=== PATIENT | female | born 1935 | race Caucasian/White ===

== ENCOUNTER 2019-11-28 19:40 | Inpatient (IN) | payer MEDICARE, OTHER ==
[~2019-11-28] VITALS: Ht 152.4 cm; Wt 56.7 kg
--- NOTE | 2019-11-29 12:20 | NUR ---
KEVIN ETIENNE admitted to room 426-1, with an admitting diagnosis of ELISSA, ALVINO, on 11/29/19 from [facility] via EMS, accompanied by EMS. KEVIN ETIENNE introduced to surroundings, call light, bed controls, phone, TV, temperature control, lights, meal times, smoking policy, visitor policy, side rail policy, bathrooms and showers. Patient Rights given to patient in the handbook. KEVIN ETIENNE verbalizes understanding that [facility] is not responsible for the loss or damage to any personal effects or valuables that are kept in the patients possession during their hospitalization. The following Patient Care Plans were discussed with the patient: Discharge Planning, pain management, medications, and dehydration. KEVIN ETIENNE verbalizes understanding of Interdisciplinary Patient Education. Patient and/or family were informed about the Rapid Response Team and its purpose.
[2019-11-29 12:30] VITALS: BP 140/66
[2019-11-29] MEDS ORDERED: IOHEXOL 350 MG/ML 100 ML (OMNIPAQUE 350) VIAL IV ONE (13:00)
[2019-11-29] MEDS ORDERED: NS 100 ML (IVPB) BAG IV ONE (13:00)
[2019-11-29] MEDS ORDERED: CATHETER FLUSH 10 ML SYR IV PRN ×2 (13:00)
[2019-11-29] MEDS ORDERED: PIPERACILLIN/TAZO 4.5 GM/NS 100 ML IV NR ×2 (13:00)
[2019-11-29] MEDS ORDERED: HOLD METFORMIN - RECEIVED CONTRAST 20 ML VIAL IV SCH (13:00)
[2019-11-29 13:50] LABS: BASOPHILS % (AUTO) 0 % (0-10); EOSINOPHILS % (AUTO) 0 % (0-10); HEMATOCRIT 38 % (35-52); HEMOGLOBIN 12.3 g/dL (11.5-16.0); LYMPHOCYTES # (AUTO) 1.1 10^3/uL (1.0-4.0); LYMPHOCYTES % (AUTO) 16 % (12-44); MEAN CORPUSCULAR HEMOGLOBIN 29 pg (25-34); MEAN CORPUSCULAR HGB CONC 32 g/dL (32-36); MEAN CORPUSCULAR VOLUME 89 fL (80-99); MEAN PLATELET VOLUME 10.5 fL (9.0-12.2); MONOCYTES # (AUTO) 0.3 10^3/uL (0.0-1.0); MONOCYTES % (AUTO) 4 % (0-12); NEUTROPHILS # (AUTO) 5.1 10^3/uL (1.8-7.8); NEUTROPHILS % (AUTO) 79 % (42-75); PLATELET COUNT 212 10^3/uL (130-400); WHITE BLOOD COUNT 6.5 10^3/uL (4.3-11.0)
[2019-11-29 14:00] LABS: ALBUMIN 3.2 GM/DL (3.2-4.5); CHLORIDE 97 MMOL/L (98-107); POTASSIUM 3.9 MMOL/L (3.6-5.0); SODIUM 132 MMOL/L (135-145)
[2019-11-29 14:01] LABS: CALCIUM 8.6 MG/DL (8.5-10.1)
[2019-11-29 14:03] LABS: GLUCOSE 101 MG/DL (70-105); TOTAL PROTEIN 5.9 GM/DL (6.4-8.2)
[2019-11-29 14:04] LABS: BILIRUBIN,TOTAL 0.5 MG/DL (0.1-1.0); CARBON DIOXIDE 24 MMOL/L (21-32)
[2019-11-29 14:06] LABS: ALKALINE PHOSPHATASE 45 U/L (40-136); GFR ESTIMATED > 60
[2019-11-29 14:07] LABS: BUN/CREATININE RATIO 9
[2019-11-29 14:09] LABS: ALANINE AMINOTRANSFERASE 11 U/L (0-55)
[2019-11-29 14:20] LABS: ATYPICAL LYMPHOCYTES 1 %; BAND NEUTROPHILS 8 %; LYMPHOCYTES % (MANUAL) 9 %; MONOCYTES % (MANUAL) 4 %; NEUTROPHILS % (MANUAL) 78 %; RBC MORPH NORMAL
[2019-11-29] MEDS: CATHETER FLUSH 10 ML SYR IV SCH ×2 (14:20→22:00)
[2019-11-29] MEDS ORDERED: APIX5TAB PO (14:43)
[2019-11-29] MEDS ORDERED: ACET325C7 PO (14:43)
[2019-11-29] MEDS ORDERED: GABA-486 PO (14:43)
[2019-11-29] MEDS ORDERED: DONE10TA41 PO (14:43)
[2019-11-29] MEDS ORDERED: LEVO50TA6 PO (14:43)
--- NOTE | 2019-11-29 14:43 | NUR ---
SPOKE WITH THE PT (I CALLED HER ROOM PHONE) AND WENT THRU THE EXT MED HISTORY TO COMPLETE THE MED REC PT FILLED A Z-ALEC ON 11-20-2019 #1/5DS-PT SAYS SHE HAS FINISHED THIS MEDICATION ALL OTHER MEDICATIONS THE PT WAS ABLE TO CONFIRM SHE TAKES, WELL WHEN/HOW SHE TAKES EACH OTC MEDS: TYLENOL
--- NOTE | 2019-11-29 15:56 | History & Physical-Hospitalist ---
History of Present Illness HPI/Chief Complaint Pt is an 84yoCF who presented from OSH due to COVID and hypoxia. She is a very poor historian because she states she is not feeling well. She reports her symptoms have been going on for 3-4 weeks and she has had 4 COVID tests with that 4th being positive last week. She continued to worsen and just "feels bad." She denies any shortness of breath and has a mild cough. She reports poor appetite but denies vomiting. She otherwise was very vague and did not answer my questions. I have reviewed the DC summary from [facility] and it appears she was admitted for CAP and UTI and was treated with Rocephin and UTI for 3 days. She was found to be COVID positive on 11/27 (though I am unsure why she was tested). She was transferred here as they do not keep COVID positive patients. She was mildly hypoxic on presentation for CAP and required 1-2lpm NC. Source: patient Exam Limitations: no limitations Date Seen 11/29/19 Time Seen by a Provider: 15:50 Attending Physician Susi Saavedra MD PCP Referring Physician Date of Admission Nov 29, 2019 at 12:24 Home Medications & Allergies Home Medications Reviewed patient Home Medication Reconciliation performed by pharmacy medication reconciliations highway technician and/or nursing. Patients Allergies have been reviewed. Allergies Allergies Coded Allergies No Known Drug Allergies (Gzdmyfoiqg17/7/20) Past Snpkkxr-Ouohkp-Pnajik Hx Past Med/Social Hx: Reviewed Nursing Past Med/Soc Hx Patient Social History Marrital Status: Employed/Student: retired Smoking Status: Unknown if Ever Smoked Recent Foreign Travel: No Contact w/other who traveled: No Recent Infectious Disease Expo: No Past Medical History Cardiac: Atrial Fibrillation, High Cholesterol Neurological: Dementia Endocrine: Hypothyroidsim Family History Reviewed Nursing Family Hx No Pertinent Family Hx Review of Systems Constitutional: fever Physical Exam Physical Exam Vital Signs Vital Signs - First Documented Capillary Refill : Height, Weight, BMI Height: '" Weight: lbs. oz. kg; 26.60 BMI Method: General Appearance: No Apparent Distress, Chronically ill HEENT: PERRL/EOMI, Moist Mucous Membranes; No Scleral Icterus (L), No Scleral Icterus (R) Neck: Normal Inspection, Supple Respiratory: No Accessory Muscle Use, Decreased Breath Sounds, Other (on 3lpm NC) Cardiovascular: No Edema, No Murmur, Irregularly Irregular Gastrointestinal: Normal Bowel Sounds, Non Tender, Soft Extremity: Normal Capillary Refill, No Calf Tenderness, No Pedal Edema Neurologic/Psychiatric: Alert, Oriented x3 (slightly confused about details of recent admission); No Aphasia Skin: Normal Color, Warm/Dry Results Results/Procedures Labs Laboratory Tests 11/29/19 13:20 11/30/19 06:12 Patient resulted labs reviewed. Assessment/Plan Admission Diagnosis COVID19 Admission Status: Inpatient Order (span 2 midnights) Reason for Inpatient Admission: see below Assessment and Plan COVID19 Pneumonia Acute hypoxic respiratory failure Continue decadron Discussed convalescent plasma with patient and she states she would like to think about it Appears to be outside the window for Remdesivir as her symptoms have been going on for weeks but she would also like to think about that IS mat protocol Zosyn for pneumonia UTI Await cultures from OSH Continue Zosyn A-fib rate controlled, does not appear to be on any rate controlling medicines here Continue Eliquis for stroke ppx Hypothyroidism Continue home synthroid DVT ppx: already on eliquis Diagnosis/Problems Diagnosis/Problems (1) Acute respiratory failure Status: Acute Qualifiers: Respiratory failure complication: hypoxia Qualified Codes: J96.01 - Acute respiratory failure with hypoxia (2) Atrial fibrillation Status: Chronic Qualifiers: Atrial fibrillation type: paroxysmal Qualified Codes: I48.0 - Paroxysmal atrial fibrillation (3) COVID-19 Status: Acute (4) Debility Status: Acute (5) Dementia Status: Chronic Qualifiers: Dementia type: unspecified type Dementia behavioral disturbance: without behavioral disturbance Qualified Codes: F03.90 - Unspecified dementia without behavioral disturbance (6) Pneumonia due to COVID-19 virus Status: Acute Clinical Quality Measures DVT/VTE Risk/Contraindication: Risk Factor Score Per Nursin RFS Level Per Nursing on Admit: 4+=Very High IVA SEE MD Nov 29, 2019 15:56
[2019-11-29 16:00] VITALS: BP 152/69
[2019-11-29] MEDS ORDERED: NON-FORMULARY MEDICATION 1 EA EA (Acetaminophen (Tylenol) 650 MG) PO PRN (16:00)
--- NOTE | 2019-11-29 16:00 | NUR ---
Patient back from CT at this time. Reported from CT that IV infiltrated while in CT, and arm was swolen, new IV was placed in CT. Ice applied to arm at this time. Will continue to monitor.
--- NOTE | 2019-11-29 16:15 | Diagnostic Imaging Report ---
PROCEDURE: CT angiography of the chest with contrast. TECHNIQUE: Multiple contiguous axial images were obtained through the chest after uneventful bolus administration of intravenous contrast. 3D reconstructed CTA MIP acquisitions were also performed. Auto Exposure Controls were utilized during the CT exam to meet ALARA standards for radiation dose reduction. INDICATION: Fever, cough, shortness of air, COVID positive. COMPARISON: I have no comparison. FINDINGS: There are no intraluminal pulmonary arterial filling defects. There were no findings of pulmonary arterial embolus. This patient has extensive five-lobe patchy and scattered largely groundglass infiltrates as well as bilateral pleural effusions, greater right, nonloculated. The right pleural fluid layering to an average depth of 1.3 cm. Heart size is at the upper limits of normal. The aorta is nonaneurysmal. There are coronary arterial atherosclerotic vascular calcifications and there is a small hiatal hernia. No findings of elevated right heart pressures or right heart strain. There is some right hilar and subcarinal mild lymphadenopathy, likely reactive. The visualized upper abdomen demonstrates a left hepatic lobe cyst with no free fluid or free air. IMPRESSION: 1. Bilateral largely groundglass infiltrates. There are small bilateral nonloculated pleural effusions, greater right, as well as likely some mild reactive thoracic adenopathy. 2. Nonaneurysmal atherosclerosis. Dictated by: Dictated on workstation # [id number]
[2019-11-29 16:33] VITALS: BP 152/69
[2019-11-29] MEDS: ACETAMINOPHEN 325 MG TABLET PO PRN (16:43)
[2019-11-29 19:43] VITALS: BP 103/57
[2019-11-29] MEDS: DONEPEZIL 10 MG (ARICEPT) TAB PO SCH (20:33)
[2019-11-29] MEDS: PIPERACILLIN/TAZOBACTAM (BULK) 4.5 GM in NS (IVPB) 100 ML IV SCH (20:33)
[2019-11-29] MEDS: APIXABAN 5 MG (ELIQUIS) TABLET PO SCH (20:33)
[2019-11-29] MEDS: RT-ALBUTEROL INHALER HFA (VENTOLIN HFA) 18 GM IH PRN (20:53)
[2019-11-29] MEDS: RT-ALBUTEROL INHALER HFA (VENTOLIN HFA) 18 GM IH SCH (21:09)
[2019-11-29 23:34] LABS: ABG BASE EXCESS -2.3 MMOL/L (-2.5-2.5); ABG OXYGEN SATURATION 94 % (94-100); ABG PCO2 35 MMHG (35-45); ABG PO2 67 MMHG (79-93)
--- NOTE | 2019-11-29 23:39 | NUR ---
PT update: This RN went in to give pt's meds at 2030 and to assess the PT. As previously noted by RACH Antony, in regards to CT blowing the patients IV in her left arm, her left arm looked less swollen and pt did not complain of any pain, just that she felt that it was uncomftorable. Ice was removed for 30 min, then re applied with the ice pack again with a small rag between the skin/arm. Ice pack was removed 30 min later, and pt said she was ok and done with the ICE pack. At this time, the patient skin was also moist and a new gown was reapplied with linen changes. PT stated she just felt sweaty and pt skin was moist. PT's skin did not seem warm/hot, and the PT was not running a fever as temperature was 36.0 Celsius. PT had a loose BM at this time and experienced some SOB/fatigue when positioning to the side of the bed and using the commode. PT is on 3 L NC and stopped experiencing SOB when laying back down in bed - PT just complained of being fatigued. Will continue to monitor pt and provide care as ordered.
[2019-11-29 23:40] LABS: ALLENS TEST POS; INSPIRED O2 3; PATIENT TEMP 35.9; VENTILATOR NO
[2019-11-30] VITALS (7 sets, daily range): BP systolic 86–150; BP diastolic 50–87
[2019-11-30] MEDS: RT-ALBUTEROL INHALER HFA (VENTOLIN HFA) 18 GM IH SCH ×3 (02:25→15:32)
[2019-11-30] MEDS: PIPERACILLIN/TAZOBACTAM (BULK) 4.5 GM in NS (IVPB) 100 ML IV SCH ×3 (02:58→20:14)
[2019-11-30 06:17] LABS: HEMOGLOBIN 12.3 g/dL (11.5-16.0); MEAN PLATELET VOLUME 10.3 fL (9.0-12.2); WHITE BLOOD COUNT 6.2 10^3/uL (4.3-11.0)
[2019-11-30 06:34] LABS: CHLORIDE 97 MMOL/L (98-107); SODIUM 133 MMOL/L (135-145)
[2019-11-30 06:35] LABS: CALCIUM 8.8 MG/DL (8.5-10.1); GLUCOSE 133 MG/DL (70-105)
[2019-11-30 06:37] LABS: CARBON DIOXIDE 23 MMOL/L (21-32)
[2019-11-30 06:39] LABS: CREATININE SERUM 0.74 MG/DL (0.60-1.30); GFR ESTIMATED > 60
[2019-11-30 06:40] LABS: BUN/CREATININE RATIO 15
[2019-11-30] MEDS: CATHETER FLUSH 10 ML SYR IV SCH ×3 (06:48→22:00)
[2019-11-30] MEDS: LEVOTHYROXINE 50 MCG (LEVOTHROID) TAB PO SCH (06:48)
[2019-11-30] MEDS: APIXABAN 5 MG (ELIQUIS) TABLET PO SCH ×2 (08:15→20:13)
--- NOTE | 2019-11-30 11:41 | Progress Note - Hospitalist ---
Subjective HPI/CC On Admission Date Seen by Provider: Nov 30, 2019 Time Seen by Provider: 11:37 Pt is an 84yoCF who presented from OSH due to COVID and hypoxia. She is a very poor historian because she states she is not feeling well. She reports her symptoms have been going on for 3-4 weeks and she has had 4 COVID tests with that 4th being positive last week. She continued to worsen and just "feels bad." She denies any shortness of breath and has a mild cough. She reports poor appetite but denies vomiting. She otherwise was very vague and did not answer my questions. I have reviewed the DC summary from [facility] and it appears she was admitted for CAP and UTI and was treated with Rocephin and UTI for 3 days. She was found to be COVID positive on 11/27 (though I am unsure why she was tested). She was transferred here as they do not keep COVID positive patients. She was mildly hypoxic on presentation for CAP and required 1-2lpm NC. Subjective/Events-last exam Pt reports feeling better today. Objective Exam Vital Signs Vital Signs Date Time Temp Pulse Resp B/P (MAP) Pulse Ox O2 Delivery O2 Flow Rate FiO2 11/30/19 08:55 Nasal Cannula 4.00 11/30/19 08:00 36.3 77 18 118/66 (83) 93 Capillary Refill : Less Than 3 Seconds General Appearance: No Apparent Distress, Chronically ill Respiratory: No Accessory Muscle Use; No Crackles; Decreased Breath Sounds Cardiovascular: Regular Rate, Rhythm, No Murmur Neurologic/Psychiatric: Alert, Oriented x3 Results/Procedures Lab Laboratory Tests 11/29/19 13:20 11/30/19 06:12 Patient resulted labs reviewed. Assessment/Plan Assessment and Plan Assess & Plan/Chief Complaint COVID19 Pneumonia Acute hypoxic respiratory failure Continue decadron Discussed convalescent plasma with patient and family and they are agreeable, understand EUA terms Discussed with daughter today who states that symptoms of cough and fever started 11/19, 10 days ago, actually within timeline for remdesivir, discussed EUA terms and they are all agreeable as well IS mat protocol Zosyn for pneumonia UTI Await cultures from OSH Continue Zosyn A-fib rate controlled, does not appear to be on any rate controlling medicines here Continue Eliquis for stroke ppx Daughter states worsening fatigue since starting that earlier this year, consider switch back to warfarin after acute illness Hypothyroidism Continue home synthroid DVT ppx: already on eliquis Clinical Quality Measures DVT/VTE Risk/Contraindication: Risk Factor Score Per Nursin RFS Level Per Nursing on Admit: 4+=Very High IVA SEE MD Nov 30, 2019 11:41
[2019-11-30] MEDS ORDERED: NS IV 500 ML 500 ML IV SCH (11:52)
[2019-11-30] MEDS ORDERED: REMDESIVIR INJ (NON-FORMULARY) 200 MG in NS (IVPB) 210 ML IV NR ×2 (12:00→16:00)
--- NOTE | 2019-11-30 12:16 | Occupational Therapy Eval ---
OT Evaluation-General/PLF Medical Diagnosis Admission Date Nov 30, 2019 at 10:07 Medical Diagnosis: COVID+, pneumonia Onset Date: Nov 30, 2019 Therapy Diagnosis Therapy Diagnosis: decreased ADL status, weakness Precautions Precautions/Isolations: Contact Isolation, Droplet Isolation, Fall Prevention Referral Physician: Benita Referral Reason: Evaluation/Treatment Medical History Pertinent Medical History: Atrial Fib, Dementia, Hypothroidism Additional Medical History high cholesterol Current History Pt had symptoms for ~3-4 weeks. She was admitted to [facility] with CAP & UTI, pt tested positive for COVID and transferred to [facility] with COVID+ and hypoxia. Social History Home: Single Level Current Living Status: Spouse ADL-Prior Level of Function SCALE: Activities may be completed with or without assistive devices. 3-Ehxscpybwd-ldqusko completes the activity by him/herself with no assistance from a helper. 5-Set-up or Clean-up Assistance-helper sets up or cleans up; patient completes activity. [place] assists only prior to or following the activity. 4-Supervision or Touching Assistance-helper provides verbal cues and/or touching/steadying and/or contact guard assistance as patient completes activity. Assistance may be provided throughout the activity or intermittently. 3-Partial/Moderate Assistance-helper does LESS THAN HALF the effort. [place] lifts, holds or supports trunk or limbs, but provides less than half the effort. 2-Substantial/Maximal Assistance-helper does MORE THAN HALF the effort. [place] lifts or holds trunk or limbs and provides more than half the effort. 3-Gzdmymitb-uhyaaz does ALL the effort. Patient does none of the effort to complete the activity. Or, the assistance of 2 or more helpers is required for the patient to complete the activity. If activity was not attempted, code reason: 7-Patient Refused. 9-Not Applicable-not attempted and the patient did not perform the activity before the current illness, exacerbation or injury. 10-Not Attempted due to Environmental Limitations-(lack of equipment, weather restraints, etc.). 88-Not Attempted due to Medical Conditions or Safety Concerns. ADL PLOF Comments Pt reports being independent with ADLs at [facility], since feeling weak the last few weeks her has assisted with house work. She has a walk in shower with a shower chair. Self Care: Independent Functional Cognition: Independent DME/Equipment: Bath Chair, Shower OT Current Status Subjective Pt agreeable to OT evaluation, she did not verbalize any pain. Pt indicates she feels very weak and when she coughs she has a BM. Mental Status/Objective Attachments: Oxygen Current Glasses/Contacts: Yes Hearing Aids: Yes Upper Extremity ROM WFL Upper Extremity Coordination WFL Upper Extremity Strength grossly 3/5 ADL-Treatment Lower Body Dressing (QC): 3 (min A, pt able to manage pants down. OT assisted with doffing brief due to incontinent of BM. Pt then able to thread BLEs and manage brief up with CGA.) Toileting Hygiene (QC): 3 (Pt able to manage clothing, min A with hygiene for thoroughness) Other Treatments Pt walking with PT in room, then into restroom. Pt transferred onto toilet with CGA. She doffed soiled brief with assistance, then completed toileting. Pt indicates each time she coughs she has a BM. Pt attempted to perform hygiene, but had coughing spells, min A with hygiene for thoroughness. Pt then used FWW to ambulate to the recliner, [facility], with skilled cues for transfer. OT assisted pt with plugging her cellphone in to charge, and assist with positioning to comfort. Post OT Tx, pt seated in recliner, call light in reach and all needs met. Education OT Patient Education: Correct positioning, Energy conservation, Modified ADL techniques, Progress toward Goal/Update tx plan, Purpose of tx/functional activities, Rehab process, Safety issues, Transfer techniques Teaching Recipient: Patient Teaching Methods: Discussion Response to Teaching: Verbalize Understanding OT Penitentiary Goals Penitentiary Goals Time Frame: Dec 08, 2019 Eating (QC): 6 Oral Hygiene (QC): 6 Toileting Hygiene (QC): 6 Shower/Bathe Self (QC): 6 Upper Body Dressing (QC): 6 Lower Body Dressing (QC): 6 On/Off Footwear (QC): 6 1=Demonstrate adherence to instructed precautions during ADL tasks. 2=Patient will verbalize/demonstrate understanding of assistive devices/modifications for ADL. 3=Patient will improve strength/tolerance for activity to enable patient to perform ADL's. OT Education/Plan Problem List/Assessment Assessment: Decreased Activ Tolerance, Decreased UE Strength, Impaired Funct Balance, Impaired I ADL's, Impaired Self-Care Skills Discharge Recommendations Plan/Recommendations: Continue POC Therapy Discharge Recommendati: Home & Family, Post Acute OT Treatment Plan/Plan of Care Patient would benefit from OT for education, treatment and training to promote independence in ADL's, mobility, safety and/or upper extremity function for ADL's. Plan of Care: ADL Retraining, Functional Mobility, UE Funct Exercise/Act Treatment Duration: Dec 08, 2019 Frequency: 5 times per week Estimated Hrs Per Day: .25 hour per day Rehab Potential: Fair Time/GCodes Start Time: 11:33 Stop Time: 11:48 Total Time Billed (hr/min): 15 Billed Treatment Time 1, SUSIE BURNS OT Nov 30, 2019 12:16
--- NOTE | 2019-11-30 13:31 | Physical Therapy Evaluation ---
PT Evaluation-General Medical Diagnosis Admission Date Nov 30, 2019 at 10:07 Medical Diagnosis: COVID+, pneumonia Onset Date: Nov 30, 2019 Therapy Diagnosis Therapy Diagnosis: generalized weakness/debility Precautions Precautions/Isolations: Contact Isolation, Droplet Isolation, Fall Prevention Referral Physician: Benita Reason for Referral: Evaluation/Treatment Medical History Pertinent Medical History: Atrial Fib, Dementia, Hypothroidism Current History admit from OSH secondary to Covid Reviewed History: Yes Social History Home: Single Level Current Living Status: Spouse Prior Prior Level of Function SCALE: Activities may be completed with or without assistive devices. 5-Nnvtfskuxx-dnburpn completes the activity by him/herself with no assistance from a helper. 5-Set-up or Clean-up Assistance-helper sets up or cleans up; patient completes activity. [place] assists only prior to or following the activity. 4-Supervision or Touching Assistance-helper provides verbal cues and/or touching/steadying and/or contact guard assistance as patient completes activity. Assistance may be provided throughout the activity or intermittently. 3-Partial/Moderate Assistance-helper does LESS THAN HALF the effort. [place] lifts, holds or supports trunk or limbs, but provides less than half the effort. 2-Substantial/Maximal Assistance-helper does MORE THAN HALF the effort. [place] lifts or holds trunk or limbs and provides more than half the effort. 5-Atwistkog-gwgwfq does ALL the effort. Patient does none of the effort to complete the activity. Or, the assistance of 2 or more helpers is required for the patient to complete the activity. If activity was not attempted, code reason: 7-Patient Refused. 9-Not Applicable-not attempted and the patient did not perform the activity before the current illness, exacerbation or injury. 10-Not Attempted due to Environmental Limitations-(lack of equipment, weather restraints, etc.). 88-Not Attempted due to Medical Conditions or Safety Concerns. Bed Mobility: 6 Transfers (B,C,W/C): 6 Gait: 6 Stairs: 6 Indoor Mobility (Ambulation): Independent Stairs: Independent Prior Devices Use: None PT Evaluation-Current Subjective Patient agrees to PT. Objective Patient Orientation: Normal For Age Attachments: Oxygen ROM/Strength ROM Lower Extremities bilateral LE WFL Strength Lower Extremities 3+/5 grossly bilateral LE Integumentary/Posture Integumentary refer to nursing notes Bowel Incontinence: Yes Bladder Incontinence: Yes Posture WFL Neuromuscular (Tone, Coordination, Reflexes) grossly intact Sensory Vision: Wears Glasses Hearing: Hearing Aid/Aides Sensation Right Lower Extremit: Intact Sensation Left Lower Extremity: Intact Transfers Roll Left to Right (QC): 6 Lying to Sitting/Side of Bed(Q: 6 Sit to Stand (QC): 5 Gait Does the Patient Walk?: Yes Mode of Locomotion: Walk Anticipated Mode of Locomotion: Walk Walk 10 feet (QC): 5 Gait Assistive Device: FWW Comments/Gait Description Patient incontinent BM during session. OT present to begin evaluation to assist patient Balance Sitting Static: Normal Sitting Dynamic: Normal Standing Static: Normal Standing Dynamic: Normal Assessment/Needs 84 y.o. female, will benefit from skilled PT to address functional strength and mobility to improve current LOF to safely return to home at maximum LOF. Rehab Potential: Fair PT Senior Search Marketing Analyst Goals Senior Search Marketing Analyst Goals PT [facility] Goals Time Frame: Dec 08, 2019 Roll Left & Right (QC): 6 Sit to Lying (QC): 6 Lying-Sitting on Side/Bed(QC): 6 Sit to Stand (QC): 6 Chair/Nsp-jn-Faxgw Xfer(QC): 6 Toilet Transfer (QC): 6 Does the Patient Walk: Yes Walk 10 feet (QC): 6 Walk 50ft with 2 Turns (QC): 6 Walk 150 ft (QC): 6 PT Plan Problem List Problem List: Activity Tolerance, Safety, Balance Treatment/Plan Treatment Plan: Continue Plan of Care Treatment Plan: Bed Mobility, Education, Functional Activity Misael, Functional Strength, Gait, Safety, Therapeutic Exercise, Transfers Treatment Duration: Dec 09, 2019 Frequency: 6 times per week Estimated Hrs Per Day: .25 hour per day Patient and/or Family Agrees t: Yes Time/GCodes Time In: 1125 Time Out: 1136 Total Billed Treatment Time: 11 Total Billed Treatment 1 visit EVMod 11 min JUAN BERRIOS PT Nov 30, 2019 13:31
--- NOTE | 2019-11-30 14:10 | NUR ---
"RD ASSESSMENT PMHx: hypercholesterolemia; dementia; hypothyroidism; PT INTERACTION: Note pt has dementia and is COVID-19, per chart review. Note all diet information for nutrition assessment is per chart review. Note PO intake 25% x1meal. Note last BM was 11/29, and pt not currently on bowel regimen. Note unable to determine recent wt hx. ABNORMAL NUTRITION-RELATED LAB VALUES LOW: Na 133; Cl 97 HIGH: glu 133 Est. kcal needs: 1550 kcal | 25 kcal/kg Est. Pro needs: 62 g Pro | 1.0 g Pro/kg PES STATEMENT: Inadequate oral intake (NI-2.1) related to loss of appetite as evidenced by chart review | PO intake 25% x1meal INTERVENTION: Continue with current diet order of Regular diet. Add Ensure Enlive (vary) to meals TID, for increased kcal intake. Provides 350 kcal and 13 g Pro per serving. Would encourage pt to eat when able. Will continue to follow and reassess as pt needs, intake, and status change. Amelie Orr, MS RD LD"
[2019-11-30] MEDS: ACETAMINOPHEN 325 MG TABLET PO PRN ×2 (15:20→23:40)
[2019-11-30] MEDS: DONEPEZIL 10 MG (ARICEPT) TAB PO SCH (20:13)
[2019-11-30] MEDS: GABAPENTIN 100 MG (NEURONTIN) CAP PO SCH (20:13)
[2019-11-30] MEDS: RT-ALBUTEROL INHALER HFA (VENTOLIN HFA) 18 GM IH PRN (21:43)
[2019-12-01] VITALS (9 sets, daily range): BP systolic 100–155; BP diastolic 57–82
[2019-12-01] MEDS ORDERED: IBUPROFEN TABLET 200 MG TAB PO PRN
--- NOTE | 2019-12-01 00:02 | NUR ---
This nurse notified Dr. Saavedra at 2378 regarding this pts temp of 38.6 C/101.5 F, BP of 150/89, and SPO2 of 75-80% on 3 L. Pt was visibly shaking and complaining of feeling warm. Dr. Saavedra ordered ibuprophen 400mg PO PRN q6HRS for pain/fever, between doses of tylenol PRN. ICE packs are currently applied underneath pts neck and both arms in an attempt to bring down fever, and pt is limited just to a bed sheet. Pt is currently on 5 L NC with sats maintaining at 85% ( I WENT UP TO 7L BUT IT DIDN'T IMPROVE SATS) and I called RT and they are going to assess there on their rounds. Will reassess and remove ice packs in 30 minutes. Will continue to monitor pt/temp/sats and provide care as ordered.
--- NOTE | 2019-12-01 01:22 | NUR ---
This nurse reassessed this pt's temperature at 0030 and it was 37.6 C (Temporal). Ice packs were removed for 10 minutes, then reapplied. At 0100, this nurse reassessed pt's temperature (Temporal) again and it was 36.2 C. Ice packs have been removed, and pt only has a sheet and states she is comfortable. At this time, RT came in and put this pt on 9 L High flow NC, and SPO2 is maintaining >90% on a continuous pulse ox so we can monitor through window. Will continue to monitor pt and provide care as ordered.
[2019-12-01] MEDS: RT-ALBUTEROL INHALER HFA (VENTOLIN HFA) 18 GM IH SCH ×3 (03:04→19:30)
[2019-12-01] MEDS: PIPERACILLIN/TAZOBACTAM (BULK) 4.5 GM in NS (IVPB) 100 ML IV SCH ×3 (04:07→19:38)
[2019-12-01 06:12] LABS: ALBUMIN 3.2 GM/DL (3.2-4.5)
[2019-12-01 06:13] LABS: CHLORIDE 99 MMOL/L (98-107); POTASSIUM 3.9 MMOL/L (3.6-5.0); SODIUM 136 MMOL/L (135-145)
[2019-12-01 06:14] LABS: CALCIUM 8.7 MG/DL (8.5-10.1)
[2019-12-01 06:15] LABS: GLUCOSE 130 MG/DL (70-105); TOTAL PROTEIN 6.1 GM/DL (6.4-8.2)
[2019-12-01 06:16] LABS: CARBON DIOXIDE 25 MMOL/L (21-32)
[2019-12-01 06:17] LABS: BILIRUBIN,TOTAL 0.5 MG/DL (0.1-1.0)
[2019-12-01 06:18] LABS: ALKALINE PHOSPHATASE 43 U/L (40-136)
[2019-12-01 06:19] LABS: CREATININE SERUM 0.79 MG/DL (0.60-1.30); GFR ESTIMATED > 60
[2019-12-01 06:20] LABS: BUN/CREATININE RATIO 19
[2019-12-01 06:22] LABS: ALANINE AMINOTRANSFERASE 24 U/L (0-55)
[2019-12-01] MEDS: CATHETER FLUSH 10 ML SYR IV SCH ×2 (06:22→14:00)
[2019-12-01] MEDS: LEVOTHYROXINE 50 MCG (LEVOTHROID) TAB PO SCH (06:22)
[2019-12-01] MEDS: APIXABAN 5 MG (ELIQUIS) TABLET PO SCH ×2 (09:00→20:10)
--- NOTE | 2019-12-01 09:38 | NUR ---
Patient O2 at 0800 76% on 10 L high flow. RN notified, patient O2 increased to 15 L high flow, and placed in prone position. 0837 patient O2 decreased ack to 10 L high flow, 94%. Patient tolerating prone position at that time.
--- NOTE | 2019-12-01 12:04 | Physical Therapy Daily Note ---
PT Daily Note-Current Subjective Patient opens eyes and moans on this date. Patient is on 12L O2 NC HF with SAO2 88%. RN is aware. Mental Status Patient Orientation: Eyes Open Attachments: Oxygen (12L HF NC), IV Transfers SCALE: Activities may be completed with or without assistive devices. 9-Wbwgelpxpa-xzvlxgj completes the activity by him/herself with no assistance from a helper. 5-Set-up or Clean-up Assistance-helper sets up or cleans up; patient completes activity. [place] assists only prior to or following the activity. 4-Supervision or Touching Assistance-helper provides verbal cues and/or touching/steadying and/or contact guard assistance as patient completes activity. Assistance may be provided throughout the activity or intermittently. 3-Partial/Moderate Assistance-helper does LESS THAN HALF the effort. [place] lifts, holds or supports trunk or limbs, but provides less than half the effort. 2-Substantial/Maximal Assistance-helper does MORE THAN HALF the effort. [place] lifts or holds trunk or limbs and provides more than half the effort. 7-Xrlrxoopg-ubiccg does ALL the effort. Patient does none of the effort to complete the activity. Or, the assistance of 2 or more helpers is required for the patient to complete the activity. If activity was not attempted, code reason: 7-Patient Refused. 9-Not Applicable-not attempted and the patient did not perform the activity be fore the current illness, exacerbation or injury. 10-Not Attempted due to Environmental Limitations-(lack of equipment, weather restraints, etc.). 88-Not Attempted due to Medical Conditions or Safety Concerns. Roll Left & Right (QC): 2 Patient repositioned to side lying left to improve SAO2. Assessment Patient unable to safely perform OOB activity due to elevated temp, increase in O2 need and inability to follow direction. PT [facility] Goals Orthotic Finish Grinding Technician Goals PT Orthotic Finish Grinding Technician Goals Time Frame: Dec 08, 2019 Roll Left & Right (QC): 6 Sit to Lying (QC): 6 Lying-Sitting on Side/Bed(QC): 6 Sit to Stand (QC): 6 Chair/Mio-tj-Aecwt Xfer(QC): 6 Toilet Transfer (QC): 6 Does the Patient Walk: Yes Walk 10 feet (QC): 6 Walk 50ft with 2 Turns (QC): 6 Walk 150 ft (QC): 6 PT Plan Treatment/Plan Treatment Plan: Continue Plan of Care Treatment Plan: Bed Mobility, Education, Functional Activity Misael, Functional Strength, Gait, Safety, Therapeutic Exercise, Transfers Treatment Duration: Dec 09, 2019 Frequency: 6 times per week Estimated Hrs Per Day: .25 hour per day Patient and/or Family Agrees t: Yes Time/GCodes Time In: 1125 Time Out: 1135 Total Billed Treatment Time: 10 Total Billed Treatment 1 visit FA 10 min JUAN BERRIOS PT Dec 01, 2019 12:04
[2019-12-01] MEDS ORDERED: NS IV 500 ML 500 ML ONE (14:03)
--- NOTE | 2019-12-01 14:13 | Occupational Ther Daily Note ---
OT Current Status-Daily Note Subjective Pt in bed upon entry. Pt awake/ alert. Pt denies food, denies activity. When handed drink, pt drinks then continues activities as tolerated. Pt's sats remain 90's through side lying and low 80's post ambulation. Mental Status/Objective Attachments: Oxygen (12 L) ADL-Treatment Therapy Code Descriptions/Definitions Functional [place] Measure: 0=Not Assessed/NA 4=Minimal Assistance 1=Total Assistance 5=Supervision or Setup 2=Maximal Assistance 6=Modified [place] 3=Moderate Assistance 7=Complete IndependenceSCALE: Activities may be completed with or without assistive devices. 0-Ikeecljcap-hmckogs completes the activity by him/herself with no assistance from a helper. 5-Set-up or Clean-up Assistance-helper sets up or cleans up; patient completes activity. [place] assists only prior to or following the activity. 4-Supervision or Touching Assistance-helper provides verbal cues and/or touching/steadying and/or contact guard assistance as patient completes activity. Assistance may be provided throughout the activity or intermittently. 3-Partial/Moderate Assistance-helper does LESS THAN HALF the effort. [place] lifts, holds or supports trunk or limbs, but provides less than half the effort. 2-Substantial/Maximal Assistance-helper does MORE THAN HALF the effort. [place] lifts or holds trunk or limbs and provides more than half the effort. 8-Nyodtgopq-rhnfvk does ALL the effort. Patient does none of the effort to complete the activity. Or, the assistance of 2 or more helpers is required for the patient to complete the activity. If activity was not attempted, code reason: 7-Patient Refused. 9-Not Applicable-not attempted and the patient did not perform the activity before the current illness, exacerbation or injury. 10-Not Attempted due to Environmental Limitations-(lack of equipment, weather restraints, etc.). 88-Not Attempted due to Medical Conditions or Safety Concerns. Eating (QC): 4 (encouragement required with limited CGA) Other Treatment Pt in bed, requires increased encouragement for participation. Drink handed to pt, pt drinks. Pt handed fruit, eats bites at a time (~4 pieces) Pt agrees to sit in recliner, completing supine to sit with max A, sit to stand with CGA, in standing pt coughs and 02 81%. Upon sit/ situating pt, pt's 02 raises to 90% within 3 min. Pt left in recliner with all needs met, call light in reach, education on use of call light. Education OT Patient Education: Correct positioning, Progress toward Goal/Update tx plan, Purpose of tx/functional activities, Safety issues Teaching Recipient: Patient Teaching Methods: Demonstration, Discussion Response to Teaching: Verbalize Understanding, Return Demonstration OT Financial Operations Consultant Goals [facility] Goals Time Frame: Dec 08, 2019 Eating (QC): 6 Oral Hygiene (QC): 6 Toileting Hygiene (QC): 6 Shower/Bathe Self (QC): 6 Upper Body Dressing (QC): 6 Lower Body Dressing (QC): 6 On/Off Footwear (QC): 6 1=Demonstrate adherence to instructed precautions during ADL tasks. 2=Patient will verbalize/demonstrate understanding of assistive devices/modifications for ADL. 3=Patient will improve strength/tolerance for activity to enable patient to perform ADL's. OT Education/Plan Problem List/Assessment Assessment: Decreased Activ Tolerance, Decreased UE Strength, Dependent Transfers, Impaired Bed Mobility, Impaired Cognition, Impaired Funct Balance, Impaired I ADL's, Impaired Self-Care Skills Discharge Recommendations Plan/Recommendations: Continue POC Treatment Plan/Plan of Care Treatment,Training & Education: Yes Patient would benefit from OT for education, treatment and training to promote independence in ADL's, mobility, safety and/or upper extremity function for ADL's. Plan of Care: ADL Retraining, Functional Mobility, UE Funct Exercise/Act Treatment Duration: Dec 08, 2019 Frequency: 5 times per week Estimated Hrs Per Day: .25 hour per day Rehab Potential: Fair Time/GCodes Start Time: 12:30 Stop Time: 13:00 Total Time Billed (hr/min): 30 Billed Treatment Time 1, ADL, FA (30) AAKASH GEE OTR Dec 01, 2019 14:13
--- NOTE | 2019-12-01 15:30 | Progress Note - Hospitalist ---
Subjective HPI/CC On Admission Date Seen by Provider: Dec 01, 2019 Time Seen by Provider: 15:20 Pt is an 84yoCF who presented from OSH due to COVID and hypoxia. She is a very poor historian because she states she is not feeling well. She reports her symptoms have been going on for 3-4 weeks and she has had 4 COVID tests with that 4th being positive last week. She continued to worsen and just "feels bad." She denies any shortness of breath and has a mild cough. She reports poor appetite but denies vomiting. She otherwise was very vague and did not answer my questions. I have reviewed the DC summary from [facility] and it appears she was admitted for CAP and UTI and was treated with Rocephin and UTI for 3 days. She was found to be COVID positive on 11/27 (though I am unsure why she was tested). She was transferred here as they do not keep COVID positive patients. She was mildly hypoxic on presentation for CAP and required 1-2lpm NC. Subjective/Events-last exam Pt reports doing ok tyoday. Had increasing oxygen requirement this morning and needed to prone but now up in chair and doing better. Objective Exam Vital Signs Vital Signs Date Time Temp Pulse Resp B/P (MAP) Pulse Ox O2 Delivery O2 Flow Rate FiO2 12/01/19 19:41 36.6 68 18 112/59 (76) 93 High Flow N/C 12.00 Capillary Refill : Less Than 3 Seconds General Appearance: No Apparent Distress, Chronically ill Respiratory: No Accessory Muscle Use, Decreased Breath Sounds; No Wheezing; Other (on 10 lpm HFNC) Cardiovascular: Regular Rate, Rhythm, No Murmur Neurologic/Psychiatric: Alert, Oriented x3 Results/Procedures Lab Laboratory Tests 12/01/19 05:32 Patient resulted labs reviewed. Assessment/Plan Assessment and Plan Assess & Plan/Chief Complaint COVID19 Pneumonia Acute hypoxic respiratory failure Continue decadron, remdesivir convalescent plasma on it's way up while I was examining her IS mat protocol Zosyn for pneumonia UTI Await cultures from OSH Continue Zosyn as above A-fib rate controlled, does not appear to be on any rate controlling medicines here Continue Eliquis for stroke ppx Daughter states worsening fatigue since starting that earlier this year, consider switch back to warfarin after acute illness Hypothyroidism Continue home synthroid DVT ppx: already on eliquis Diagnosis/Problems Diagnosis/Problems (1) Acute respiratory failure Status: Acute Qualifiers: Respiratory failure complication: hypoxia Qualified Codes: J96.01 - Acute respiratory failure with hypoxia (2) Atrial fibrillation Status: Chronic Qualifiers: Atrial fibrillation type: paroxysmal Qualified Codes: I48.0 - Paroxysmal atrial fibrillation (3) COVID-19 Status: Acute (4) Debility Status: Acute (5) Dementia Status: Chronic Qualifiers: Dementia type: unspecified type Dementia behavioral disturbance: without behavioral disturbance Qualified Codes: F03.90 - Unspecified dementia without behavioral disturbance (6) Pneumonia due to COVID-19 virus Status: Acute Clinical Quality Measures DVT/VTE Risk/Contraindication: Risk Factor Score Per Nursin RFS Level Per Nursing on Admit: 4+=Very High IVA SEE MD Dec 01, 2019 15:30
[2019-12-01] MEDS: REMDESIVIR INJ (NON-FORMULARY) 100 MG in NS (IVPB) 230 ML IV SCH (17:03)
[2019-12-01] MEDS: DONEPEZIL 10 MG (ARICEPT) TAB PO SCH (20:10)
[2019-12-01] MEDS: GABAPENTIN 100 MG (NEURONTIN) CAP PO SCH (20:10)
[2019-12-02] VITALS (7 sets, daily range): BP systolic 90–147; BP diastolic 55–70
[2019-12-02] MEDS: RT-ALBUTEROL INHALER HFA (VENTOLIN HFA) 18 GM IH SCH ×5 (03:02→19:31)
[2019-12-02] MEDS: PIPERACILLIN/TAZOBACTAM (BULK) 4.5 GM in NS (IVPB) 100 ML IV SCH ×3 (03:20→18:00)
[2019-12-02] MEDS: CATHETER FLUSH 10 ML SYR IV SCH ×4 (03:32→20:07)
[2019-12-02] MEDS: LEVOTHYROXINE 50 MCG (LEVOTHROID) TAB PO SCH (06:20)
[2019-12-02 07:09] LABS: MEAN PLATELET VOLUME 9.8 fL (9.0-12.2); WHITE BLOOD COUNT 8.8 10^3/uL (4.3-11.0)
[2019-12-02 07:33] LABS: ALANINE AMINOTRANSFERASE 22 U/L (0-55); ALBUMIN 2.9 GM/DL (3.2-4.5); ALKALINE PHOSPHATASE 42 U/L (40-136); BILIRUBIN,TOTAL 0.6 MG/DL (0.1-1.0); BUN/CREATININE RATIO 24; CALCIUM 8.7 MG/DL (8.5-10.1); CARBON DIOXIDE 27 MMOL/L (21-32); CHLORIDE 99 MMOL/L (98-107); CREATININE SERUM 0.78 MG/DL (0.60-1.30); GFR ESTIMATED > 60; GLUCOSE 148 MG/DL (70-105); POTASSIUM 3.8 MMOL/L (3.6-5.0); SODIUM 138 MMOL/L (135-145)
--- NOTE | 2019-12-02 08:27 | Diagnostic Imaging Report ---
Portable erect AP chest at 6:21. Indication: Cough, congestion, COVID. The CTA chest exam performed on 11/29/2019 noted bilateral largely groundglass infiltrates in both lungs and small bilateral pleural effusions. On this study the appearance of the chest has worsened as there does seem to be greater involvement of both lungs, particularly the right lung by pneumonia/atelectasis. The heart is stable in size. The mediastinum is not widened. The osseous structures are intact. Impression: The appearance of the chest has worsened since the prior study as there is greater involvement of both lungs by alveolar/interstitial pulmonary infiltrates. This does suggest progressive pneumonia. Clinical followup is recommended. Dictated by: Dictated on workstation # [id number]
[2019-12-02] MEDS: APIXABAN 5 MG (ELIQUIS) TABLET PO SCH ×2 (08:55→20:06)
--- NOTE | 2019-12-02 12:32 | Physical Therapy Daily Note ---
PT Daily Note-Current Subjective Pt agreeable to PT. Transfers SCALE: Activities may be completed with or without assistive devices. 7-Faaktdlbwz-oyqnaba completes the activity by him/herself with no assistance from a helper. 5-Set-up or Clean-up Assistance-helper sets up or cleans up; patient completes activity. [place] assists only prior to or following the activity. 4-Supervision or Touching Assistance-helper provides verbal cues and/or touching/steadying and/or contact guard assistance as patient completes activity. Assistance may be provided throughout the activity or intermittently. 3-Partial/Moderate Assistance-helper does LESS THAN HALF the effort. [place] lifts, holds or supports trunk or limbs, but provides less than half the effort. 2-Substantial/Maximal Assistance-helper does MORE THAN HALF the effort. [place] lifts or holds trunk or limbs and provides more than half the effort. 0-Bmzlpdcxp-rdwvmp does ALL the effort. Patient does none of the effort to complete the activity. Or, the assistance of 2 or more helpers is required for the patient to complete the activity. If activity was not attempted, code reason: 7-Patient Refused. 9-Not Applicable-not attempted and the patient did not perform the activity before the current illness, exacerbation or injury. 10-Not Attempted due to Environmental Limitations-(lack of equipment, weather restraints, etc.). 88-Not Attempted due to Medical Conditions or Safety Concerns. Sit to Lying (QC): 3 Lying to Sitting/Side of Bed(Q: 3 Sit to Stand (QC): 3 min assist for all transfers with cues for sequencing and processing. Sit to stand x 4 to change depend and for samuel care. Treatments Treatment consisted of transfer to sit EOB, she washed her face, brushed her teeth, had an incontinent episode. Changed depends, cleansed samuel area and applied new depends. Pt sat EOB or transferred sit to stand for this whole process. Rest breaks taken as needed. Pt on vapotherm throughout treatment and seemed to tolerate well. Pt in bed with needs met post treatment and resting comfortably with Vapotherm in situ. Assessment Current Status: Good Progress Pt tolerated being up nearly an hour at EOB to perform self care tasks and to address upright posture and mobility. PT [facility] Goals [facility] Goals PT [facility] Goals Time Frame: Dec 08, 2019 Roll Left & Right (QC): 6 Sit to Lying (QC): 6 Lying-Sitting on Side/Bed(QC): 6 Sit to Stand (QC): 6 Chair/Tee-wd-Hhrsv Xfer(QC): 6 Toilet Transfer (QC): 6 Does the Patient Walk: Yes Walk 10 feet (QC): 6 Walk 50ft with 2 Turns (QC): 6 Walk 150 ft (QC): 6 PT Plan Problem List Problem List: Activity Tolerance, Functional Strength, Safety, Balance, Gait, Transfer Treatment/Plan Treatment Plan: Continue Plan of Care Treatment Plan: Bed Mobility, Education, Functional Activity Misael, Functional Strength, Gait, Safety, Therapeutic Exercise, Transfers Treatment Duration: Dec 09, 2019 Frequency: 6 times per week Estimated Hrs Per Day: .25 hour per day Patient and/or Family Agrees t: Yes Safety Risks/Education Patient Education: Safety Issues Teaching Recipient: Patient Teaching Methods: Discussion Response to Teaching: Reinforcement Needed Discharge Recommendations Therapy Discharge Recommendati: Post Acute PT Time/GCodes Time In: 1125 Time Out: 1220 Total Billed Treatment Time: 55 Total Billed Treatment visit FA 55 RONIT SORENSEN PT Dec 02, 2019 12:31
--- NOTE | 2019-12-02 14:06 | Progress Note - Hospitalist ---
Subjective HPI/CC On Admission Date Seen by Provider: Dec 02, 2019 Time Seen by Provider: 13:59 Pt is an 84yoCF who presented from OSH due to COVID and hypoxia. She is a very poor historian because she states she is not feeling well. She reports her symptoms have been going on for 3-4 weeks and she has had 4 COVID tests with that 4th being positive last week. She continued to worsen and just "feels bad." She denies any shortness of breath and has a mild cough. She reports poor appetite but denies vomiting. She otherwise was very vague and did not answer my questions. I have reviewed the DC summary from [facility] and it appears she was admitted for CAP and UTI and was treated with Rocephin and UTI for 3 days. She was found to be COVID positive on 11/27 (though I am unsure why she was tested). She was transferred here as they do not keep COVID positive patients. She was mildly hypoxic on presentation for CAP and required 1-2lpm NC. Subjective/Events-last exam Pt reports feeling ok. Had increasing oxygen requirement this morning and switched to Vapotherm. Discussed with her about next steps if oxygenation worsens on Vapotherm and that next step is BiPAP. She was agreeable to BiPAP if needed but again declined intubation. I called and spoke with her daughter as well about this conversation. She expressed understanding. She would like to speak with her mom via Facetime this afternoon if her mom is able. We discussed all the treatments her mom is getting and that she is receiving maximum care including even experimental treatments. Objective Exam Vital Signs Vital Signs Date Time Temp Pulse Resp B/P (MAP) Pulse Ox O2 Delivery O2 Flow Rate FiO2 12/02/19 08:00 97 Vapotherm 12/02/19 08:00 36.6 59 20 103/59 (74) 40.00 100.00 12/02/19 07:51 100 Capillary Refill : Less Than 3 SecondsLess Than 3 Seconds General Appearance: No Apparent Distress, Chronically ill Respiratory: No Accessory Muscle Use, Decreased Breath Sounds, Other (on Vapotherm) Cardiovascular: Regular Rate, Rhythm, No Murmur Gastrointestinal: Normal Bowel Sounds, Non Tender, Soft Neurologic/Psychiatric: Alert, Oriented x3, Depressed Affect Results/Procedures Lab Laboratory Tests 12/02/19 07:08 Patient resulted labs reviewed. Assessment/Plan Assessment and Plan Assess & Plan/Chief Complaint COVID19 Pneumonia Acute hypoxic respiratory failure Continue decadron, remdesivir s/p 1 unit convalescent plasma IS mat protocol Zosyn for pneumonia UTI Continue Zosyn as above A-fib rate controlled, does not appear to be on any rate controlling medicines here Continue Eliquis for stroke ppx Daughter states worsening fatigue since starting that earlier this year, consider switch back to warfarin after acute illness Hypothyroidism Continue home synthroid DVT ppx: already on eliquis Disposition: prognosis is guarded at this time. Increasing oxygen requirement despite maximum aggressive measures. Discussed with patient and daughter about this. Will continue on current measures at this time but I worry she will c ontinue to decompensate from a respiratory status. Diagnosis/Problems Diagnosis/Problems (1) Acute respiratory failure Status: Acute Qualifiers: Respiratory failure complication: hypoxia Qualified Codes: J96.01 - Acute respiratory failure with hypoxia (2) Atrial fibrillation Status: Chronic Qualifiers: Atrial fibrillation type: paroxysmal Qualified Codes: I48.0 - Paroxysmal atrial fibrillation (3) COVID-19 Status: Acute (4) Debility Status: Acute (5) Dementia Status: Chronic Qualifiers: Dementia type: unspecified type Dementia behavioral disturbance: without behavioral disturbance Qualified Codes: F03.90 - Unspecified dementia without behavioral disturbance (6) Pneumonia due to COVID-19 virus Status: Acute Clinical Quality Measures DVT/VTE Risk/Contraindication: Risk Factor Score Per Nursin RFS Level Per Nursing on Admit: 4+=Very High IVA SEE MD Dec 02, 2019 14:06
[2019-12-02] MEDS ORDERED: FUROSEMIDE 40 MG/4 ML INJ (LASIX) IVP NR (14:15)
[2019-12-02] MEDS: REMDESIVIR INJ (NON-FORMULARY) 100 MG in NS (IVPB) 230 ML IV SCH (15:58)
--- NOTE | 2019-12-02 16:31 | NUR ---
RN helped pt contact family via face-time, she is currently speaking with them now. Pt denies any other needs at this time, will continue to monitor.
[2019-12-02] MEDS: DONEPEZIL 10 MG (ARICEPT) TAB PO SCH (20:06)
[2019-12-02] MEDS: GABAPENTIN 100 MG (NEURONTIN) CAP PO SCH (20:06)
[2019-12-03] MEDS: PIPERACILLIN/TAZOBACTAM (BULK) 4.5 GM in NS (IVPB) 100 ML IV SCH ×3 (02:23→19:00)
[2019-12-03] MEDS: RT-ALBUTEROL INHALER HFA (VENTOLIN HFA) 18 GM IH SCH ×4 (02:45→18:25)
[2019-12-03 03:40] VITALS: BP 127/61
[2019-12-03] MEDS: LEVOTHYROXINE 50 MCG (LEVOTHROID) TAB PO SCH (06:11)
[2019-12-03] MEDS: CATHETER FLUSH 10 ML SYR IV SCH ×3 (06:25→22:13)
[2019-12-03 08:00] VITALS: BP 131/74
[2019-12-03] MEDS: APIXABAN 5 MG (ELIQUIS) TABLET PO SCH ×2 (10:07→20:33)
[2019-12-03 12:00] VITALS: BP 147/77
--- NOTE | 2019-12-03 12:14 | Progress Note - Hospitalist ---
Subjective HPI/CC On Admission Date Seen by Provider: Dec 03, 2019 Time Seen by Provider: 12:09 Pt is an 84yoCF who presented from OSH due to COVID and hypoxia. She is a very poor historian because she states she is not feeling well. She reports her symptoms have been going on for 3-4 weeks and she has had 4 COVID tests with that 4th being positive last week. She continued to worsen and just "feels bad." She denies any shortness of breath and has a mild cough. She reports poor appetite but denies vomiting. She otherwise was very vague and did not answer my questions. I have reviewed the DC summary from [facility] and it appears she was admitted for CAP and UTI and was treated with Rocephin and UTI for 3 days. She was found to be COVID positive on 11/27 (though I am unsure why she was tested). She was transferred here as they do not keep COVID positive patients. She was mildly hypoxic on presentation for CAP and required 1-2lpm NC. Subjective/Events-last exam Pt reports not feeling well still. Laying prone on Vapotherm and satting well. Able to come down slightly on vapotherm settings. Objective Exam Vital Signs Vital Signs Date Time Temp Pulse Resp B/P (MAP) Pulse Ox O2 Delivery O2 Flow Rate FiO2 12/03/19 09:21 96 Vapotherm 40.00 95 12/03/19 08:00 36.1 66 18 131/74 (93) Capillary Refill : Less Than 3 SecondsLess Than 3 Seconds General Appearance: Chronically ill, Other (ill appearing) Respiratory: Decreased Breath Sounds (poor effort and air movement), Other (on Vapotherm) Cardiovascular: Regular Rate, Rhythm, No Murmur Neurologic/Psychiatric: Alert, Oriented x3 Results/Procedures Lab Patient resulted labs reviewed. Assessment/Plan Assessment and Plan Assess & Plan/Chief Complaint COVID19 Pneumonia Acute hypoxic respiratory failure On Vapotherm, able to come down slightly since yesterday with prone posit ioning Continue decadron, remdesivir s/p 1 unit convalescent plasma IS mat protocol Zosyn for pneumonia UTI Zosyn A-fib rate controlled, does not appear to be on any rate controlling medicines here Continue Eliquis for stroke ppx Daughter states worsening fatigue since starting that earlier this year, consider switch back to warfarin after acute illness Hypothyroidism Continue home synthroid DVT ppx: already on eliquis Disposition: prognosis remains guarded at this time but did come down on Vapotherm settings slightly. Diagnosis/Problems Diagnosis/Problems (1) Acute respiratory failure Status: Acute Qualifiers: Respiratory failure complication: hypoxia Qualified Codes: J96.01 - Acute respiratory failure with hypoxia (2) Atrial fibrillation Status: Chronic Qualifiers: Atrial fibrillation type: paroxysmal Qualified Codes: I48.0 - Paroxysmal atrial fibrillation (3) COVID-19 Status: Acute (4) Debility Status: Acute (5) Dementia Status: Chronic Qualifiers: Dementia type: unspecified type Dementia behavioral disturbance: without behavioral disturbance Qualified Codes: F03.90 - Unspecified dementia without behavioral disturbance (6) Pneumonia due to COVID-19 virus Status: Acute Clinical Quality Measures DVT/VTE Risk/Contraindication: Risk Factor Score Per Nursin RFS Level Per Nursing on Admit: 4+=Very High IVA SEE MD Dec 03, 2019 12:14
[2019-12-03 16:25] VITALS: BP 122/72
[2019-12-03] MEDS: REMDESIVIR INJ (NON-FORMULARY) 100 MG in NS (IVPB) 230 ML IV SCH (16:48)
[2019-12-03 19:50] VITALS: BP 112/59
[2019-12-03] MEDS: GABAPENTIN 100 MG (NEURONTIN) CAP PO SCH (20:33)
[2019-12-03] MEDS: DONEPEZIL 10 MG (ARICEPT) TAB PO SCH (20:33)
--- NOTE | 2019-12-03 22:30 | NUR ---
Patient supine, O2 sat dropped to 89%, patient was boosted up in bed and head of bed elevated to high fowlers, patient encouraged to take deep breaths, no increase in O2 sat. Patient placed prone and encouraged to take deep breaths, no increase in O2 sat. Vapotherm settings increased to 35L at 90%, O2 sat increased to 93%.
[2019-12-04] MEDS: RT-ALBUTEROL INHALER HFA (VENTOLIN HFA) 18 GM IH PRN (01:43)
[2019-12-04] MEDS: PIPERACILLIN/TAZOBACTAM (BULK) 4.5 GM in NS (IVPB) 100 ML IV SCH ×2 (02:00→11:43)
[2019-12-04 05:20] VITALS: BP 131/67
[2019-12-04] MEDS: LEVOTHYROXINE 50 MCG (LEVOTHROID) TAB PO SCH (05:27)
[2019-12-04 07:19] LABS: ALBUMIN 2.8 GM/DL (3.2-4.5)
[2019-12-04 07:20] LABS: CHLORIDE 101 MMOL/L (98-107); POTASSIUM 3.4 MMOL/L (3.6-5.0); SODIUM 138 MMOL/L (135-145)
[2019-12-04 07:21] LABS: CALCIUM 8.4 MG/DL (8.5-10.1)
[2019-12-04 07:22] LABS: GLUCOSE 106 MG/DL (70-105); TOTAL PROTEIN 5.6 GM/DL (6.4-8.2)
[2019-12-04 07:23] LABS: CARBON DIOXIDE 27 MMOL/L (21-32)
[2019-12-04 07:24] LABS: BILIRUBIN,TOTAL 0.8 MG/DL (0.1-1.0)
[2019-12-04 07:25] LABS: ALKALINE PHOSPHATASE 42 U/L (40-136)
[2019-12-04 07:26] LABS: CREATININE SERUM 0.62 MG/DL (0.60-1.30); GFR ESTIMATED > 60
[2019-12-04 07:27] LABS: BUN/CREATININE RATIO 26
[2019-12-04 07:29] LABS: ALANINE AMINOTRANSFERASE 18 U/L (0-55)
[2019-12-04] MEDS: CATHETER FLUSH 10 ML SYR IV SCH (07:33)
[2019-12-04 08:00] VITALS: BP 130/62
[2019-12-04] MEDS: RT-ALBUTEROL INHALER HFA (VENTOLIN HFA) 18 GM IH SCH ×3 (08:19→19:25)
[2019-12-04] MEDS: APIXABAN 5 MG (ELIQUIS) TABLET PO SCH ×2 (10:00→21:27)
[2019-12-04 12:00] VITALS: BP 126/72
[2019-12-04] MEDS ORDERED: NS IV 500 ML 500 ML IV SCH (12:03)
--- NOTE | 2019-12-04 12:08 | Physical Therapy Daily Note ---
PT Daily Note-Current Subjective Patient just returned to bed per RN due to bowel incontinence and O2 demand. Mental Status Patient Orientation: Confused Attachments: Oxygen (Vapotherm 90%/30L) Transfers SCALE: Activities may be completed with or without assistive devices. 5-Suicxssuyw-xggaium completes the activity by him/herself with no assistance from a helper. 5-Set-up or Clean-up Assistance-helper sets up or cleans up; patient completes activity. [place] assists only prior to or following the activity. 4-Supervision or Touching Assistance-helper provides verbal cues and/or touching/steadying and/or contact guard assistance as patient completes activity. Assistance may be provided throughout the activity or intermittently. 3-Partial/Moderate Assistance-helper does LESS THAN HALF the effort. [place] lifts, holds or supports trunk or limbs, but provides less than half the effort. 2-Substantial/Maximal Assistance-helper does MORE THAN HALF the effort. [place] lifts or holds trunk or limbs and provides more than half the effort. 9-Ljqxtrdnr-qbmrgr does ALL the effort. Patient does none of the effort to complete the activity. Or, the assistance of 2 or more helpers is required for the patient to complete the activity. If activity was not attempted, code reason: 7-Patient Refused. 9-Not Applicable-not attempted and the patient did not perform the activity before the current illness, exacerbation or injury. 10-Not Attempted due to Environmental Limitations-(lack of equipment, weather restraints, etc.). 88-Not Attempted due to Medical Conditions or Safety Concerns. Roll Left & Right (QC): 2 assisted RN with cleansing and changing patient due to incontinence Assessment Patient is adamant not to be OOB at this time. SAO2 85% on Vapotherm 90/30. PT Intermediate Goals Ironmolder Goals PT Ironmolder Goals Time Frame: Dec 08, 2019 Roll Left & Right (QC): 6 Sit to Lying (QC): 6 Lying-Sitting on Side/Bed(QC): 6 Sit to Stand (QC): 6 Chair/Vxg-ws-Oojee Xfer(QC): 6 Toilet Transfer (QC): 6 Does the Patient Walk: Yes Walk 10 feet (QC): 6 Walk 50ft with 2 Turns (QC): 6 Walk 150 ft (QC): 6 PT Plan Treatment/Plan Treatment Plan: Continue Plan of Care Treatment Plan: Bed Mobility, Education, Functional Activity Misael, Functional Strength, Gait, Safety, Therapeutic Exercise, Transfers Treatment Duration: Dec 09, 2019 Frequency: 6 times per week Estimated Hrs Per Day: .25 hour per day Patient and/or Family Agrees t: Yes Time/GCodes Time In: 1030 Time Out: 1040 Total Billed Treatment Time: 10 Total Billed Treatment 1 visit FA 10 min JUAN BERRIOS PT Dec 04, 2019 12:08
--- NOTE | 2019-12-04 12:11 | Progress Note - Hospitalist ---
Subjective HPI/CC On Admission Date Seen by Provider: Dec 04, 2019 Time Seen by Provider: 11:20 Pt is an 84yoCF who presented from OSH due to COVID and hypoxia. She is a very poor historian because she states she is not feeling well. She reports her symptoms have been going on for 3-4 weeks and she has had 4 COVID tests with that 4th being positive last week. She continued to worsen and just "feels bad." She denies any shortness of breath and has a mild cough. She reports poor appetite but denies vomiting. She otherwise was very vague and did not answer my questions. I have reviewed the DC summary from [facility] and it appears she was admitted for CAP and UTI and was treated with Rocephin and UTI for 3 days. She was found to be COVID positive on 11/27 (though I am unsure why she was tested). She was transferred here as they do not keep COVID positive patients. She was mildly hypoxic on presentation for CAP and required 1-2lpm NC. Subjective/Events-last exam She is not feeling any better. She is still short of breath. She has a cough. Objective Exam Vital Signs Vital Signs Date Time Temp Pulse Resp B/P (MAP) Pulse Ox O2 Delivery O2 Flow Rate FiO2 12/04/19 08:19 96 Vapotherm 35.00 90 12/04/19 08:00 36.9 74 16 130/62 (84) Capillary Refill : Less Than 3 SecondsLess Than 3 Seconds General Appearance: Anxious, Mild Distress Respiratory: Lungs Clear, Normal Breath Sounds, Other (wearing Vapotherm) Cardiovascular: Regular Rate, Rhythm, No Edema, No Murmur Gastrointestinal: Normal Bowel Sounds, Non Tender, Soft Extremity: Normal Inspection, Non Tender, No Pedal Edema Neurologic/Psychiatric: Alert, Oriented x3, No Motor/Sensory Deficits, Normal Mood/Affect Skin: Normal Color, Warm/Dry Results/Procedures Lab Laboratory Tests 12/04/19 06:40 Patient resulted labs reviewed. Imaging: Reviewed Imaging Report Assessment/Plan Assessment and Plan Assess & Plan/Chief Complaint Acute respiratory failure due to COVID-19 Pneumonia Continue Vapotherm Continue decadron Continue Remdesivir day 5/5 s/p 1 unit convalescent plasma Repeat plasma IS MAT protocol Zosyn Possible UTI Zosyn A-fib rate controlled, does not appear to be on any rate controlling medicines here Continue Eliquis for stroke ppx Hypothyroidism Continue home synthroid DVT ppx: already receiving therapeutic anticoagulation Diagnosis/Problems Diagnosis/Problems (1) Acute respiratory failure due to COVID-19 Status: Acute (2) Pneumonia due to COVID-19 virus Status: Acute Clinical Quality Measures DVT/VTE Risk/Contraindication: Risk Factor Score Per Nursin RFS Level Per Nursing on Admit: 4+=Very High ALBERTO ALDANA MD Dec 04, 2019 12:11
--- NOTE | 2019-12-04 13:05 | NUR ---
Note pt's PO intake has been declining x1d, per chart review. Will place order to add Ensure Enlive to meals TID, for increased kcal intake. Provides 350 kcal and 13 g Pro per serving. Will continue to follow and reassess as pt needs, intake, and status change. Amelie Orr MS RD LD [phone] (cell)
--- NOTE | 2019-12-04 13:20 | Occ Therapy Progress Note ---
Therapy Progress Note Per nursing's assessment/ report to OT, pt not able to maintain 02 sats upright and not tolerating prone. OT to hold on this date. AAKASH GEE OTR Dec 04, 2019 13:20
[2019-12-04] MEDS: REMDESIVIR INJ (NON-FORMULARY) 100 MG in NS (IVPB) 230 ML IV SCH (16:41)
[2019-12-04 16:42] VITALS: BP 122/56
[2019-12-04 20:17] VITALS: BP 132/66
[2019-12-04] MEDS: DONEPEZIL 10 MG (ARICEPT) TAB PO SCH (21:27)
[2019-12-04] MEDS: GABAPENTIN 100 MG (NEURONTIN) CAP PO SCH (21:27)
[2019-12-05] VITALS (20 sets, daily range): BP systolic 86–135; BP diastolic 50–87
[2019-12-05] MEDS: RT-ALBUTEROL INHALER HFA (VENTOLIN HFA) 18 GM IH SCH ×6 (03:15→21:25)
[2019-12-05 05:52] LABS: ALBUMIN 2.8 GM/DL (3.2-4.5); CHLORIDE 101 MMOL/L (98-107); SODIUM 138 MMOL/L (135-145)
[2019-12-05 05:54] LABS: CALCIUM 8.6 MG/DL (8.5-10.1)
[2019-12-05 05:55] LABS: GLUCOSE 116 MG/DL (70-105); TOTAL PROTEIN 5.9 GM/DL (6.4-8.2)
[2019-12-05 05:56] LABS: BILIRUBIN,TOTAL 0.8 MG/DL (0.1-1.0); CARBON DIOXIDE 27 MMOL/L (21-32)
[2019-12-05 05:58] LABS: ALKALINE PHOSPHATASE 43 U/L (40-136); CREATININE SERUM 0.63 MG/DL (0.60-1.30); GFR ESTIMATED > 60
[2019-12-05 05:59] LABS: BUN/CREATININE RATIO 27
[2019-12-05 06:01] LABS: ALANINE AMINOTRANSFERASE 19 U/L (0-55)
[2019-12-05] MEDS: LEVOTHYROXINE 50 MCG (LEVOTHROID) TAB PO SCH (06:32)
[2019-12-05] MEDS: APIXABAN 5 MG (ELIQUIS) TABLET PO SCH ×2 (08:56→20:54)
[2019-12-05] MEDS: ACETAMINOPHEN 325 MG TABLET PO PRN (10:58)
--- NOTE | 2019-12-05 11:20 | NUR ---
RODRIGUES CATH #[id number] INSERTED WITH CLEAR DARK JJ URINE, RIVERA WELL 75 ML URINE RETURN
[2019-12-05] MEDS ORDERED: dexAMETHasone INJECTION 15 MG in NS (IVPB) 50 ML IV NR (11:24)
[2019-12-05] MEDS ORDERED: FUROSEMIDE 40 MG/4 ML INJ (LASIX) IVP NR (11:24)
--- NOTE | 2019-12-05 11:24 | NUR ---
order given to transfer to ICU, PATIENT UP IN CHAIR, VAPOTHERM ON, SAT 91 PERCENT, C/O BACK PAIN, INCONT URINE AND STOOL, HORTENCIA AREA RED, REFUSED SCD'S, APPETITE POOR, CALL LIGHT WITHIN REACH,
--- NOTE | 2019-12-05 11:54 | Progress Note - Hospitalist ---
Subjective HPI/CC On Admission Date Seen by Provider: Dec 05, 2019 Time Seen by Provider: 10:50 Pt is an 84yoCF who presented from OSH due to COVID and hypoxia. She is a very poor historian because she states she is not feeling well. She reports her symptoms have been going on for 3-4 weeks and she has had 4 COVID tests with that 4th being positive last week. She continued to worsen and just "feels bad." She denies any shortness of breath and has a mild cough. She reports poor appetite but denies vomiting. She otherwise was very vague and did not answer my questions. I have reviewed the DC summary from [facility] and it appears she was admitted for CAP and UTI and was treated with Rocephin and UTI for 3 days. She was found to be COVID positive on 11/27 (though I am unsure why she was tested). She was transferred here as they do not keep COVID positive patients. She was mildly hypoxic on presentation for CAP and required 1-2lpm NC. Subjective/Events-last exam She is still not feeling well. She is short of breath. She is not eating well. She is anxious. Objective Exam Vital Signs Vital Signs Date Time Temp Pulse Resp B/P (MAP) Pulse Ox O2 Delivery O2 Flow Rate FiO2 12/05/19 10:42 91 Vapotherm 40.00 100 12/05/19 08:23 36.8 83 20 115/57 (76) Capillary Refill : Less Than 3 SecondsLess Than 3 Seconds General Appearance: Anxious, Mild Distress (tachypnea) Respiratory: Lungs Clear, Normal Breath Sounds, Respiratory Distress (tachypnea) Cardiovascular: Regular Rate, Rhythm, No Edema, No Murmur Gastrointestinal: Normal Bowel Sounds, Non Tender, Soft Extremity: Normal Inspection, Non Tender, No Pedal Edema Neurologic/Psychiatric: Alert, Oriented x3 Skin: Normal Color, Warm/Dry Results/Procedures Lab Laboratory Tests 12/05/19 05:27 Patient resulted labs reviewed. Imaging: Reviewed Imaging Report Assessment/Plan Assessment and Plan Assess & Plan/Chief Complaint Acute respiratory failure due to COVID-19 Pneumonia Vapotherm, 40 L and 100% FiO2 Increase Decadron s/p Remdesivir s/p 1 unit convalescent plasma Awaiting 2nd unit convalescent plasma s/p Zosyn Begin Lasix Transfer to ICU Case discussed with Dr. Baird, pulmonolgy Consult Tele-ICU A-fib rate controlled, does not appear to be on any rate controlling medicines here Continue Eliquis for stroke ppx Hypothyroidism Continue home synthroid DVT ppx: already receiving therapeutic anticoagulation Diagnosis/Problems Diagnosis/Problems (1) Acute respiratory failure due to COVID-19 Status: Acute (2) Pneumonia due to COVID-19 virus Status: Acute Clinical Quality Measures DVT/VTE Risk/Contraindication: Risk Factor Score Per Nursin RFS Level Per Nursing on Admit: 4+=Very High ALBERTO ALDANA MD Dec 05, 2019 11:54
--- NOTE | 2019-12-05 12:00 | NUR ---
BP 86/50, DR ALDANA NOTIFIED, WILL FIORELLA UNTIL TRANSFER TO ICU TO GIVE
--- NOTE | 2019-12-05 12:08 | Physical Therapy Daily Note ---
PT Daily Note-Current Subjective Patient agrees to up in recliner. Pain Numeric Pain Scale: 0-No Pain Location: No Pain Reported Mental Status Patient Orientation: Normal For Age Attachments: Oxygen (Vapotherm 100%), Almanza Catheter (just placed ) Transfers SCALE: Activities may be completed with or without assistive devices. 2-Iagmickzgf-nhpakal completes the activity by him/herself with no assistance from a helper. 5-Set-up or Clean-up Assistance-helper sets up or cleans up; patient completes activity. [place] assists only prior to or following the activity. 4-Supervision or Touching Assistance-helper provides verbal cues and/or touching/steadying and/or contact guard assistance as patient completes activity. Assistance may be provided throughout the activity or intermittently. 3-Partial/Moderate Assistance-helper does LESS THAN HALF the effort. [place] lifts, holds or supports trunk or limbs, but provides less than half the effort. 2-Substantial/Maximal Assistance-helper does MORE THAN HALF the effort. [place] lifts or holds trunk or limbs and provides more than half the effort. 3-Rizkscsbs-mftfrf does ALL the effort. Patient does none of the effort to complete the activity. Or, the assistance of 2 or more helpers is required for the patient to complete the activity. If activity was not attempted, code reason: 7-Patient Refused. 9-Not Applicable-not attempted and the patient did not perform the activity before the current illness, exacerbation or injury. 10-Not Attempted due to Environmental Limitations-(lack of equipment, weather restraints, etc.). 88-Not Attempted due to Medical Conditions or Safety Concerns. Roll Left & Right (QC): 3 Lying to Sitting/Side of Bed(Q: 2 Sit to Stand (QC): 2 Chair/Guv-az-Kjctt Xfer(QC): 2 Exercises Seated Therapy Exercises: Ankle pumps, Long arc quads Seated Reps: 12 Assessment Patient tolerates minimal activity due to O2 need. SAO2 did remain >90% with activity. [place] with OT due to patient pulmonary status and inability to tolerate separate sessions. PT Ultrasonic Solderer Goals Ultrasonic Solderer Goals PT Nursing Home Goals Time Frame: Dec 08, 2019 Roll Left & Right (QC): 6 Sit to Lying (QC): 6 Lying-Sitting on Side/Bed(QC): 6 Sit to Stand (QC): 6 Chair/Vzm-gj-Yvvsr Xfer(QC): 6 Toilet Transfer (QC): 6 Does the Patient Walk: Yes Walk 10 feet (QC): 6 Walk 50ft with 2 Turns (QC): 6 Walk 150 ft (QC): 6 PT Plan Treatment/Plan Treatment Plan: Continue Plan of Care Treatment Plan: Bed Mobility, Education, Functional Activity Misael, Functional Strength, Gait, Safety, Therapeutic Exercise, Transfers Treatment Duration: Dec 09, 2019 Frequency: 6 times per week Estimated Hrs Per Day: .25 hour per day Patient and/or Family Agrees t: Yes Time/GCodes Time In: 1100 Time Out: 1114 Total Billed Treatment Time: 14 Total Billed Treatment 1 visit FA 14 min JUAN BERRIOS PT Dec 05, 2019 12:08
--- NOTE | 2019-12-05 12:28 | NUR ---
PT TRANSPORTED TO ICU8 BY RACH CALERO AND [facility], CATE. RODRIGUES CATHETER AND IV INTACT. PT SWITCHED FROM HIGH-CURTIS NC TO VAPOTHERM 40L 100% AND SATTING 90%. PT IN NO APPARENT DISTRESS.
--- NOTE | 2019-12-05 12:39 | Occupational Ther Daily Note ---
OT Current Status-Daily Note Subjective Pt alert, lying in bed. Nrsg in room to place catheter. Pt agrees to therapy. Mental Status/Objective Patient Orientation: Person, Place, Time, Situation Attachments: Almanza Catheter, IV, Oxygen (vapotherm) ADL-Treatment Therapy Code Descriptions/Definitions Functional [place] Measure: 0=Not Assessed/NA 4=Minimal Assistance 1=Total Assistance 5=Supervision or Setup 2=Maximal Assistance 6=Modified [place] 3=Moderate Assistance 7=Complete IndependenceSCALE: Activities may be completed with or without assistive devices. 6-Dpwgzdzvfl-aimgiah completes the activity by him/herself with no assistance from a helper. 5-Set-up or Clean-up Assistance-helper sets up or cleans up; patient completes activity. [place] assists only prior to or following the activity. 4-Supervision or Touching Assistance-helper provides verbal cues and/or touching/steadying and/or contact guard assistance as patient completes activity. Assistance may be provided throughout the activity or intermittently. 3-Partial/Moderate Assistance-helper does LESS THAN HALF the effort. [place] lifts, holds or supports trunk or limbs, but provides less than half the effort. 2-Substantial/Maximal Assistance-helper does MORE THAN HALF the effort. [place] lifts or holds trunk or limbs and provides more than half the effort. 0-Fasskgzux-kuauvh does ALL the effort. Patient does none of the effort to complete the activity. Or, the assistance of 2 or more helpers is required for the patient to complete the activity. If activity was not attempted, code reason: 7-Patient Refused. 9-Not Applicable-not attempted and the patient did not perform the activity before the current illness, exacerbation or injury. 10-Not Attempted due to Environmental Limitations-(lack of equipment, weather restraints, etc.). 88-Not Attempted due to Medical Conditions or Safety Concerns. Other Treatment CGA for supine to EOB. Min A to CGA for SPT from bed to recliner. Pt declined to complete any ADLs at this time. Co-treat with PT due to respiratory issues and extremely low activity tolerance. After session, pt sitting in recliner with call light/phone in reach. All needs met in room. OT Care Home Goals Drill Press Operator Helper Goals Time Frame: Dec 08, 2019 Eating (QC): 6 Oral Hygiene (QC): 6 Toileting Hygiene (QC): 6 Shower/Bathe Self (QC): 6 Upper Body Dressing (QC): 6 Lower Body Dressing (QC): 6 On/Off Footwear (QC): 6 1=Demonstrate adherence to instructed precautions during ADL tasks. 2=Patient will verbalize/demonstrate understanding of assistive devices/modifications for ADL. 3=Patient will improve strength/tolerance for activity to enable patient to perform ADL's. OT Education/Plan Problem List/Assessment Assessment: Decreased Activ Tolerance, Decreased UE Strength, Impaired Funct Balance, Impaired Self-Care Skills Discharge Recommendations Plan/Recommendations: Continue POC Treatment Plan/Plan of Care Patient would benefit from OT for education, treatment and training to promote independence in ADL's, mobility, safety and/or upper extremity function for ADL's. Plan of Care: ADL Retraining, Functional Mobility, UE Funct Exercise/Act Treatment Duration: Dec 08, 2019 Frequency: 5 times per week Estimated Hrs Per Day: .25 hour per day Rehab Potential: Fair Time/GCodes Start Time: 11:00 Stop Time: 11:14 Total Time Billed (hr/min): 14 Billed Treatment Time 1 visit-FA 1 (14 min) RONIT CARABALLO Dec 05, 2019 12:38
--- NOTE | 2019-12-05 12:50 | NUR ---
NOTIFIED OF TRANSFER TO ICU
--- NOTE | 2019-12-05 14:52 | Occ Therapy Progress Note ---
Therapy Progress Note Due to decrease in medical status, OT will need new orders when pt is medically stable. Discharge OT services at this time. [id number] RONIT CARABALLO Dec 05, 2019 14:52
[2019-12-05] MEDS ORDERED: ALBUMIN 25% 25 GM/100 ML 100 ML IV ONE (16:00)
--- NOTE | 2019-12-05 16:01 | Pulmonary Consultation ---
History of Present Illness History of Present Illness Date Seen by Provider: Dec 05, 2019 Time Seen by Provider: 16:00 Date of Admission Allergies and Home Medications Allergies Coded Allergies: No Known Drug Allergies (Unverified , 11/29/19) Home Medications Acetaminophen 325 Mg Capsule, 650 MG PO Q8H PRN for PAIN-MILD (1-4), (Reported) Apixaban 5 Mg Tablet, 5 MG PO BID, (Reported) Donepezil HCl 10 Mg Tablet, 10 MG PO HS, (Reported) Gabapentin 100 Mg Capsule, 200 MG PO HS, (Reported) TAKES 2 (100MG) CAPS Levothyroxine Sodium 50 Mcg Tablet, 50 MCG PO DAILY, (Reported) Past Dpjxlop-Sjxvpz-Lxqjvk Hx Past Med/Social Hx: Reviewed Nursing Past Med/Soc Hx Patient Social History Smoking Status: Unknown if Ever Smoked Recent Foreign Travel: No Contact w/Someone Who Travel: No Recent Infectious Disease Expo: No Past Medical History Atrial Fibrillation, High Cholesterol Dementia Hypothyroidsim Family Medical History Reviewed Nursing Family Hx No Pertinent Family Hx Review of Systems Time Seen by Provider: 16:00 Sepsis Event Evaluation Height, Weight, BMI Height: '" Weight: lbs. oz. kg; 26.60 BMI Method: Exam Exam Vital Signs Date Time Temp Pulse Resp B/P (MAP) Pulse Ox O2 Delivery O2 Flow Rate FiO2 12/05/19 15:42 36.1 12/05/19 15:18 95 Vapotherm 40.00 100 12/05/19 14:48 35.6 12/05/19 12:30 94 Vapotherm 40.00 90 12/05/19 11:51 36.1 90 22 86/50 (62) 94 Vapotherm 40.00 100.00 12/05/19 10:42 91 Vapotherm 40.00 100 12/05/19 08:23 36.8 83 20 115/57 (76) 92 Vapotherm 40.00 100.00 12/05/19 08:20 35.3 65 88 100 12/05/19 08:02 88 Vapotherm 40.00 100 12/05/19 08:00 94 Vapotherm 40.00 90 12/05/19 06:27 35.3 65 22 129/71 91 Vapotherm 12/05/19 04:42 36.0 67 20 127/67 90 Vapotherm 40.00 90 12/05/19 04:41 36.5 69 20 135/63 (87) 92 Vapotherm 35.00 90.00 12/05/19 04:13 36.5 64 20 124/62 93 Vapotherm 40.00 90 12/05/19 03:16 93 Vapotherm 35.00 90 12/05/19 00:00 36.2 68 18 125/64 (84) 93 Vapotherm 35.00 90.00 12/04/19 21:30 90 Vapotherm 35.00 90 12/04/19 20:17 36.5 70 18 132/66 (88) 90 Vapotherm 35.00 90.00 12/04/19 19:24 90 Vapotherm 35.00 90 12/04/19 16:42 37.7 73 18 122/56 (78) 91 Vapotherm 35.00 90.00 I & O 12/05/19 07:00 Intake Total 320 ml Balance 320 ml Height & Weight Height: '" Weight: lbs. oz. kg; 26.60 BMI Method: General Appearance: Anxious, Mild Distress (tachypnea) HEENT: PERRL/EOMI, Moist Mucous Membranes; No Scleral Icterus (L), No Scleral Icterus (R) Neck: Normal Inspection, Supple Respiratory: Lungs Clear, Normal Breath Sounds, Respiratory Distress (tachypnea) Cardiovascular: Regular Rate, Rhythm, No Edema, No Murmur Capillary Refill: Less Than 3 Seconds Extremity: Normal Inspection, Non Tender, No Pedal Edema Neurologic/Psychiatric: Alert, Oriented x3 Skin: Normal Color, Warm/Dry Results Lab Laboratory Tests 12/04/19 06:40 12/05/19 05:27 Assessment/Plan Assessment/Plan Acute respiratory failure with COVID 19 Pneumonia Vapotherm, 40 L and 100% FiO2 Decadron s/p Remdesivir s/p 1 unit convalescent plasma -Awaiting 2nd unit convalescent plasma s/p Zosyn Lasix A-fib - controlled Eliquis Hypothyroidism Continue home synthroid DVT ppx: already receiving therapeutic anticoagulation ANDRZEJ GOODWIN DO Dec 05, 2019 16:01
[2019-12-05] MEDS ORDERED: NS IV 500 ML 500 ML ONE (17:11)
[2019-12-05] MEDS ORDERED: FUROSEMIDE 40 MG/4 ML INJ (LASIX) IVP ONE (19:45)
[2019-12-05] MEDS: DONEPEZIL 10 MG (ARICEPT) TAB PO SCH (20:54)
[2019-12-05] MEDS: GABAPENTIN 100 MG (NEURONTIN) CAP PO SCH (20:54)
[2019-12-06] VITALS (10 sets, daily range): BP systolic 100–131; BP diastolic 58–74
[2019-12-06] MEDS: RT-ALBUTEROL INHALER HFA (VENTOLIN HFA) 18 GM IH SCH ×5 (02:22→19:07)
[2019-12-06 03:51] LABS: BASOPHILS % (AUTO) 0 % (0-10); EOSINOPHILS % (AUTO) 0 % (0-10); HEMATOCRIT 35 % (35-52); HEMOGLOBIN 11.3 g/dL (11.5-16.0); LYMPHOCYTES # (AUTO) 0.8 10^3/uL (1.0-4.0); LYMPHOCYTES % (AUTO) 8 % (12-44); MEAN CORPUSCULAR HEMOGLOBIN 29 pg (25-34); MEAN CORPUSCULAR HGB CONC 32 g/dL (32-36); MEAN CORPUSCULAR VOLUME 89 fL (80-99); MEAN PLATELET VOLUME 9.7 fL (9.0-12.2); MONOCYTES # (AUTO) 0.3 10^3/uL (0.0-1.0); MONOCYTES % (AUTO) 3 % (0-12); NEUTROPHILS # (AUTO) 8.8 10^3/uL (1.8-7.8); NEUTROPHILS % (AUTO) 87 % (42-75); PLATELET COUNT 359 10^3/uL (130-400); WHITE BLOOD COUNT 10.1 10^3/uL (4.3-11.0)
[2019-12-06 04:17] LABS: BUN/CREATININE RATIO 30; CALCIUM 9.3 MG/DL (8.5-10.1); CARBON DIOXIDE 29 MMOL/L (21-32); CHLORIDE 98 MMOL/L (98-107); CREATININE SERUM 0.66 MG/DL (0.60-1.30); GFR ESTIMATED > 60; GLUCOSE 197 MG/DL (70-105); MAGNESIUM 2.2 MG/DL (1.6-2.4); PHOSPHORUS 2.4 MG/DL (2.3-4.7); POTASSIUM 3.8 MMOL/L (3.6-5.0); SODIUM 138 MMOL/L (135-145)
[2019-12-06 04:55] LABS: BAND NEUTROPHILS 0 %; BASOPHILS % (MANUAL) 0 %; EOSINOPHILS % (MANUAL) 0 %; LYMPHOCYTES % (MANUAL) 9 %; MONOCYTES % (MANUAL) 3 %; NEUTROPHILS % (MANUAL) 88 %
[2019-12-06 04:56] LABS: RBC MORPH NORMAL
[2019-12-06] MEDS ORDERED: POTASSIUM CL 10MEQ/50ML IVPB 50 ML IV SCH (06:00)
[2019-12-06] MEDS ORDERED: MAGNESIUM 1 GM/100 ML IVPB 100 ML IV SCH (06:00)
[2019-12-06] MEDS ORDERED: KCL 20 MEQ TAB (K-DUR) PO SCH (06:00)
[2019-12-06] MEDS: LEVOTHYROXINE 50 MCG (LEVOTHROID) TAB PO SCH (06:48)
[2019-12-06] MEDS: APIXABAN 5 MG (ELIQUIS) TABLET PO SCH ×2 (08:56→20:33)
[2019-12-06] MEDS: dexAMETHasone INJECTION 20 MG in NS (IVPB) 50 ML IV SCH (08:57)
[2019-12-06] MEDS: FUROSEMIDE 40 MG/4 ML INJ (LASIX) IVP SCH (08:57)
--- NOTE | 2019-12-06 10:36 | Pulmonary Progress Note ---
Subjective Time Seen by a Provider: 10:35 Sepsis Event Evaluation Height, Weight, BMI Height: '" Weight: lbs. oz. kg; 26.60 BMI Method: Exam Exam Vital Signs Date Time Temp Pulse Resp B/P (MAP) Pulse Ox O2 Delivery O2 Flow Rate FiO2 12/06/19 08:00 Vapotherm 28.00 80 12/06/19 07:31 36.3 60 16 131/74 (93) 96 Vapotherm 35.00 95.00 12/06/19 06:41 46 12/06/19 06:24 95 Vapotherm 30.00 90 12/06/19 04:00 Vapotherm 35.00 95 12/06/19 04:00 60 18 121/65 (83) 95 Vapotherm 35.00 95.00 12/06/19 02:21 94 Vapotherm 35.00 95 12/06/19 02:00 61 17 118/62 (80) 94 Vapotherm 35.00 95.00 12/06/19 01:00 61 16 104/58 (73) 95 Vapotherm 35.00 95.00 12/06/19 01:00 61 12/06/19 00:07 36.1 61 20 102/61 (75) 95 Vapotherm 35.00 95.00 12/06/19 00:06 Vapotherm 35.00 95 12/06/19 00:00 66 15 102/61 (75) 95 Vapotherm 40.00 100.00 12/05/19 23:00 66 16 112/63 (79) 96 Vapotherm 40.00 100.00 12/05/19 22:00 65 32 118/72 (87) 97 Vapotherm 40.00 100.00 12/05/19 21:26 97 Vapotherm 40.00 100 12/05/19 21:00 61 18 123/74 (90) 99 Vapotherm 40.00 100.00 12/05/19 20:52 65 120/66 (84) 99 Vapotherm 40.00 100.00 12/05/19 20:00 Vapotherm 40.00 100 12/05/19 19:53 35.9 80 22 125/64 (84) 96 Vapotherm 40.00 100.00 12/05/19 19:00 87 24 124/87 (99) 93 Vapotherm 40.00 100.00 12/05/19 19:00 87 12/05/19 18:35 88 Vapotherm 40.00 100 12/05/19 18:00 81 26 116/81 (93) 92 Vapotherm 40.00 100.00 12/05/19 17:00 64 36 126/76 (93) 96 Vapotherm 40.00 100.00 12/05/19 16:00 73 29 110/70 (83) 94 Vapotherm 40.00 100.00 12/05/19 16:00 94 Vapotherm 40.00 90 12/05/19 15:42 36.1 12/05/19 15:18 95 Vapotherm 40.00 100 12/05/19 15:00 74 43 115/70 (85) 95 Vapotherm 40.00 100.00 12/05/19 14:48 35.6 12/05/19 14:00 79 16 104/65 (78) 94 Vapotherm 40.00 100.00 12/05/19 13:00 74 16 134/68 (90) 94 Vapotherm 40.00 100.00 12/05/19 12:35 80 12/05/19 12:30 94 Vapotherm 40.00 90 12/05/19 11:51 36.1 90 22 86/50 (62) 94 Vapotherm 40.00 100.00 12/05/19 10:42 91 Vapotherm 40.00 100 I & O 12/06/19 07:00 Intake Total 981.5 ml Output Total 1825 ml Balance -843.5 ml Height & Weight Height: '" Weight: lbs. oz. kg; 26.60 BMI Method: General Appearance: Anxious, Mild Distress (tachypnea) HEENT: PERRL/EOMI, Moist Mucous Membranes; No Scleral Icterus (L), No Scleral Icterus (R) Neck: Normal Inspection, Supple Respiratory: Lungs Clear, Normal Breath Sounds, Respiratory Distress (tachypnea) Cardiovascular: Regular Rate, Rhythm, No Edema, No Murmur Capillary Refill: Less Than 3 Seconds Extremity: Normal Inspection, Non Tender, No Pedal Edema Neurologic/Psychiatric: Alert, Oriented x3 Skin: Normal Color, Warm/Dry Results Lab Laboratory Tests 12/05/19 05:27 12/06/19 02:40 Assessment/Plan Assessment/Plan Acute respiratory failure with COVID 19 -BiPAP PRN -Vapotherm Pneumonia Vapotherm Decadron s/p Remdesivir s/p 2 units convalescent plasma s/p Zosyn Lasix A-fib - controlled Eliquis Hypothyroidism Continue home synthroid Discussed with pt's daughter and gave complete medical update. I answered all questions and concerns. If pt is agreeable daughter would like pt to be ok for short term intubation only however no chest compression/code blue. ANDRZEJ GOODWIN DO Dec 06, 2019 10:36
--- NOTE | 2019-12-06 11:32 | Physical Therapy Daily Note ---
PT Daily Note-Current Subjective Agrees to PT this date. Post visit, reports she felt like the treatment was good. She reported she felt better. Mental Status Patient Orientation: Person, Place, Time, Situation Attachments: Oxygen (vapotherm), Almanza Catheter, IV Transfers SCALE: Activities may be completed with or without assistive devices. 9-Eruqjupxed-qxifdvo completes the activity by him/herself with no assistance from a helper. 5-Set-up or Clean-up Assistance-helper sets up or cleans up; patient completes activity. [place] assists only prior to or following the activity. 4-Supervision or Touching Assistance-helper provides verbal cues and/or touching/steadying and/or contact guard assistance as patient completes activity. Assistance may be provided throughout the activity or intermittently. 3-Partial/Moderate Assistance-helper does LESS THAN HALF the effort. [place] lifts, holds or supports trunk or limbs, but provides less than half the effort. 2-Substantial/Maximal Assistance-helper does MORE THAN HALF the effort. [place] lifts or holds trunk or limbs and provides more than half the effort. 3-Ibaxcyuls-mxlhsl does ALL the effort. Patient does none of the effort to complete the activity. Or, the assistance of 2 or more helpers is required for the patient to complete the activity. If activity was not attempted, code reason: 7-Patient Refused. 9-Not Applicable-not attempted and the patient did not perform the activity before the current illness, exacerbation or injury. 10-Not Attempted due to Environmental Limitations-(lack of equipment, weather restraints, etc.). 88-Not Attempted due to Medical Conditions or Safety Concerns. Roll Left & Right (QC): 3 Sit to Lying (QC): 3 Lying to Sitting/Side of Bed(Q: 3 Sit to Stand (QC): 2 (Sit to stand x 3 reps with mod assist and cues; stood with mod assist as well.) Treatments Co treat with OT as the skill of 2 clinician indicated for pt to complete tasks performed. Pt performed self care for bathing and oral care at EOB; PT focused on seated balance, seated positioning and activity tolerance. Sit to stand performed x 3 reps for pericare and positioning in bed. Assessment Current Status: Good Progress Limited functional activity tolerance but tolerates sitting EOB fairly well. Pt is motivated and cooperative. She initiates tasks and is appreciative of care provided. Pt had transferred from [facility] to [facility], re assess complete during this visit and POC and goals remain the same. PT Assisted Goals [employer] Goals PT [employer] Goals Time Frame: Dec 08, 2019 Roll Left & Right (QC): 6 Sit to Lying (QC): 6 Lying-Sitting on Side/Bed(QC): 6 Sit to Stand (QC): 6 Chair/Oaz-yp-Qypae Xfer(QC): 6 Toilet Transfer (QC): 6 Does the Patient Walk: Yes Walk 10 feet (QC): 6 Walk 50ft with 2 Turns (QC): 6 Walk 150 ft (QC): 6 PT Plan Problem List Problem List: Activity Tolerance, Functional Strength, Safety, Balance, Gait, Transfer, Bed Mobility Treatment/Plan Treatment Plan: Continue Plan of Care Treatment Plan: Bed Mobility, Education, Functional Activity Misael, Functional Strength, Gait, Safety, Therapeutic Exercise, Transfers Treatment Duration: Dec 09, 2019 Frequency: 6 times per week Estimated Hrs Per Day: .25 hour per day Patient and/or Family Agrees t: Yes Safety Risks/Education Patient Education: Safety Issues Teaching Recipient: Patient Teaching Methods: Discussion Response to Teaching: Reinforcement Needed Discharge Recommendations Therapy Discharge Recommendati: Post Acute PT Time/GCodes Time In: 915 Time Out: 940 Total Billed Treatment Time: 25 Total Billed Treatment visit FA 25 RONIT SORENSEN PT Dec 06, 2019 11:32
--- NOTE | 2019-12-06 14:07 | Occupational Ther Daily Note ---
OT Current Status-Daily Note Subjective No pain reported. Appearance Pt. in bed. Agrees to work with therapy. Mental Status/Objective Patient Orientation: Person, Place Attachments: IV ADL-Treatment Therapy Code Descriptions/Definitions Functional [place] Measure: 0=Not Assessed/NA 4=Minimal Assistance 1=Total Assistance 5=Supervision or Setup 2=Maximal Assistance 6=Modified [place] 3=Moderate Assistance 7=Complete IndependenceSCALE: Activities may be completed with or without assistive devices. 8-Erpaattpyu-tmtgqks completes the activity by him/herself with no assistance from a helper. 5-Set-up or Clean-up Assistance-helper sets up or cleans up; patient completes activity. [place] assists only prior to or following the activity. 4-Supervision or Touching Assistance-helper provides verbal cues and/or touching/steadying and/or contact guard assistance as patient completes activity. Assistance may be provided throughout the activity or intermittently. 3-Partial/Moderate Assistance-helper does LESS THAN HALF the effort. [place] lifts, holds or supports trunk or limbs, but provides less than half the effort. 2-Substantial/Maximal Assistance-helper does MORE THAN HALF the effort. [place] lifts or holds trunk or limbs and provides more than half the effort. 0-Tlotckhdj-qledtu does ALL the effort. Patient does none of the effort to complete the activity. Or, the assistance of 2 or more helpers is required for the patient to complete the activity. If activity was not attempted, code reason: 7-Patient Refused. 9-Not Applicable-not attempted and the patient did not perform the activity before the current illness, exacerbation or injury. 10-Not Attempted due to Environmental Limitations-(lack of equipment, weather restraints, etc.). 88-Not Attempted due to Medical Conditions or Safety Concerns. Oral Hygiene (QC): 4 (SBA and cues.) Shower/Bathe Self (QC): 3 (Pt. is able to wash chest and arms, as well as face. OT washes samuel area for her. Pt. does not feel up to having her feet washed.) On/Off Footwear: 2 (Max assist with slipper socks.) Toileting Hygiene (QC): 1 (Pt. becomes incontinent of stool each time she stands. Requires dependent assist to cleanse samuel area.) Other Treatment Pt. seen for co-treat from OT/PT. Required skilled assist x 2 due to level of care needed. Pt. fatigued and requires increased time. Transferred supine-sit with mod assist. Pt. able to sit on side of bed and participate in sponge bath. OT facilitated ADL skills while PT worked on pt's sit-stand and transfers. Pt. fatigues easily. Pt. handed brush but states that she can't brush hair. OT does this for her. After treatment, pt. requests to lay back down. Transfers sit-supine with SBA. Pt. able to scoot self up in bed with min assist. All needs met. Education OT Patient Education: Correct positioning, Modified ADL techniques, Progress toward Goal/Update tx plan, Purpose of tx/functional activities, Reviewed precautions, Rehab process, Transfer techniques Teaching Recipient: Patient Teaching Methods: Demonstration, Discussion Response to Teaching: Verbalize Understanding, Return Demonstration OT Custodial Goals Custodial Goals Time Frame: Dec 08, 2019 Eating (QC): 6 Oral Hygiene (QC): 6 Toileting Hygiene (QC): 6 Shower/Bathe Self (QC): 6 Upper Body Dressing (QC): 6 Lower Body Dressing (QC): 6 On/Off Footwear (QC): 6 1=Demonstrate adherence to instructed precautions during ADL tasks. 2=Patient will verbalize/demonstrate understanding of assistive devices/modifications for ADL. 3=Patient will improve strength/tolerance for activity to enable patient to perform ADL's. OT Education/Plan Problem List/Assessment Assessment: Decreased UE Strength, Dependent Transfers, Impaired Bed Mobility, Impaired Funct Balance, Impaired I ADL's, Impaired Self-Care Skills Discharge Recommendations Plan/Recommendations: Continue POC Therapy Discharge Recommendati: Post Acute OT Treatment Plan/Plan of Care Treatment,Training & Education: Yes Patient would benefit from OT for education, treatment and training to promote independence in ADL's, mobility, safety and/or upper extremity function for ADL's. Plan of Care: ADL Retraining, Functional Mobility, UE Funct Exercise/Act Treatment Duration: Dec 08, 2019 Frequency: 5 times per week Estimated Hrs Per Day: .25 hour per day Agreement: Yes Rehab Potential: Fair Time/GCodes Start Time: 09:15 Stop Time: 09:40 Total Time Billed (hr/min): 25 Billed Treatment Time 1, ADL x 2 BREONNA GARDINER OT Dec 06, 2019 14:07
[2019-12-06] MEDS ORDERED: PANTOPRAZOLE 40 MG (PROTONIX) VIAL ONE (14:38)
[2019-12-06] MEDS: PANTOPRAZOLE 40 MG (PROTONIX) VIAL IV SCH (15:03)
--- NOTE | 2019-12-06 15:27 | Diagnostic Imaging Report ---
INDICATION: Shortness of breath. EXAMINATION: Portable chest at 2:39 PM. FINDINGS: There are diffuse alveolar infiltrates in the lungs. The heart size and pulmonary vascularity are normal. There are no effusions or pneumothoraces. IMPRESSION: Severe diffuse pulmonary infiltrates. No significant change compared to 12/02/2019. Dictated by: Dictated on workstation # [id number]
[2019-12-06] MEDS: GABAPENTIN 100 MG (NEURONTIN) CAP PO SCH (20:33)
[2019-12-06] MEDS: DONEPEZIL 10 MG (ARICEPT) TAB PO SCH (20:33)
[2019-12-07] MEDS: RT-ALBUTEROL INHALER HFA (VENTOLIN HFA) 18 GM IH SCH ×7 (01:33→22:31)
[2019-12-07 04:00] VITALS: BP 136/82
[2019-12-07 04:01] LABS: BASOPHILS % (AUTO) 0 % (0-10); EOSINOPHILS % (AUTO) 0 % (0-10); HEMATOCRIT 35 % (35-52); HEMOGLOBIN 11.4 g/dL (11.5-16.0); LYMPHOCYTES # (AUTO) 0.8 10^3/uL (1.0-4.0); LYMPHOCYTES % (AUTO) 7 % (12-44); MEAN CORPUSCULAR HEMOGLOBIN 29 pg (25-34); MEAN CORPUSCULAR HGB CONC 32 g/dL (32-36); MEAN CORPUSCULAR VOLUME 89 fL (80-99); MEAN PLATELET VOLUME 10.1 fL (9.0-12.2); MONOCYTES # (AUTO) 0.5 10^3/uL (0.0-1.0); MONOCYTES % (AUTO) 4 % (0-12); NEUTROPHILS # (AUTO) 10.2 10^3/uL (1.8-7.8); NEUTROPHILS % (AUTO) 86 % (42-75); PLATELET COUNT 369 10^3/uL (130-400); WHITE BLOOD COUNT 11.8 10^3/uL (4.3-11.0)
--- NOTE | 2019-12-07 04:31 | Pulmonary Progress Note ---
Subjective Time Seen by a Provider: 04:30 Sepsis Event Evaluation Height, Weight, BMI Height: '" Weight: lbs. oz. kg; 26.60 BMI Method: Exam Exam Vital Signs Date Time Temp Pulse Resp B/P (MAP) Pulse Ox O2 Delivery O2 Flow Rate FiO2 12/07/19 01:43 90 Vapotherm 25.00 80 12/07/19 01:00 50 12/06/19 23:49 76 18 119/65 (83) 93 Vapotherm 25.00 80.00 12/06/19 21:00 Vapotherm 25.00 80 12/06/19 20:37 36.3 84 18 127/71 (89) 88 Vapotherm 25.00 80.00 12/06/19 19:00 50 12/06/19 16:00 75 18 127/63 (84) 93 Vapotherm 25.00 80.00 12/06/19 15:11 92 Vapotherm 25.00 80 12/06/19 12:40 71 12/06/19 12:00 Vapotherm 28.00 80 12/06/19 11:35 77 18 100/65 (77) 93 Vapotherm 35.00 95.00 12/06/19 11:35 36.6 12/06/19 11:03 90 Vapotherm 25.00 80 12/06/19 08:00 Vapotherm 28.00 80 12/06/19 07:31 36.3 60 16 131/74 (93) 96 Vapotherm 35.00 95.00 12/06/19 06:41 46 12/06/19 06:24 95 Vapotherm 30.00 90 I & O 12/07/19 07:00 Intake Total 675 ml Output Total 1300 ml Balance -625 ml Height & Weight Height: '" Weight: lbs. oz. kg; 26.60 BMI Method: General Appearance: Anxious, Mild Distress (tachypnea) HEENT: PERRL/EOMI, Moist Mucous Membranes; No Scleral Icterus (L), No Scleral Icterus (R) Neck: Normal Inspection, Supple Respiratory: Lungs Clear, Normal Breath Sounds, Respiratory Distress (tachypnea) Cardiovascular: Regular Rate, Rhythm, No Edema, No Murmur Capillary Refill: Less Than 3 Seconds Extremity: Normal Inspection, Non Tender, No Pedal Edema Neurologic/Psychiatric: Alert, Oriented x3 Skin: Normal Color, Warm/Dry Results Lab Laboratory Tests 12/05/19 05:27 12/06/19 02:40 12/07/19 03:12 Assessment/Plan Assessment/Plan Acute respiratory failure with COVID 19 -BiPAP PRN -Vapotherm Pneumonia Vapotherm Decadron s/p Remdesivir s/p 2 units convalescent plasma s/p Zosyn Lasix A-fib - controlled Eliquis Hypothyroidism Continue home synthroid ANDRZEJ GOODWIN DO Dec 07, 2019 04:31
[2019-12-07 04:42] LABS: CHLORIDE 95 MMOL/L (98-107); SODIUM 138 MMOL/L (135-145)
[2019-12-07 04:43] LABS: CALCIUM 9.4 MG/DL (8.5-10.1)
[2019-12-07 04:44] LABS: GLUCOSE 174 MG/DL (70-105)
[2019-12-07 04:45] LABS: CARBON DIOXIDE 30 MMOL/L (21-32)
[2019-12-07 04:47] LABS: PHOSPHORUS 3.3 MG/DL (2.3-4.7)
[2019-12-07 04:48] LABS: CREATININE SERUM 0.65 MG/DL (0.60-1.30); GFR ESTIMATED > 60
[2019-12-07 04:49] LABS: BUN/CREATININE RATIO 48
[2019-12-07 04:50] LABS: MAGNESIUM 2.1 MG/DL (1.6-2.4)
[2019-12-07] MEDS: LEVOTHYROXINE 50 MCG (LEVOTHROID) TAB PO SCH (06:19)
[2019-12-07 07:25] VITALS: BP 116/73
[2019-12-07] MEDS ORDERED: KCL 20 MEQ TAB (K-DUR) PO NR (08:45)
[2019-12-07] MEDS ORDERED: FUROSEMIDE 40 MG/4 ML INJ (LASIX) IVP NR (08:45)
--- NOTE | 2019-12-07 08:48 | Pulmonary Progress Note ---
Subjective Time Seen by a Provider: 08:41 Sepsis Event Evaluation Height, Weight, BMI Height: '" Weight: lbs. oz. kg; 26.60 BMI Method: Exam Exam Vital Signs Date Time Temp Pulse Resp B/P (MAP) Pulse Ox O2 Delivery O2 Flow Rate FiO2 12/07/19 07:25 35.6 67 18 116/73 (87) 92 Vapotherm 25.00 80.00 12/07/19 06:44 94 Vapotherm 25.00 80 12/07/19 04:00 36.4 75 16 136/82 (100) 92 Vapotherm 25.00 80.00 12/07/19 01:43 90 Vapotherm 25.00 80 12/07/19 01:00 50 12/06/19 23:49 76 18 119/65 (83) 93 Vapotherm 25.00 80.00 12/06/19 21:00 Vapotherm 25.00 80 12/06/19 20:37 36.3 84 18 127/71 (89) 88 Vapotherm 25.00 80.00 12/06/19 19:00 50 12/06/19 16:00 75 18 127/63 (84) 93 Vapotherm 25.00 80.00 12/06/19 15:11 92 Vapotherm 25.00 80 12/06/19 12:40 71 12/06/19 12:00 Vapotherm 28.00 80 12/06/19 11:35 77 18 100/65 (77) 93 Vapotherm 35.00 95.00 12/06/19 11:35 36.6 12/06/19 11:03 90 Vapotherm 25.00 80 I & O 12/07/19 07:00 Intake Total 1275 ml Output Total 2300 ml Balance -1025 ml Height & Weight Height: '" Weight: lbs. oz. kg; 26.60 BMI Method: General Appearance: Anxious, Mild Distress (tachypnea) HEENT: PERRL/EOMI, Moist Mucous Membranes; No Scleral Icterus (L), No Scleral Icterus (R) Neck: Normal Inspection, Supple Respiratory: Lungs Clear, Normal Breath Sounds, Respiratory Distress (tachypnea) Cardiovascular: Regular Rate, Rhythm, No Edema, No Murmur Capillary Refill: Less Than 3 Seconds Extremity: Normal Inspection, Non Tender, No Pedal Edema Neurologic/Psychiatric: Alert, Oriented x3 Skin: Normal Color, Warm/Dry Results Lab Laboratory Tests 12/06/19 02:40 12/07/19 03:12 Assessment/Plan Assessment/Plan Acute respiratory failure with COVID 19 -BiPAP PRN -Vapotherm -Will give an extra dose of Lasix Decadron 20mg s/p Remdesivir s/p 2 units convalescent plasma s/p Zosyn Lasix 40 mg daily A-fib - controlled Eliquis Hypothyroidism Continue home synthroid Gi/DVT ppx -Pt is on eliquis for Afib -Protonix ANDRZEJ GOODWIN DO Dec 07, 2019 08:47
[2019-12-07] MEDS: PANTOPRAZOLE 40 MG (PROTONIX) VIAL IV SCH (09:02)
[2019-12-07] MEDS: APIXABAN 5 MG (ELIQUIS) TABLET PO SCH ×2 (09:02→19:57)
[2019-12-07] MEDS: dexAMETHasone INJECTION 20 MG in NS (IVPB) 50 ML IV SCH (09:03)
[2019-12-07] MEDS: FUROSEMIDE 40 MG/4 ML INJ (LASIX) IVP SCH (09:04)
--- NOTE | 2019-12-07 10:15 | NUR ---
This RN assisted with linens change and samuel care. pt incontinent of bowel
--- NOTE | 2019-12-07 11:21 | Physical Therapy Daily Note ---
PT Daily Note-Current Subjective Patient reluctantly agrees to PT. She initially declined due to fatigue and not feeling well. Mental Status Patient Orientation: Normal For Age Attachments: Oxygen (vapotherm), Almanza Catheter, IV Transfers SCALE: Activities may be completed with or without assistive devices. 3-Dshhxrerpz-clgtbsz completes the activity by him/herself with no assistance f rom a helper. 5-Set-up or Clean-up Assistance-helper sets up or cleans up; patient completes activity. [place] assists only prior to or following the activity. 4-Supervision or Touching Assistance-helper provides verbal cues and/or touching/steadying and/or contact guard assistance as patient completes activity. Assistance may be provided throughout the activity or intermittently. 3-Partial/Moderate Assistance-helper does LESS THAN HALF the effort. [place] lifts, holds or supports trunk or limbs, but provides less than half the effort. 2-Substantial/Maximal Assistance-helper does MORE THAN HALF the effort. [place] lifts or holds trunk or limbs and provides more than half the effort. 2-Rqxplekwh-dsfuug does ALL the effort. Patient does none of the effort to complete the activity. Or, the assistance of 2 or more helpers is required for the patient to complete the activity. If activity was not attempted, code reason: 7-Patient Refused. 9-Not Applicable-not attempted and the patient did not perform the activity before the current illness, exacerbation or injury. 10-Not Attempted due to Environmental Limitations-(lack of equipment, weather restraints, etc.). 88-Not Attempted due to Medical Conditions or Safety Concerns. Roll Left & Right (QC): 6 Sit to Lying (QC): 5 Lying to Sitting/Side of Bed(Q: 5 Sit to Stand (QC): 4 sit to stand x 4 sets due to incontinence BM requiring dependent assist to cleanse and change linens. Gait Training Does the Patient Walk?: No and Walking Goal IS indicated Distance: 5' Gait Assistive Device: FWW Assessment Patient tolerated minimal activity on this date and returned to bed with needs met. PT to increase activity as tolerated by patient. PT Adjunct Latin Professor Goals Nursing Home Goals PT Nursing Home Goals Time Frame: Dec 08, 2019 Roll Left & Right (QC): 6 Sit to Lying (QC): 6 Lying-Sitting on Side/Bed(QC): 6 Sit to Stand (QC): 6 Chair/Anf-ip-Ldoiq Xfer(QC): 6 Toilet Transfer (QC): 6 Does the Patient Walk: Yes Walk 10 feet (QC): 6 Walk 50ft with 2 Turns (QC): 6 Walk 150 ft (QC): 6 PT Plan Treatment/Plan Treatment Plan: Continue Plan of Care Treatment Plan: Bed Mobility, Education, Functional Activity Misael, Functional Strength, Gait, Safety, Therapeutic Exercise, Transfers Treatment Duration: Dec 09, 2019 Frequency: 6 times per week Estimated Hrs Per Day: .25 hour per day Patient and/or Family Agrees t: Yes Time/GCodes Time In: 935 Time Out: 958 Total Billed Treatment Time: 23 Total Billed Treatment 1 visit FA x 2 23min JUAN BERRIOS PT Dec 07, 2019 11:21
[2019-12-07 11:58] VITALS: BP 120/73
--- NOTE | 2019-12-07 13:37 | Occupational Ther Daily Note ---
OT Current Status-Daily Note Subjective Pt lying in bed dozing. Pt agrees to therapy. No c/o pain at this time. Pt very fatigued. Mental Status/Objective Patient Orientation: Person, Place, Time, Situation Attachments: Almanza Catheter, IV, Oxygen (vapotherm), Telemetry ADL-Treatment Therapy Code Descriptions/Definitions Functional [place] Measure: 0=Not Assessed/NA 4=Minimal Assistance 1=Total Assistance 5=Supervision or Setup 2=Maximal Assistance 6=Modified [place] 3=Moderate Assistance 7=Complete IndependenceSCALE: Activities may be completed with or without assistive devices. 6-Bcfogufjcn-nrsmcfe completes the activity by him/herself with no assistance from a helper. 5-Set-up or Clean-up Assistance-helper sets up or cleans up; patient completes activity. [place] assists only prior to or following the activity. 4-Supervision or Touching Assistance-helper provides verbal cues and/or touching/steadying and/or contact guard assistance as patient completes activity. Assistance may be provided throughout the activity or intermittently. 3-Partial/Moderate Assistance-helper does LESS THAN HALF the effort. [place] lifts, holds or supports trunk or limbs, but provides less than half the effort. 2-Substantial/Maximal Assistance-helper does MORE THAN HALF the effort. [place] lifts or holds trunk or limbs and provides more than half the effort. 8-Daozvmysu-smqqox does ALL the effort. Patient does none of the effort to complete the activity. Or, the assistance of 2 or more helpers is required for the patient to complete the activity. If activity was not attempted, code reason: 7-Patient Refused. 9-Not Applicable-not attempted and the patient did not perform the activity bef ore the current illness, exacerbation or injury. 10-Not Attempted due to Environmental Limitations-(lack of equipment, weather r estraints, etc.). 88-Not Attempted due to Medical Conditions or Safety Concerns. Other Treatment Pt able to go from supine to EOB with min A then EOB to supine by self. Pt completed 3 B UE exercises against gravity while seated EOB, 1 set 10 reps. Pt stated that she was done. After session, pt lying in bed with call light/phone in reach. All needs met in room. OT Dentist Goals Custodial Goals Time Frame: Dec 08, 2019 Eating (QC): 6 Oral Hygiene (QC): 6 Toileting Hygiene (QC): 6 Shower/Bathe Self (QC): 6 Upper Body Dressing (QC): 6 Lower Body Dressing (QC): 6 On/Off Footwear (QC): 6 1=Demonstrate adherence to instructed precautions during ADL tasks. 2=Patient will verbalize/demonstrate understanding of assistive devices/modifications for ADL. 3=Patient will improve strength/tolerance for activity to enable patient to perform ADL's. OT Education/Plan Problem List/Assessment Assessment: Decreased Activ Tolerance, Decreased UE Strength, Impaired Coordination, Impaired Funct Balance, Impaired Self-Care Skills Discharge Recommendations Plan/Recommendations: Continue POC Treatment Plan/Plan of Care Patient would benefit from OT for education, treatment and training to promote independence in ADL's, mobility, safety and/or upper extremity function for ADL's. Plan of Care: ADL Retraining, Functional Mobility, UE Funct Exercise/Act Treatment Duration: Dec 08, 2019 Frequency: 5 times per week Estimated Hrs Per Day: .25 hour per day Agreement: Yes Rehab Potential: Fair Time/GCodes Start Time: 10:45 Stop Time: 11:00 Total Time Billed (hr/min): 15 Billed Treatment Time 1 visit-FA 1 (15 min) RONIT CARABALLO Dec 07, 2019 13:37
--- NOTE | 2019-12-07 14:12 | NUR ---
Pt is Rastafarian and was anointed last week by Fr Rajan.
[2019-12-07 15:03] LABS: BILIRUBIN,URINE NEGATIVE (NEGATIVE); CLARITY,URINE CLEAR; COLOR,URINE YELLOW; GLUCOSE, URINE (UA) NEGATIVE (NEGATIVE); KETONES,URINE NEGATIVE (NEGATIVE); LEUKOCYTE ESTERASE ,URINE NEGATIVE (NEGATIVE); NITRITE,URINE NEGATIVE (NEGATIVE); PROTEIN,URINE NEGATIVE (NEGATIVE)
[2019-12-07 15:11] LABS: BACTERIA,URINE NEGATIVE /HPF; CALCIUM OXALATE CRYSTALS,UR RARE /LPF; HYALINE CASTS, URINE 0-2 /LPF; RBC,URINE >100 /HPF; SQUAMOUS EPITHELIAL CELL,UR RARE /HPF; WBC,URINE RARE /HPF
[2019-12-07 16:00] VITALS: BP 117/70
[2019-12-07] MEDS: DONEPEZIL 10 MG (ARICEPT) TAB PO SCH (19:57)
[2019-12-07] MEDS: GABAPENTIN 100 MG (NEURONTIN) CAP PO SCH (19:57)
[2019-12-07 20:00] VITALS: BP 119/70
[2019-12-07 23:45] VITALS: BP 125/75
[2019-12-08] MEDS: RT-ALBUTEROL INHALER HFA (VENTOLIN HFA) 18 GM IH SCH ×6 (02:03→22:04)
[2019-12-08 03:56] LABS: BASOPHILS % (AUTO) 0 % (0-10); EOSINOPHILS % (AUTO) 0 % (0-10); HEMATOCRIT 37 % (35-52); HEMOGLOBIN 11.8 g/dL (11.5-16.0); LYMPHOCYTES % (AUTO) 9 % (12-44); MEAN CORPUSCULAR HEMOGLOBIN 29 pg (25-34); MEAN CORPUSCULAR HGB CONC 32 g/dL (32-36); MEAN CORPUSCULAR VOLUME 90 fL (80-99); MEAN PLATELET VOLUME 10.2 fL (9.0-12.2); MONOCYTES # (AUTO) 0.5 10^3/uL (0.0-1.0); MONOCYTES % (AUTO) 5 % (0-12); NEUTROPHILS # (AUTO) 8.7 10^3/uL (1.8-7.8); NEUTROPHILS % (AUTO) 82 % (42-75); PLATELET COUNT 366 10^3/uL (130-400); WHITE BLOOD COUNT 10.7 10^3/uL (4.3-11.0)
[2019-12-08 04:00] VITALS: BP 132/75
[2019-12-08 04:08] LABS: CHLORIDE 94 MMOL/L (98-107); POTASSIUM 4.9 MMOL/L (3.6-5.0); SODIUM 137 MMOL/L (135-145)
[2019-12-08 04:10] LABS: CALCIUM 9.6 MG/DL (8.5-10.1); GLUCOSE 155 MG/DL (70-105)
[2019-12-08 04:12] LABS: CARBON DIOXIDE 31 MMOL/L (21-32)
[2019-12-08 04:14] LABS: CREATININE SERUM 0.69 MG/DL (0.60-1.30); GFR ESTIMATED > 60; PHOSPHORUS 4.3 MG/DL (2.3-4.7)
[2019-12-08 04:15] LABS: BUN/CREATININE RATIO 51
[2019-12-08 04:16] LABS: MAGNESIUM 2.3 MG/DL (1.6-2.4)
--- NOTE | 2019-12-08 05:51 | Pulmonary Progress Note ---
Subjective Time Seen by a Provider: 05:51 Subjective/Events-last exam Pt is still requiring Vapotherm. Sepsis Event Evaluation Height, Weight, BMI Height: '" Weight: lbs. oz. kg; 26.60 BMI Method: Exam Exam Vital Signs Date Time Temp Pulse Resp B/P (MAP) Pulse Ox O2 Delivery O2 Flow Rate FiO2 12/08/19 02:03 96 Vapotherm 25.00 75 12/08/19 01:00 60 12/07/19 23:45 66 18 125/75 (92) 95 25.00 75.00 12/07/19 22:31 96 Vapotherm 25.00 80 12/07/19 21:00 Vapotherm 25.00 80 12/07/19 20:00 36.3 77 18 119/70 (86) 95 Vapotherm 25.00 80.00 12/07/19 19:00 50 12/07/19 18:50 93 Vapotherm 25.00 80 12/07/19 16:00 36.4 75 16 117/70 (86) 94 Vapotherm 25.00 80.00 12/07/19 14:07 93 Vapotherm 25.00 80 12/07/19 13:00 61 12/07/19 11:58 36.0 76 15 120/73 (89) 94 Vapotherm 25.00 80.00 12/07/19 10:12 91 Vapotherm 25.00 80 12/07/19 09:00 Vapotherm 25.00 80 12/07/19 07:25 35.6 67 18 116/73 (87) 92 Vapotherm 25.00 80.00 12/07/19 07:14 52 12/07/19 06:44 94 Vapotherm 25.00 80 I & O 12/08/19 07:00 Intake Total 1670 ml Output Total 1975 ml Balance -305 ml Height & Weight Height: '" Weight: lbs. oz. kg; 26.60 BMI Method: General Appearance: Anxious, Mild Distress (tachypnea) HEENT: PERRL/EOMI, Moist Mucous Membranes; No Scleral Icterus (L), No Scleral Icterus (R) Neck: Normal Inspection, Supple Respiratory: Lungs Clear, Normal Breath Sounds, Respiratory Distress (tachypnea) Cardiovascular: Regular Rate, Rhythm, No Edema, No Murmur Capillary Refill: Less Than 3 Seconds Extremity: Normal Inspection, Non Tender, No Pedal Edema Neurologic/Psychiatric: Alert, Oriented x3 Skin: Normal Color, Warm/Dry Results Lab Laboratory Tests 12/07/19 03:12 12/08/19 03:05 Assessment/Plan Assessment/Plan Acute respiratory failure with COVID 19 -BiPAP PRN -Vapotherm Decadron 20mg s/p Remdesivir s/p 2 units convalescent plasma s/p Zosyn Lasix 40 mg daily A-fib - controlled Eliquis Hypothyroidism Continue home synthroid Gi/DVT ppx -Pt is on eliquis for Afib -Protonix ANDRZEJ GOODWIN DO Dec 08, 2019 05:51
[2019-12-08] MEDS ORDERED: FUROSEMIDE 40 MG/4 ML INJ (LASIX) IVP ONE (06:00)
[2019-12-08] MEDS: LEVOTHYROXINE 50 MCG (LEVOTHROID) TAB PO SCH (06:29)
[2019-12-08 07:40] VITALS: BP 125/77
[2019-12-08] MEDS: dexAMETHasone INJECTION 20 MG in NS (IVPB) 50 ML IV SCH (08:26)
[2019-12-08] MEDS: PANTOPRAZOLE 40 MG (PROTONIX) TAB PO SCH (08:29)
[2019-12-08] MEDS: APIXABAN 5 MG (ELIQUIS) TABLET PO SCH ×2 (08:29→20:38)
--- NOTE | 2019-12-08 10:32 | Physical Therapy Daily Note ---
PT Daily Note-Current Subjective Patient is more alert and agrees to PT. Mental Status Patient Orientation: Normal For Age Attachments: Oxygen (vapotherm), Almanza Catheter Transfers SCALE: Activities may be completed with or without assistive devices. 4-Bykoqjqlhc-wplolyz completes the activity by him/herself with no assistance from a helper. 5-Set-up or Clean-up Assistance-helper sets up or cleans up; patient completes activity. [place] assists only prior to or following the activity. 4-Supervision or Touching Assistance-helper provides verbal cues and/or touching/steadying and/or contact guard assistance as patient completes activi ty. Assistance may be provided throughout the activity or intermittently. 3-Partial/Moderate Assistance-helper does LESS THAN HALF the effort. [place] lifts, holds or supports trunk or limbs, but provides less than half the effort. 2-Substantial/Maximal Assistance-helper does MORE THAN HALF the effort. [place] lifts or holds trunk or limbs and provides more than half the effort. 3-Fcketmfza-btkrlj does ALL the effort. Patient does none of the effort to complete the activity. Or, the assistance of 2 or more helpers is required for the patient to complete the activity. If activity was not attempted, code reason: 7-Patient Refused. 9-Not Applicable-not attempted and the patient did not perform the activity before the current illness, exacerbation or injury. 10-Not Attempted due to Environmental Limitations-(lack of equipment, weather restraints, etc.). 88-Not Attempted due to Medical Conditions or Safety Concerns. Roll Left & Right (QC): 5 Lying to Sitting/Side of Bed(Q: 5 Sit to Stand (QC): 5 Chair/Vsy-gd-Kurss Xfer(QC): 5 patient performed sit to stand to FWW x 4 sets with SAO2 remaining >90% Gait Training Does the Patient Walk?: No and Walking Goal IS indicated (connected to vapotherm limiting mobility) Exercises Supine Ex: Ankle pumps, Quad Set, Heel Slides, Straight leg raise Supine Reps: 15 Seated Therapy Exercises: Ankle pumps, Long arc quads, Hip flexion Seated Reps: 15 Assessment Patient does fatigue quickly with minimal activity, however, is improving. PT to increase activity as tolerated by patient. PT Half-Way Goals Half-Way Goals PT Half-Way Goals Time Frame: Dec 08, 2019 Roll Left & Right (QC): 6 Sit to Lying (QC): 6 Lying-Sitting on Side/Bed(QC): 6 Sit to Stand (QC): 6 Chair/Oey-bd-Iwhtm Xfer(QC): 6 Toilet Transfer (QC): 6 Does the Patient Walk: Yes Walk 10 feet (QC): 6 Walk 50ft with 2 Turns (QC): 6 Walk 150 ft (QC): 6 PT Plan Treatment/Plan Treatment Plan: Continue Plan of Care Treatment Plan: Bed Mobility, Education, Functional Activity Misael, Functional Strength, Gait, Safety, Therapeutic Exercise, Transfers Treatment Duration: Dec 09, 2019 Frequency: 6 times per week Estimated Hrs Per Day: .25 hour per day Patient and/or Family Agrees t: Yes Time/GCodes Time In: 940 Time Out: 1003 Total Billed Treatment Time: 23 Total Billed Treatment 1 visit EX 13 min FA 10 min JUAN BERRIOS PT Dec 08, 2019 10:32
--- NOTE | 2019-12-08 10:58 | NUR ---
"RD ASSESSMENT PMHx: hypercholesterolemia; hypothyroidism; dementia PT INTERACTION: Note pt is currently in COVID isolation. Note pt has dementia and did not answer phone call for nutrition follow-up. Note all information gathered is per chart review. Note avg PO intake 28% x4d. Note last BM was 12/07, and pt not currently on bowel regimen. Note recetn 3# wt loss x1w. ABNORMAL NUTRITION-RELATED LAB VALUES LOW: Cl 94; HIGH: BUN 33; glu 155 Est. kcal needs: 1550 kcal | 25 kcal/kg Est. Pro needs: 61 g Pro | 1.0 g Pro/kg PES STATEMENT: Inadequate oral intake (NI-2.1) related to loss of appetite as evidenced by chart review | avg PO intake 28% x4d INTERVENTION: Continue with current diet order of Regular diet. Continue with current supplementation order of Ensure Enlive (vary) with meals TID, for increased kcal intake. Provides 350 kcal and 20 g Pro per serving. Will continue to follow and reassess as pt needs, intake, and status change. Amelie Orr MS RD LD"
[2019-12-08 12:00] VITALS: BP 114/73
--- NOTE | 2019-12-08 14:37 | Occupational Ther Daily Note ---
OT Current Status-Daily Note Subjective Pt's nurse agrees to OT tx. Pt alert/ oriented to person/ place/ situation. Pt denies pain. Pt requires max volume due to air circulation, biPAP, and hard of hearing. Mental Status/Objective Patient Orientation: Person, Place, Situation Attachments: Almanza Catheter, Oxygen (biPAP) ADL-Treatment Therapy Code Descriptions/Definitions Functional [place] Measure: 0=Not Assessed/NA 4=Minimal Assistance 1=Total Assistance 5=Supervision or Setup 2=Maximal Assistance 6=Modified [place] 3=Moderate Assistance 7=Complete IndependenceSCALE: Activities may be completed with or without assistive devices. 7-Sumoayuonb-zwzklxe completes the activity by him/herself with no assistance from a helper. 5-Set-up or Clean-up Assistance-helper sets up or cleans up; patient completes activity. [place] assists only prior to or following the activity. 4-Supervision or Touching Assistance-helper provides verbal cues and/or touching/steadying and/or contact guard assistance as patient completes activity. Assistance may be provided throughout the activity or intermittently. 3-Partial/Moderate Assistance-helper does LESS THAN HALF the effort. [place] lifts, holds or supports trunk or limbs, but provides less than half the effort. 2-Substantial/Maximal Assistance-helper does MORE THAN HALF the effort. [place] lifts or holds trunk or limbs and provides more than half the effort. 0-Jvflastgp-dzqtvb does ALL the effort. Patient does none of the effort to complete the activity. Or, the assistance of 2 or more helpers is required for the patient to complete the activity. If activity was not attempted, code reason: 7-Patient Refused. 9-Not Applicable-not attempted and the patient did not perform the activity before the current illness, exacerbation or injury. 10-Not Attempted due to Environmental Limitations-(lack of equipment, weather restraints, etc.). 88-Not Attempted due to Medical Conditions or Safety Concerns. Eating (QC): 6 (Pt able to reach for fruit and bring to mouth. ) Shower/Bathe Self (QC): 7 (denies sponge bath) Other Treatment Pt seen in recliner, denies pain, though states hot. Pt's temperature turned down 2 degrees and pt is handed cool cloth. Pt wipes face/ neck. Pt then states she is SOB, pt's 02 at 92%. Pt educated on diaphragmatic breathing tasks with physical cues for stomach breathing. Pt unable to master, though does increase to 93% 02. Pt completes 10 reps of 3 exercises: hand gripping, elbow flexion/ extension, and scaption. Pt's 02 maintains 91-92%. Pt completes feeding, denies oral care or shower. Pt left in room with all needs met, call light in reach, fruit cup in hand. Pt's nurse notified of pt's abilities. Education OT Patient Education: Correct positioning, Exercise program, Home exercise program Teaching Recipient: Patient Teaching Methods: Demonstration, Discussion Response to Teaching: Verbalize Understanding, Return Demonstration, Reinforcement Needed OT Processing Operator Goals Correction Goals Time Frame: Dec 08, 2019 Eating (QC): 6 Oral Hygiene (QC): 6 Toileting Hygiene (QC): 6 Shower/Bathe Self (QC): 6 Upper Body Dressing (QC): 6 Lower Body Dressing (QC): 6 On/Off Footwear (QC): 6 1=Demonstrate adherence to instructed precautions during ADL tasks. 2=Patient will verbalize/demonstrate understanding of assistive devices/modifications for ADL. 3=Patient will improve strength/tolerance for activity to enable patient to perform ADL's. OT Education/Plan Problem List/Assessment Assessment: Decreased Activ Tolerance, Decreased UE Strength, Dependent Transfers, Impaired I ADL's, Impaired Self-Care Skills Discharge Recommendations Plan/Recommendations: Continue POC Therapy Discharge Recommendati: 24 Hour Supervision, Post Acute OT Treatment Plan/Plan of Care Treatment,Training & Education: Yes Patient would benefit from OT for education, treatment and training to promote independence in ADL's, mobility, safety and/or upper extremity function for ADL's. Plan of Care: ADL Retraining, Functional Mobility, UE Funct Exercise/Act Treatment Duration: Dec 08, 2019 Frequency: 5 times per week Estimated Hrs Per Day: .25 hour per day Agreement: Yes Rehab Potential: Fair Time/GCodes Start Time: 14:00 Stop Time: 14:17 Total Time Billed (hr/min): 17 Billed Treatment Time 1, ADL (17) AAKASH GEE OTR Dec 08, 2019 14:37
[2019-12-08 16:00] VITALS: BP 118/75
[2019-12-08 20:00] VITALS: BP 119/83
[2019-12-08] MEDS: DONEPEZIL 10 MG (ARICEPT) TAB PO SCH (20:39)
[2019-12-08] MEDS: GABAPENTIN 100 MG (NEURONTIN) CAP PO SCH (20:39)
[2019-12-08] MEDS: RT-ALBUTEROL INHALER HFA (VENTOLIN HFA) 18 GM IH PRN (21:49)
[2019-12-08 23:21] VITALS: BP 124/74
[2019-12-09] MEDS: RT-ALBUTEROL INHALER HFA (VENTOLIN HFA) 18 GM IH PRN (02:12)
[2019-12-09] MEDS: RT-ALBUTEROL INHALER HFA (VENTOLIN HFA) 18 GM IH SCH ×6 (02:13→23:59)
[2019-12-09 03:27] VITALS: BP 138/78
[2019-12-09 03:56] LABS: BASOPHILS % (AUTO) 0 % (0-10); EOSINOPHILS % (AUTO) 0 % (0-10); HEMATOCRIT 39 % (35-52); HEMOGLOBIN 12.4 g/dL (11.5-16.0); LYMPHOCYTES % (AUTO) 9 % (12-44); MEAN CORPUSCULAR HEMOGLOBIN 29 pg (25-34); MEAN CORPUSCULAR HGB CONC 32 g/dL (32-36); MEAN CORPUSCULAR VOLUME 89 fL (80-99); MONOCYTES # (AUTO) 0.6 10^3/uL (0.0-1.0); MONOCYTES % (AUTO) 5 % (0-12); NEUTROPHILS # (AUTO) 9.2 10^3/uL (1.8-7.8); NEUTROPHILS % (AUTO) 81 % (42-75); PLATELET COUNT 345 10^3/uL (130-400); WHITE BLOOD COUNT 11.4 10^3/uL (4.3-11.0)
[2019-12-09 04:00] LABS: CHLORIDE 91 MMOL/L (98-107); POTASSIUM 5.1 MMOL/L (3.6-5.0); SODIUM 135 MMOL/L (135-145)
[2019-12-09 04:01] LABS: CALCIUM 9.7 MG/DL (8.5-10.1)
[2019-12-09 04:02] LABS: GLUCOSE 159 MG/DL (70-105)
[2019-12-09 04:04] LABS: CARBON DIOXIDE 33 MMOL/L (21-32)
[2019-12-09 04:05] LABS: PHOSPHORUS 3.9 MG/DL (2.3-4.7)
[2019-12-09 04:06] LABS: CREATININE SERUM 0.71 MG/DL (0.60-1.30); GFR ESTIMATED > 60
[2019-12-09 04:07] LABS: BUN/CREATININE RATIO 51
[2019-12-09 04:08] LABS: MAGNESIUM 2.4 MG/DL (1.6-2.4)
--- NOTE | 2019-12-09 05:44 | Pulmonary Progress Note ---
Subjective Time Seen by a Provider: 05:42 Subjective/Events-last exam Pt is requiring 45% Vapotherm. Sepsis Event Evaluation Height, Weight, BMI Height: '" Weight: lbs. oz. kg; 26.60 BMI Method: Exam Exam Vital Signs Date Time Temp Pulse Resp B/P (MAP) Pulse Ox O2 Delivery O2 Flow Rate FiO2 12/09/19 03:27 35.7 61 18 138/78 (98) 94 Vapotherm 25.00 45.00 12/09/19 02:12 94 Vapotherm 25.00 50 12/09/19 01:00 83 12/08/19 23:21 36.7 76 16 124/74 (91) 95 Vapotherm 25.00 50.00 12/08/19 21:49 92 Vapotherm 25.00 50 12/08/19 21:00 Vapotherm 25.00 50 12/08/19 20:00 36.7 88 18 119/83 (95) 94 Vapotherm 25.00 75.00 12/08/19 19:00 92 Vapotherm 25.00 50 12/08/19 19:00 73 12/08/19 16:00 37.0 80 18 118/75 (89) 94 Vapotherm 25.00 75.00 12/08/19 14:50 94 Vapotherm 25.00 50 12/08/19 12:38 89 12/08/19 12:00 36.8 76 18 114/73 (87) 93 Vapotherm 25.00 75.00 12/08/19 10:48 95 Vapotherm 25.00 75 12/08/19 09:00 Vapotherm 25.00 75 12/08/19 07:40 35.9 62 20 125/77 (93) 94 Vapotherm 25.00 75.00 12/08/19 07:00 67 I & O 12/09/19 07:00 Intake Total 1025 ml Output Total 1075 ml Balance -50 ml Height & Weight Height: '" Weight: lbs. oz. kg; 26.60 BMI Method: General Appearance: Anxious, Mild Distress (tachypnea) HEENT: PERRL/EOMI, Moist Mucous Membranes; No Scleral Icterus (L), No Scleral Icterus (R) Neck: Normal Inspection, Supple Respiratory: Lungs Clear, Normal Breath Sounds, Respiratory Distress (tachypnea) Cardiovascular: Regular Rate, Rhythm, No Edema, No Murmur Capillary Refill: Less Than 3 Seconds Extremity: Normal Inspection, Non Tender, No Pedal Edema Neurologic/Psychiatric: Alert, Oriented x3 Skin: Normal Color, Warm/Dry Results Lab Laboratory Tests 12/08/19 03:05 12/09/19 03:15 Assessment/Plan Assessment/Plan Acute respiratory failure with COVID 19 -BiPAP PRN -Vapotherm Decadron 20mg s/p Remdesivir s/p 2 units convalescent plasma s/p Zosyn Lasix 40 mg daily A-fib - controlled Eliquis Hypothyroidism Continue home synthroid Gi/DVT ppx -Pt is on eliquis for Afib -Protonix ANDRZEJ GOODWIN DO Dec 09, 2019 05:44
[2019-12-09] MEDS: LEVOTHYROXINE 50 MCG (LEVOTHROID) TAB PO SCH (06:12)
[2019-12-09 07:30] VITALS: BP 145/78
[2019-12-09] MEDS: APIXABAN 5 MG (ELIQUIS) TABLET PO SCH ×2 (08:48→20:41)
[2019-12-09] MEDS: PANTOPRAZOLE 40 MG (PROTONIX) TAB PO SCH (08:48)
[2019-12-09] MEDS ORDERED: FUROSEMIDE 40 MG/4 ML INJ (LASIX) IVP SCH (09:00)
--- NOTE | 2019-12-09 09:03 | NUR ---
0700- REPORT RECEIVED FROM MOBILE SALES CONSULTANT. 0830- ASSESSMENT COMPLETED AT THIS TIME. PT SITTING UP IN BED AND FINISHED BREAKFAST. A/O X 3, SLIGHTLY CONFUSED ON TIME AT TIMES. CONVERSES WITH STAFF WITHOUT DIFFICULTY. RODRIGUES PATENT. RIGHT WRIST IV PATENT AND FLUSHES WITHOUT DIFFICULTY. DENIES PAIN. CALL LIGHT WITHIN REACH. TOLERATED MEDICATIONS WITHOUT DIFFICULTY. WILL CONTINUE TO MONITOR.
--- NOTE | 2019-12-09 10:10 | Physical Therapy Daily Note ---
PT Daily Note-Current Subjective Pt agreable to PT. Agrees to get up to the chair. Transfers SCALE: Activities may be completed with or without assistive devices. 2-Mcgxlhvvcw-ymuvita completes the activity by him/herself with no assistance from a helper. 5-Set-up or Clean-up Assistance-helper sets up or cleans up; patient completes activity. [place] assists only prior to or following the activity. 4-Supervision or Touching Assistance-helper provides verbal cues and/or touching/steadying and/or contact guard assistance as patient completes activity. Assistance may be provided throughout the activity or intermittently. 3-Partial/Moderate Assistance-helper does LESS THAN HALF the effort. [place] lifts, holds or supports trunk or limbs, but provides less than half the effort. 2-Substantial/Maximal Assistance-helper does MORE THAN HALF the effort. [place] lifts or holds trunk or limbs and provides more than half the effort. 3-Wzvdcrzgq-gnkltb does ALL the effort. Patient does none of the effort to complete the activity. Or, the assistance of 2 or more helpers is required for the patient to complete the activity. If activity was not attempted, code reason: 7-Patient Refused. 9-Not Applicable-not attempted and the patient did not perform the activity before the current illness, exacerbation or injury. 10-Not Attempted due to Environmental Limitations-(lack of equipment, weather restraints, etc.). 88-Not Attempted due to Medical Conditions or Safety Concerns. Lying to Sitting/Side of Bed(Q: 3 (min assist to sit up EOB) Sit to Stand (QC): 3 (min assist to come to a stand and to transfer to the chair. ) Chair/Byi-ge-Jyrfk Xfer(QC): 3 Sit to stand x 5 reps to perform pericare and to get to the chair. In sitting, pt washed hands and face. Assisted pt to wash her armpits, under breasts and periarea. Pt in chair with vapotherm in place, chair alarm activiated and needs met. Treatments Functional activity and upright activity to get out of bed. Assessment Current Status: Good Progress Pt is pleasant and cooperative. Appreciates care. Tolerated fair. She is very weak but participates. PT Fpc Goals Fpc Goals PT Fpc Goals Time Frame: Dec 08, 2019 Roll Left & Right (QC): 6 Sit to Lying (QC): 6 Lying-Sitting on Side/Bed(QC): 6 Sit to Stand (QC): 6 Chair/Wkv-nm-Efzms Xfer(QC): 6 Toilet Transfer (QC): 6 Does the Patient Walk: Yes Walk 10 feet (QC): 6 Walk 50ft with 2 Turns (QC): 6 Walk 150 ft (QC): 6 PT Plan Problem List Problem List: Activity Tolerance, Functional Strength, Safety, Balance, Gait, Transfer, Bed Mobility Treatment/Plan Treatment Plan: Continue Plan of Care Treatment Plan: Bed Mobility, Education, Functional Activity Misael, Functional Strength, Gait, Safety, Therapeutic Exercise, Transfers Treatment Duration: Dec 09, 2019 Frequency: 6 times per week Estimated Hrs Per Day: .25 hour per day Patient and/or Family Agrees t: Yes Safety Risks/Education Patient Education: Safety Issues Teaching Recipient: Patient Teaching Methods: Discussion Response to Teaching: Reinforcement Needed Discharge Recommendations Therapy Discharge Recommendati: Post Acute PT Time/GCodes Time In: 915 Time Out: 943 Total Billed Treatment Time: 28 Total Billed Treatment visitFA 28 RONIT SORENSEN PT Dec 09, 2019 10:10
--- NOTE | 2019-12-09 10:48 | NUR ---
1000- PT UP TO CHAIR WITH ASSIST FROM PHYSICAL THERAPY. TOLERATING WELL. REMAINS IN STABLE CONDITION. 1045- REMAINS IN STABLE CONDITION. NO C/O ANYTHING. DENIES PAIN. TOLERATING SITTING IN CHAIR WITHOUT DIFFICULTY.
[2019-12-09 11:50] VITALS: BP 129/71
[2019-12-09 15:41] VITALS: BP 129/71
--- NOTE | 2019-12-09 18:23 | NUR ---
PT REMAINS IN STABLE CONDITION. NO RESP DISTRESS NOTED AND VITAL SIGNS STABLE. DENIES PAIN. REMAINS UP IN CHAIR. TOLERATES WELL. WILL CONTINUE TO MONITOR.
[2019-12-09 20:38] VITALS: BP 127/85
[2019-12-09] MEDS: GABAPENTIN 100 MG (NEURONTIN) CAP PO SCH (20:41)
[2019-12-09] MEDS: DONEPEZIL 10 MG (ARICEPT) TAB PO SCH (20:41)
[2019-12-10] VITALS (7 sets, daily range): BP systolic 106–131; BP diastolic 64–82
[2019-12-10 03:50] LABS: BASOPHILS % (AUTO) 0 % (0-10); EOSINOPHILS % (AUTO) 0 % (0-10); HEMATOCRIT 40 % (35-52); HEMOGLOBIN 12.7 g/dL (11.5-16.0); LYMPHOCYTES # (AUTO) 1.2 10^3/uL (1.0-4.0); LYMPHOCYTES % (AUTO) 10 % (12-44); MEAN CORPUSCULAR HEMOGLOBIN 29 pg (25-34); MEAN CORPUSCULAR HGB CONC 32 g/dL (32-36); MEAN CORPUSCULAR VOLUME 90 fL (80-99); MEAN PLATELET VOLUME 10.1 fL (9.0-12.2); MONOCYTES # (AUTO) 0.8 10^3/uL (0.0-1.0); MONOCYTES % (AUTO) 7 % (0-12); NEUTROPHILS # (AUTO) 9.7 10^3/uL (1.8-7.8); NEUTROPHILS % (AUTO) 80 % (42-75); PLATELET COUNT 317 10^3/uL (130-400); WHITE BLOOD COUNT 12.1 10^3/uL (4.3-11.0)
[2019-12-10 04:23] LABS: BUN/CREATININE RATIO 51; CALCIUM 9.6 MG/DL (8.5-10.1); CARBON DIOXIDE 31 MMOL/L (21-32); CHLORIDE 90 MMOL/L (98-107); CREATININE SERUM 0.75 MG/DL (0.60-1.30); GFR ESTIMATED > 60; GLUCOSE 132 MG/DL (70-105); MAGNESIUM 2.5 MG/DL (1.6-2.4); PHOSPHORUS 3.8 MG/DL (2.3-4.7); POTASSIUM 4.8 MMOL/L (3.6-5.0); SODIUM 135 MMOL/L (135-145)
[2019-12-10] MEDS: RT-ALBUTEROL INHALER HFA (VENTOLIN HFA) 18 GM IH SCH ×6 (04:46→21:53)
--- NOTE | 2019-12-10 05:37 | Pulmonary Progress Note ---
Subjective Time Seen by a Provider: 05:35 Sepsis Event Evaluation Height, Weight, BMI Height: '" Weight: lbs. oz. kg; 26.60 BMI Method: Exam Exam Vital Signs Date Time Temp Pulse Resp B/P (MAP) Pulse Ox O2 Delivery O2 Flow Rate FiO2 12/10/19 04:06 36.0 68 16 123/72 (89) 95 High Flow N/C 4.00 12/10/19 01:00 50 12/10/19 00:43 36.1 73 16 115/73 (87) 94 High Flow N/C 4.00 12/10/19 00:00 95 High Flow N/C 5.00 12/09/19 21:00 High Flow N/C 5.00 12/09/19 20:38 36.0 72 18 127/85 (99) 97 High Flow N/C 5.00 12/09/19 19:44 95 Vapotherm 15.00 45 12/09/19 19:00 53 12/09/19 15:41 35.8 57 94 12/09/19 14:12 94 Vapotherm 15.00 45 12/09/19 12:42 57 12/09/19 11:50 35.8 77 20 129/71 (90) 93 Vapotherm 25.00 45.00 12/09/19 10:08 93 Vapotherm 25.00 45 12/09/19 09:01 Vapotherm 25.00 50 12/09/19 07:30 35.4 65 16 145/78 (100) 92 Vapotherm 25.00 45.00 12/09/19 07:00 69 12/09/19 06:53 94 Vapotherm 25.00 45 I & O 12/10/19 07:00 Intake Total 1080 ml Output Total 1250 ml Balance -170 ml Height & Weight Height: '" Weight: lbs. oz. kg; 26.60 BMI Method: General Appearance: Anxious, Mild Distress (tachypnea) HEENT: PERRL/EOMI, Moist Mucous Membranes; No Scleral Icterus (L), No Scleral Icterus (R) Neck: Normal Inspection, Supple Respiratory: Lungs Clear, Normal Breath Sounds, Respiratory Distress (tachypnea) Cardiovascular: Regular Rate, Rhythm, No Edema, No Murmur Capillary Refill: Less Than 3 Seconds Extremity: Normal Inspection, Non Tender, No Pedal Edema Neurologic/Psychiatric: Alert, Oriented x3 Skin: Normal Color, Warm/Dry Results Lab Laboratory Tests 12/09/19 03:15 12/10/19 03:30 Assessment/Plan Assessment/Plan Acute respiratory failure with COVID 19 -BiPAP PRN -Vapotherm Decadron 10mg -- Change to 6mg PO -D/C lasix s/p Remdesivir s/p 2 units convalescent plasma s/p Zosyn A-fib - controlled Eliquis Hypothyroidism Continue home synthroid Gi/DVT ppx -Pt is on eliquis for Afib -Protonix Transfer to 4th floor. ANDRZEJ GOODWIN DO Dec 10, 2019 05:37
[2019-12-10] MEDS: LEVOTHYROXINE 50 MCG (LEVOTHROID) TAB PO SCH (06:13)
[2019-12-10] MEDS: dexAMETHasone 6 MG TAB (DECADRON) PO SCH (08:12)
[2019-12-10] MEDS: PANTOPRAZOLE 40 MG (PROTONIX) TAB PO SCH (08:12)
[2019-12-10] MEDS: APIXABAN 5 MG (ELIQUIS) TABLET PO SCH ×2 (08:12→20:46)
--- NOTE | 2019-12-10 08:15 | NUR ---
pt sitting up for breakfast. denies any needs. vss.
--- NOTE | 2019-12-10 08:52 | NUR ---
REPORT TAKEN FROM RACH FERREIRA AT THIS TIME FROM ICU. THIS RN WILL ASSUME CARE OF THIS PATIENT WHEN SHE ARRIVES TO ROOM 427-1 WHICH IS A KNOWN [place] ROOM.
--- NOTE | 2019-12-10 09:25 | NUR ---
PATIENT TO FLOOR AT THIS TIME VIA RECLINER ACCOMPANIED BY ICU STAFF AND CLEAN PERSON FOR TRANSPORT. THIS RN WILL CONT TO MONITOR THIS PATIENT THROUGHOUT THE REMAINDER OF THIS SHIFT.
--- NOTE | 2019-12-10 09:29 | NUR ---
PT TRANSFERRED TO ROOM 427 VIA RECLINER, ALL PERSONAL BELONGING SENT DOWN WITH PT. PT SITTING UP IN CHAIR CALL LIGHT AND OTHER PERSONAL ITEMS WITHIN REACH.REPORT GIVEN TO RACH BACH PRIOR TO TRANSFER
[2019-12-10] MEDS: RT-ALBUTEROL INHALER HFA (VENTOLIN HFA) 18 GM IH PRN ×2 (19:38→21:52)
[2019-12-10] MEDS: GABAPENTIN 100 MG (NEURONTIN) CAP PO SCH (20:46)
[2019-12-10] MEDS: DONEPEZIL 10 MG (ARICEPT) TAB PO SCH (20:46)
[2019-12-11] VITALS (8 sets, daily range): BP systolic 119–157; BP diastolic 65–74
[2019-12-11] MEDS: RT-ALBUTEROL INHALER HFA (VENTOLIN HFA) 18 GM IH SCH ×4 (02:15→21:39)
[2019-12-11] MEDS: LEVOTHYROXINE 50 MCG (LEVOTHROID) TAB PO SCH (05:53)
[2019-12-11] MEDS: dexAMETHasone 6 MG TAB (DECADRON) PO SCH (05:54)
[2019-12-11] MEDS: APIXABAN 5 MG (ELIQUIS) TABLET PO SCH (08:19)
[2019-12-11] MEDS: PANTOPRAZOLE 40 MG (PROTONIX) TAB PO SCH (08:19)
--- NOTE | 2019-12-11 09:44 | Progress Note - Hospitalist ---
Subjective HPI/CC On Admission Date Seen by Provider: Dec 11, 2019 Time Seen by Provider: 09:41 Pt is an 84yoCF who presented from OSH due to COVID and hypoxia. She is a very poor historian because she states she is not feeling well. She reports her symptoms have been going on for 3-4 weeks and she has had 4 COVID tests with that 4th being positive last week. She continued to worsen and just "feels bad." She denies any shortness of breath and has a mild cough. She reports poor appetite but denies vomiting. She otherwise was very vague and did not answer my questions. I have reviewed the DC summary from [facility] and it appears she was admitted for CAP and UTI and was treated with Rocephin and UTI for 3 days. She was found to be COVID positive on 11/27 (though I am unsure why she was tested). She was transferred here as they do not keep COVID positive patients. She was mildly hypoxic on presentation for CAP and required 1-2lpm NC. Subjective/Events-last exam Pt reports feeling much better than when I last saw her. Sitting up in bed. Eating breakfast. Became tearful when we discussed possibly discharging home this week. Objective Exam Vital Signs Vital Signs Date Time Temp Pulse Resp B/P (MAP) Pulse Ox O2 Delivery O2 Flow Rate FiO2 12/11/19 08:02 93 High Flow N/C 4.00 12/11/19 08:00 36.2 68 20 157/72 (100) 12/09/19 19:44 45 Capillary Refill : Less Than 3 SecondsLess Than 3 Seconds General Appearance: No Apparent Distress, Chronically ill Respiratory: Lungs Clear, No Accessory Muscle Use, Other (on 4lpm) Cardiovascular: No Murmur, Irregularly Irregular Gastrointestinal: Normal Bowel Sounds, Non Tender, Soft Neurologic/Psychiatric: Alert, Oriented x3 Results/Procedures Lab Patient resulted labs reviewed. Imaging: Reviewed Imaging Report Assessment/Plan Assessment and Plan Assess & Plan/Chief Complaint Acute respiratory failure with COVID 19 - Off Vapotherm and now on HFNC - Continue Decadron - s/p Remdesivir - s/p 2 units convalescent plasma - s/p Zosyn for pneumonia A-fib - controlled Eliquis Hypothyroidism -Continue home synthroid Debility -PT/OT Gi/DVT ppx -Pt is on eliquis for Afib -Protonix Diagnosis/Problems Diagnosis/Problems (1) Acute respiratory failure Status: Acute Qualifiers: Respiratory failure complication: hypoxia Qualified Codes: J96.01 - Acute respiratory failure with hypoxia (2) Atrial fibrillation Status: Chronic Qualifiers: Atrial fibrillation type: paroxysmal Qualified Codes: I48.0 - Paroxysmal atrial fibrillation (3) COVID-19 Status: Acute (4) Debility Status: Acute (5) Dementia Status: Chronic Qualifiers: Dementia type: unspecified type Dementia behavioral disturbance: without behavioral disturbance Qualified Codes: F03.90 - Unspecified dementia without behavioral disturbance (6) Pneumonia due to COVID-19 virus Status: Acute Clinical Quality Measures DVT/VTE Risk/Contraindication: Risk Factor Score Per Nursin RFS Level Per Nursing on Admit: 4+=Very High IVA SEE MD Dec 11, 2019 09:44
--- NOTE | 2019-12-11 11:31 | Physical Therapy Daily Note ---
PT Daily Note-Current Subjective Patient states, "I feel weak but I feel better." Agrees to PT. Mental Status Patient Orientation: Normal For Age Attachments: Oxygen Transfers SCALE: Activities may be completed with or without assistive devices. 6-Elehmsvhtr-nqmaqym completes the activity by him/herself with no assistance from a helper. 5-Set-up or Clean-up Assistance-helper sets up or cleans up; patient completes activity. [place] assists only prior to or following the activity. 4-Supervision or Touching Assistance-helper provides verbal cues and/or touching/steadying and/or contact guard assistance as patient completes activity. Assistance may be provided throughout the activity or intermittently. 3-Partial/Moderate Assistance-helper does LESS THAN HALF the effort. [place] lifts, holds or supports trunk or limbs, but provides less than half the effort. 2-Substantial/Maximal Assistance-helper does MORE THAN HALF the effort. [place] lifts or holds trunk or limbs and provides more than half the effort. 7-Enpycjomg-ocxhnk does ALL the effort. Patient does none of the effort to complete the activity. Or, the assistance of 2 or more helpers is required for the patient to complete the activity. If activity was not attempted, code reason: 7-Patient Refused. 9-Not Applicable-not attempted and the patient did not perform the activity before the current illness, exacerbation or injury. 10-Not Attempted due to Environmental Limitations-(lack of equipment, weather restraints, etc.). 88-Not Attempted due to Medical Conditions or Safety Concerns. Roll Left & Right (QC): 6 Lying to Sitting/Side of Bed(Q: 6 Sit to Stand (QC): 3 Chair/Iph-cm-Oltyp Xfer(QC): 3 Gait Training Does the Patient Walk?: Yes Distance: 40' x 2 Walk 10 feet (QC): 3 (min assist with use of gait belt for safety with recovery period between sets due to increase SOA and fatigue) Gait Assistive Device: FWW slow, steady gait sequence Exercises Supine Ex: Ankle pumps, Quad Set, Heel Slides, Straight leg raise Supine Reps: 12 Seated Therapy Exercises: Long arc quads Seated Reps: 15 Assessment Current Status: Good Progress Patient much improve on this date, however, remains weak due to deconditioned state. PT to increase activity as patient tolerates. PT Financial Reporting Manager Goals Halfway Goals PT Halfway Goals Time Frame: Dec 08, 2019 Roll Left & Right (QC): 6 Sit to Lying (QC): 6 Lying-Sitting on Side/Bed(QC): 6 Sit to Stand (QC): 6 Chair/Vtf-sm-Rzaup Xfer(QC): 6 Toilet Transfer (QC): 6 Does the Patient Walk: Yes Walk 10 feet (QC): 6 Walk 50ft with 2 Turns (QC): 6 Walk 150 ft (QC): 6 PT Plan Treatment/Plan Treatment Plan: Continue Plan of Care Treatment Plan: Bed Mobility, Education, Functional Activity Misael, Functional Strength, Gait, Safety, Therapeutic Exercise, Transfers Treatment Duration: Dec 09, 2019 Frequency: 6 times per week Estimated Hrs Per Day: .25 hour per day Patient and/or Family Agrees t: Yes Time/GCodes Time In: 1025 Time Out: 1048 Total Billed Treatment Time: 23 Total Billed Treatment 1 visit GT 14 min EX 9 min JUAN BERRIOS PT Dec 11, 2019 11:31
--- NOTE | 2019-12-11 13:59 | Occupational Ther Daily Note ---
OT Current Status-Daily Note Subjective Pt seated in chair, agreeable to OT tx. Pt indicates she feels weak Mental Status/Objective Attachments: Almanza Catheter, Oxygen ADL-Treatment Therapy Code Descriptions/Definitions Functional [place] Measure: 0=Not Assessed/NA 4=Minimal Assistance 1=Total Assistance 5=Supervision or Setup 2=Maximal Assistance 6=Modified [place] 3=Moderate Assistance 7=Complete IndependenceSCALE: Activities may be completed with or without assistive devices. 0-Fxriqchvmb-nfevipo completes the activity by him/herself with no assistance from a helper. 5-Set-up or Clean-up Assistance-helper sets up or cleans up; patient completes activity. [place] assists only prior to or following the activity. 4-Supervision or Touching Assistance-helper provides verbal cues and/or touching/steadying and/or contact guard assistance as patient completes activity. Assistance may be provided throughout the activity or intermittently. 3-Partial/Moderate Assistance-helper does LESS THAN HALF the effort. [place] lifts, holds or supports trunk or limbs, but provides less than half the effort. 2-Substantial/Maximal Assistance-helper does MORE THAN HALF the effort. [place] lifts or holds trunk or limbs and provides more than half the effort. 3-Wnitypmcb-lmqhha does ALL the effort. Patient does none of the effort to complete the activity. Or, the assistance of 2 or more helpers is required for the patient to complete the activity. If activity was not attempted, code reason: 7-Patient Refused. 9-Not Applicable-not attempted and the patient did not perform the activity b efore the current illness, exacerbation or injury. 10-Not Attempted due to Environmental Limitations-(lack of equipment, weather restraints, etc.). 88-Not Attempted due to Medical Conditions or Safety Concerns. Oral Hygiene (QC): 5 (set up, pt able to complete oral care at recliner with set up/clean up) Other Treatment Pt seated in recliner, agreeable to OT tx with focus on ADLs. Pt completed oral care at recliner with set up and clean up of supplies. Pt states she feels really good after completing oral care. Pt then completed hair brushing, requiring min A with brushing the back of her hair, pt indicates fatigue with task. Pt declined further ADLs at this time. Post OT tx, pt seated in recliner, call light in reach and all needs met. Education OT Patient Education: Correct positioning, Modified ADL techniques, Progress toward Goal/Update tx plan, Purpose of tx/functional activities Teaching Recipient: Patient Teaching Methods: Discussion Response to Teaching: Verbalize Understanding OT Application Integration Engineer Goals Application Integration Engineer Goals Time Frame: Dec 08, 2019 Eating (QC): 6 Oral Hygiene (QC): 6 Toileting Hygiene (QC): 6 Shower/Bathe Self (QC): 6 Upper Body Dressing (QC): 6 Lower Body Dressing (QC): 6 On/Off Footwear (QC): 6 1=Demonstrate adherence to instructed precautions during ADL tasks. 2=Patient will verbalize/demonstrate understanding of assistive devices/modifications for ADL. 3=Patient will improve strength/tolerance for activity to enable patient to perform ADL's. OT Education/Plan Problem List/Assessment Assessment: Decreased Activ Tolerance, Decreased UE Strength, Impaired I ADL's, Impaired Self-Care Skills Discharge Recommendations Plan/Recommendations: Continue POC Treatment Plan/Plan of Care Patient would benefit from OT for education, treatment and training to promote independence in ADL's, mobility, safety and/or upper extremity function for ADL's. Plan of Care: ADL Retraining, Functional Mobility, UE Funct Exercise/Act Treatment Duration: Dec 08, 2019 Frequency: 5 times per week Estimated Hrs Per Day: .25 hour per day Agreement: Yes Rehab Potential: Fair Time/GCodes Start Time: 13:26 Stop Time: 13:43 Total Time Billed (hr/min): 17 Billed Treatment Time 1, ADL SUSIE MCGOVERN OT Dec 11, 2019 13:59
[2019-12-11] MEDS: GABAPENTIN 100 MG (NEURONTIN) CAP PO SCH (20:13)
[2019-12-11] MEDS: DONEPEZIL 10 MG (ARICEPT) TAB PO SCH (20:13)
[2019-12-11] MEDS: APIXABAN 2.5 MG (ELIQUIS) TABLET PO SCH (20:13)
[2019-12-12] MEDS: dexAMETHasone 6 MG TAB (DECADRON) PO SCH (05:54)
[2019-12-12] MEDS: LEVOTHYROXINE 50 MCG (LEVOTHROID) TAB PO SCH (05:54)
[2019-12-12] MEDS: RT-ALBUTEROL INHALER HFA (VENTOLIN HFA) 18 GM IH SCH ×3 (07:10→18:21)
[2019-12-12 08:00] VITALS: BP 124/55
[2019-12-12] MEDS: PANTOPRAZOLE 40 MG (PROTONIX) TAB PO SCH (08:35)
[2019-12-12] MEDS: APIXABAN 2.5 MG (ELIQUIS) TABLET PO SCH ×2 (08:35→20:55)
--- NOTE | 2019-12-12 09:36 | Progress Note - Hospitalist ---
Subjective HPI/CC On Admission Date Seen by Provider: Dec 12, 2019 Time Seen by Provider: 09:31 Pt is an 84yoCF who presented from OSH due to COVID and hypoxia. She is a very poor historian because she states she is not feeling well. She reports her symptoms have been going on for 3-4 weeks and she has had 4 COVID tests with that 4th being positive last week. She continued to worsen and just "feels bad." She denies any shortness of breath and has a mild cough. She reports poor appetite but denies vomiting. She otherwise was very vague and did not answer my questions. I have reviewed the DC summary from [facility] and it appears she was admitted for CAP and UTI and was treated with Rocephin and UTI for 3 days. She was found to be COVID positive on 11/27 (though I am unsure why she was tested). She was transferred here as they do not keep COVID positive patients. She was mildly hypoxic on presentation for CAP and required 1-2lpm NC. Subjective/Events-last exam Pt reports feeling like "shit" but cannot state how. Had her oxygen off so I checked her oxygen sat and it was 94%. When informed of these she was very happy. No complaints. States she just wants to be able to go home soon but feels weak. Rn plans help her shower today and then do her hair. Objective Exam Vital Signs Vital Signs Date Time Temp Pulse Resp B/P (MAP) Pulse Ox O2 Delivery O2 Flow Rate FiO2 12/12/19 08:00 35.9 60 16 124/55 (78) 95 High Flow N/C 2.00 12/11/19 14:17 36 Capillary Refill : Less Than 3 SecondsLess Than 3 Seconds General Appearance: No Apparent Distress, Chronically ill, Thin Respiratory: Lungs Clear, No Respiratory Distress Cardiovascular: Regular Rate, Rhythm, No Murmur Gastrointestinal: Normal Bowel Sounds, Non Tender, Soft Neurologic/Psychiatric: Alert, Oriented x3 Results/Procedures Lab Patient resulted labs reviewed. Imaging: Reviewed Imaging Report Assessment/Plan Assessment and Plan Assess & Plan/Chief Complaint Acute respiratory failure with COVID 19 - Off oxygen completely this morning - Continue Decadron - s/p Remdesivir - s/p 2 units convalescent plasma - s/p Zosyn for pneumonia A-fib - controlled - Eliquis Hypothyroidism -Continue home synthroid Debility -PT/OT -did much better yesterday with therapy, encouraged continue working with them - IRU consulte placed as I worry she may plateau where she is and need intensive therapy but hopefully will continue to improve and be able to DC home Gi/DVT ppx -Pt is on eliquis for Afib -Protonix Diagnosis/Problems Diagnosis/Problems (1) Acute respiratory failure Status: Acute Qualifiers: Respiratory failure complication: hypoxia Qualified Codes: J96.01 - Acute respiratory failure with hypoxia (2) Atrial fibrillation Status: Chronic Qualifiers: Atrial fibrillation type: paroxysmal Qualified Codes: I48.0 - Paroxysmal atrial fibrillation (3) COVID-19 Status: Acute (4) Debility Status: Acute (5) Dementia Status: Chronic Qualifiers: Dementia type: unspecified type Dementia behavioral disturbance: without behavioral disturbance Qualified Codes: F03.90 - Unspecified dementia without behavioral disturbance (6) Pneumonia due to COVID-19 virus Status: Acute Clinical Quality Measures DVT/VTE Risk/Contraindication: Risk Factor Score Per Nursin RFS Level Per Nursing on Admit: 4+=Very High IVA SEE MD Dec 12, 2019 09:36
--- NOTE | 2019-12-12 11:08 | NUR ---
IRF Evaluation Determination: Accepted Notified Dr. Joy of acceptance. Dr. Joy indicates she will notify this field underwriter how to proceed, tomorrow. Will continue to follow as it relates to evaluation. Thank you for this referral.
--- NOTE | 2019-12-12 11:39 | Physical Therapy Daily Note ---
PT Daily Note-Current Subjective Patient is very alert and agreeable to participate with therapy. Patient reports she hopes to go home this week. Mental Status Patient Orientation: Normal For Age Attachments: Oxygen Transfers SCALE: Activities may be completed with or without assistive devices. 6-Zntzlrixqa-mfdomyd completes the activity by him/herself with no assistance from a helper. 5-Set-up or Clean-up Assistance-helper sets up or cleans up; patient completes activity. [place] assists only prior to or following the activity. 4-Supervision or Touching Assistance-helper provides verbal cues and/or touching/steadying and/or contact guard assistance as patient completes activity. Assistance may be provided throughout the activity or intermittently. 3-Partial/Moderate Assistance-helper does LESS THAN HALF the effort. [place] lifts, holds or supports trunk or limbs, but provides less than half the effort. 2-Substantial/Maximal Assistance-helper does MORE THAN HALF the effort. [place] lifts or holds trunk or limbs and provides more than half the effort. 8-Xftffkyoa-ugjwny does ALL the effort. Patient does none of the effort to compl ete the activity. Or, the assistance of 2 or more helpers is required for the patient to complete the activity. If activity was not attempted, code reason: 7-Patient Refused. 9-Not Applicable-not attempted and the patient did not perform the activity before the current illness, exacerbation or injury. 10-Not Attempted due to Environmental Limitations-(lack of equipment, weather restraints, etc.). 88-Not Attempted due to Medical Conditions or Safety Concerns. Roll Left & Right (QC): 6 Lying to Sitting/Side of Bed(Q: 6 Sit to Stand (QC): 5 Chair/Eol-bn-Mhdie Xfer(QC): 5 Gait Training Does the Patient Walk?: Yes Distance: 160' Walk 10 feet (QC): 5 Walk 50 ft with 2 Turns(QC): 5 Walk 150 ft (QC): 5 Gait Assistive Device: FWW ambulation in room due to precautions/safe and functional gait sequence Exercises Seated Therapy Exercises: Ankle pumps, Long arc quads, Hip flexion Seated Reps: 15 Assessment Current Status: Excellent Progress Patient has improved with pulmonary function and strength. Continues to fatigue with minimal activity but ambulates functional distance and demonstrates good balance. PT Special Education Aide Goals Special Education Aide Goals PT Special Education Aide Goals Time Frame: Dec 08, 2019 Roll Left & Right (QC): 6 Sit to Lying (QC): 6 Lying-Sitting on Side/Bed(QC): 6 Sit to Stand (QC): 6 Chair/Hub-df-Tzris Xfer(QC): 6 Toilet Transfer (QC): 6 Does the Patient Walk: Yes Walk 10 feet (QC): 6 Walk 50ft with 2 Turns (QC): 6 Walk 150 ft (QC): 6 PT Plan Treatment/Plan Treatment Plan: Continue Plan of Care Treatment Plan: Bed Mobility, Education, Functional Activity Misael, Functional Strength, Gait, Safety, Therapeutic Exercise, Transfers Treatment Duration: Dec 09, 2019 Frequency: 6 times per week Estimated Hrs Per Day: .25 hour per day Patient and/or Family Agrees t: Yes Time/GCodes Time In: 1055 Time Out: 1110 Total Billed Treatment Time: 15 Total Billed Treatment 1 visit FA 15 min JUAN BERRIOS PT Dec 12, 2019 11:39
--- NOTE | 2019-12-12 14:10 | Occupational Ther Daily Note ---
OT Current Status-Daily Note Subjective Pt. states, "I don't know what I am doing," when talking about dialing on her phone. No pain reported, just weakness. Appearance Pt. is sitting up in chair when OT enters room. She has phone in her hands, and seems upset. OT asks if she is making a call, or if OT can help her make a ca ll. She states, "no," and puts her phone down. Mental Status/Objective Patient Orientation: Person ADL-Treatment Therapy Code Descriptions/Definitions Functional [place] Measure: 0=Not Assessed/NA 4=Minimal Assistance 1=Total Assistance 5=Supervision or Setup 2=Maximal Assistance 6=Modified [place] 3=Moderate Assistance 7=Complete IndependenceSCALE: Activities may be completed with or without assistive devices. 8-Ytrcqyxjgy-zuhxpus completes the activity by him/herself with no assistance from a helper. 5-Set-up or Clean-up Assistance-helper sets up or cleans up; patient completes activity. [place] assists only prior to or following the activity. 4-Supervision or Touching Assistance-helper provides verbal cues and/or touching /steadying and/or contact guard assistance as patient completes activity. Assistance may be provided throughout the activity or intermittently. 3-Partial/Moderate Assistance-helper does LESS THAN HALF the effort. [place] lifts, holds or supports trunk or limbs, but provides less than half the effort. 2-Substantial/Maximal Assistance-helper does MORE THAN HALF the effort. [place] lifts or holds trunk or limbs and provides more than half the effort. 4-Ygxgvhgqf-eqxuhx does ALL the effort. Patient does none of the effort to complete the activity. Or, the assistance of 2 or more helpers is required for the patient to complete the activity. If activity was not attempted, code reason: 7-Patient Refused. 9-Not Applicable-not attempted and the patient did not perform the activity before the current illness, exacerbation or injury. 10-Not Attempted due to Environmental Limitations-(lack of equipment, weather restraints, etc.). 88-Not Attempted due to Medical Conditions or Safety Concerns. Other Treatment Pt. is tearful. She states that she wants to go home. OT encourages pt. that therapy will help her increase her strength to go home. Pt. agrees to work with OT. Pt. ambulates with walker, with CGA, two times to door and back. Pt. r equires increased time and gait pattern is slow. Pt. states, "that's it, I'm tired." Pt. transfers back to chair. OT asks pt. if she needs to use the bathroom. She states that she does not. OT encourages pt. to practice LE dressing. Pt. states that she can do this, and then becomes distracted. Noted pt. slightly confused as she repeats multiple times that she has had 5 kids, and that her is a charlton. She becomes tearful again at times. OT attempts to encourage her. Pt. up in chair with LE elevated and all needs met. Education OT Patient Education: Correct positioning, Modified ADL techniques, Progress toward Goal/Update tx plan, Purpose of tx/functional activities, Reviewed precautions, Rehab process, Transfer techniques Teaching Recipient: Patient Teaching Methods: Demonstration, Discussion Response to Teaching: Reinforcement Needed OT [facility] Goals Engraver Hand [employer] Goals Time Frame: Dec 08, 2019 Eating (QC): 6 Oral Hygiene (QC): 6 Toileting Hygiene (QC): 6 Shower/Bathe Self (QC): 6 Upper Body Dressing (QC): 6 Lower Body Dressing (QC): 6 On/Off Footwear (QC): 6 1=Demonstrate adherence to instructed precautions during ADL tasks. 2=Patient will verbalize/demonstrate understanding of assistive devices/adriel fications for ADL. 3=Patient will improve strength/tolerance for activity to enable patient to perform ADL's. OT Education/Plan Problem List/Assessment Assessment: Decreased Activ Tolerance, Impaired Cognition, Impaired I ADL's, Impaired Self-Care Skills Discharge Recommendations Plan/Recommendations: Continue POC Therapy Discharge Recommendati: Post Acute OT Treatment Plan/Plan of Care Treatment,Training & Education: Yes Patient would benefit from OT for education, treatment and training to promote independence in ADL's, mobility, safety and/or upper extremity function for ADL's. Plan of Care: ADL Retraining, Functional Mobility, UE Funct Exercise/Act Treatment Duration: Dec 08, 2019 Frequency: 5 times per week Estimated Hrs Per Day: .25 hour per day Agreement: Yes Rehab Potential: Fair Time/GCodes Start Time: 11:25 Stop Time: 11:50 Total Time Billed (hr/min): 25 Billed Treatment Time 1, FA x 2 BREONNA GARDINER OT Dec 12, 2019 14:10
[2019-12-12] MEDS: GABAPENTIN 100 MG (NEURONTIN) CAP PO SCH (20:55)
[2019-12-12] MEDS: DONEPEZIL 10 MG (ARICEPT) TAB PO SCH (20:55)
[2019-12-13 00:04] VITALS: BP 111/62
[2019-12-13] MEDS: RT-ALBUTEROL INHALER HFA (VENTOLIN HFA) 18 GM IH SCH ×4 (02:17→20:03)
[2019-12-13] MEDS: LEVOTHYROXINE 50 MCG (LEVOTHROID) TAB PO SCH (06:48)
[2019-12-13 08:00] VITALS: BP 122/60
--- NOTE | 2019-12-13 09:57 | Progress Note - Hospitalist ---
Subjective HPI/CC On Admission Date Seen by Provider: Dec 13, 2019 Time Seen by Provider: 09:54 Pt is an 84yoCF who presented from OSH due to COVID and hypoxia. She is a very poor historian because she states she is not feeling well. She reports her symptoms have been going on for 3-4 weeks and she has had 4 COVID tests with that 4th being positive last week. She continued to worsen and just "feels bad." She denies any shortness of breath and has a mild cough. She reports poor appetite but denies vomiting. She otherwise was very vague and did not answer my questions. I have reviewed the DC summary from [facility] and it appears she was admitted for CAP and UTI and was treated with Rocephin and UTI for 3 days. She was found to be COVID positive on 11/27 (though I am unsure why she was tested). She was transferred here as they do not keep COVID positive patients. She was mildly hypoxic on presentation for CAP and required 1-2lpm NC. Subjective/Events-last exam Pt reports feeling well today. No complaints. Did very well with therapy yesterday. Discussed plan to hopefully DC home tomorrow or Wednesday with and she was elated to the point of tears. Objective Exam Vital Signs Vital Signs Date Time Temp Pulse Resp B/P (MAP) Pulse Ox O2 Delivery O2 Flow Rate FiO2 12/13/19 08:00 35.6 58 20 122/60 (80) 91 High Flow N/C 2.00 12/11/19 14:17 36 Capillary Refill : Less Than 3 SecondsLess Than 3 Seconds General Appearance: No Apparent Distress, WD/WN, Thin Respiratory: Lungs Clear, No Accessory Muscle Use, Other (on 2lpm) Cardiovascular: Regular Rate, Rhythm, No Murmur Gastrointestinal: Normal Bowel Sounds, Non Tender, Soft Neurologic/Psychiatric: Alert, Oriented x3 Results/Procedures Lab Patient resulted labs reviewed. Imaging: Reviewed Imaging Report Assessment/Plan Assessment and Plan Assess & Plan/Chief Complaint Acute respiratory failure with COVID 19 - Off oxygen completely this morning - Continue Decadron - s/p Remdesivir - s/p 2 units convalescent plasma - s/p Zosyn for pneumonia A-fib - controlled - Eliquis Hypothyroidism -Continue home synthroid Debility -PT/OT -doing well with therapy, hopeful to DC home with HH tomorrow or Wednesday depending on progress, I discussed this plan with her daughter yesterday Gi/DVT ppx -Pt is on eliquis for Afib -Protonix Diagnosis/Problems Diagnosis/Problems (1) Acute respiratory failure Status: Acute Qualifiers: Respiratory failure complication: hypoxia Qualified Codes: J96.01 - Acute respiratory failure with hypoxia (2) Atrial fibrillation Status: Chronic Qualifiers: Atrial fibrillation type: paroxysmal Qualified Codes: I48.0 - Paroxysmal atrial fibrillation (3) COVID-19 Status: Acute (4) Debility Status: Acute (5) Dementia Status: Chronic Qualifiers: Dementia type: unspecified type Dementia behavioral disturbance: without behavioral disturbance Qualified Codes: F03.90 - Unspecified dementia without behavioral disturbance (6) Pneumonia due to COVID-19 virus Status: Acute Clinical Quality Measures DVT/VTE Risk/Contraindication: Risk Factor Score Per Nursin RFS Level Per Nursing on Admit: 4+=Very High IVA SEE MD Dec 13, 2019 09:57
[2019-12-13] MEDS: APIXABAN 2.5 MG (ELIQUIS) TABLET PO SCH ×2 (10:08→21:18)
[2019-12-13] MEDS: PANTOPRAZOLE 40 MG (PROTONIX) TAB PO SCH (10:08)
--- NOTE | 2019-12-13 10:59 | Physical Therapy Daily Note ---
PT Daily Note-Current Subjective Patient in recliner pre tx, agrees reluctantly to PT, has no complaints of pain. Patient refuses to ambulate, she states she already ambulated to the restroom and she wasn't going to do any more. She agrees reluctantly to exercises in the chair. Appearance Patient in recliner post tx with nurse call, phone, tray, RT in room. Mental Status Patient Orientation: Person, Place, Situation Attachments: Oxygen Transfers SCALE: Activities may be completed with or without assistive devices. 7-Qsczyzzsyt-negbkel completes the activity by him/herself with no assistance from a helper. 5-Set-up or Clean-up Assistance-helper sets up or cleans up; patient completes activity. [place] assists only prior to or following the activity. 4-Supervision or Touching Assistance-helper provides verbal cues and/or touching/steadying and/or contact guard assistance as patient completes activity. Assistance may be provided throughout the activity or intermittently. 3-Partial/Moderate Assistance-helper does LESS THAN HALF the effort. [place] lifts, holds or supports trunk or limbs, but provides less than half the effort. 2-Substantial/Maximal Assistance-helper does MORE THAN HALF the effort. [place] lifts or holds trunk or limbs and provides more than half the effort. 1-Qskklkoue-ptaexd does ALL the effort. Patient does none of the effort to complete the activity. Or, the assistance of 2 or more helpers is required for the patient to complete the activity. If activity was not attempted, code reason: 7-Patient Refused. 9-Not Applicable-not attempted and the patient did not perform the activity before the current illness, exacerbation or injury. 10-Not Attempted due to Environmental Limitations-(lack of equipment, weather restraints, etc.). 88-Not Attempted due to Medical Conditions or Safety Concerns. Exercises Supine Ex: Ankle pumps, Quad Set, Glut sets, Straight leg raise Supine Reps: 20 (done in recliner with legs elevated) Seated Therapy Exercises: Long arc quads Seated Reps: 20 Patient participated poorly with exercises, she performs them quickly and incorrectly to get them done quickly and doesn't listen to cues on how to pe rform them correctly. Treatments LE exercise Assessment Current Status: Poor Progress poor participation, refuses ambulation PT Director Sales And Trade Marketing Goals Director Sales And Trade Marketing Goals PT Half-Way Goals Time Frame: Dec 08, 2019 Roll Left & Right (QC): 6 Sit to Lying (QC): 6 Lying-Sitting on Side/Bed(QC): 6 Sit to Stand (QC): 6 Chair/Laj-gn-Zimuy Xfer(QC): 6 Toilet Transfer (QC): 6 Does the Patient Walk: Yes Walk 10 feet (QC): 6 Walk 50ft with 2 Turns (QC): 6 Walk 150 ft (QC): 6 PT Plan Problem List Problem List: Activity Tolerance, Functional Strength, Safety, Balance, Gait, Transfer, Bed Mobility, ROM Treatment/Plan Treatment Plan: Continue Plan of Care Treatment Plan: Bed Mobility, Education, Functional Activity Misael, Functional Strength, Gait, Safety, Therapeutic Exercise, Transfers Treatment Duration: Dec 09, 2019 Frequency: 6 times per week Estimated Hrs Per Day: .25 hour per day Patient and/or Family Agrees t: Yes Safety Risks/Education Patient Education: Correct Positioning, Safety Issues Teaching Recipient: Patient Teaching Methods: Demonstration, Discussion Response to Teaching: Reinforcement Needed Time/GCodes Time In: 1018 Time Out: 1030 Total Billed Treatment Time: 12 Total Billed Treatment 1 visit EX 12ROSANNA VINES PT Dec 13, 2019 10:59
--- NOTE | 2019-12-13 13:48 | NUR ---
Cm/SS: Telephone Call to daughter Bushra Hernandez - [phone] - left message for her to call this worker to discuss discharge plans related to home care and oxygen needs.
--- NOTE | 2019-12-13 14:15 | Occupational Ther Daily Note ---
OT Current Status-Daily Note Subjective Nrsg stated that pt had just returned to bed after being up in chair all day. Nrsg also reported that pt had been cleaned up. Pt stated that she was tired and her butt hurt from sitting on it for so long. Pt agrees to therapy, no OOB tasks. Mental Status/Objective Patient Orientation: Person, Place, Time, Situation Attachments: IV ADL-Treatment Therapy Code Descriptions/Definitions Functional [place] Measure: 0=Not Assessed/NA 4=Minimal Assistance 1=Total Assistance 5=Supervision or Setup 2=Maximal Assistance 6=Modified [place] 3=Moderate Assistance 7=Complete IndependenceSCALE: Activities may be completed with or without assistive devices. 5-Hhmahgsqaq-pfdrirv completes the activity by him/herself with no assistance from a helper. 5-Set-up or Clean-up Assistance-helper sets up or cleans up; patient completes activity. [place] assists only prior to or following the activity. 4-Supervision or Touching Assistance-helper provides verbal cues and/or touching/steadying and/or contact guard assistance as patient completes activity. Assistance may be provided throughout the activity or intermittently. 3-Partial/Moderate Assistance-helper does LESS THAN HALF the effort. [place] lifts, holds or supports trunk or limbs, but provides less than half the effort. 2-Substantial/Maximal Assistance-helper does MORE THAN HALF the effort. [place] lifts or holds trunk or limbs and provides more than half the effort. 3-Zqlkkivvp-esmhky does ALL the effort. Patient does none of the effort to complete the activity. Or, the assistance of 2 or more helpers is required for the patient to complete the activity. If activity was not attempted, code reason: 7-Patient Refused. 9-Not Applicable-not attempted and the patient did not perform the activity before the current illness, exacerbation or injury. 10-Not Attempted due to Environmental Limitations-(lack of equipment, weather restraints, etc.). 88-Not Attempted due to Medical Conditions or Safety Concerns. Other Treatment Pt able to complete B UE exercises against gravity to increase strength and activity tolerance for daily functional tasks. 2 sets 10 reps of 5 exercises, pt tolerated though stated that B shldr were tired. After session, pt lying in bed with call light/phone in reach. All needs met in room. Education OT Patient Education: Exercise program Teaching Recipient: Patient Teaching Methods: Demonstration, Discussion OT Custodial Goals Custodial Goals Time Frame: Dec 08, 2019 Eating (QC): 6 Oral Hygiene (QC): 6 Toileting Hygiene (QC): 6 Shower/Bathe Self (QC): 6 Upper Body Dressing (QC): 6 Lower Body Dressing (QC): 6 On/Off Footwear (QC): 6 1=Demonstrate adherence to instructed precautions during ADL tasks. 2=Patient will verbalize/demonstrate understanding of assistive dev ices/modifications for ADL. 3=Patient will improve strength/tolerance for activity to enable patient to perform ADL's. OT Education/Plan Problem List/Assessment Assessment: Decreased Activ Tolerance, Decreased UE Strength, Impaired Self- Care Skills Discharge Recommendations Plan/Recommendations: Continue POC Treatment Plan/Plan of Care Patient would benefit from OT for education, treatment and training to promote independence in ADL's, mobility, safety and/or upper extremity function for ADL's. Plan of Care: ADL Retraining, Functional Mobility, UE Funct Exercise/Act Treatment Duration: Dec 08, 2019 Frequency: 5 times per week Estimated Hrs Per Day: .25 hour per day Agreement: Yes Rehab Potential: Fair Time/GCodes Start Time: 13:26 Stop Time: 13:38 Total Time Billed (hr/min): 12 Billed Treatment Time 1 visit-EX 1 (12 min) RONIT CARABALLO Dec 13, 2019 14:15
[2019-12-13 16:02] VITALS: BP 110/56
[2019-12-13] MEDS: DONEPEZIL 10 MG (ARICEPT) TAB PO SCH (21:17)
[2019-12-13] MEDS: GABAPENTIN 100 MG (NEURONTIN) CAP PO SCH (21:18)
[2019-12-14 00:26] VITALS: BP 125/68
[2019-12-14] MEDS: RT-ALBUTEROL INHALER HFA (VENTOLIN HFA) 18 GM IH SCH ×3 (02:52→14:43)
[2019-12-14] MEDS: LEVOTHYROXINE 50 MCG (LEVOTHROID) TAB PO SCH (06:01)
[2019-12-14 08:00] VITALS: BP 117/56
[2019-12-14] MEDS: APIXABAN 2.5 MG (ELIQUIS) TABLET PO SCH (09:52)
[2019-12-14] MEDS: PANTOPRAZOLE 40 MG (PROTONIX) TAB PO SCH (09:52)
--- NOTE | 2019-12-14 10:44 | D/C HH Face to Face Order ---
D/C Face to Face Orders Instructions for Patient Via [facility], Patient Instructions/FollowUp: Please continue to take your medications as written. Please follow up with your primary care doctor to follow up this hospital stay. Physician to follow Patient: MELISSA Ruiz Discharge Diet for Home: No Restrictions Patient Data-Allergies,Ht & Wt Patient Allergies: Coded Allergies: No Known Drug Allergies (Unverified , 11/29/19) Home Health Need/Face to Face Date of Face to Face: Dec 14, 2019 Clinical Findings: Generalized weakness and fatigue, Shortness of breath I have seen Pt [id number]: Yes Discharged To: Home Diagnosis/Conditions: COVID19, critical illness myopathy Patient is Homebound due to: Karla fall risk due to instabilty, Muscle weakness, Shortness of breath/distress Homebound Status Due to the above stated illness, injury or surgical procedure (medical condition or diagnosis) and associated clinical findings, the patient is homebound because of his/her inability to leave home except with aid of a supportive device and/or person AND leaving the home requires a considerable and taxing effort or is medically contraindicated. Pt req the following assistanc: Aid of another person, [facility] Home Health Nursing Orders Home Health Services Order: Nursing Services, Interlocking Pavement Installer-Evaluate & Treat, Physical Therapy-Evaluate & Treat Therapy Orders Therapy Orders: OT (must have SN or PT order), Physical Therapy Therapy Specific Orders: Eval assistive deivces, Teach strategies/cognitive deficits, Teach enviro modifications/safety, Gait training, Increase strength/endurance Certify Stmt I certify that this patient is under my care and that I, a nurse practitioner or a physician; a materials assistant working with me, had a face to face encounter that - meets the physician face to face encounter requirements with this patient as dated. IVA SEE MD Dec 14, 2019 10:44
--- NOTE | 2019-12-14 10:51 | Discharge Summary ---
Diagnosis/Chief Complaint Date of Admission Nov 30, 2019 at 10:07 Date of Discharge Discharge Date: Dec 14, 2019 Admission Diagnosis COVID19 Primary Care Discharge Diagnosis (1) Acute respiratory failure due to COVID-19 Status: Acute (2) Pneumonia due to COVID-19 virus Status: Acute Discharge Summary Discharge Physical Exam Allergies: Coded Allergies: No Known Drug Allergies (Unverified , 11/29/19) Vitals & I&Os Vital Signs Date Time Temp Pulse Resp B/P (MAP) Pulse Ox O2 Delivery O2 Flow Rate FiO2 12/14/19 08:00 35.4 66 18 117/56 (76) 96 High Flow N/C 2.00 12/11/19 14:17 36 Hospital Course Labs (last 24 hrs) Microbiology 12/06/19 C. difficile [facility] Antigen & Toxins - Final, Complete Patient resulted labs reviewed. Imaging: Reviewed Imaging Report Discharge Home Medications: Active Scripts Active Reported Tylenol (Acetaminophen) 325 Mg Capsule 650 Mg PO Q8H PRN Levothyroxine Sodium 50 Mcg Tablet 50 Mcg PO DAILY Gabapentin 100 Mg Capsule 200 Mg PO HS TAKES 2 (100MG) CAPS Eliquis (Apixaban) 5 Mg Tablet 5 Mg PO BID Donepezil HCl 10 Mg Tablet 10 Mg PO HS Instructions to patient/family Please see electronic discharge instructions given to patient. Clinical Quality Measures DVT/VTE Risk/Contraindication: Risk Factor Score Per Nursin RFS Level Per Nursing on Admit: 4+=Very High IVA SEE MD Dec 14, 2019 10:51
--- NOTE | 2019-12-14 11:50 | NUR ---
RT NOTIFIED OF PT NEEDING HOME EV
--- NOTE | 2019-12-14 13:28 | NUR ---
Notified patients daughter of isolation continue through Wednesday. Answered questions. Notified Health dept.
--- NOTE | 2019-12-14 14:07 | Occupational Ther Daily Note ---
OT Current Status-Daily Note Subjective Pt alert, sitting in recliner. Pt very anxious about going home today. Pt agrees to therapy. Mental Status/Objective Patient Orientation: Person, Place, Time, Situation Attachments: IV, Oxygen ADL-Treatment Pt agrees to ambulated throughout room ~50', fatigued after ~25'. Pt then agrees to don/doff socks. Sitting in recliner, pt is able to don/doff socks by self. Pt stated that she had already groomed and cleaned up for the day. After session, pt sitting in recliner with call light/phone in reach. All needs met in room. Therapy Code Descriptions/Definitions Functional [place] Measure: 0=Not Assessed/NA 4=Minimal Assistance 1=Total Assistance 5=Supervision or Setup 2=Maximal Assistance 6=Modified [place] 3=Moderate Assistance 7=Complete IndependenceSCALE: Activities may be completed with or without assistive devices. 8-Gggnregsel-xrypqgd completes the activity by him/herself with no assistance from a helper. 5-Set-up or Clean-up Assistance-helper sets up or cleans up; patient completes activity. [place] assists only prior to or following the activity. 4-Supervision or Touching Assistance-helper provides verbal cues and/or touching/steadying and/or contact guard assistance as patient completes activity. Assistance may be provided throughout the activity or intermittently. 3-Partial/Moderate Assistance-helper does LESS THAN HALF the effort. [place] lifts, holds or supports trunk or limbs, but provides less than half the effort. 2-Substantial/Maximal Assistance-helper does MORE THAN HALF the effort. [place] lifts or holds trunk or limbs and provides more than half the effort. 4-Npuswmghj-jkprva does ALL the effort. Patient does none of the effort to complete the activity. Or, the assistance of 2 or more helpers is required for the patient to complete the activity. If activity was not attempted, code reason: 7-Patient Refused. 9-Not Applicable-not attempted and the patient did not perform the activity before the current illness, exacerbation or injury. 10-Not Attempted due to Environmental Limitations-(lack of equipment, weather restraints, etc.). 88-Not Attempted due to Medical Conditions or Safety Concerns. On/Off Footwear: 6 OT Field Technical Support Consultant Goals Jail Goals Time Frame: Dec 08, 2019 Eating (QC): 6 Oral Hygiene (QC): 6 Toileting Hygiene (QC): 6 Shower/Bathe Self (QC): 6 Upper Body Dressing (QC): 6 Lower Body Dressing (QC): 6 On/Off Footwear (QC): 6 1=Demonstrate adherence to instructed precautions during ADL tasks. 2=Patient will verbalize/demonstrate understanding of assistive devices/modifications for ADL. 3=Patient will improve strength/tolerance for activity to enable patient to perform ADL's. OT Education/Plan Problem List/Assessment Assessment: Decreased Activ Tolerance Discharge Recommendations Plan/Recommendations: Continue POC Treatment Plan/Plan of Care Patient would benefit from OT for education, treatment and training to promote independence in ADL's, mobility, safety and/or upper extremity function for ADL's. Plan of Care: ADL Retraining, Functional Mobility, UE Funct Exercise/Act Treatment Duration: Dec 08, 2019 Frequency: 5 times per week Estimated Hrs Per Day: .25 hour per day Agreement: Yes Rehab Potential: Fair Time/GCodes Start Time: 13:38 Stop Time: 13:50 Total Time Billed (hr/min): 12 Billed Treatment Time 1 visit-FA 1 (12 min) RONIT CARABALLO Dec 14, 2019 14:07
--- NOTE | 2019-12-14 14:45 | Physical Therapy Daily Note ---
PT Daily Note-Current Subjective Patient is currently up to toilet. Agrees to PT. Pain Numeric Pain Scale: 5-Moderate Pain Location: Lower Location Body Site: Back Pain Description: Ache Mental Status Patient Orientation: Normal For Age Transfers SCALE: Activities may be completed with or without assistive devices. 7-Zufydoayab-qgolnet completes the activity by him/herself with no assistance from a helper. 5-Set-up or Clean-up Assistance-helper sets up or cleans up; patient completes activity. [place] assists only prior to or following the activity. 4-Supervision or Touching Assistance-helper provides verbal cues and/or touching/steadying and/or contact guard assistance as patient completes activity. Assistance may be provided throughout the activity or intermittently. 3-Partial/Moderate Assistance-helper does LESS THAN HALF the effort. [place] lifts, holds or supports trunk or limbs, but provides less than half the effort. 2-Substantial/Maximal Assistance-helper does MORE THAN HALF the effort. [place] lifts or holds trunk or limbs and provides more than half the effort. 5-Yxbgrnfsl-rfhqvo does ALL the effort. Patient does none of the effort to complete the activity. Or, the assistance of 2 or more helpers is required for the patient to complete the activity. If activity was not attempted, code reason: 7-Patient Refused. 9-Not Applicable-not attempted and the patient did not perform the activity befo re the current illness, exacerbation or injury. 10-Not Attempted due to Environmental Limitations-(lack of equipment, weather re straints, etc.). 88-Not Attempted due to Medical Conditions or Safety Concerns. Sit to Stand (QC): 5 Toilet Transfer (QC): 5 Gait Training Does the Patient Walk?: Yes Distance: 160' Walk 10 feet (QC): 5 Walk 50 ft with 2 Turns(QC): 5 Walk 150 ft (QC): 5 Gait Assistive Device: FWW safe and functional gait sequence with no deviation Treatments Patient on RA per RN with SAO2 at rest >90%. SAO2 RA with minimal activity decreases to 82%. RN placed 2 L HF NC with SAO2 increasing slowly to 91%. Assessment Patient gross motor skills improved but remains weak. Patient displays decreased endurance with minimal activity. PT to continue in any setting to address functional strength and mobility. PT Nursing Home Goals Customer Quality Specialist Goals PT Customer Quality Specialist Goals Time Frame: Dec 08, 2019 Roll Left & Right (QC): 6 Sit to Lying (QC): 6 Lying-Sitting on Side/Bed(QC): 6 Sit to Stand (QC): 6 Chair/Vnj-lt-Nrhyn Xfer(QC): 6 Toilet Transfer (QC): 6 Does the Patient Walk: Yes Walk 10 feet (QC): 6 Walk 50ft with 2 Turns (QC): 6 Walk 150 ft (QC): 6 PT Plan Treatment/Plan Treatment Plan: Continue Plan of Care Treatment Plan: Bed Mobility, Education, Functional Activity Mis[place], Functional Strength, Gait, Safety, Therapeutic Exercise, Transfers Treatment Duration: Dec 09, 2019 Frequency: 6 times per week Estimated Hrs Per Day: .25 hour per day Patient and/or Family Agrees t: Yes Time/GCodes Time In: 1250 Time Out: 1313 Total Billed Treatment Time: 23 Total Billed Treatment 1 visit FA x 2 23 min JUAN BERRIOS PT Dec 14, 2019 14:45
[2019-12-14 16:21] VITALS: BP 110/57
--- NOTE | 2019-12-14 16:23 | NUR ---
CM/SS: Pt to be discharged to home today. She will have [facility] and [facility]. Plan: Pt to return home with oxygen and [facility] is faxed information and will be able to drop off a portable tank at 4pm and [facility] will see pt on Wednesday12/14/2019. Daughter is informed of the plan by RACH Pardo and will be able to notify daughter what time she will be able the pt. This worker will follow up.
[2019-12-14 19:16] VITALS: BP 110/57
--- NOTE | 2019-12-14 20:05 | NUR ---
Patient left unit in stable condition with all belongings, and hospital oxygen tank. Oxygen is available at home. Home health scheduled with patient. Patient and family understand discharge instructions and patient is to quarantine until Wednesday
--- NOTE | 2019-12-15 15:32 | History & Physical-Hospitalist ---
JESUS DONOVAN MED STUDENT 12/15/19 1532: History of Present Illness HPI/Chief Complaint CC: hypoxia HPI: Britt Claros is a 84 y/o female who presents from home for hypoxia occurring yesterday (12/13). Patient was discharged yesterday from [facility] for pneumonia due to COVID-19 on 2L/nc. Family reports upon returning home they noticed her O2 sat dropping to 70s and elected to return to the hospital, noting O2 dropped as low as 64% on 8L/nc. Upon arrival, patient complained of worsening SOB which was exacerbated by exertion. Patient was afebrile, denied chest pain and reported only feeling weak, no swelling in legs and feet; placed on Vapotherm at 10L/30% which brought her O2 sat up to 97-99%. Patient had a normal EKG and showed bilateral infiltrates on lung which look to be improved from her recent hospital stay. CTA revealed no PE and confirmed COVID pneumonia with slight improvement of bilateral pleural effusions. Patient was admitted for acute respiratory failure secondary to COVID-19 and dehydration, currently on isolation. Source: other (ER note) Exam Limitations: no limitations Date Seen 12/15/[address] Concepcion England DO PCP Referring Physician Date of Admission Home Medications & Allergies Home Medications Reviewed patient Home Medication Reconciliation performed by pharmacy medication reconciliations transfill technician and/or nursing. Patients Allergies have been reviewed. Allergies Allergies Coded Allergies No Known Drug Allergies (Lfebosabpx00/7/20) Past Xpbwdhs-Kazuct-Sigkfh Hx Past Med/Social Hx: Reviewed Nursing Past Med/Soc Hx Patient Social History Marrital Status: Employed/Student: retired Smoking Status: Unknown if Ever Smoked Recent Foreign Travel: No Contact w/other who traveled: No Recent Infectious Disease Expo: No Past Medical History Cardiac: Atrial Fibrillation, High Cholesterol Neurological: Dementia Endocrine: Hypothyroidsim Family History Reviewed Nursing Family Hx No Pertinent Family Hx Physical Exam Physical Exam Vital Signs Vital Signs - First Documented 12/09/19 12/09/19 12/09/19 01:00 02:12 03:27 Temp 35.7 Pulse 83 Resp 18 B/P (MAP) 138/78 (98) Pulse Ox 94 O2 Delivery Vapotherm O2 Flow Rate 25.00 FiO2 50 Capillary Refill : Less Than 3 SecondsLess Than 3 Seconds Height, Weight, BMI Height: '" Weight: lbs. oz. kg; 26.60 BMI Method: Results Results/Procedures Labs Patient resulted labs reviewed. Imaging: Reviewed Imaging Report Assessment/Plan Admission Diagnosis Acute Respiratory Failure secondary to COVID-19 -Supplemental O2 -Consult pulmonology -repeat cxr -IS -consider convalescent plasma Dehydration -IVF Chronic -A-fib -Hypothyroidism -dementia -HLD Clinical Quality Measures DVT/VTE Risk/Contraindication: Risk Factor Score Per Nursin RFS Level Per Nursing on Admit: 4+=Very High CONCEPCION ENGLAND DO 12/15/192135: History of Present Illness HPI/Chief Complaint CC: SOB HPI: This is an 84yoWF who just was released from the hospital yesterday and two hours later she returned due to significant desaturation of her oxygen even though she went home on supplemental oxygen. She was diagnosed with Covid on 11/28/19 and at this current time she will need longer time frame for monitoring due to severe hypoxia when she got home so will attempt to look at her for rehab. Time Seen by a Provider: 11:00 Past Dxdyhzz-Xnrslt-Fbxhju Hx Past Med/Social Hx: Reviewed Nursing Past Med/Soc Hx, Reviewed and Corrections made Review of Systems Constitutional: see HPI Respiratory: dyspnea on exertion, wheezing Physical Exam Physical Exam General Appearance: No Apparent Distress, Chronically ill Respiratory: Lungs Clear, Decreased Breath Sounds Cardiovascular: Regular Rate, Rhythm Assessment/Plan Admission Diagnosis O2 DC once stable Admission Status: Observation Diagnosis/Problems Diagnosis/Problems (1) Acute respiratory failure due to COVID-19 Status: Acute (2) Debility Status: Acute Supervisory-Addendum Brief Verification & Attestation Participated in pt care: history, MDM, physical Personally performed: exam, history, MDM, supervision of care Care discussed with: Medical Student Procedures: n/a Results interpretation: Verified all documentation Verification and Attestation of Medical Student E/M Service A medical student performed and documented this service in my presence. I revi ewed and verified all information documented by the medical student and made modifications to such information, when appropriate. I personally performed the physical exam and medical decision making. Concepcion England, Dec 15, 2019,21:36 JESUS DONOVAN MED STUDENT Dec 15, 2019 15:32 CONCEPCION ENGLAND DO Dec 15, 2019 21:36
== END 2019-12-14 20:00 | disposition home health service (06) | DRG 177 ==
LOC: 4TH 11-29 12:24 → OBSVTOIN 11-30 10:07 → 4TH 12-02 12:40 → ICU 12-05 12:25 → CSD 12-06 03:05 → 4TH 12-10 09:30
PROVIDERS: ADMIT Internal Medicine; ATTEND Internal Medicine
PROC: XW033E5 Introduction of Remdesivir Anti-infective into Peripheral Vein, Percutaneous Approach, New Technology Group 5 (ICD-10-PCS; principal; 2019-11-30)
PROC: XW13325 Transfusion of Convalescent Plasma (Nonautologous) into Peripheral Vein, Percutaneous Approach, New Technology Group 5 (ICD-10-PCS; 2019-12-01)
DX: U07.1 COVID-19 (principal); J12.89 Other viral pneumonia; J96.01 Acute respiratory failure with hypoxia; N39.0 Urinary tract infection, site not specified; I48.91 Unspecified atrial fibrillation; E78.00 Pure hypercholesterolemia, unspecified; F03.90 Unspecified dementia, unspecified severity, without behavioral disturbance, psychotic disturbance, mood disturbance, and anxiety; E03.9 Hypothyroidism, unspecified; Z66 Do not resuscitate; R53.81 Other malaise; Z79.01 Long term (current) use of anticoagulants
CPT/HCPCS: 36415; 71045; 71275; 80048; 80053; 81000; 82274; 82805; 83735; 83880; 84100; 84145; 85007; 85025; 85027; 85379; 86141; 86900; 86901; 87324; 87449; 94640; 94760; 94761; 99211; G0378

== ENCOUNTER 2019-12-14 21:53 | Inpatient (IN) | payer MEDICARE, OTHER ==
[~2019-12-14] VITALS: Ht 152 cm; Wt 56.0 kg
[~2019-12-14 21:53] MED LIST: ACET325C7 PO; APIX5TAB PO; DONE10TA41 PO; GABA-486 PO; LEVO50TA6 PO
--- NOTE | 2019-12-14 22:00 | NUR ---
RT IN ROOM TO START VAPOTHERM AND DRAW ABG'S.
[2019-12-14 22:20] LABS: BASOPHILS % (AUTO) 0 % (0-10); EOSINOPHILS # (AUTO) 0.1 10^3/uL (0.0-0.3); EOSINOPHILS % (AUTO) 1 % (0-10); HEMATOCRIT 43 % (35-52); HEMOGLOBIN 13.7 g/dL (11.5-16.0); LYMPHOCYTES # (AUTO) 1.8 10^3/uL (1.0-4.0); LYMPHOCYTES % (AUTO) 17 % (12-44); MEAN CORPUSCULAR HEMOGLOBIN 29 pg (25-34); MEAN CORPUSCULAR HGB CONC 32 g/dL (32-36); MEAN CORPUSCULAR VOLUME 91 fL (80-99); MEAN PLATELET VOLUME 10.9 fL (9.0-12.2); MONOCYTES # (AUTO) 0.7 10^3/uL (0.0-1.0); MONOCYTES % (AUTO) 7 % (0-12); NEUTROPHILS # (AUTO) 7.4 10^3/uL (1.8-7.8); NEUTROPHILS % (AUTO) 73 % (42-75); PLATELET COUNT 227 10^3/uL (130-400); WHITE BLOOD COUNT 10.2 10^3/uL (4.3-11.0)
[2019-12-14 22:32] LABS: ALBUMIN 3.4 GM/DL (3.2-4.5); CHLORIDE 96 MMOL/L (98-107); INR 0.9 (0.8-1.4); POTASSIUM 4.5 MMOL/L (3.6-5.0); SODIUM 137 MMOL/L (135-145)
[2019-12-14 22:34] LABS: CALCIUM 9.5 MG/DL (8.5-10.1)
[2019-12-14 22:35] LABS: GLUCOSE 160 MG/DL (70-105); TOTAL PROTEIN 6.6 GM/DL (6.4-8.2)
[2019-12-14 22:36] LABS: BILIRUBIN,TOTAL 0.6 MG/DL (0.1-1.0); CARBON DIOXIDE 30 MMOL/L (21-32)
[2019-12-14 22:38] LABS: ALKALINE PHOSPHATASE 67 U/L (40-136); CREATININE SERUM 0.76 MG/DL (0.60-1.30); GFR ESTIMATED > 60
[2019-12-14 22:39] LABS: BUN/CREATININE RATIO 42
[2019-12-14 22:41] LABS: ALANINE AMINOTRANSFERASE 67 U/L (0-55); MAGNESIUM 2.3 MG/DL (1.6-2.4)
[2019-12-14 22:42] LABS: CREATINE KINASE 20 U/L (29-168)
[2019-12-14] MEDS ORDERED: LACTATED RINGERS 1,000 ML IV ONE (22:42)
[2019-12-14 22:48] LABS: CREATINE KINASE MB 1.1 NG/ML (<6.6)
--- NOTE | 2019-12-14 23:01 | Diagnostic Imaging Report ---
Indication: Respiratory distress Portable chest 10:46 PM There is a coarse interstitial prominence in the lungs. There is no alveolar consolidation. There are no effusions or pneumothoraces. IMPRESSION: Coarse interstitial fibrosis/infiltrate. Dictated by: Dictated on workstation # [id number]
[2019-12-14] MEDS ORDERED: ENOXAPARIN 60 MG/0.6 ML (LOVENOX) SYR SC ONE (23:15)
[2019-12-15] VITALS (11 sets, daily range): BP systolic 102–139; BP diastolic 45–81
[2019-12-15] MEDS ORDERED: HOLD METFORMIN - RECEIVED CONTRAST 20 ML VIAL IV SCH
[2019-12-15] MEDS ORDERED: IOHEXOL 350 MG/ML 100 ML (OMNIPAQUE 350) VIAL IV ONE
[2019-12-15] MEDS ORDERED: CATHETER FLUSH 10 ML SYR IV PRN
[2019-12-15] MEDS ORDERED: NS 100 ML (IVPB) BAG IV ONE
[2019-12-15] MEDS ORDERED: CEFEPIME INJECTION 2,000 MG in WATER (STERILE) FOR INJECTION 20 ML IV ONE (00:15)
--- NOTE | 2019-12-15 00:27 | ED Respiratory ---
General Chief Complaint: Respiratory Problems Stated Complaint: COVID +;SOA;LOW O2 SAT Nursing Triage Note: DISMISSED FROM MED SURG THIS EVENING. WAS GOING TO BED WHEN FAMILY WAS UNABLE TO GET O2 SATURATION UP ABOVE 88% ON 2 LITERS OF OXYGEN. ARRIVES TO ROOM 10 ON 8LITERS OF OXYGEN VIA NC WITH A SATURATION OF 88%. IMMEDIENTLY PLACED ON VAPO THERM BY RT STAFF. Source: patient, old records History of Present Illness Date Seen by Provider: Dec 14, 2019 Time Seen by Provider: 21:55 Initial Comments PT ARRIVES VIA POV PT WAS JUST DISMISSED FROM THIS FACILITY THIS EVENING, AND GOT HOME AROUND [address] [place] PT WENT HOME ON O2 AT 2L/NC AND WAS WEARING IT ALL THE WAY HOME. SHORTLY AFTER SHE GOT HOME, HER O2 SAT DROPPED TO 70'S, AND O2 FLOW WAS TURNED UP AND FAMILY BROUGHT HER BACK HERE EN ROUTE, HER O2 SATS DROPPED TO 64% ON O2 AT 8L/NC C/O BEING SHORT OF BREATH NO CHEST PAIN NO SWELLING IN LEGS/ FEET NO RECENT FEVER C/O GENERALIZED WEAKNESS. HAS NOT HAD ANY NAUSEA AND HAS BEEN EATING AND DRINKING THIS WEEK PT INITIALLY HAD DIARRHEA, BUT SHE HAS HAD ANY DIARRHEA FOR A FEW DAYS. PT HAS BEEN IN THIS FACILITY SINCE 11/29/19, AFTER INITIALLY BEING HOSPITALIZED AT [facility] ON 11/26/19--WAS INITIALLY BEING TREATED THERE FOR PNEUMONIA AND UTI, THEN TRANSFERRED HERE AFTER REPEAT TESTING FOR COVID-19 WAS POSITIVE. 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, WELL DECADRON NO HISTORY OF RESPIRATORY PROBLEMS PRIOR TO THIS PT HAS HISTORY OF ATRIAL FIBRILLATION AND IS ON ELIQUIS PCP: Allergies and Home Medications Allergies Coded Allergies: No Known Drug Allergies (Unverified , 11/29/19) Home Medications Acetaminophen 325 Mg Capsule, 650 MG PO Q8H PRN for PAIN-MILD (1-4), (Reported) Apixaban 5 Mg Tablet, 5 MG PO BID, (Reported) Donepezil HCl 10 Mg Tablet, 10 MG PO HS, (Reported) Gabapentin 100 Mg Capsule, 200 MG PO HS, (Reported) TAKES 2 (100MG) CAPS Levothyroxine Sodium 50 Mcg Tablet, 50 MCG PO DAILY, (Reported) Patient Home Medication List Home Medication List Reviewed: Yes Review of Systems Review of Systems Constitutional: No chills, No diaphoresis, No fever; malaise, weakness Respiratory: see HPI, cough, short of breath Cardiovascular: No chest pain, No edema, No palpitations, No syncope Gastrointestinal: No abdominal pain, No diarrhea, No nausea, No vomiting Genitourinary: no symptoms reported Musculoskeletal: no symptoms reported Skin: no symptoms reported Psychiatric/Neurological: Denies Headache, Denies Numbness, Denies Paresthesia, Denies Tingling Hematologic/Lymphatic: Other (ON ELIQUIS) Immunological/Allergic: no symptoms reported Past Gxxpkyv-Ibzorc-Wjfpfd Hx Past Med/Social Hx: Reviewed and Corrections made Patient Social History Alcohol Use: Denies Use Recreational Drug Use: No Smoking Status: Former Smoker Type Used: Cigarettes Recent Foreign Travel: No Contact w/Someone Who Travel: No Recent Infectious Disease Expo: Yes (COVID POSITIVE 11/30/2019) Recent Hopitalizations: No Physical Abuse: No Sexual Abuse: No Mistreated: No Fear: No Seasonal Allergies Seasonal Allergies: No Past Medical History Surgeries: Yes (CRANIOTOMY FOR HEAD TRAUMA;RIGHT KNEE REPLACEMENT;LESI'S) Joint Replacement, Neurological, Orthopedic Respiratory: Yes (COVID PNEUMONIA WITH RESP FAILURE 11/2019) Pneumonia Cardiac: Yes Atrial Fibrillation, High Cholesterol Neurological: Yes (HEAD TRAUMA W/ SKULL FX AND INTRACRANIAL BLEED AND CRANIOTOMY 2010) Dementia, Traumatic Brain 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 Genitourinary: Yes (KIDNEY STONES NOTED ON CT SCAN;BLADDER SUSPENSION) Kidney Stones Gastrointestinal: No Musculoskeletal: Yes (R KNEE REPLACEMENT; CARPAL TUNNEL SYNDROME-NO SURGERY;LESI'S) Arthritis, Chronic Back Pain Endocrine: Yes Hypothyroidsim HEENT: No Cancer: No Psychosocial: No Integumentary: No Blood Disorders: No Family Medical History No Pertinent Family Hx SOCIAL HISTORY: -ETOH--NONE -DRUGS-NONE -QUIT SMOKING 1988 PAST SURGICAL HISTORY: -RIGHT INDEX FINGER TENDON REPAIR 1963--GENESIS -LEFT RING FINGER TENDON REPAIR 1997--JOSE -LEFT BREAST BIOPSY-1994--BENIGN--[facility] -APPENDECTOMY--RUPTURED APPENDIX 2000--[facility] -BLADDER SUSPENSION-2003--DR. SMITH/JOSE -CRANIOTOMY 2010 DUE TO SKULL FRACTURE/INTRACRANIAL BLEED--JOHN GARCIA -RIGHT ROTATOR CUFF REPAIR--2016--[place]TH[place] 4 [place] -RIGHT KNEE ARTHROSCOPIES -RIGHT KNEE REPLACEMENT -2018--DR. VELA/ORTHO 4 STATES -LUMBAR EPIDURAL STEROID INJECTIONS Physical Exam Vital Signs - First Documented 12/14/19 12/15/19 22:00 00:42 Temp 36.5 Pulse 68 Resp 16 B/P (MAP) 110/59 (76) Pulse Ox 88 O2 Delivery Nasal Cannula O2 Flow Rate 8.00 FiO2 30 Capillary Refill : Less Than 3 Seconds Height: '" Weight: lbs. oz. 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, no motor/sensory deficits, alert, normal mood/affect, oriented x 3 Skin: warm/dry, pallor Progress/Results/Core Measures Suspected Sepsis Recent Fever Within 48 Hours: No Infection Criteria Present: Documented Infection New/Unexplained Altered Menta: No Sepsis Screen: No Definite Risk SIRS Temperature: Pulse: 68 Respiratory Rate: 16 Laboratory Tests 12/14/19 22:05: White Blood Count 10.2 12/15/19 05:28: White Blood Count 11.9H Blood Pressure 110 /59 Mean: 76 Laboratory Tests 12/14/19 22:05: Creatinine 0.76, INR Comment 0.9, Platelet Count 227, Total Bilirubin 0.6 12/15/19 05:28: Creatinine 0.67, Platelet Count 216, Total Bilirubin 0.6 Results/Orders Lab Results Laboratory Tests Test 12/14/19 22:05 12/15/19 05:28 Range/Units White Blood Count 10.2 11.9 H 4.3-11.0 10^3/uL Red Blood Count 4.75 4.20 3.80-5.11 10^6/uL Hemoglobin 13.7 12.2 11.5-16.0 g/dL Hematocrit 43 38 35-52 % Mean Corpuscular Volume 91 91 80-99 fL Mean Corpuscular Hemoglobin 29 29 25-34 pg Mean Corpuscular Hemoglobin Concent 32 32 32-36 g/dL Red Cell Distribution Width 13.7 13.8 10.0-14.5 % Platelet Count 227 216 130-400 10^3/uL Mean Platelet Volume 10.9 11.3 9.0-12.2 fL Immature Granulocyte % (Auto) 2 2 % Neutrophils (%) (Auto) 73 88 H 42-75 % Lymphocytes (%) (Auto) 17 8 L 12-44 % Monocytes (%) (Auto) 7 2 0-12 % Eosinophils (%) (Auto) 1 0 0-10 % Basophils (%) (Auto) 0 0 0-10 % Neutrophils # (Auto) 7.4 10.5 H 1.8-7.8 10^3/uL Lymphocytes # (Auto) 1.8 0.9 L 1.0-4.0 10^3/uL Monocytes # (Auto) 0.7 0.2 0.0-1.0 10^3/uL Eosinophils # (Auto) 0.1 0.0 0.0-0.3 10^3/uL Basophils # (Auto) 0.0 0.0 0.0-0.1 10^3/uL Immature Granulocyte # (Auto) 0.2 H 0.3 H 0.0-0.1 10^3/uL Prothrombin Time 13.0 12.2-14.7 SEC INR Comment 0.9 0.8-1.4 Activated Partial Thromboplast Time 26 24-35 SEC Sodium Level 137 136 135-145 MMOL/L Potassium Level 4.5 5.4 H 3.6-5.0 MMOL/L Chloride Level 96 L 101 98-107 MMOL/L Carbon Dioxide Level 30 27 21-32 MMOL/L Anion Gap 11 8 5-14 MMOL/L Blood Urea Nitrogen 32 H 24 H 7-18 MG/DL Creatinine 0.76 0.67 0.60-1.30 MG/DL Estimat Glomerular Filtration Rate > 60 > 60 BUN/Creatinine Ratio 42 36 Glucose Level 160 H 163 H 70-105 MG/DL Calcium Level 9.5 8.9 8.5-10.1 MG/DL Corrected Calcium 10.0 9.7 8.5-10.1 MG/DL Magnesium Level 2.3 1.6-2.4 MG/DL Total Bilirubin 0.6 0.6 0.1-1.0 MG/DL Aspartate Amino Transf (AST/SGOT) 39 H 32 5-34 U/L Alanine Aminotransferase (ALT/SGPT) 67 H 54 0-55 U/L Alkaline Phosphatase 67 59 40-136 U/L Total Creatine Kinase 20 L 29-168 U/L Creatine Kinase MB 1.1 <6.6 NG/ML Troponin I < 0.028 <0.028 NG/ML B-Type Natriuretic Peptide 76.6 <100.0 PG/ML Total Protein 6.6 6.0 L 6.4-8.2 GM/DL Albumin 3.4 3.0 L 3.2-4.5 GM/DL Procalcitonin 0.05 <0.10 NG/ML My Orders Orders - APPLE ROD DO Ed Iv/Invasive Line Start (12/14/19 22:02) Ekg Tracing (12/14/19:02) O2 (12/14/19:02) Monitor-Rhythm Ecg Trace Only (12/14/19:02) Chest 1 View, Ap/Pa Only (12/14/19:02) BNP (12/14/19:02) Cbc With Automated Diff (12/14/19:) Comprehensive Metabolic Panel (12/14/19:02) Creatine Kinase (12/14/19:02) Creatine Kinase Mb (12/14/19 22:02) Magnesium (12/14/19:02) Protime With Inr (12/14/19:) Partial Thromboplastin Time (12/14/19:02) Troponin I (12/14/19 22:02) Rt Request For Service (12/14/19 22:) Dexamethasone Injection (Decadron Inje (12/14/19 22:15) Ed Iv/Invasive Line Start (12/14/19 22:42) Lactated Ringers (Lr 1000 Ml Iv Solution (12/14/19 22:42) Ct Angio Chest W (12/14/19 22:58) Enoxaparin Injection (Lovenox Injection) (12/14/19 23:15) Arterial Blood Draw (10/22/20 22:20) Iohexol Injection (Omnipaque 350 Mg/Ml 1 (12/15/19 00:00) Received Contrast (Hold Metformin- Contr (12/15/19 00:00) Sodium Chloride Flush (Catheter Flush Sy (12/15/19 00:00) Ns (Ivpb) (Sodium Chloride 0.9% Ivpb Bag (12/15/19 00:00) Cefepime Injection (Maxipime Injection) (12/15/19 00:15) Medications Given in ED Vital Signs/I&O 12/14/19 12/15/19 12/15/19 12/15/19 22:00 00:42 02:05 02:19 Temp 36.5 37.0 35.4 Pulse 68 75 96 Resp 16 13 20 B/P (MAP) 110/59 (76) 100/58 (76) 107/70 (82) Pulse Ox 88 94 95 90 O2 Delivery Nasal Cannula Vapotherm Vapotherm Room Air O2 Flow Rate 8.00 10.00 10.00 FiO2 30 12/15/19 12/15/19 12/15/19 12/15/19 02:23 02:25 02:30 02:39 Temp 35.4 Pulse 96 84 78 Resp 20 B/P (MAP) 107/70 102/69 (80) Pulse Ox 91 95 94 O2 Delivery Vapotherm Vapotherm Vapotherm O2 Flow Rate 15.00 15.00 21.00 30.00 FiO2 30 12/15/19 12/15/19 12/15/19 12/15/19 03:10 04:49 04:55 05:32 Temp 36.5 35.4 35.4 Pulse 68 71 Resp 20 B/P (MAP) 111/68 (82) Pulse Ox 88 95 O2 Delivery Vapotherm Vapotherm O2 Flow Rate 15.00 30.00 FiO2 40 30 12/15/19 07:00 Pulse 68 Capillary Refill : Less Than 3 Seconds Blood Pressure Mean: 76 Progress Note : Progress Note INITIAL O2 SAT 88% ON 8L/NC ARRIVAL IMMEDIATELY PLACED ON VAPOTHERM AT 10L / 30% WITH O2 SATS QUICKLY UP TO 94-97% NO DETERIORATION IN PT'S CONDITION DURING ER STAY ECG Initial ECG Impression Date: Dec 14, 2019 Initial ECG Impression Time: 22:17 Initial ECG Rate: 71 Initial ECG Rhythm: Normal Sinus Diagnostic Imaging Comments CXR--BILATERAL INFILTRATES, IMPROVED FROM PREVIOUS CXR--PENDING RADIOLOGIST REVIEW CT CHEST ANGIOGRAM--NO P.E.; COVID PNEUMONIA/PNEUMONITIS WITH SLIGHT IMPROVEMEN T IN DENSITY OF GROUND GLASS OPACITIES--BILATERAL UPPER AND LOWER LOBES AND RML. RESOLUTION OF BILATERAL PLEURAL EFFUSIONS. PER [facility] VIA FAX AT 0033 Reviewed: Reviewed by Ok Departure Communication (Admissions) 0037--SPOKE WITH DR. BOWERS, HOSPITALIST, WILL OBTAIN CT CHEST ANGIOGRAM, AND ACCEPTS PT FOR ADMIT. Impression Primary Impression: Pneumonia due to COVID-19 virus Additional Impressions: Acute respiratory failure due to COVID-19 Dehydration Generalized weakness Disposition: ADMITTED INPATIENT Condition: Improved Admissions Decision to Admit Reason: Admit from ER (General) Decision to Admit/Date: Dec 14, 2019 Time/Decision to Admit Time: 22:50 APPLE ROD DO Dec 15, 2019 00:27
--- NOTE | 2019-12-15 01:25 | NUR ---
REPORT TO DERRICK LOYD. ORDERS SENT TO ICU VIA TUBE SYSTEM.
[2019-12-15] MEDS ORDERED: D5 1/2 NS W/KCL 20 MEQ/L 1,000 ML IV ONE (01:40)
[2019-12-15] MEDS ORDERED: ONDANSETRON 4 MG/2 ML (SDV) Z0FRAN IVP PRN (01:45)
[2019-12-15] MEDS ORDERED: ACETAMINOPHEN 500 MG TAB (TYLENOL) PO PRN (01:45)
[2019-12-15] MEDS: D5 1/2 NS W/KCL 20 MEQ 1000 ML IV SCH ×2 (02:34→09:41)
[2019-12-15] MEDS ORDERED: CEFEPIME 1,000 MG/SWFI 10 ML IV PUSH IV SCH ×2 (06:00)
[2019-12-15 06:08] LABS: BASOPHILS % (AUTO) 0 % (0-10); EOSINOPHILS % (AUTO) 0 % (0-10); HEMATOCRIT 38 % (35-52); HEMOGLOBIN 12.2 g/dL (11.5-16.0); LYMPHOCYTES # (AUTO) 0.9 10^3/uL (1.0-4.0); LYMPHOCYTES % (AUTO) 8 % (12-44); MEAN CORPUSCULAR HEMOGLOBIN 29 pg (25-34); MEAN CORPUSCULAR HGB CONC 32 g/dL (32-36); MEAN CORPUSCULAR VOLUME 91 fL (80-99); MEAN PLATELET VOLUME 11.3 fL (9.0-12.2); MONOCYTES # (AUTO) 0.2 10^3/uL (0.0-1.0); MONOCYTES % (AUTO) 2 % (0-12); NEUTROPHILS # (AUTO) 10.5 10^3/uL (1.8-7.8); NEUTROPHILS % (AUTO) 88 % (42-75); PLATELET COUNT 216 10^3/uL (130-400); WHITE BLOOD COUNT 11.9 10^3/uL (4.3-11.0)
--- NOTE | 2019-12-15 06:19 | Diagnostic Imaging Report ---
PROCEDURE: CT angiography of the chest with contrast. TECHNIQUE: Multiple contiguous axial images were obtained through the chest after uneventful bolus administration of intravenous contrast. 3D reconstructed CTA MIP acquisitions were also performed. Auto Exposure Controls were utilized during the CT exam to meet ALARA standards for radiation dose reduction. INDICATION: Cough, congestion, and COVID positive. Comparison is made with prior examination from 11/29/2019. FINDINGS: There are persistent bilateral groundglass infiltrates. These do appear improved when compared to prior examination. The pleural effusions have resolved. There is no pneumothorax. Ascending aorta measures 3.5 cm. There is no dissection. There are no filling defects seen within the pulmonary arteries to suggest pulmonary embolism. There is no pathologically enlarged adenopathy in the chest. The visualized intra-abdominal structures are unremarkable. There are degenerative changes in the spine. There is a chronic appearing mild compression fracture in the lower thoracic spine. IMPRESSION: Some interval improvement in the bilateral groundglass infiltrates which are consistent with COVID pneumonia/pneumonitis. There has also been resolution of the previously seen pleural effusions. Enlargement of the ascending aorta up to 3.5 cm without evidence of dissection. No evidence of pulmonary embolism Dictated by: Dictated on workstation # [id number]
[2019-12-15 06:21] LABS: CALCIUM 8.9 MG/DL (8.5-10.1)
[2019-12-15 06:22] LABS: GLUCOSE 163 MG/DL (70-105)
[2019-12-15 06:23] LABS: CARBON DIOXIDE 27 MMOL/L (21-32)
[2019-12-15 06:24] LABS: BILIRUBIN,TOTAL 0.6 MG/DL (0.1-1.0)
[2019-12-15 06:25] LABS: ALKALINE PHOSPHATASE 59 U/L (40-136)
[2019-12-15 06:26] LABS: CREATININE SERUM 0.67 MG/DL (0.60-1.30); GFR ESTIMATED > 60
[2019-12-15 06:27] LABS: BUN/CREATININE RATIO 36
[2019-12-15 06:29] LABS: ALANINE AMINOTRANSFERASE 54 U/L (0-55)
[2019-12-15 07:05] LABS: CHLORIDE 101 MMOL/L (98-107); POTASSIUM 5.4 MMOL/L (3.6-5.0); SODIUM 136 MMOL/L (135-145)
--- NOTE | 2019-12-15 07:08 | Pulmonary Consultation ---
History of Present Illness History of Present Illness Date Seen by Provider: Dec 15, 2019 Time Seen by Provider: 07:08 Date of Admission History of Present Illness 84yo readmitted to [facility] from ER after being discharged from 4th yesterday evening. Pt was previously hospitalized with COVID. Family stated they were not able to get her oxygen saturations above 88% on 2 liters of oxygen. Upon ED admission her Sp02 was 88% on 8 liters/min. Pt was placed on Vapotherm which did improve her oxygenation. PT complains of worsening SOB beulah with exertion. Denies CP, productive cough, fever, or LE edema. Allergies and Home Medications Allergies Coded Allergies: No Known Drug Allergies (Unverified , 11/29/19) Home Medications Acetaminophen 325 Mg Capsule, 650 MG PO Q8H PRN for PAIN-MILD (1-4), (Reported) Apixaban 2.5 Mg Tablet, 2.5 MG PO BID Prescribed by: CONCEPCION PEARCE on 12/27/19 0531 Donepezil HCl 10 Mg Tablet, 10 MG PO HS, (Reported) Gabapentin 100 Mg Capsule, 200 MG PO HS, (Reported) TAKES 2 (100MG) CAPS Levothyroxine Sodium 50 Mcg Tablet, 50 MCG PO DAILY, (Reported) Past Ggtbnvv-Tsadov-Xfbrfv Hx Patient Social History Alcohol Use: Denies Use Recreational Drug Use: No Smoking Status: Former Smoker Type Used: Cigarettes Recent Foreign Travel: No Contact w/Someone Who Travel: No Recent Infectious Disease Expo: Yes (COVID POSITIVE 11/30/2019) Recent Hopitalizations: No Physical Abuse: No Sexual Abuse: No Mistreated: No Fear: No Seasonal Allergies Seasonal Allergies: No Past Medical History Surgeries: Yes (CRANIOTOMY FOR HEAD TRAUMA ; RIGHT KNEE SURGERY) Neurological, Orthopedic Respiratory: Yes (COVID PNEUMONIA WITH RESP FAILURE 11/2019) Cardiac: Yes Atrial Fibrillation, High Cholesterol Neurological: Yes (HEAD TRAUMA W/ INTRACRANIAL BLEED AND CRANIOTOMY) 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 oz. kg; 25.23 BMI Method: Exam Exam Vital Signs Date Time Temp Pulse Resp B/P (MAP) Pulse Ox O2 Delivery O2 Flow Rate FiO2 12/15/19 05:32 35.4 71 20 111/68 (82) 95 Vapotherm 15.00 30.00 12/15/19 04:55 35.4 12/15/19 04:49 Vapotherm 30 12/15/19 03:10 36.5 68 88 40 12/15/19 02:39 78 102/69 (80) 94 Vapotherm 15.00 30.00 12/15/19 02:30 95 Vapotherm 30 12/15/19 02:25 84 12/15/19 02:23 35.4 96 20 107/70 91 Vapotherm 15.00 21.00 12/15/19 02:19 35.4 96 20 107/70 (82) 90 Room Air 12/15/19 02:05 37.0 75 13 100/58 (76) 95 Vapotherm 10.00 12/15/19 00:42 94 Vapotherm 10.00 30 12/14/19 22:00 36.5 68 16 110/59 (76) 88 Nasal Cannula 8.00 I & O 12/15/19 07:00 Intake Total 1020 ml Output Total 0 ml Balance 1020 ml Height & Weight Height: '" Weight: lbs. oz. kg; 25.23 BMI Method: General Appearance: No Apparent Distress, WD/WN HEENT: PERRL/EOMI, Pharynx Normal Neck: Full Range of Motion Respiratory: No Accessory Muscle Use, No Respiratory Distress, Decreased Breath Sounds Capillary Refill: Less Than 3 Seconds Gastrointestinal: normal bowel sounds, non tender, soft Extremity: Normal Capillary Refill Neurologic/Psychiatric: Alert Results Lab Laboratory Tests 12/14/19 22:05 12/15/19 05:28 Assessment/Plan Assessment/Plan COVID -19 - readmission secondary to worsening SOB and hypoxia -S/p Remdesivir and CVP -Oxygen -- titrate as tolerated -PCT is normal -Cefepime started upon admission -- doubt bacterial pneumonia -D/C Abx -Check UA -CTA of chest is negative for PE does show bilateral infiltrates from recent COVID. - Decadron 6mg IV was started yesterday upon admission. Hyperkalemia -Stop IVF which has KCL. -Repeat labs in the morning Hx of Afib -Eliquis Pt appears to be doing better after admission. Currently she is only requiring 1 liter of oxygen. Will transfer to [facility] with tele and continue to monitor. IF she continues to do wll she could be discharged tomorrow morning. ANDRZEJ GOODWIN DO Dec 15, 2019 07:08
[2019-12-15] MEDS ORDERED: FLU QUAD HIGH DOSE 240 MCG/0.7 ML 2020-21 (FLUZONE) IM ONE (07:30)
[2019-12-15] MEDS: LEVOTHYROXINE 50 MCG (LEVOTHROID) TAB PO SCH (08:25)
[2019-12-15] MEDS ORDERED: AZITHROMYCIN 500 MG/NS 250 ML IVPB IV SCH ×2 (09:00)
[2019-12-15] MEDS: APIXABAN 2.5 MG (ELIQUIS) TABLET PO SCH ×2 (09:38→21:56)
[2019-12-15] MEDS: RT-ALBUTEROL INHALER HFA (VENTOLIN HFA) 18 GM IH SCH (09:59)
--- NOTE | 2019-12-15 11:19 | NUR ---
REPORT CALLED TO RACH BACH.
--- NOTE | 2019-12-15 11:38 | NUR ---
PT TRANSPORTED TO ROOM 427 VIA PT BED WITH CATE LANTIGUA AT [facility] AND THIS RN AT [facility]. PERIPHERAL IV INTACT UPON ARRIVAL. PT IN NO APPARENT DISTRESS. O2 93% ON ROOM AIR. RACH BACH NOTIFIED.
--- NOTE | 2019-12-15 11:40 | NUR ---
SPOKE WITH THE PT (I CALLED HER ROOM PHONE) AND WENT THRU THE EXT MED HISTORY TO COMPLETE THE MED REC PT WAS RECENTLY HERE AND I COMPLETED THE MED REC ON 11-29-2019. TODAY WHEN I SPOKE WITH THE PT SHE LET ME KNOW THAT NOTHING HAD CHANGED AND I WENT THRU THE EXT MED HISTORY OVER THE PHONE JUST TO MAKE SURE. OTC MEDS: TYLENOL
--- NOTE | 2019-12-15 13:03 | Physical Therapy Evaluation ---
PT Evaluation-General Medical Diagnosis Admission Date Dec 15, 2019 at 07:04 Medical Diagnosis: Covid (+)/pneumonia/hypoxia Onset Date: Dec 15, 2019 Therapy Diagnosis Therapy Diagnosis: debility Precautions Precautions/Isolations: Airborne Isolation, Contact Isolation, Droplet Isolation, Fall Prevention Referral Physician: Samanta Reason for Referral: Evaluation/Treatment Medical History Pertinent Medical History: Atrial Fib, Dementia, Hypothroidism Current History Patient dismissed to home 12/14/19. Failed return due to decreased SAO2. Patient dismissed with 2L O2 NC. Reviewed History: Yes Social History Home: Single Level Current Living Status: Spouse Prior Prior Level of Function SCALE: Activities may be completed with or without assistive devices. 6-Fzoowrslpt-rqmmewq completes the activity by him/herself with no assistance from a helper. 5-Set-up or Clean-up Assistance-helper sets up or cleans up; patient completes activity. [place] assists only prior to or following the activity. 4-Supervision or Touching Assistance-helper provides verbal cues and/or touching/steadying and/or contact guard assistance as patient completes activity. Assistance may be provided throughout the activity or intermittently. 3-Partial/Moderate Assistance-helper does LESS THAN HALF the effort. [place] lifts, holds or supports trunk or limbs, but provides less than half the effort. 2-Substantial/Maximal Assistance-helper does MORE THAN HALF the effort. [place] lifts or holds trunk or limbs and provides more than half the effort. 3-Ulwslpggz-jlfqfi does ALL the effort. Patient does none of the effort to complete the activity. Or, the assistance of 2 or more helpers is required for the patient to complete the activity. If activity was not attempted, code reason: 7-Patient Refused. 9-Not Applicable-not attempted and the patient did not perform the activity before the current illness, exacerbation or injury. 10-Not Attempted due to Environmental Limitations-(lack of equipment, weather restraints, etc.). 88-Not Attempted due to Medical Conditions or Safety Concerns. Bed Mobility: 6 Transfers (B,C,W/C): 6 Gait: 6 Stairs: 6 Indoor Mobility (Ambulation): Independent Stairs: Independent Prior Devices Use: None PT Evaluation-Current Subjective Patient agrees to PT. Currently in bed on RA with SAO2 92%. Objective Patient Orientation: Person, Time, Situation Attachments: IV ROM/Strength ROM Lower Extremities bilateral LE WFL Strength Lower Extremities 4/5 grossly bilateral LE Integumentary/Posture Integumentary refer to nursing notes Bladder Incontinence: Yes Posture WFL Neuromuscular (Tone, Coordination, Reflexes) grossly intact Sensory Vision: Functional Hearing: Impaired Sensation Right Lower Extremit: Intact Sensation Left Lower Extremity: Intact Transfers Roll Left to Right (QC): 6 Sit to Lying (QC): 5 Lying to Sitting/Side of Bed(Q: 5 Sit to Stand (QC): 5 Chair/Dom-dh-Cqgxn Xfer(QC): 5 Toilet Transfer (QC): 5 Gait Does the Patient Walk?: Yes Mode of Locomotion: Walk Anticipated Mode of Locomotion: Walk Walk 10 feet (QC): 5 Walk 50 ft with 2 Turns(QC): 5 Walk 150 ft (QC): 5 Distance: 30' x 1/150' Gait Assistive Device: FWW Comments/Gait Description safe and functional gait sequence Balance Sitting Static: Normal Sitting Dynamic: Normal Standing Static: Normal Standing Dynamic: Normal Treatment Per ICU nursing, patient is 93% RA at rest in bed. During PT session, SAO2 RA in bed prior to activity is 92%. Patient sits EOB with decrease O2 to 87% with 2 min. recovery period. Ambulated 30' FWW SBA RA with SAO2 decreasing to 83%. RN notified and 2L O2 placed. Patient ambulated 150' FWW SBA with O2 2L with SAO2 93% during activity. Patient was dismissed to home yesterday with home O2. Assessment/Needs 84 y.o. female, will be seen by skilled PT to address functional strength, mobility and pulmonary function to ensure safe return to home with family at maximum LOF. Rehab Potential: Guarded PT Cable Strander Goals Snf Goals PT Cable Strander Goals Time Frame: Dec 30, 2019 Roll Left & Right (QC): 6 Sit to Lying (QC): 6 Lying-Sitting on Side/Bed(QC): 6 Sit to Stand (QC): 6 Chair/Cqc-og-Ppnop Xfer(QC): 6 Toilet Transfer (QC): 6 Car Transfer (QC): 6 Does the Patient Walk: Yes Walk 10 feet (QC): 6 Walk 50ft with 2 Turns (QC): 6 Walk 150 ft (QC): 6 Walking 10ft on Uneven Surface: 6 1 Step (curb) (QC): 6 4 Steps (QC): 6 PT Plan Problem List Problem List: Activity Tolerance, Functional Strength, Safety, Gait, Transfer Treatment/Plan Treatment Plan: Continue Plan of Care Treatment Plan: Bed Mobility, Education, Functional Activity Misael, Functional Strength, Gait, Safety, Therapeutic Exercise, Transfers Treatment Duration: Dec 30, 2019 Frequency: 6 times per week Estimated Hrs Per Day: .25 hour per day Time/GCodes Time In: 1145 Time Out: 1206 Total Billed Treatment Time: 21 Total Billed Treatment 1 visit [facility] 21 min JUAN BERRIOS PT Dec 15, 2019 13:03
--- NOTE | 2019-12-15 14:11 | Occupational Therapy Eval ---
OT Evaluation-General/PLF Medical Diagnosis Admission Date Dec 15, 2019 at 07:04 Medical Diagnosis: Covid (+)/pneumonia/hypoxia Onset Date: Dec 15, 2019 Therapy Diagnosis Therapy Diagnosis: Decreased ADL status Precautions Precautions/Isolations: Airborne Isolation, Contact Isolation, Droplet Isolation, Fall Prevention Referral Physician: Samanta Rios Reason: Activity Tolerance, Self Care, Evaluation/Treatment, Strengthening/ROM Medical History Pertinent Medical History: Atrial Fib, Dementia, Hypothroidism Additional Medical History TBI hx Current History Pt d/c'd from [facility] 12/13. Admits again from home with 02 sats in high 80's without ability to bring above 90 on 2L NC. Pt admits, use of 8L 02, vapotherm, pt now on 2L 02 upon entry. Reviewed History: Yes Social History Home: Single Level Current Living Status: Spouse ADL-Prior Level of Function SCALE: Activities may be completed with or without assistive devices. 9-Dhsplpehxe-rcqjneo completes the activity by him/herself with no assistance from a helper. 5-Set-up or Clean-up Assistance-helper sets up or cleans up; patient completes activity. [place] assists only prior to or following the activity. 4-Supervision or Touching Assistance-helper provides verbal cues and/or touching/steadying and/or contact guard assistance as patient completes activity. Assistance may be provided throughout the activity or intermittently. 3-Partial/Moderate Assistance-helper does LESS THAN HALF the effort. [place] lifts, holds or supports trunk or limbs, but provides less than half the effort. 2-Substantial/Maximal Assistance-helper does MORE THAN HALF the effort. [place] lifts or holds trunk or limbs and provides more than half the effort. 3-Jdacncxuh-onwpoq does ALL the effort. Patient does none of the effort to complete the activity. Or, the assistance of 2 or more helpers is required for the patient to complete the activity. If activity was not attempted, code reason: 7-Patient Refused. 9-Not Applicable-not attempted and the patient did not perform the activity before the current illness, exacerbation or injury. 10-Not Attempted due to Environmental Limitations-(lack of equipment, weather restraints, etc.). 88-Not Attempted due to Medical Conditions or Safety Concerns. ADL PLOF Comments Pt states IND with ADLs, assist from with IADLs. Self Care: Independent Functional Cognition: Needed Some Help DME/Equipment: Bath Chair, Shower Drive Self: No OT Current Status Subjective Pt alert, agrees to OT tx session. referral and information aide present start of session. Pt denies pain, denies SOB in rest. Mental Status/Objective Attachments: IV, Oxygen (2L NC), Telemetry Current Glasses/Contacts: Yes Hearing Aids: No Hand Dominance: Right Upper Extremity ROM WFL BUE Upper Extremity Coordination WFL BUE Upper Extremity Sensation WFL BUE Upper Extremity Strength WFL BUE (3+/5) ADL-Treatment Eating (QC): 6 (brings cup to mouth/ drinks IND.) Upper Body Dressing (QC): 3 (min A gown donning due to lines/ confusion.) Lower Body Dressing (QC): 4 (SBA and cues for safety.) Toileting Hygiene (QC): 4 (s/u and CGA in stance for samuel/ bottom cleaning.) Other Treatments Pt in recliner, no c/o pain or SOB. Agrees to tx. Pt able to sit to stand with CGA, stands and states samuel area wet. Pt doffs breifs in stance, sits with control, dons new briefs with s/u and CGA-SBA in stance while completing samuel/ bottom care. UB dressing as above. Pt returns to sit, educated on OT role and continuation of OT during stay. Pt agrees, all needs met, call light in reach. LE's elevated. Education OT Patient Education: Correct positioning, Modified ADL techniques, Purpose of tx/functional activities, Safety issues Teaching Recipient: Patient Teaching Methods: Demonstration, Discussion Response to Teaching: Verbalize Understanding, Return Demonstration OT Steward/Stewardess Third Goals Senior Living Goals Time Frame: Dec 22, 2019 Eating (QC): 6 Oral Hygiene (QC): 6 Toileting Hygiene (QC): 6 Shower/Bathe Self (QC): 4 Upper Body Dressing (QC): 6 Lower Body Dressing (QC): 4 On/Off Footwear (QC): 6 Additional Goals: 1-Demonstrate ADL Tasks, 2-Verbalize Understanding, 3- ImproveStrength/Misael 1=Demonstrate adherence to instructed precautions during ADL tasks. 2=Patient will verbalize/demonstrate understanding of assistive devices/modifications for ADL. 3=Patient will improve strength/tolerance for activity to enable patient to perform ADL's. OT Education/Plan Problem List/Assessment Assessment: Decreased Activ Tolerance, Decreased Safety Aware, Decreased UE Strength, Dependent Transfers, Impaired Cognition, Impaired I ADL's, Impaired Self-Care Skills Discharge Recommendations Plan/Recommendations: Continue POC Therapy Discharge Recommendati: 24 Hour Supervision, Home & Family Treatment Plan/Plan of Care Treatment,Training & Education: Yes Patient would benefit from OT for education, treatment and training to promote independence in ADL's, mobility, safety and/or upper extremity function for ADL's. Plan of Care: ADL Retraining, Caregiver Training, Functional Mobility, UE Funct Exercise/Act Treatment Duration: Dec 22, 2019 Frequency: 5 times per week Estimated Hrs Per Day: .25 hour per day Agreement: Yes Rehab Potential: Guarded Time/GCodes Start Time: 13:45 Stop Time: 14:05 Total Time Billed (hr/min): 20 Billed Treatment Time 1, EVM (20) AAKASH GEE OTR Dec 15, 2019 14:11
--- NOTE | 2019-12-15 15:43 | NUR ---
Pt is [facility] and was anointed on 12/03.
[2019-12-15] MEDS: RT-ALBUTEROL INHALER HFA (VENTOLIN HFA) 18 GM IH PRN (19:33)
[2019-12-16 04:43] VITALS: BP 131/63
[2019-12-16] MEDS: LEVOTHYROXINE 50 MCG (LEVOTHROID) TAB PO SCH (06:18)
[2019-12-16 08:00] VITALS: BP 134/71
[2019-12-16 08:01] LABS: BASOPHILS % (AUTO) 0 % (0-10); EOSINOPHILS # (AUTO) 0.1 10^3/uL (0.0-0.3); EOSINOPHILS % (AUTO) 1 % (0-10); HEMATOCRIT 37 % (35-52); HEMOGLOBIN 11.6 g/dL (11.5-16.0); LYMPHOCYTES # (AUTO) 1.8 10^3/uL (1.0-4.0); LYMPHOCYTES % (AUTO) 15 % (12-44); MEAN CORPUSCULAR HEMOGLOBIN 29 pg (25-34); MEAN CORPUSCULAR HGB CONC 32 g/dL (32-36); MEAN CORPUSCULAR VOLUME 91 fL (80-99); MEAN PLATELET VOLUME 10.4 fL (9.0-12.2); MONOCYTES # (AUTO) 0.6 10^3/uL (0.0-1.0); MONOCYTES % (AUTO) 5 % (0-12); NEUTROPHILS # (AUTO) 9.1 10^3/uL (1.8-7.8); NEUTROPHILS % (AUTO) 77 % (42-75); PLATELET COUNT 187 10^3/uL (130-400); WHITE BLOOD COUNT 11.8 10^3/uL (4.3-11.0)
[2019-12-16 08:21] LABS: BUN/CREATININE RATIO 24; CALCIUM 8.8 MG/DL (8.5-10.1); CARBON DIOXIDE 25 MMOL/L (21-32); CHLORIDE 104 MMOL/L (98-107); CREATININE SERUM 0.58 MG/DL (0.60-1.30); GFR ESTIMATED > 60; GLUCOSE 82 MG/DL (70-105); MAGNESIUM 2.2 MG/DL (1.6-2.4); PHOSPHORUS 2.4 MG/DL (2.3-4.7); POTASSIUM 4.7 MMOL/L (3.6-5.0); SODIUM 137 MMOL/L (135-145)
[2019-12-16] MEDS: APIXABAN 2.5 MG (ELIQUIS) TABLET PO SCH ×2 (08:31→20:38)
[2019-12-16] MEDS ORDERED: AZITHROMYCIN 250 MG TAB (ZITHROMAX) PO SCH (09:00)
[2019-12-16] MEDS: RT-ALBUTEROL INHALER HFA (VENTOLIN HFA) 18 GM IH SCH (09:06)
--- NOTE | 2019-12-16 09:38 | Progress Note - Hospitalist ---
Subjective HPI/CC On Admission Date Seen by Provider: Dec 16, 2019 Time Seen by Provider: 09:34 Subjective/Events-last exam Pt reports feeling well. No complaints. Objective Exam Vital Signs Vital Signs Date Time Temp Pulse Resp B/P (MAP) Pulse Ox O2 Delivery O2 Flow Rate FiO2 12/16/19 09:06 93 Room Air 12/16/19 08:00 35.8 60 18 134/71 (92) 12/16/19 04:43 2.00 12/15/19 04:49 30 Capillary Refill : Less Than 3 Seconds General Appearance: No Apparent Distress, WD/WN Respiratory: Lungs Clear, No Respiratory Distress Cardiovascular: Regular Rate, Rhythm, No Murmur Neurologic/Psychiatric: Alert, Oriented x3 Results/Procedures Lab Laboratory Tests 12/16/19 08:00 Patient resulted labs reviewed. Assessment/Plan Assessment and Plan Assess & Plan/Chief Complaint COVID -19 - readmission secondary to worsening SOB and hypoxia - S/p Remdesivir and CVP - Now off oxygen, doing well - CTA of chest is negative for PE does show bilateral infiltrates from recent COVID - Appears issue is more due to poor reserve and deconditioning, IRU consulted as likely need intensive therapy to increase functional capabilities Hyperkalemia- resolved Hx of Afib -Eliquis Diagnosis/Problems Diagnosis/Problems (1) Acute respiratory failure due to COVID-19 Status: Acute (2) Dehydration Status: Acute (3) Generalized weakness Status: Acute (4) COVID-19 Status: Acute (5) Debility Status: Acute (6) Dementia Status: Chronic (7) Atrial fibrillation Status: Chronic Clinical Quality Measures DVT/VTE Risk/Contraindication: Risk Factor Score Per Nursin RFS Level Per Nursing on Admit: 3=High IVA SEE MD Dec 16, 2019 09:38
--- NOTE | 2019-12-16 10:26 | Physical Therapy Daily Note ---
PT Daily Note-Current Subjective Pt presents supine in bed, reluctantly agreeable to therapy at this time. Pt with c/o "shakiness" Appearance Following session, pt supine in bed with call light and tray within reach. All needs met at this time. Mental Status Patient Orientation: Person, Place Transfers SCALE: Activities may be completed with or without assistive devices. 1-Ghougwxjbq-osptxch completes the activity by him/herself with no assistance from a helper. 5-Set-up or Clean-up Assistance-helper sets up or cleans up; patient completes activity. [place] assists only prior to or following the activity. 4-Supervision or Touching Assistance-helper provides verbal cues and/or touching/steadying and/or contact guard assistance as patient completes activity. Assistance may be provided throughout the activity or intermittently. 3-Partial/Moderate Assistance-helper does LESS THAN HALF the effort. [place] lifts, holds or supports trunk or limbs, but provides less than half the effort. 2-Substantial/Maximal Assistance-helper does MORE THAN HALF the effort. [place] lifts or holds trunk or limbs and provides more than half the effort. 1-Bqadfvpwe-eumjnn does ALL the effort. Patient does none of the effort to complete the activity. Or, the assistance of 2 or more helpers is required for the patient to complete the activity. If activity was not attempted, code reason: 7-Patient Refused. 9-Not Applicable-not attempted and the patient did not perform the activity before the current illness, exacerbation or injury. 10-Not Attempted due to Environmental Limitations-(lack of equipment, weather restraints, etc.). 88-Not Attempted due to Medical Conditions or Safety Concerns. Sit to Lying (QC): 4 Lying to Sitting/Side of Bed(Q: 5 Exercises Supine Ex: Bridging, Ankle pumps, Quad Set, Glut sets, Heel Slides Seated Therapy Exercises: Long arc quads, Hip flexion, Hip abd/add Treatments Pt sat EOB x 10 minutes completing sitting exercises. Pt with c/o SOB while sitting EOB, and denies any OOB activity at this time due to "shakiness' Pt returned to bed, and completed supine Ex/ Assessment Current Status: Good Progress Pt with increased SOB today and denies OOB activity. Will continue to progress activity tolerance as able. PT Tank Inspector Goals Snf Goals PT Snf Goals Time Frame: Dec 30, 2019 Roll Left & Right (QC): 6 Sit to Lying (QC): 6 Lying-Sitting on Side/Bed(QC): 6 Sit to Stand (QC): 6 Chair/Bqr-no-Niwsj Xfer(QC): 6 Toilet Transfer (QC): 6 Car Transfer (QC): 6 Does the Patient Walk: Yes Walk 10 feet (QC): 6 Walk 50ft with 2 Turns (QC): 6 Walk 150 ft (QC): 6 Walking 10ft on Uneven Surface: 6 1 Step (curb) (QC): 6 4 Steps (QC): 6 PT Plan Problem List Problem List: Activity Tolerance, Functional Strength, Safety, Balance, Gait, Transfer, Bed Mobility, ROM Treatment/Plan Treatment Plan: Continue Plan of Care Treatment Plan: Bed Mobility, Education, Functional Activity Misael, Functional Strength, Gait, Safety, Therapeutic Exercise, Transfers Treatment Duration: Dec 30, 2019 Frequency: 6 times per week Estimated Hrs Per Day: .25 hour per day Time/GCodes Time In: 918 Time Out: 930 Total Billed Treatment Time: 12 Total Billed Treatment 1 visit Ex (12') FELIPA ALONZO PT Dec 16, 2019 10:25
[2019-12-16 15:40] VITALS: BP 110/64
[2019-12-16] MEDS: RT-ALBUTEROL INHALER HFA (VENTOLIN HFA) 18 GM IH PRN (20:21)
[2019-12-17 00:29] VITALS: BP 113/69
[2019-12-17] MEDS: LEVOTHYROXINE 50 MCG (LEVOTHROID) TAB PO SCH (06:35)
[2019-12-17 07:28] LABS: BASOPHILS % (AUTO) 0 % (0-10); EOSINOPHILS # (AUTO) 0.1 10^3/uL (0.0-0.3); EOSINOPHILS % (AUTO) 2 % (0-10); HEMATOCRIT 44 % (35-52); HEMOGLOBIN 13.9 g/dL (11.5-16.0); LYMPHOCYTES # (AUTO) 1.9 10^3/uL (1.0-4.0); LYMPHOCYTES % (AUTO) 22 % (12-44); MEAN CORPUSCULAR HEMOGLOBIN 29 pg (25-34); MEAN CORPUSCULAR HGB CONC 32 g/dL (32-36); MEAN CORPUSCULAR VOLUME 91 fL (80-99); MEAN PLATELET VOLUME 11.1 fL (9.0-12.2); MONOCYTES # (AUTO) 0.5 10^3/uL (0.0-1.0); MONOCYTES % (AUTO) 6 % (0-12); NEUTROPHILS % (AUTO) 69 % (42-75); PLATELET COUNT 210 10^3/uL (130-400); WHITE BLOOD COUNT 8.7 10^3/uL (4.3-11.0)
[2019-12-17 07:51] LABS: BUN/CREATININE RATIO 26; CALCIUM 9.3 MG/DL (8.5-10.1); CARBON DIOXIDE 25 MMOL/L (21-32); CHLORIDE 101 MMOL/L (98-107); GFR ESTIMATED > 60; GLUCOSE 74 MG/DL (70-105); MAGNESIUM 2.2 MG/DL (1.6-2.4); PHOSPHORUS 2.5 MG/DL (2.3-4.7); POTASSIUM 4.5 MMOL/L (3.6-5.0); SODIUM 136 MMOL/L (135-145)
[2019-12-17 08:00] VITALS: BP 132/73
[2019-12-17] MEDS: APIXABAN 2.5 MG (ELIQUIS) TABLET PO SCH ×2 (08:56→21:14)
[2019-12-17] MEDS: RT-ALBUTEROL INHALER HFA (VENTOLIN HFA) 18 GM IH SCH ×2 (10:12→22:24)
--- NOTE | 2019-12-17 10:39 | Progress Note - Hospitalist ---
Subjective HPI/CC On Admission Date Seen by Provider: Dec 17, 2019 Time Seen by Provider: 10:35 Subjective/Events-last exam Pt reports doing well. Off oxygen. Rn reports she was up and ambulating without any difficulty. Objective Exam Vital Signs Vital Signs Date Time Temp Pulse Resp B/P (MAP) Pulse Ox O2 Delivery O2 Flow Rate FiO2 12/17/19 10:13 92 Room Air 12/17/19 08:00 35.9 59 20 132/73 (92) 12/16/19 20:40 2.00 12/15/19 04:49 30 Capillary Refill : Less Than 3 Seconds General Appearance: No Apparent Distress, WD/WN Respiratory: Lungs Clear, No Respiratory Distress Cardiovascular: Regular Rate, Rhythm, No Murmur Gastrointestinal: Normal Bowel Sounds, Non Tender, Soft Neurologic/Psychiatric: Alert, Oriented x3 Results/Procedures Lab Laboratory Tests 12/17/19 06:45 Patient resulted labs reviewed. Assessment/Plan Assessment and Plan Assess & Plan/Chief Complaint COVID -19 - readmission secondary to worsening SOB and hypoxia - S/p Remdesivir and CVP - Now off oxygen, doing well - CTA of chest is negative for PE does show bilateral infiltrates from recent COVID - Appears issue is more due to poor reserve and deconditioning, IRU consulted as likely need intensive therapy to increase functional capabilities - Hopefully to IRU in the next day or two or if continues to do well could trial home again as that is patient's preference Hyperkalemia- resolved Hx of Afib -Eliquis Diagnosis/Problems Diagnosis/Problems (1) Acute respiratory failure due to COVID-19 Status: Acute (2) Dehydration Status: Acute (3) Generalized weakness Status: Acute (4) COVID-19 Status: Acute (5) Debility Status: Acute (6) Dementia Status: Chronic (7) Atrial fibrillation Status: Chronic Clinical Quality Measures DVT/VTE Risk/Contraindication: Risk Factor Score Per Nursin RFS Level Per Nursing on Admit: 3=High IVA SEE MD Dec 17, 2019 10:39
[2019-12-17 17:00] VITALS: BP 132/68
[2019-12-17] MEDS: RT-ALBUTEROL INHALER HFA (VENTOLIN HFA) 18 GM IH PRN (19:22)
[2019-12-17] MEDS ORDERED: DOCUSATE SODIUM 100 MG (COLACE) CAP PO PRN (21:45)
[2019-12-17] MEDS ORDERED: GABAPENTIN 100 MG (NEURONTIN) CAP ONE (21:57)
[2019-12-17] MEDS: GABAPENTIN 100 MG (NEURONTIN) CAP PO SCH (22:14)
[2019-12-17 23:12] VITALS: BP 105/56
[2019-12-18 06:25] LABS: CHLORIDE 104 MMOL/L (98-107); POTASSIUM 4.7 MMOL/L (3.6-5.0); SODIUM 137 MMOL/L (135-145)
[2019-12-18] MEDS: LEVOTHYROXINE 50 MCG (LEVOTHROID) TAB PO SCH (06:25)
[2019-12-18 06:26] LABS: CALCIUM 9.2 MG/DL (8.5-10.1)
[2019-12-18 06:27] LABS: GLUCOSE 91 MG/DL (70-105)
[2019-12-18 06:28] LABS: CARBON DIOXIDE 24 MMOL/L (21-32)
[2019-12-18 06:29] LABS: BASOPHILS % (AUTO) 0 % (0-10); EOSINOPHILS # (AUTO) 0.3 10^3/uL (0.0-0.3); EOSINOPHILS % (AUTO) 3 % (0-10); HEMATOCRIT 41 % (35-52); HEMOGLOBIN 13.3 g/dL (11.5-16.0); LYMPHOCYTES # (AUTO) 1.6 10^3/uL (1.0-4.0); LYMPHOCYTES % (AUTO) 17 % (12-44); MEAN CORPUSCULAR HEMOGLOBIN 29 pg (25-34); MEAN CORPUSCULAR HGB CONC 32 g/dL (32-36); MEAN CORPUSCULAR VOLUME 90 fL (80-99); MEAN PLATELET VOLUME 10.6 fL (9.0-12.2); MONOCYTES # (AUTO) 0.8 10^3/uL (0.0-1.0); MONOCYTES % (AUTO) 9 % (0-12); NEUTROPHILS # (AUTO) 6.1 10^3/uL (1.8-7.8); NEUTROPHILS % (AUTO) 69 % (42-75); PLATELET COUNT 217 10^3/uL (130-400)
[2019-12-18 06:31] LABS: CREATININE SERUM 0.76 MG/DL (0.60-1.30); GFR ESTIMATED > 60; PHOSPHORUS 3.2 MG/DL (2.3-4.7)
[2019-12-18 06:32] LABS: BUN/CREATININE RATIO 22
[2019-12-18 06:33] LABS: MAGNESIUM 2.4 MG/DL (1.6-2.4)
[2019-12-18 07:13] VITALS: BP 97/61
[2019-12-18] MEDS: RT-ALBUTEROL INHALER HFA (VENTOLIN HFA) 18 GM IH SCH ×2 (07:54→21:16)
--- NOTE | 2019-12-18 08:22 | NUR ---
IRF Evaluation Determination: Accepted Dr. Pruitt notified of acceptance. Anticipate admission, 12/19/19. Thank you for this referral.
[2019-12-18] MEDS: APIXABAN 2.5 MG (ELIQUIS) TABLET PO SCH ×2 (09:23→20:07)
--- NOTE | 2019-12-18 10:44 | Progress Note - Hospitalist ---
Subjective HPI/CC On Admission Date Seen by Provider: Dec 18, 2019 Time Seen by Provider: 10:20 Subjective/Events-last exam She is feeling better today. She is not short of breath. She has been eating and drinking. She is still weak. She has been working with therapy. Objective Exam Vital Signs Vital Signs Date Time Temp Pulse Resp B/P (MAP) Pulse Ox O2 Delivery O2 Flow Rate FiO2 12/18/19 09:00 93 Room Air 2.00 12/18/19 07:13 35.8 59 18 97/61 (73) 12/15/19 04:49 30 Capillary Refill : Less Than 3 Seconds General Appearance: No Apparent Distress, WD/WN Respiratory: Lungs Clear, Normal Breath Sounds, No Respiratory Distress Cardiovascular: Regular Rate, Rhythm, No Edema, No Murmur Gastrointestinal: Normal Bowel Sounds, Non Tender, Soft Extremity: Normal Inspection, Non Tender, No Pedal Edema Neurologic/Psychiatric: Alert, Oriented x3, No Motor/Sensory Deficits, Normal Mood/Affect Skin: Normal Color, Warm/Dry Results/Procedures Lab Laboratory Tests 12/18/19 05:55 Patient resulted labs reviewed. Imaging: Reviewed Imaging Report Assessment/Plan Assessment and Plan Assess & Plan/Chief Complaint COVID-19 Debility - readmission secondary to worsening SOB and hypoxia - S/p Remdesivir and convalescent plasma - Now on room air - CTA of chest negative for PE does show bilateral infiltrates from recent COVID - Appears issue is more due to poor reserve and deconditioning, IRU consulted as likely need intensive therapy to increase functional capabilities - Transfer to IRU tomorrow Hx of Afib -Eliquis Hyperkalemia- resolved Diagnosis/Problems Diagnosis/Problems (1) COVID-19 Status: Acute (2) Debility Status: Acute Clinical Quality Measures DVT/VTE Risk/Contraindication: Risk Factor Score Per Nursin RFS Level Per Nursing on Admit: 3=High ALBERTO ALDANA MD Dec 18, 2019 10:44
--- NOTE | 2019-12-18 14:34 | Physical Therapy Daily Note ---
PT Daily Note-Current Subjective Patient is very agreeable to participate with therapy. She report she is feeling much better. Pain Numeric Pain Scale: 0-No Pain Location: No Pain Reported Mental Status Patient Orientation: Normal For Age Transfers SCALE: Activities may be completed with or without assistive devices. 9-Syhtgtzvew-rxhsuwa completes the activity by him/herself with no assistance from a helper. 5-Set-up or Clean-up Assistance-helper sets up or cleans up; patient completes activity. [place] assists only prior to or following the activity. 4-Supervision or Touching Assistance-helper provides verbal cues and/or touching/steadying and/or contact guard assistance as patient completes activity. Assistance may be provided throughout the activity or intermittently. 3-Partial/Moderate Assistance-helper does LESS THAN HALF the effort. [place] lifts, holds or supports trunk or limbs, but provides less than half the effort. 2-Substantial/Maximal Assistance-helper does MORE THAN HALF the effort. [place] lifts or holds trunk or limbs and provides more than half the effort. 2-Lgdbdcapr-ortznw does ALL the effort. Patient does none of the effort to complete the activity. Or, the assistance of 2 or more helpers is required for the patient to complete the activity. If activity was not attempted, code reason: 7-Patient Refused. 9-Not Applicable-not attempted and the patient did not perform the activity before the current illness, exacerbation or injury. 10-Not Attempted due to Environmental Limitations-(lack of equipment, weather restraints, etc.). 88-Not Attempted due to Medical Conditions or Safety Concerns. Roll Left & Right (QC): 5 Lying to Sitting/Side of Bed(Q: 5 Sit to Stand (QC): 5 Gait Training Does the Patient Walk?: Yes Distance: 200' Walk 10 feet (QC): 5 Walk 50 ft with 2 Turns(QC): 5 Walk 150 ft (QC): 5 Gait Assistive Device: FWW safe and functional with no deviation Assessment Patient much improved from last week. Patient will transfer to ARU in a.m. for continued therapy. PT Purchasing Clerk Goals Purchasing Clerk Goals PT Purchasing Clerk Goals Time Frame: Dec 30, 2019 Roll Left & Right (QC): 6 Sit to Lying (QC): 6 Lying-Sitting on Side/Bed(QC): 6 Sit to Stand (QC): 6 Chair/Prn-nw-Qqagr Xfer(QC): 6 Toilet Transfer (QC): 6 Car Transfer (QC): 6 Does the Patient Walk: Yes Walk 10 feet (QC): 6 Walk 50ft with 2 Turns (QC): 6 Walk 150 ft (QC): 6 Walking 10ft on Uneven Surface: 6 1 Step (curb) (QC): 6 4 Steps (QC): 6 PT Plan Treatment/Plan Treatment Plan: Continue Plan of Care Treatment Plan: Bed Mobility, Education, Functional Activity Misael, Functional Strength, Gait, Safety, Therapeutic Exercise, Transfers Treatment Duration: Dec 30, 2019 Frequency: 6 times per week Estimated Hrs Per Day: .25 hour per day Time/GCodes Time In: 1330 Time Out: 1345 Total Billed Treatment Time: 15 Total Billed Treatment 1 visit FA 15 min JUAN BERRIOS PT Dec 18, 2019 14:34
--- NOTE | 2019-12-18 14:41 | Occupational Ther Daily Note ---
OT Current Status-Daily Note Subjective No pain reported. Appearance Pt. is up in room with PT when OT enters. Pt. ambulating with walker and SBA. Mental Status/Objective Patient Orientation: Person, Place ADL-Treatment Therapy Code Descriptions/Definitions Functional [place] Measure: 0=Not Assessed/NA 4=Minimal Assistance 1=Total Assistance 5=Supervision or Setup 2=Maximal Assistance 6=Modified [place] 3=Moderate Assistance 7=Complete IndependenceSCALE: Activities may be completed with or without assistive devices. 7-Zbezclhfqw-djjqcsp completes the activity by him/herself with no assistance from a helper. 5-Set-up or Clean-up Assistance-helper sets up or cleans up; patient completes activity. Daniels assists only prior to or following the activity. 4-Supervision or Touching Assistance-helper provides verbal cues and/or touching/steadying and/or contact guard assistance as patient completes activity. Assistance may be provided throughout the activity or intermittently. 3-Partial/Moderate Assistance-helper does LESS THAN HALF the effort. Daniels lifts, holds or supports trunk or limbs, but provides less than half the effort. 2-Substantial/Maximal Assistance-helper does MORE THAN HALF the effort. Daniels lifts or holds trunk or limbs and provides more than half the effort. 2-Ywmsgpsws-ciwuvp does ALL the effort. Patient does none of the effort to complete the activity. Or, the assistance of 2 or more helpers is required for the patient to complete the activity. If activity was not attempted, code reason: 7-Patient Refused. 9-Not Applicable-not attempted and the patient did not perform the activity before the current illness, exacerbation or injury. 10-Not Attempted due to Environmental Limitations-(lack of equipment, weather restraints, etc.). 88-Not Attempted due to Medical Conditions or Safety Concerns. Oral Hygiene (QC): 5 (Set up to brush teeth seated.) Shower/Bathe Self (QC): 7 On/Off Footwear: 4 (SBA to doff/don slipper socks.) Toileting Hygiene (QC): 7 Toilet Transfer (QC): 7 Other Treatment PT finishing with pt. when OT enters room. OT takes over and ambulates with pt. some more in room, with SBA. OT encourages pt. to attempt to use bathroom. She states that she does not need to. OT encourages pt. to shower, as she is already up. Pt. states, "I'm not dirty." Pt. does however agree to work with OT otherwise. Ambulated with walker back to her chair. Pt. practices some basic ADL skills with sit-stands for more comfortable positioning. Pt's son calls while OT in the room. OT has already educated pt. on need to gain strength, and pending rehab stay, which she agrees she needs. While son on speaker phone, pt. verbalizes to son that she is going home tomorrow. OT speaks with son with pt's permission about pt. continuing with therapy in the hospital, and pending rehab stay. Son is fully on board and has questions regarding if family can come or not, length of stay, etc.... OT answers all questions to best of ability, and assures him the goal is to improve overall endurance and independence. Son and pt. both verbalize understanding, and agree that pt. needs continued therapy. All needs met up in chair. Education OT Patient Education: Correct positioning, Modified ADL techniques, Progress toward Goal/Update tx plan, Purpose of tx/functional activities, Reviewed precautions, Rehab process, Transfer techniques Teaching Recipient: Patient Teaching Methods: Demonstration, Discussion Response to Teaching: Verbalize Understanding, Return Demonstration OT Intermediate Goals Fiber Technologist Goals Time Frame: Dec 22, 2019 Eating (QC): 6 Oral Hygiene (QC): 6 Toileting Hygiene (QC): 6 Shower/Bathe Self (QC): 4 Upper Body Dressing (QC): 6 Lower Body Dressing (QC): 4 On/Off Footwear (QC): 6 Additional Goals: 1-Demonstrate ADL Tasks, 2-Verbalize Understanding, 3- ImproveStrength/Misael 1=Demonstrate adherence to instructed precautions during ADL tasks. 2=Patient will verbalize/demonstrate understanding of assistive devices/modifications for ADL. 3=Patient will improve strength/tolerance for activity to enable patient to perform ADL's. OT Education/Plan Problem List/Assessment Assessment: Decreased Activ Tolerance, Impaired Cognition, Impaired Funct Balance, Impaired I ADL's, Impaired Self-Care Skills Discharge Recommendations Plan/Recommendations: Continue POC Therapy Discharge Recommendati: Post Acute OT Treatment Plan/Plan of Care Treatment,Training & Education: Yes Patient would benefit from OT for education, treatment and training to promote independence in ADL's, mobility, safety and/or upper extremity function for ADL's. Plan of Care: ADL Retraining, Caregiver Training, Functional Mobility, UE Funct Exercise/Act Treatment Duration: Dec 22, 2019 Frequency: 5 times per week Estimated Hrs Per Day: .25 hour per day Agreement: Yes Rehab Potential: Good Time/GCodes Start Time: 13:45 Stop Time: 14:15 Total Time Billed (hr/min): 30 Billed Treatment Time 1, ADL x 2 BREONNA GARDINER OT Dec 18, 2019 14:41
[2019-12-18 16:00] VITALS: BP 106/58
[2019-12-18 17:01] VITALS: BP 106/58
[2019-12-18] MEDS: GABAPENTIN 100 MG (NEURONTIN) CAP PO SCH (20:08)
[2019-12-18] MEDS: SENNA W/DOCUSATE (SENOKOT S) TABLET PO SCH (20:08)
[2019-12-18] MEDS: polyethylene glycoL POWDER 17 GM (MIRALAX) PACK PO SCH (20:08)
[2019-12-18] MEDS ORDERED: DONEPEZIL 10 MG (ARICEPT) TAB PO SCH (21:00)
[2019-12-18] MEDS ORDERED: APIXABAN 2.5 MG (ELIQUIS) TABLET PO SCH (21:00)
[2019-12-19 00:31] VITALS: BP 106/59
[2019-12-19] MEDS: LEVOTHYROXINE 50 MCG (LEVOTHROID) TAB PO SCH (05:40)
[2019-12-19 06:15] LABS: BASOPHILS % (AUTO) 0 % (0-10); EOSINOPHILS # (AUTO) 0.3 10^3/uL (0.0-0.3); EOSINOPHILS % (AUTO) 3 % (0-10); HEMATOCRIT 41 % (35-52); HEMOGLOBIN 13.1 g/dL (11.5-16.0); LYMPHOCYTES # (AUTO) 1.7 10^3/uL (1.0-4.0); LYMPHOCYTES % (AUTO) 20 % (12-44); MEAN CORPUSCULAR HEMOGLOBIN 29 pg (25-34); MEAN CORPUSCULAR HGB CONC 32 g/dL (32-36); MEAN CORPUSCULAR VOLUME 91 fL (80-99); MEAN PLATELET VOLUME 10.6 fL (9.0-12.2); MONOCYTES # (AUTO) 0.7 10^3/uL (0.0-1.0); MONOCYTES % (AUTO) 8 % (0-12); NEUTROPHILS # (AUTO) 5.9 10^3/uL (1.8-7.8); NEUTROPHILS % (AUTO) 67 % (42-75); PLATELET COUNT 190 10^3/uL (130-400); WHITE BLOOD COUNT 8.8 10^3/uL (4.3-11.0)
[2019-12-19 06:35] LABS: BUN/CREATININE RATIO 21; CALCIUM 9.2 MG/DL (8.5-10.1); CARBON DIOXIDE 23 MMOL/L (21-32); CHLORIDE 105 MMOL/L (98-107); CREATININE SERUM 0.72 MG/DL (0.60-1.30); GFR ESTIMATED > 60; GLUCOSE 88 MG/DL (70-105); MAGNESIUM 2.1 MG/DL (1.6-2.4); PHOSPHORUS 3.1 MG/DL (2.3-4.7); POTASSIUM 4.7 MMOL/L (3.6-5.0); SODIUM 137 MMOL/L (135-145)
[2019-12-19 08:03] VITALS: BP 118/56
[2019-12-19] MEDS ORDERED: LEVOTHYROXINE 50 MCG (LEVOTHROID) TAB PO SCH (09:00)
[2019-12-19] MEDS: RT-ALBUTEROL INHALER HFA (VENTOLIN HFA) 18 GM IH SCH (09:23)
--- NOTE | 2019-12-19 09:51 | Physician Query Clarification ---
PQ-Conflicting Diagnosis Admission/Discharge Admission Date: Dec 15, 2019 at 07:04 Discharge Date: Dr. Pruitt, The medical record reflects the following clinical scenario: History/Risk Factors: COVID 19 Acute respiratory failure Clinical Findings:12/13 Chest xray impression: Coarse interstitial fibrosis/infiltrate. CT angiography of the chest with contrast impression: Some interval improvement in the bilateral groundglass infiltrate which are consis tent with COVID pneumonia/pneumonitis. Treatment:IV Rocephin, IV Decadron 6 mg, Albuterol inhalation therapy, Azithromycin 500mg. Question: Do you agree with the impression of Pneumonia due to COVID [address] Shipley, ED physician? Please document a response in Progress Note or Discharge Summary. 1. Yes 2. No 3. Other, with explanation of clinical findings 4. Clinically undetermined, no explanation for clinical findings. Please remember a lack of response to the above will prompt a phone page by CDI/Coding staff. In responding to this query, please exercise your independent professional judgment. The purpose of this communication is to more accurately reflect the complexity of your patients condition. The fact that a question is asked does not imply that any particular answer is desired or expected. Thank you for your timely response to this clarification. Requestors name: Latasha Reyes [facility] Phone # ext [phone] or [phone] THIS PHYSICIAN QUERY FORM IS A PERMANENT PART OF THE MEDICAL RECORD LATASHA REYES Dec 19, 2019 09:51 CADENCE CARSON Jan 04, 2020 09:20
[2019-12-19] MEDS: SENNA W/DOCUSATE (SENOKOT S) TABLET PO SCH (10:27)
[2019-12-19] MEDS: APIXABAN 2.5 MG (ELIQUIS) TABLET PO SCH (10:27)
[2019-12-19] MEDS: polyethylene glycoL POWDER 17 GM (MIRALAX) PACK PO SCH (10:27)
--- NOTE | 2019-12-19 10:40 | NUR ---
Patient discharged to ARU. Report given to RACH Wynn. Will transport belongings after UV light runs.
[2019-12-27] MEDS ORDERED: APIX2.5T PO (05:31)
--- NOTE | 2020-01-04 09:19 | Physician Query Clarification ---
PQ-Further Specificity Admission/Discharge Admission Date: Dec 15, 2019 at 07:04 Discharge Date: Dec 19, 2019 at 10:40 Dr. Aldana, The medical record reflects the following clinical scenario: History/Risk Factors: Covid, pneumonia, acute respiratory failure Clinical Findings: readmission secondary to worsening SOB and hypoxia. CT chest - Some interval improvement in the bilateral groundglass infiltrates which are consistent with COVID pneumonia/pneumonitis. Treatment: 12/14 IV Cefepime, IV Azithromycin, Vapotherm Question: Can you further specify if Covid, pneumonia and acute respiratory failure is still present or if the SOB and hypoxia are a sequelae of the resolved Covid. Statement made that "Appears issue is more due to poor reserve and deconditioning",per the clinical indicators above? Please document a response in the Progress Notes or Discharge Summary. 1. Pt still has Covid, pneumonia and acute respiratory failure w/hypoxia 2. Covid resolved. SOB and hypoxia are a sequelae of patient's recent Covid 3. Other, with explanation of the clinical findings. 4. Clinically undetermined, no explanation for the clinical findings. PHYSICIAN RESPONSE Can you specify per above: 2 Please remember a lack of response to the above will prompt a phone page by CDI/Coding staff. In responding to this query, please exercise your independent professional judgment. The purpose of this communication is to more accurately reflect the complexity of your patients condition. The fact that a question is asked does not imply that any particular answer is desired or expected. Thank you for your timely response to this clarification. Requestors name: Cadence THIS PHYSICIAN QUERY FORM IS A PERMANENT PART OF THE MEDICAL RECORD CADENCE CARSON Jan 04, 2020 09:19 ALBERTO ALDANA MD Jan 06, 2020 17:45
--- NOTE | 2020-01-07 13:41 | Discharge Summary ---
Discharge Summary Hospital Course Was the Problem List Reviewed?: Yes Problems/Dx: (1) COVID-19 Status: Acute (2) Debility Status: Acute Hospital Course Date of Admission: Dec 15, 2019 at 07:04 Admission Diagnosis : Acute respiratory failure due to COVID-19 Family Physician/Provider: Supriya,Local Physician Date of Discharge: 01/07/20 Discharge Diagnosis: Acute respiratory failure due to COVID-19 Hospital Course: Britt Claros is an 84 year old female he was recently admitted for COVID who presented with shortness of breath. She was initially requiring some oxygen but this was quickly titrated down. She was also found to be debilitated and therapies were ordered. She was stabilized and transferred to the inpatient rehabilitation unit. Labs and Pending Lab Test: Home Meds Active Eliquis (Apixaban) 2.5 Mg Tablet 2.5 Mg PO BID Reported Tylenol (Acetaminophen) 325 Mg Capsule 650 Mg PO Q8H PRN Levothyroxine Sodium 50 Mcg Tablet 50 Mcg PO DAILY Gabapentin 100 Mg Capsule 200 Mg PO HS TAKES 2 (100MG) CAPS Donepezil HCl 10 Mg Tablet 10 Mg PO HS Assessment/Pt Instructions Patient transferred to inpatient rehab Discharge Planning: <30 minutes discharge planning Discharge Instructions Discharge Diet: No Restrictions Activity as Tolerated: Yes Discharge Physical Examination Allergies: Coded Allergies: No Known Drug Allergies (Unverified , 11/29/19) Discharge Summary Date of Admission Dec 15, 2019 at 07:04 Date of Discharge Dec 19, 2019 at 10:40 Discharge Date: Dec 19, 2019 Discharge Time: 10:40 Admission Diagnosis acute respiratory failure due to COVID-19 Discharge Diagnosis COVID-19 Debility (1) COVID-19 Status: Acute (2) Debility Status: Acute Clinical Quality Measures DVT/VTE Risk/Contraindication: Risk Factor Score Per Nursin RFS Level Per Nursing on Admit: 3=High ALBERTO ALDANA MD Jan 07, 2020 13:41
== END 2019-12-19 10:40 | DRG 206 ==
LOC: EDUNIT# 21:53 → CSD 21:54 → 4TH 12-15 12:25
PROVIDERS: ADMIT Internal Medicine; ATTEND Internal Medicine
DX: R09.02 Hypoxemia (principal); I48.20 Chronic atrial fibrillation, unspecified; R06.02 Shortness of breath; B94.8 Sequelae of other specified infectious and parasitic diseases; E86.0 Dehydration; Z66 Do not resuscitate; E78.00 Pure hypercholesterolemia, unspecified; M54.9 Dorsalgia, unspecified; M19.91 Primary osteoarthritis, unspecified site; E03.9 Hypothyroidism, unspecified; F03.90 Unspecified dementia, unspecified severity, without behavioral disturbance, psychotic disturbance, mood disturbance, and anxiety; E87.5 Hyperkalemia; R53.81 Other malaise; Z87.891 Personal history of nicotine dependence; Z87.820 Personal history of traumatic brain injury; Z79.01 Long term (current) use of anticoagulants; Z96.651 Presence of right artificial knee joint
CPT/HCPCS: 36415; 36600; 71045; 71275; 80048; 80053; 82550; 82553; 83735; 83880; 84100; 84145; 84484; 85025; 85610; 85730; 93005; 93041; 94640; 94760; 96361; 96372; 96374; 96375

== ENCOUNTER 2019-12-19 10:40 | Inpatient (IN) | payer MEDICARE, OTHER ==
[~2019-12-19] VITALS: Ht 152 cm; Wt 56.7 kg
[2019-12-19 10:40] VITALS: BP 125/67
[~2019-12-19 10:40] MED LIST changes: +ACETAMINOPHEN 500 MG TAB (TYLENOL) PO PRN; +ALPRAZolam 0.25 MG (XANAX) TAB PO PRN; +BISACODYL 10 MG SUPP (DULCOLAX) PR PRN; +CALCIUM CARBONATE 500 MG (TUMS) TAB.CHEW PO PRN; +DOCUSATE SODIUM 100 MG (COLACE) CAP PO PRN; +ENOXAPARIN 40 MG/0.4 ML (LOVENOX) SYR SC SCH; +FLEET ENEMA ADULT 1 EA BTL PR PRN; +LACTULOSE SYRUP 10GM/15ML (ENULOSE) 30ML UDC PO PRN; +LOPERAMIDE 2 MG (IMODIUM) TABLET PO PRN; +MELATONIN 3 MG TABLET PO PRN; +ONDANSETRON 4 MG (ZOFRAN) ORAL DISSOLVE TAB PO PRN; +diphenhydrAMINE 25 MG TAB (BENADRYL) PO PRN; +guaiFENesin/CODEINE (ROBITUSSIN AC) 10ML UDC PO PRN
--- NOTE | 2019-12-19 10:40 | NUR ---
KEVIN ETIENNE admitted to room 228-1, with an admitting diagnosis of CRITICAL ILLNESS MYOPATHY , on 12/19/[address] via WHEELCHAIR, accompanied by STAFF.KEVIN ETIENNE introduced to surroundings, call light, bed controls, phone, TV, temperature control, lights, meal times, smoking policy, visitor policy, side rail policy, bathrooms and showers. Patient Rights given to patient in the handbook.KEVIN ETIENNE verbalizes understanding that [facility] is not responsible for the loss or damage to any personal effects or valuables that are kept in the patients posession during their hospitalization. The following Patient Care Plans were discussed with the PT: Discharge Planning, FALLS AND IMPAIRED MOBILITY. KEVIN ETIENNE verbalizes understanding of Interdisciplinary Patient Education. Patient received Patient Rights Booklet, which includes Privacy Act Statement and Data Collection Information Summary. DENIES PAIN. SALINE LOCK INTACT RIGHT AC.
--- NOTE | 2019-12-19 11:50 | Progress Note ---
DANE MURGUIA MED STUDENT 12/19/19 1150: Progress Note This is an 84 year old female that presented to the ED 4 days ago for difficulty breathing. She had been discharged from the hospital previously where she had been admitted with covid. She was brought in because her O2 could not be brought above 88%. In the ED she had 88% O2 on 8L/min oxygen. Since then she has been an inpatient and has had reolved hyperkalemia. She is also currently doing well on room air. Today she has been brought to the rehab floor and is participating in occupational and physical therapy and is also enthusiastically participating. She states that she is feeling fine today and has no complaints that she can think of. She denies trouble breathing and any chest pains. She states that she acquired a UTI about a month ago before coming to the hospital. She has not had any incontinence symptoms before coming to the hospital, but states that since shes been admitted she has been having problems with incontinence. She states that she feels no urge to urinate, no pain with urination, and does not think there is any leakage with sneezing or coughing. She states that she will just empty her bladder seemingly without warning. She states this normally happens at night but can also occur during the day. She has medical history significant for covid-19 infection and kidney stones noted on CT on 12/14 Surg. Hx- Craniotomy and R knee replacement Family Hx- no significant hx Soc. Hx- Former smoker Allergies- NKDA Labs and Vital signs are all within normal limits except for a heart rate of 101 this morning. Patient is well appearing and does not seem to be in any distress. Lungs clear bilaterally in all georges. Heart auscultation negative for murmurs, gallops, or rubs. No pedal edema noted. Assessment Overflow incontinence Stress incontinence Mixed incontinence History of hyperkalemia History of Covid 19 with subsequent complications Possible COPD exacerbation Weakness, Fatigue Plan Continue with occupational and physical therapy Investigate cause of incontinence- post void volume and possible cystogram. Urine culture to rule out UTI Prescribe abx or antimuscarinic if applicable Continue daily labs to ensure kidney function is normal and hyperemia stays resolved Continue to evaluate patient to ensure supplemental oxygen is not necessary and that she continues to improve. Supervisory-Addendum Brief Verification & Attestation Participated in pt care: history, physical Personally performed: exam, history Care discussed with: other Procedures: n/a n/a MARCIA PEARCE DO 12/19/192024: Supervisory-Addendum Brief Verification & Attestation Participated in pt care: history, MDM, physical Personally performed: exam, history, MDM, supervision of care Care discussed with: Medical Student Procedures: n/a Results interpretation: Verified all documentation Verification and Attestation of Medical Student E/M Service A medical student performed and documented this service in my presence. I reviewed and verified all information documented by the medical student and made modifications to such information, when appropriate. I personally performed the physical exam and medical decision making. Marcia Pearce, Dec 19, 2019,20:25 DANE MURGUIA MED STUDENT Dec 19, 2019 11:50 MARCIA PEARCE DO Dec 19, 2019 20:25
--- NOTE | 2019-12-19 11:52 | PM&R Post Admission Assessment ---
PM&R Date of Visit: Dec 19, 2019 Time of Visit: 11:00 History of Present Illness CC: Critical illness myopathy HPI: This is an 84yoWF who presented to the IRF in need of recovery following readmit after she left the hospital after COVID-19 PNA when she was admitted on 11/30/19 until 12/14/19 then returned 2 hours after she went home due to hypoxia. Patient does have dementia and has suffered from incontinence since admit which will need to be addressed and improved. Patient denies pain and reports eating and drinking well. PLOF was independent without the use of AD. PHYSICIAN: DANE MURGUIA STUDENT H&P: This is an 84 year old female that presented to the ED 4 days ago for difficulty breathing. She had been discharged from the hospital previously where she had been admitted with covid. She was brought in because her O2 could not be brought above 88%. In the ED she had 88% O2 on 8L/min oxygen. Since then she has been an inpatient and has had reolved hyperkalemia. She is also currently doing well on room air. Today she has been brought to the rehab floor and is participating in occupational and physical therapy and is also enthusiastically participating. She states that she is feeling fine today and has no complaints that she can think of. She denies trouble breathing and any chest pains. She states that she acquired a UTI about a month ago before coming to the hospital. She has not had any incontinence symptoms before coming to the hospital, but states that since shes been admitted she has been having problems with incontinence. She states that she feels no urge to urinate, no pain with urination, and does not think there is any leakage with sneezing or coughing. She states that she will just empty her bladder seemingly without warning. She states this normally happens at night but can also occur during the day. She has medical history significant for covid-19 infection and kidney stones noted on CT on 12/14 Surg. Hx- Craniotomy and R knee replacement Family Hx- no significant hx Soc. Hx- Former smoker Allergies- NKDA Labs and Vital signs are all within normal limits except for a heart rate of 101 this morning. Patient is well appearing and does not seem to be in any distress. Lungs clear bilaterally in all georges. Heart auscultation negative for murmurs, gallops, or rubs. No pedal edema noted. Assessment Overflow incontinence Stress incontinence Mixed incontinence History of hyperkalemia History of Covid 19 with subsequent complications Possible COPD exacerbation Weakness, Fatigue Plan Continue with occupational and physical therapy Investigate cause of incontinence- post void volume and possible cystogram. Urine culture to rule out UTI Prescribe abx or antimuscarinic if applicable Continue daily labs to ensure kidney function is normal and hyperemia stays resolved Continue to evaluate patient to ensure supplemental oxygen is not necessary and that she continues to improve. Past Agggvny-Vkgmkl-Qqcwae Hx Past Med/Social Hx: Reviewed Nursing Past Med/Soc Hx, Reviewed and Corrections made Patient Social History Marrital Status: Employed/Student: retired Alcohol Use: Denies Use Smoking Status: Never a Smoker Type Used: Cigarettes Recent Hopitalizations: No Seasonal Allergies Seasonal Allergies: No Past Medical History Surgeries: Joint Replacement, Neurological, Orthopedic Cardiac: Atrial Fibrillation, High Cholesterol Neurological: Dementia, Traumatic Brain Injury Menopausal Genitourinary: Kidney Stones Musculoskeletal: Arthritis, Chronic Back Pain Endocrine: Hypothyroidsim History of Blood Disorders: No Family History No Pertinent Family Hx SOCIAL HISTORY: -ETOH--NONE -DRUGS-NONE -QUIT SMOKING 1988 PAST SURGICAL HISTORY: -RIGHT INDEX FINGER TENDON REPAIR 1963--[place] -LEFT RING FINGER TENDON REPAIR 1997--[facility] -LEFT BREAST BIOPSY-1994--[facility]--[facility] -APPENDECTOMY--RUPTURED APPENDIX 2000--[facility] -BLADDER SUSPENSION-2003--DR. SMITH/[facility] -CRANIOTOMY 2010 DUE TO SKULL FRACTURE/INTRACRANIAL BLEED--[facility] -RIGHT ROTATOR CUFF REPAIR--2015--[place] [place] -RIGHT KNEE ARTHROSCOPIES -RIGHT KNEE REPLACEMENT -2017--DR. VELA/[place] [facility] [place] -LUMBAR EPIDURAL STEROID INJECTIONS PM&R Allergy/Meds/Data Review Allergies Coded Allergies: No Known Drug Allergies (Unverified , 11/29/19) Home Medications Scheduled Apixaban (Eliquis), 5 MG PO BID, (Reported) Donepezil HCl (Donepezil HCl), 10 MG PO HS, (Reported) Gabapentin (Gabapentin), 200 MG PO HS, (Reported) Levothyroxine Sodium (Levothyroxine Sodium), 50 MCG PO DAILY, (Reported) Scheduled PRN Acetaminophen (Tylenol), 650 MG PO Q8H PRN for PAIN-MILD (1-4), (Reported) Current Medications Current Medications Reviewed Review of Systems Constitutional: see HPI, dizziness, malaise, weakness EENTM: no symptoms reported Respiratory: dyspnea on exertion Cardiovascular: no symptoms reported Gastrointestinal: no symptoms reported Genitourinary: no symptoms reported Musculoskeletal: no symptoms reported Skin: no symptoms reported Psychiatric/Neurological: No Symptoms Reported All Other Systems Reviewed Negative Unless Noted: Yes Physical Exam Physical Exam Vital Signs Capillary Refill : Height, Weight, BMI Height: '" Weight: lbs. oz. kg; 25.23 BMI Method: General Appearance: No Apparent Distress, WD/WN, Chronically ill, Thin Eyes: Bilateral Eye Normal Inspection, Bilateral Eye PERRL HEENT: PERRL/EOMI, Normal ENT Inspection, Pharynx Normal Neck: Full Range of Motion, Normal Inspection, Non Tender, Supple, Carotid Bruit Respiratory: Chest Non Tender, Lungs Clear, Normal Breath Sounds, No Accessory Muscle Use, No Respiratory Distress, Decreased Breath Sounds Cardiovascular: Regular Rate, Rhythm, No Edema, No Gallop, No JVD, No Murmur, Normal Peripheral Pulses Gastrointestinal: Normal Bowel Sounds, No Organomegaly, No Pulsatile Mass, Non Tender, Soft Back: Normal Inspection, No CVA Tenderness, No Vertebral Tenderness Extremity: Normal Capillary Refill, Normal Inspection, Normal Range of Motion, Non Tender, No Calf Tenderness, No Pedal Edema Neurologic/Psychiatric: Alert, Oriented x3, No Motor/Sensory Deficits, Normal Mood/Affect, aerobics teacher II-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 Norm as Tested, Abnormal Gait, Disoriented, Motor Weakness (generalized weakness) Skin: Normal Color, Warm/Dry Lymphatic: No Adenopathy PM&R Medical Assessment & Plan REHAB/MEDICAL ASSESSMENT AND PLAN: 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 The comorbidities that impact the patients function and/or functional outcome by: dementia, poor reserve, hypoxia, AF REHAB PLAN: The patient is being admitted to our comprehensive inpatient rehabilitation facility and can tolerate the intensity of service consisting of at least: 180 minutes of therapy a day, 5 out of 7 days a week Rehab treatment will consist of: PT OT will focus on regaining strength and ADL independence in order to return home with family The patient/family has a good understanding of our discharge process and will be nefit from an interdisciplinary inpatient rehabilitation program. The patient has potential to make improvement and is in need of at least two of the following multidisciplinary therapies including but not limited to physical, occupational, speech, and prosthetics and orthotics. Additionally the patient will need services from respiratory, nutritional services, wound care, psychol ogy, etc. (Customize this to each patient). Given the patients complex condition and risk of further medical complications, rehabilitation services cannot be safely or effectively provided at a lower level of care such as a fdc facility. BARRIERS TO DISCHARGE: Dementia ESTIMATED LOS: 7 days DISPOSITION: Home RELEVANT CHANGES SINCE PREADMISSION SCREENING: I have compared the patients medical and functional status at the time of the preadmission screening and there are: no changes PROGNOSIS: Good REHABILITATION GOALS: 1. PT OT will focus on regaining strength and ADL independence in order to return home with family All the above goals were reviewed with the patient and he/she is in agreement. By signing this document, I acknowledge that I have personally performed a full physical examination on this patient within 24 hours of admission to this inpatient rehabilitation facility and have determined the patient to be able to tolerate the above course of treatment at an intensive level for a reasonable period of time. I will be completing a detailed individualized Plan of Care for this patient by day #4 of the patients stay based upon the Preadmission Screen, the Post-Admission Evaluation, and the therapy evaluations. Admission Dx/Comorbidities: (1) Myopathy ICD Codes: G72.9 - Myopathy, unspecified (2) COVID-19 Status: Acute ICD Codes: U07.1 - COVID-19 (3) Debility Status: Acute ICD Codes: R53.81 - Other malaise (4) Dementia Status: Chronic ICD Codes: F03.90 - Unspecified dementia without behavioral disturbance (5) Atrial fibrillation Status: Chronic ICD Codes: I48.91 - Unspecified atrial fibrillation (6) Acute respiratory failure due to COVID-19 Status: Acute ICD Codes: U07.1 - COVID-19; J96.00 - Acute respiratory failure, unspecified whether with hypoxia or hypercapnia (7) Generalized weakness Status: Acute ICD Codes: R53.1 - Weakness Assessment/Plan Assessment and Plan Assess & Plan/Chief Complaint Assessment: Myopathy COVID-19 AF Dementia Hypothyroidism Poor reserve Advanced age DNR Incontinence Plan: IRF protocol Current med-surg meds to continue Monitor BP CONCEPCION PEARCE DO Dec 19, 2019 11:52
--- NOTE | 2019-12-19 11:53 | NUR ---
I SPOKE WITH THE PT AND COMPLETED THE MED REC ON 12-15-2019 WHEN THE PT WAS ON THE 4TH FLOOR. I HAVE REVIEWED THE MEDICATIONS FOR CONTINUATION OR EVENTUAL DISCHARGE
[2019-12-19 11:54] VITALS: BP 125/67
[2019-12-19] MEDS ORDERED: DOCUSATE SODIUM 100 MG (COLACE) CAP PO PRN (12:00)
[2019-12-19] MEDS ORDERED: CATHETER FLUSH 10 ML SYR IV PRN (12:00)
[2019-12-19] MEDS ORDERED: ONDANSETRON 4 MG/2 ML (SDV) Z0FRAN IVP PRN (12:00)
[2019-12-19] MEDS ORDERED: RT-ALBUTEROL INHALER HFA (VENTOLIN HFA) 18 GM IH PRN (12:00)
[2019-12-19] MEDS ORDERED: ACETAMINOPHEN 500 MG TAB (TYLENOL) PO PRN (12:00)
--- NOTE | 2019-12-19 12:12 | Physical Therapy Evaluation ---
PT Evaluation-General Medical Diagnosis Admission Date Dec 19, 2019 at 10:40 Medical Diagnosis: Critical illness myopathy. Onset Date: Dec 15, 2019 Therapy Diagnosis Therapy Diagnosis: Impaired strength, endurance Precautions Precautions/Isolations: Standard Precautions Weight Bear Status Full Weight Bearing Full Weight Bearing Referral Physician: Samanta Reason for Referral: Evaluation/Treatment Medical History Pertinent Medical History: Atrial Fib, Dementia, Hypothroidism Additional Medical History Surg. Hx- Craniotomy and R knee replacement Reviewed History: Yes Social History Home: Single Level Current Living Status: Spouse Entry Into Home: Stairs With Railing PT Steps Inside Home: 2 Prior Prior Level of Function SCALE: Activities may be completed with or without assistive devices. 5-Hycdbmflzv-vaphgsx completes the activity by him/herself with no assistance from a helper. 5-Set-up or Clean-up Assistance-helper sets up or cleans up; patient completes activity. [place] assists only prior to or following the activity. 4-Supervision or Touching Assistance-helper provides verbal cues and/or touching/steadying and/or contact guard assistance as patient completes activity. Assistance may be provided throughout the activity or intermittently. 3-Partial/Moderate Assistance-helper does LESS THAN HALF the effort. [place] lifts, holds or supports trunk or limbs, but provides less than half the effort. 2-Substantial/Maximal Assistance-helper does MORE THAN HALF the effort. [place] lifts or holds trunk or limbs and provides more than half the effort. 4-Ekjxfhoij-vkikyc does ALL the effort. Patient does none of the effort to complete the activity. Or, the assistance of 2 or more helpers is required for the patient to complete the activity. If activity was not attempted, code reason: 7-Patient Refused. 9-Not Applicable-not attempted and the patient did not perform the activity before the current illness, exacerbation or injury. 10-Not Attempted due to Environmental Limitations-(lack of equipment, weather restraints, etc.). 88-Not Attempted due to Medical Conditions or Safety Concerns. Bed Mobility: 6 Transfers (B,C,W/C): 6 Gait: 6 Stairs: 6 Wheelchair Mobility: 9 Indoor Mobility (Ambulation): Independent Stairs: Independent Prior Devices Use: None PT Evaluation-Current Subjective Pt agrees to PT. Pt voices no complaints of pain. Pt/Family Goals Return home Objective Patient Orientation: Person, Place, Time, Eyes Open, Situation ROM/Strength ROM Lower Extremities WNL Strength Lower Extremities B Hip flex: 4/5 B knee ext: 5/5 B knee flex: 4+/5 Sensory Vision: Wears Glasses Sensation Right Lower Extremit: Intact Sensation Left Lower Extremity: Intact Sensation Lower Extremities BLE sensation intact to light touch at L2-S2 Transfers Roll Left & Right (QC): 6 Sit to Lying (QC): 6 Lying to Sitting/Side of Bed(Q: 6 Sit to Stand (QC): 4 Chair/Osl-vn-Ksbpe Xfer(QC): 4 Toilet Transfer (QC): 4 Car Transfer (QC): 4 Pt independent in bed mobility. Pt received SBA with sit to stand and car transfers. CGA used for chair <->bed and toilet transfers. Gait Does the Patient Walk?: Yes Mode of Locomotion: Walk Anticipated Mode of Locomotion: Walk Walk 10 feet (QC): 4 Walk 50 ft with 2 Turns(QC): 4 Walk 150 ft (QC): 4 Walking 10ft/uneven surface-QC: 4 Distance: 200' Gait Assistive Device: FWW Comments/Gait Description Pt ambulates at brisk pace with step through pattern using walker; CGA. Wheelchair Training Does the Pt Use a Wheelchair?: No Wheel 50 ft with 2 turns (QC): 9 Wheel 150 ft (QC): 9 Stairs #of Steps: 1 1 Step (curb) (QC): 4 4 Steps (QC): 88 12 Steps (QC): 88 Walking Assistive Device: Walker CGA. Balance Sitting Static: Normal Sitting Dynamic: Normal Standing Static: Good Standing Dynamic: Good Picking up an Object (QC): 88 Assessment/Needs Pt is quick with movements, not taking the time to first listen to instructions. Pt is cued on multiple occasions to reach for armrests of chair behind her before sitting instead of holding onto unstable walker. Pt fatigues easily therefore her O2sat was monitored throughout treatment; pt instructed to rest and focus on breathing when dropped below 95%. Co-treated with OT due to patient's limitations in strength, mobility, and coordination of UE and LE, and low O2 saturation with activity. PT worked on bed mobility and transfers, ambulation, stair training, assisted with positioning and safety during bathing and dressing. OT worked on bathing and dressing and UE positioning and safety during activity. Rehab Potential: Fair PT Short Term Goals Short Term Goals Time Frame: Dec 26, 2019 Roll Left & Right: 6 Sit to lyin Lying to sitting on side of be: 6 Sit to stand: 6 Chair/saq-wf-ssrvs transfer: 6 Walk 10 feet: 6 Walk 50 feet with two turns: 6 1 step (curb): 6 Picking up objects: 4 PT Bodywork Therapist Goals Intermediate Goals PT Intermediate Goals Time Frame: Jan 09, 2020 Roll Left & Right (QC): 6 Sit to Lying (QC): 6 Lying-Sitting on Side/Bed(QC): 6 Sit to Stand (QC): 6 Chair/Ogf-qe-Uxdzk Xfer(QC): 6 Toilet Transfer (QC): 6 Car Transfer (QC): 6 Does the Patient Walk: Yes Walk 10 feet (QC): 6 Walk 50ft with 2 Turns (QC): 6 Walk 150 ft (QC): 6 Walking 10ft on Uneven Surface: 6 1 Step (curb) (QC): 6 4 Steps (QC): 6 12 Steps (QC): 88 Picking up an Object (QC): 6 Does the Pt use WC or Scooter?: No Wheel 50 feet with 2 turns (QC: 9 Type: N/A Wheel 150 feet: 9 Type: N/A PT Plan Problem List Problem List: Activity Tolerance, Functional Strength, Safety, Balance, Gait, Transfer, Bed Mobility, ROM Treatment/Plan Treatment Plan: Continue Plan of Care Treatment Plan: Bed Mobility, Education, Functional Activity Misael, Functional Strength, Group Therapy, Gait, Safety, Therapeutic Exercise, Transfers Treatment Duration: Jan 02, 2020 Frequency: At least 5 of 7 days/Wk (IRF) Estimated Hrs Per Day: 1.5 hours per day Patient and/or Family Agrees t: Yes Safety Risks/Education Patient Education: Gait Training, Transfer Techniques, Steps, Correct Positioning, Safety Issues Teaching Recipient: Patient Teaching Methods: Demonstration, Discussion Response to Teaching: Reinforcement Needed Discharge Recommendations Plan Patient will perform bed mobility and transfer training, balance and endurance training, functional strengthening, stair training, gait training, and education, to improve functional mobility and independence at home. Therapy Discharge Recommendati: Home & Family Time/GCodes Time In: 1050 Time Out: 1200 Total Billed Treatment Time: 70 Total Billed Treatment 1 visit EVM 10' FA 60' PT Eval [id number]; Co-treate with OT [id number]. PT focused on pt's gait, mobility, and standing balance while OT focused on pt's bathing, dressing, and ADLs. ROSANNA MUNIZ PT Dec 19, 2019 12:12
[2019-12-19] MEDS ORDERED: FLU QUAD HIGH DOSE 240 MCG/0.7 ML 2020-21 (FLUZONE) IM ONE (12:15)
[2019-12-19] MEDS: polyethylene glycoL POWDER 17 GM (MIRALAX) PACK PO SCH ×2 (12:22→19:46)
[2019-12-19] MEDS: DOCUSATE SODIUM 100 MG (COLACE) CAP PO SCH ×2 (12:22→20:18)
[2019-12-19] MEDS: SENNA W/DOCUSATE (SENOKOT S) TABLET PO SCH ×2 (12:23→19:47)
--- NOTE | 2019-12-19 12:23 | NUR ---
STOOL SOFTENERS AND LAXATIVES REMOVED FROM APR FROM LAST NIGHT AND THIS AM SINCE PATIENT WAS STILL ON 4TH FLOOR AT THAT TIME.
--- NOTE | 2019-12-19 13:00 | NUR ---
ADVANCE DIRECTIVES FAXED BY SON AND PUT ON CHART.
--- NOTE | 2019-12-19 13:26 | Occupational Therapy Eval ---
OT Evaluation-General/PLF Medical Diagnosis Admission Date Dec 19, 2019 at 10:40 Medical Diagnosis: Critical illness myopathy. Onset Date: Dec 15, 2019 Therapy Diagnosis Therapy Diagnosis: decreased ADL status/weakness Precautions Precautions/Isolations: Fall Prevention, Standard Precautions Referral Physician: Samanta Rios Reason: Evaluation/Treatment Medical History Pertinent Medical History: Atrial Fib, Dementia, Hypothroidism Additional Medical History joint replacement, afib, high cholesterol, dementia, TBI, arthritis, chronic back pain, hypothyroidism, craniotomy, R knee replacement. Current History Pt admitted 11/30/2019-12/14/2019 with COVID+, pt then discharged home and readmitted 12/14. Pt transferred to ARU on 12/18 with critical illness myopathy for skilled therapies Reviewed History: Yes Social History Home: Single Level Current Living Status: Spouse Entry Into Home: Stairs With Railing Steps Inside Home: 2 ADL-Prior Level of Function SCALE: Activities may be completed with or without assistive devices. 7-Uargkqvdly-gmimkdw completes the activity by him/herself with no assistance from a helper. 5-Set-up or Clean-up Assistance-helper sets up or cleans up; patient completes activity. [place] assists only prior to or following the activity. 4-Supervision or Touching Assistance-helper provides verbal cues and/or touching/steadying and/or contact guard assistance as patient completes activity. Assistance may be provided throughout the activity or intermittently. 3-Partial/Moderate Assistance-helper does LESS THAN HALF the effort. [place] lifts, holds or supports trunk or limbs, but provides less than half the effort. 2-Substantial/Maximal Assistance-helper does MORE THAN HALF the effort. [place] lifts or holds trunk or limbs and provides more than half the effort. 3-Auhswknkw-aunxer does ALL the effort. Patient does none of the effort to complete the activity. Or, the assistance of 2 or more helpers is required for the patient to complete the activity. If activity was not attempted, code reason: 7-Patient Refused. 9-Not Applicable-not attempted and the patient did not perform the activity before the current illness, exacerbation or injury. 10-Not Attempted due to Environmental Limitations-(lack of equipment, weather restraints, etc.). 88-Not Attempted due to Medical Conditions or Safety Concerns. ADL PLOF Comments Pt indicates she was able to complete all ADLS and functional mobility at PLOF without AD/AE. She has a walk in shower with a shower chair and grab bars, but she did not use shower chair at [facility]. Self Care: Independent Functional Cognition: Independent DME/Equipment: Bath Chair, Grab Bars, Shower OT Current Status Subjective Pt agreeable to OT evaluation, did not verbalize any pain during tx. Mental Status/Objective Patient Orientation: Person, Place, Time, Situation Current Glasses/Contacts: Yes Hearing Aids: Yes Dentures/Partials: No Hand Dominance: Right Upper Extremity ROM WFL Upper Extremity Coordination slightly decreased, pt indicates some difficulty with fine motor tasks. She required assistance taking top off of toothpaste container. Upper Extremity Sensation WFL Upper Extremity Strength grossly 3+/5 MMT ADL-Treatment Eating (QC): 6 (Pt reports having no difficulty eating breakfast, she states she is able to cut food, bring food to mouth, and bring drink to mouth) Oral Hygiene (QC): 4 (CGA standing at sink. Pt required assistance opening toothpaste due to decreased coordination) Shower/Bathe Self (QC): 4 (sponge bath. CGA in stand at [facility] as pt performed pericare and washed buttocks. Pt able to wash all other parts seated EOB.) Upper Body Dressing (QC): 5 (set up) Lower Body Dressing (QC): 4 (CGA in stand at W for clothing management. Pt able to doff/don underwear.) On/Off Footwear (QC): 4 (pt able to don/doff gripper socks seated EOB with supervision.) Toileting Hygiene (QC): 4 (Pt able to complete clothing management and hygiene standing at [facility], [facility]) Other Treatments [id number] OT evaluation, OT educated pt on purpose and benefits of OT, she verbalized understanding. Pt then provided information about PLOF and home set up as well as participated in UE screen. [id number] OT/PT cotreat: OT/PT cotreat due to skill of 2 clinicians required to coordinate UE/LEs with task, due to pt's limitations in strength and mobility, and to monitor O2 saturation with activity. OT focused on UE placement, cues for sequencing and safety, ADLS, and assistance with transfers while PT focused on ambulation, overall gross movements, LE placement, and transfers. Pt seated in w/c in therapy area, stood at FWW and ambulated over uneven surface and up/down 1 step with CGA. Pt took a seated rest break, O2 saturation dropping into 80's, OT educated pt on pursed lip breathing, O2 increased to mid 90's. Pt used FWW to ambulate into [facility] common area, perform functional car simulation transfer, then into her room. Pt sat EOB to complete sponge bath and dressing, with rest breaks as required. Pt declined showering on this date stating she did not have the energy. After rest break, pt used FWW to ambulate into restroom and brush her teeth standing at the sink, pt required assistance removing cap of toothpaste. Once pt finished with task, she tossed her tooth brush to the right side of sink, and reports fatigue. Pt sat in chair for rest break, and brushed her hair seated. Pt used FWW to ambulate back into her room and into the recliner. Throughout session, pt quick with movements, standing as therapists are explaining the game plan, and acting before listening to instructions. Pt cues with each transfer to reach back for armrests on chair prior to sitting, but she continued to hold onto walker as she sat. Post OT/PT cotreat, pt seated in recliner, call light in reach and all needs met. Education OT Patient Education: Correct positioning, Energy conservation, Progress toward Goal/Update tx plan, Rehab process, Safety issues, Transfer techniques Teaching Recipient: Patient Teaching Methods: Discussion Response to Teaching: Verbalize Understanding, Reinforcement Needed OT Fpc Goals Fpc Goals Time Frame: Jan 05, 2020 Eating (QC): 6 Oral Hygiene (QC): 6 Toileting Hygiene (QC): 6 Shower/Bathe Self (QC): 6 Upper Body Dressing (QC): 6 Lower Body Dressing (QC): 6 On/Off Footwear (QC): 6 Additional Goals: 1-Demonstrate ADL Tasks, 2-Verbalize Understanding, 3- ImproveStrength/Misael 1=Demonstrate adherence to instructed precautions during ADL tasks. 2=Patient will verbalize/demonstrate understanding of assistive devices/modifications for ADL. 3=Patient will improve strength/tolerance for activity to enable patient to perform ADL's. OT Education/Plan Problem List/Assessment Assessment: Decreased Activ Tolerance, Decreased UE Strength, Impaired I ADL's, Impaired Self-Care Skills Discharge Recommendations Plan/Recommendations: Continue POC Therapy Discharge Recommendati: Home & Family Treatment Plan/Plan of Care Patient would benefit from OT for education, treatment and training to promote independence in ADL's, mobility, safety and/or upper extremity function for ADL's. Plan of Care: ADL Retraining, Functional Mobility, Group Exercise/Act as Ind, UE Funct Exercise/Act Treatment Duration: Jan 05, 2020 Frequency: At least 5 of 7 days/Wk (IRF) Estimated Hrs Per Day: 1.5 hours per day Rehab Potential: Fair Time/GCodes Start Time: 10:40 ([id number]) Stop Time: 12:00 ([id number]) Total Time Billed (hr/min): 70 Billed Treatment Time [id number] OT evaluation, [id number] OT/PT cotreat 1, EVM (10'), ADL 2 (35'), FA 2 (25') SUSIE MCGOVERN OT Dec 19, 2019 13:26
--- NOTE | 2019-12-19 13:42 | Physical Therapy Daily Note ---
PT Daily Note-Current Subjective Pt presents sitting in recliner. Pt agrees to PT. Pt reports no pain. Appearance At end of therapy pt requests moving to bed to lay down. Once in bed pt is given access to tray, call button, and is asked if all needs have been met. Mental Status Patient Orientation: Person, Place, Time, Eyes Open, Situation Transfers SCALE: Activities may be completed with or without assistive devices. 7-Cldfvunoaz-sigevft completes the activity by him/herself with no assistance from a helper. 5-Set-up or Clean-up Assistance-helper sets up or cleans up; patient completes activity. [place] assists only prior to or following the activity. 4-Supervision or Touching Assistance-helper provides verbal cues and/or touching/steadying and/or contact guard assistance as patient completes activity. Assistance may be provided throughout the activity or intermittently. 3-Partial/Moderate Assistance-helper does LESS THAN HALF the effort. [place] lifts, holds or supports trunk or limbs, but provides less than half the effort. 2-Substantial/Maximal Assistance-helper does MORE THAN HALF the effort. [place] lifts or holds trunk or limbs and provides more than half the effort. 6-Vstjpptxi-nejavm does ALL the effort. Patient does none of the effort to complete the activity. Or, the assistance of 2 or more helpers is required for the patient to complete the activity. If activity was not attempted, code reason: 7-Patient Refused. 9-Not Applicable-not attempted and the patient did not perform the activity b efore the current illness, exacerbation or injury. 10-Not Attempted due to Environmental Limitations-(lack of equipment, weather restraints, etc.). 88-Not Attempted due to Medical Conditions or Safety Concerns. Sit to Stand (QC): 4 Chair/Mhu-mt-Zyott Xfer(QC): 4 Weight Bearing Full Weight Bearing Full Weight Bearing Gait Training Distance: 3' Gait Assistive Device: FWW CGA Exercises Supine Ex: Ankle pumps, Heel Slides Supine Reps: 30 Seated Therapy Exercises: Long arc quads, Hip flexion, Glut set Seated Reps: 30 Treatments LE Strengthening Assessment Current Status: Good Progress Pt is already tired at start of therapy session. Pt fatigues with supine/seated exercises and requires rest breaks between sets. PT Short Term Goals Short Term Goals Time Frame: Dec 26, 2019 Roll Left & Right: 6 Sit to lyin Lying to sitting on side of be: 6 Sit to stand: 6 Chair/taz-gp-wijqd transfer: 6 Walk 10 feet: 6 Walk 50 feet with two turns: 6 1 step (curb): 6 Picking up objects: 4 PT Professor Of Biochemistry Goals Professor Of Biochemistry Goals PT Prison Goals Time Frame: Jan 09, 2020 Roll Left & Right (QC): 6 Sit to Lying (QC): 6 Lying-Sitting on Side/Bed(QC): 6 Sit to Stand (QC): 6 Chair/Oeq-uk-Kxljb Xfer(QC): 6 Toilet Transfer (QC): 6 Car Transfer (QC): 6 Does the Patient Walk: Yes Walk 10 feet (QC): 6 Walk 50ft with 2 Turns (QC): 6 Walk 150 ft (QC): 6 Walking 10ft on Uneven Surface: 6 1 Step (curb) (QC): 6 4 Steps (QC): 6 12 Steps (QC): 88 Picking up an Object (QC): 6 Does the Pt use WC or Scooter?: No Wheel 50 feet with 2 turns (QC: 9 Type: N/A Wheel 150 feet: 9 Type: N/A PT Plan Problem List Problem List: Activity Tolerance, Functional Strength, Safety, Balance, Gait, Transfer, Bed Mobility, ROM Treatment/Plan Treatment Plan: Continue Plan of Care Treatment Plan: Bed Mobility, Education, Functional Activity Misael, Functional Strength, Group Therapy, Gait, Safety, Therapeutic Exercise, Transfers Treatment Duration: Jan 02, 2020 Frequency: At least 5 of 7 days/Wk (IRF) Estimated Hrs Per Day: 1.5 hours per day Patient and/or Family Agrees t: Yes Safety Risks/Education Patient Education: Transfer Techniques, Correct Positioning, Safety Issues Teaching Recipient: Patient Teaching Methods: Demonstration, Discussion Response to Teaching: Reinforcement Needed Time/GCodes Time In: 1300 Time Out: 1320 Total Billed Treatment Time: 20 Total Billed Treatment 1 visit EX ROSANNA MONTEZ PT Dec 19, 2019 13:42
--- NOTE | 2019-12-19 14:13 | Occupational Ther Daily Note ---
OT Current Status-Daily Note Subjective Pt laying in bed, agreeable to OT Tx. ADL-Treatment Therapy Code Descriptions/Definitions Functional [place] Measure: 0=Not Assessed/NA 4=Minimal Assistance 1=Total Assistance 5=Supervision or Setup 2=Maximal Assistance 6=Modified [place] 3=Moderate Assistance 7=Complete IndependenceSCALE: Activities may be completed with or without assistive devices. 9-Lmizbubazv-xmwrday completes the activity by him/herself with no assistance from a helper. 5-Set-up or Clean-up Assistance-helper sets up or cleans up; patient completes activity. [place] assists only prior to or following the activity. 4-Supervision or Touching Assistance-helper provides verbal cues and/or touching/steadying and/or contact guard assistance as patient completes activity. Assistance may be provided throughout the activity or intermittently. 3-Partial/Moderate Assistance-helper does LESS THAN HALF the effort. [place] lifts, holds or supports trunk or limbs, but provides less than half the effort. 2-Substantial/Maximal Assistance-helper does MORE THAN HALF the effort. [place] lifts or holds trunk or limbs and provides more than half the effort. 2-Kstnjikbb-ydkjjg does ALL the effort. Patient does none of the effort to com plete the activity. Or, the assistance of 2 or more helpers is required for the patient to complete the activity. If activity was not attempted, code reason: 7-Patient Refused. 9-Not Applicable-not attempted and the patient did not perform the activity before the current illness, exacerbation or injury. 10-Not Attempted due to Environmental Limitations-(lack of equipment, weather restraints, etc.). 88-Not Attempted due to Medical Conditions or Safety Concerns. Other Treatment Pt laying in bed. In order to increase BUE strength and functional endurance, OT educated pt on UE exercises she can perform in her room. OT provided pt with moderate resistance red at risk paraprofessional sponge, pt completed x20 reps BUEs at risk paraprofessional squeezes, and x10 tip to tip pinched. Pt then performed x20 reps AROM for the following BUE movements: wrist flexion/extension, elbow flexion/extension, and shoulder flexion. Pt demo'd and verbalized understanding of each exercises. OT then answered pt's questions about rehab expectations while pt is admitted to ARU, she verbalized understanding. Post OT Tx, pt laying in bed, call light in reach and all needs met. Education OT Patient Education: Correct positioning, Exercise program, Modified ADL techniques, Progress toward Goal/Update tx plan, Purpose of tx/functional activities, Rehab process Teaching Recipient: Patient Teaching Methods: Discussion Response to Teaching: Verbalize Understanding OT Dining Room Tables Set Up Attendant Goals Detention Goals Time Frame: Jan 05, 2020 Eating (QC): 6 Oral Hygiene (QC): 6 Toileting Hygiene (QC): 6 Shower/Bathe Self (QC): 6 Upper Body Dressing (QC): 6 Lower Body Dressing (QC): 6 On/Off Footwear (QC): 6 Additional Goals: 1-Demonstrate ADL Tasks, 2-Verbalize Understanding, 3- ImproveStrength/Misael 1=Demonstrate adherence to instructed precautions during ADL tasks. 2=Patient will verbalize/demonstrate understanding of assistive devices/modifications for ADL. 3=Patient will improve strength/tolerance for activity to enable patient to perform ADL's. OT Education/Plan Problem List/Assessment Assessment: Decreased Activ Tolerance, Decreased UE Strength, Impaired Coordination, Impaired I ADL's, Impaired Self-Care Skills Discharge Recommendations Plan/Recommendations: Continue POC Treatment Plan/Plan of Care Patient would benefit from OT for education, treatment and training to promote independence in ADL's, mobility, safety and/or upper extremity function for ADL's. Plan of Care: ADL Retraining, Functional Mobility, Group Exercise/Act as Ind, UE Funct Exercise/Act Treatment Duration: Jan 05, 2020 Frequency: At least 5 of 7 days/Wk (IRF) Estimated Hrs Per Day: 1.5 hours per day Rehab Potential: Fair Time/GCodes Start Time: 13:30 Stop Time: 13:50 Total Time Billed (hr/min): 20 Billed Treatment Time 1, EX SUSIE MCGOVERN OT Dec 19, 2019 14:13
[2019-12-19 16:16] VITALS: BP 90/56
[2019-12-19 17:00] VITALS: BP 116/66
--- NOTE | 2019-12-19 18:00 | NUR ---
HAD NOT VOIDED SINCE ADMISSION. AGREED TO AMBULATE TO TOILET AND DID VOID.
--- NOTE | 2019-12-19 18:34 | NUR ---
Initial visit: The pt is Lutheran and shared how her jennifer is a source of strength in her healing process. 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
[2019-12-19] MEDS: RT-ALBUTEROL INHALER HFA (VENTOLIN HFA) 18 GM IH SCH (19:10)
[2019-12-19] MEDS: APIXABAN 2.5 MG (ELIQUIS) TABLET PO SCH (20:18)
[2019-12-19] MEDS: DONEPEZIL 10 MG (ARICEPT) TAB PO SCH (20:18)
[2019-12-19] MEDS: GABAPENTIN 100 MG (NEURONTIN) CAP PO SCH (20:18)
[2019-12-19] MEDS ORDERED: polyethylene glycoL POWDER 17 GM (MIRALAX) PACK PO SCH (21:00)
--- NOTE | 2019-12-20 05:50 | PM&R Progress Note ---
Subjective HPI/CC On Admission Date Seen by Provider: Dec 20, 2019 Time Seen by Provider: 09:00 Subjective/Events-last exam Oxygen was 91% after she got back from the bathroom BP remains a little bit low but that is chronic Bowels moved this morning Overall doing much better and feels like she is improving Review of Systems Pulmonary: Dyspnea Objective Exam Vital Signs Vital Signs Date Time Temp Pulse Resp B/P (MAP) Pulse Ox O2 Delivery O2 Flow Rate FiO2 12/21/19 09:13 Room Air 12/21/19 06:03 36.8 67 18 91/51 (64) 90 12/20/19 13:28 21 Capillary Refill : Less Than 3 Seconds General Appearance: No Apparent Distress, WD/WN, Chronically ill, Thin HEENT: PERRL/EOMI, Normal ENT Inspection, Pharynx Normal Neck: Full Range of Motion, Normal Inspection, Non Tender, Supple, Carotid Bruit Respiratory: Chest Non Tender, Lungs Clear, Normal Breath Sounds, No Accessory Muscle Use, No Respiratory Distress, Decreased Breath Sounds Cardiovascular: Regular Rate, Rhythm, No Edema, No Gallop, No JVD, No Murmur, Normal Peripheral Pulses Gastrointestinal: Normal Bowel Sounds, No Organomegaly, No Pulsatile Mass, Non Tender, Soft Back: Normal Inspection, No CVA Tenderness, No Vertebral Tenderness Extremity: Normal Capillary Refill, Normal Inspection, Normal Range of Motion, Non Tender, No Calf Tenderness, No Pedal Edema Neurologic/Psychiatric: Alert, Oriented x3, No Motor/Sensory Deficits, Normal Mood/Affect, beck tender II-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 FIM Transfers Therapy Code Descriptions/Definitions Functional [place] Measure: 0=Not Assessed/NA 4=Minimal Assistance 1=Total Assistance 5=Supervision or Setup 2=Maximal Assistance 6=Modified [place] 3=Moderate Assistance 7=Complete IndependenceSCALE: Activities may be completed with or without assistive devices. 7-Qdseciwjan-vdgckjm completes the activity by him/herself with no assistance from a helper. 5-Set-up or Clean-up Assistance-helper sets up or cleans up; patient completes activity. [place] assists only prior to or following the activity. 4-Supervision or Touching Assistance-helper provides verbal cues and/or touching/steadying and/or contact guard assistance as patient completes activity. Assistance may be provided throughout the activity or intermittently. 3-Partial/Moderate Assistance-helper does LESS THAN HALF the effort. [place] lifts, holds or supports trunk or limbs, but provides less than half the effort. 2-Substantial/Maximal Assistance-helper does MORE THAN HALF the effort. [place] lifts or holds trunk or limbs and provides more than half the effort. 7-Sqarevlex-bbtmrc does ALL the effort. Patient does none of the effort to complete the activity. Or, the assistance of 2 or more helpers is required for the patient to complete the activity. If activity was not attempted, code reason: 7-Patient Refused. 9-Not Applicable-not attempted and the patient did not perform the activity before the current illness, exacerbation or injury. 10-Not Attempted due to Environmental Limitations-(lack of equipment, weather restraints, etc.). 88-Not Attempted due to Medical Conditions or Safety Concerns. Roll Left to Right (QC): 6 Sit to Lying (QC): 6 Sit to Stand (QC): 4 Chair/Bqd-ti-Gmieq Xfer(QC): 4 Car Transfer (QC): 4 Gait Training Does the Patient Walk?: Yes Distance: 3' Walk 10 feet (QC): 4 Walk 50 ft with 2 Turns(QC): 4 Walk 150 ft (QC): 4 Walking 10ft/uneven surface-QC: 4 Gait Assistive Device: FWW Wheelchair Training Does the Pt Use a Wheelchair?: No Wheel 50 ft with 2 turns (QC): 9 Wheel 150 ft (QC): 9 Stair Training #of Steps: 1 1 Step (curb) (QC): 4 4 Steps (QC): 88 12 Steps (QC): 88 Balance Picking up an Object (QC): 88 ADL-Treatment Eating (QC): 6 (Pt reports having no difficulty eating breakfast, she states she is able to cut food, bring food to mouth, and bring drink to mouth) Oral Hygiene (QC): 4 (CGA standing at sink. Pt required assistance opening toothpaste due to decreased coordination) Shower/Bathe Self (QC): 4 (sponge bath. CGA in stand at FWW as pt performed pericare and washed buttocks. Pt able to wash all other parts seated EOB.) Upper Body Dressing (QC): 5 (set up) Lower Body Dressing (QC): 4 (CGA in stand at FWW for clothing management. Pt able to doff/don underwear.) On/Off Footwear (QC): 4 (pt able to don/doff gripper socks seated EOB with supervision.) Toileting Hygiene (QC): 4 (Pt able to complete clothing management and hygiene standing at FWW, CGA) Assessment/Plan Assessment and Plan Assess & Plan/Chief Complaint Assessment: Myopathy COVID-19 AF Dementia Hypothyroidism Poor reserve Advanced age DNR Incontinence Plan: IRF protocol Current med-surg meds to continue Monitor BP 12/20/19: Monitor O2 Fall risk Eval memory again (1) Myopathy (2) COVID-19 Status: Acute (3) Debility Status: Acute (4) Dementia Status: Chronic (5) Atrial fibrillation Status: Chronic (6) Acute respiratory failure due to COVID-19 Status: Acute (7) Generalized weakness Status: Acute CONCEPCION PEARCE DO Dec 20, 2019 05:50
[2019-12-20 05:58] VITALS: BP 99/50
[2019-12-20] MEDS: LEVOTHYROXINE 50 MCG (LEVOTHROID) TAB PO SCH (06:12)
[2019-12-20] MEDS: RT-ALBUTEROL INHALER HFA (VENTOLIN HFA) 18 GM IH SCH ×2 (07:24→19:53)
--- NOTE | 2019-12-20 08:52 | Individualized Plan of Care ---
Individualized Plan of Care Rehab Nursing IPOC Order Admission Date Dec 19, 2019 at 10:40 Current Orders Orders Admission Order(Inpt,Obs,Sdc) (12/18/19 20:59) Vital Signs: Per Unit Policy ( 08,16,00 (12/18/19 20:59) Jose David Herring 09,21 (12/18/19 20:59) Sequential Compression Device Q4H (12/18/19 20:59) Insurance Counsel-Inpt Rehab Con (12/18/19 20:59) Rehab Nursing Orders-Ipoc (12/18/19 20:59) Physical Therapy Rehab Orders (12/18/19 20:59) Occupational Therapy Rehab Ord (12/18/19 20:59) Speech Therapy Rehab Orders (12/18/19 20:59) General/Regular (12/19/19 Breakfast) Intake & Output 06,14,22 (12/18/19 20:59) Precautions (Aru) (12/18/19 20:59) Weekly Weight WEEK (12/18/19 20:59) Rehab-Intensity Of Therapy (12/18/19 20:59) Initiate Admission Nursing Pro .admission (12/18/19 20:59) Acetaminophen Tablet (Tylenol Tablet) (12/18/19 21:00) Alprazolam Tablet (Xanax Tablet) (12/18/19 21:00) Calcium Carbonate Chew Tablet (Antacid C (12/18/19 21:00) Diphenhydramine Tablet (Benadryl Tablet) (12/18/19 21:00) Docusate Sodium Capsule (Colace Capsule) (12/18/19 21:00) Docusate Sodium Capsule (Colace Capsule) (12/18/19 21:00) Bisacodyl Suppository (Dulcolax Supposit (12/18/19 21:00) Lactulose Oral Solution (Enulose Oral So (12/18/19 21:00) Na Phos/Na Biphos Enema (Fleet Enema Wil (12/18/19 21:00) Guaifenesin/Codeine Syrup (Robitussin Ac (12/18/19 21:00) Loperamide Tablet (Imodium Tablet) (12/18/19 21:00) Enoxaparin Injection (Lovenox Injection) (12/18/19 21:00) Melatonin Tablet (Melatonin Tablet) (12/18/19 21:00) Polyethylene Glycol Powder Pkt (Miralax (12/18/19 21:00) Ondansetron Oral Dissolve Tab (Zofran (12/18/19 21:00) Senna S Tablet (Senokot S Tablet) (12/18/19 21:00) Initiate Admission Nursing Pro .admission (12/18/19 20:59) Admission Arrival Bed Request (12/19/19 10:53) Code/Resuscitation (12/19/19 11:50) Sequential Compression Device Q4H (12/19/19 11:50) General/Regular (12/19/19 Lunch) Acetaminophen Tablet (Tylenol Tablet) (12/19/19 12:00) Albuterol Inhaler (Ventolin Hfa) (12/19/19 12:00) Apixaban Tablet (Eliquis Tablet) (12/19/19 21:00) Docusate Sodium Capsule (Colace Capsule) (12/19/19 12:00) Donepezil Tablet (Aricept Tablet) (12/19/19 21:00) Gabapentin Capsule/Tablet (Neurontin Cap (12/19/19 21:00) Levothyroxine Tablet (Synthroid Tablet) (12/20/19 06:30) Ondansetron Injection (Zofran Injectio (12/19/19 12:00) Senna S Tablet (Senokot S Tablet) (12/19/19 21:00) Sodium Chloride Flush (Catheter Flush Sy (12/19/19 12:00) Polyethylene Glycol Powder Pkt (Miralax (12/19/19 21:00) Flu Quad High Dose [id number] (Fluzone Hi (12/19/19 12:15) Ambulate 08,12,20 (12/19/19 13:00) Sequential Compression Device Q4H (12/19/19 13:00) Dvt/Vte Risk - Notifiy Physici Q4H (12/19/19 13:00) Albuterol Inhaler (Ventolin Hfa) (12/19/19 21:00) Patient Visit (12/19/19 ) Pt Eval Moderate Complexity (12/19/19 ) Functional Activities, Ea 15 (12/19/19 ) Patient Visit (12/19/19 ) Exercise Therap, Ea 15 Min (12/19/19 ) Mat Initiate Protocol (12/20/19 13:28) Patient Visit (12/20/19 ) Exercise Therap, Ea 15 Min (12/20/19 ) Gait Training, Ea 15 Min (12/20/19 ) Functional Activities, Ea 15 (12/20/19 ) Patient Visit (12/20/19 ) Speech Sound Lang Comp (12/20/19 ) Treat. Speech/Lang/Voice (12/20/19 ) Rehab Nursing Orders: Ongoing Assess. of Cognitive Status, Ongoing Assess. of Function Status, Bladder Management, Bladder Scan, Bladder Training, Bowel Manag ement, Bowel Training, Disease Management & Educaiton, DVT Prophylaxis, Fall Prevention, Fluid/Electrolyte/Nutrition Mgmt, Medication Management & Education, Management of Risks & Complications, Nutrition Management, Pain Management, Patient/Family Support, Safety Management Intensity of Therapy to be met Patient to be seen: Min.3h per day/5 of 7d PT IPOC Problem List: Activity Tolerance, Functional Strength, Safety, Balance, Gait, Transfer, Bed Mobility, ROM Treatment Plan: Continue Plan of Care Bed Mobility, Education, Functional Activity Mis[place], Functional Strength, Group Therapy, Gait, Safety, Therapeutic Exercise, Transfers Treatment Duration: Jan 02, 2020 Frequency: At least 5 of 7 days/Wk (IRF) Estimated Hrs Per Day: 1.5 hours per day OT IPOC Problems: Decreased Activ Tolerance, Decreased UE Strength, Impaired Coordi nation, Impaired I ADL's, Impaired Self-Care Skills OT Treatment, Training and Edu: Yes Plan of Care: ADL Retraining, Functional Mobility, Group Exercise/Act as Ind, UE Funct Exercise/Act Treatment Duration: Jan 05, 2020 Frequency: At least 5 of 7 days/Wk (IRF) Estimated Hrs Per Day: 1.[address] IPOC Speech Therapy Treatment Plan: Continue Plan of Care Treatment Duration: Dec 20, 2019 Frequency: Modified Program (IRF) Estimated Hrs Per Day: Other Insurance Counsel/Case Mgmt Insurance Counsel/Case Managemen: Discharge Planning Dietitian/Sports Medicine Coordinator Dietitian/Sports Medicine Coordinator to monitor nutritional status and make changes and/or recommendations as needed and work with speech pathology on dietary upgrades as the occur. Physician IPOC Medical Issues being managed closely and that require the 24 hour availability of a physician: Recent long hospital stay for COVID 19 and resp failure and failed at home 2 hours after DC will need close f/u for resp compromise. Medical Issues: Bowel/Bladder Function, DVT Prophylaxis, Falls Precautions, Fluid/Electrolyte/Nutrition Balance, Infection Protection, Pain Management Brief Synthesis of Preadmission Screen, Post-Admission Evaluation, and Therapy Evaluations: PT OT will focus on regaining independence in ADL's and strengthening and ambulatory skills with O2 saturation monitoring. Medical Prognosis: Good Anticipated Length of Stay: 7 days CONCEPCION PEARCE DO Dec 20, 2019 08:52
[2019-12-20] MEDS: DOCUSATE SODIUM 100 MG (COLACE) CAP PO SCH ×2 (09:03→20:02)
[2019-12-20] MEDS: APIXABAN 2.5 MG (ELIQUIS) TABLET PO SCH ×2 (09:04→20:02)
[2019-12-20] MEDS: SENNA W/DOCUSATE (SENOKOT S) TABLET PO SCH ×2 (09:11→19:35)
[2019-12-20] MEDS: polyethylene glycoL POWDER 17 GM (MIRALAX) PACK PO SCH ×2 (09:11→19:35)
--- NOTE | 2019-12-20 09:21 | Occupational Ther Daily Note ---
OT Current Status-Daily Note Subjective Pt seated in recliner, states she needs to get out of the chair as she has been sitting too long. Pt reports some back pain during tx, but did not provide pain rating. Mental Status/Objective Patient Orientation: Person, Place, Time, Situation ADL-Treatment Therapy Code Descriptions/Definitions Functional [place] Measure: 0=Not Assessed/NA 4=Minimal Assistance 1=Total Assistance 5=Supervision or Setup 2=Maximal Assistance 6=Modified [place] 3=Moderate Assistance 7=Complete IndependenceSCALE: Activities may be completed with or without assistive devices. 0-Bzezgtbqry-ukrzall completes the activity by him/herself with no assistance from a helper. 5-Set-up or Clean-up Assistance-helper sets up or cleans up; patient completes activity. [place] assists only prior to or following the activity. 4-Supervision or Touching Assistance-helper provides verbal cues and/or touching/steadying and/or contact guard assistance as patient completes activity. Assistance may be provided throughout the activity or intermittently. 3-Partial/Moderate Assistance-helper does LESS THAN HALF the effort. [place] lifts, holds or supports trunk or limbs, but provides less than half the effort. 2-Substantial/Maximal Assistance-helper does MORE THAN HALF the effort. [place] lifts or holds trunk or limbs and provides more than half the effort. 5-Kqoruuwxj-yhwyxs does ALL the effort. Patient does none of the effort to complete the activity. Or, the assistance of 2 or more helpers is required for the patient to complete the activity. If activity was not attempted, code reason: 7-Patient Refused. 9-Not Applicable-not attempted and the patient did not perform the activity before the current illness, exacerbation or injury. 10-Not Attempted due to Environmental Limitations-(lack of equipment, weather restraints, etc.). 88-Not Attempted due to Medical Conditions or Safety Concerns. Eating (QC): 6 (Pt reports being able to cut breakfast, and eat without difficulty.) Oral Hygiene (QC): 4 (SBA standing at sink) Upper Body Dressing (QC): 5 (set up, pt able to don button up shirt with set up assist) Lower Body Dressing (QC): 4 (Pt able to don lounge pants with SBA in stand at FWW for pant hike) Toileting Hygiene (QC): 4 (SBA, pt able to manage clothes and perform hygiene.) Toilet Transfer (QC): 4 (SBA) Other Treatment Pt seated in recliner, agreeable to OT. OT gathered clothes and ADL supplies, pt then used FWW to transfer from recliner, into the restroom and onto toilet with SBA. Pt completed toileting and dressing at toilet, then stood at FWW for pant hike. Pt stood at sink to perform oral hygiene, SBA, then OT placed chair behind pt and pt had a seated rest break. Pt declined brushing her hair on this date, but able to comb her fingers through her hair. Pt stood at FWW, ambulating from room to therapy gym using FWW with SBA, pt took standing rest breaks as needed, once in gym pt took a seated rest break. OT tx focused on increasing BUE strength and endurance as well as fine motor strength and coordination. Pt completed arm bike, min resistance x5 mins with multiple rest breaks. Pt required min cues to maintain consistent pace. Pt then completed fine motor task with moderate resistance red theraputty, pt instructed to remove beads from putty. Pt took a rest break, then used FWW to perform functional mobility back to her room, with multiple standing rest breaks, pt declined seated rest break. Once in room, pt sat EOB, then transferred supine with SBA. Post OT tx, pt laying in bed, call light in reach and all needs met. Education OT Patient Education: Correct positioning, Energy conservation, Exercise program, Modified ADL techniques, Progress toward Goal/Update tx plan, Purpose of tx/functional activities, Safety issues, Transfer techniques Teaching Recipient: Patient Teaching Methods: Discussion Response to Teaching: Verbalize Understanding OT Fiscal Agent Goals Shelter Goals Time Frame: Jan 05, 2020 Eating (QC): 6 Oral Hygiene (QC): 6 Toileting Hygiene (QC): 6 Shower/Bathe Self (QC): 6 Upper Body Dressing (QC): 6 Lower Body Dressing (QC): 6 On/Off Footwear (QC): 6 Additional Goals: 1-Demonstrate ADL Tasks, 2-Verbalize Understanding, 3- ImproveStrength/Misael 1=Demonstrate adherence to instructed precautions during ADL tasks. 2=Patient will verbalize/demonstrate understanding of assistive devices/modifications for ADL. 3=Patient will improve strength/tolerance for activity to enable patient to perform ADL's. OT Education/Plan Problem List/Assessment Assessment: Decreased Activ Tolerance, Decreased UE Strength, Impaired I ADL's, Impaired Self-Care Skills Discharge Recommendations Plan/Recommendations: Continue POC Treatment Plan/Plan of Care Patient would benefit from OT for education, treatment and training to promote independence in ADL's, mobility, safety and/or upper extremity function for ADL's. Plan of Care: ADL Retraining, Functional Mobility, Group Exercise/Act as Ind, UE Funct Exercise/Act Treatment Duration: Jan 05, 2020 Frequency: At least 5 of 7 days/Wk (IRF) Estimated Hrs Per Day: 1.5 hours per day Rehab Potential: Fair Time/GCodes Start Time: 08:00 Stop Time: 09:00 Total Time Billed (hr/min): 60 Billed Treatment Time 1, ADL 2 (30'), EX (10'), FA (20') SUSIE MCGOVERN OT Dec 20, 2019 09:21
--- NOTE | 2019-12-20 10:30 | ST Cognitive Linguistic Eval ---
Speech Evaluation-General Medical Diagnosis Critical illness myopathy. Onset Date: Dec 15, 2019 Therapy Diagnosis Therapy Diagnosis: Cognitive-communication Referral Referring Physician: Dr. England Medical History Pertinent Medical History: Atrial Fib, Dementia, Hypothroidism Reviewed History: Yes Social History Current Living Status: Spouse Speech PLF-Current Status Prior Level of Function Patient lived at home with her where she leads an active life. She states she stays busy including doing her own meal preparation. Subjective Patient was pleasant and cooperative with the cognitive assessment. Language Eval: Auditory Comprehends Simple Yes/No Ques: Functional Indent/Objects Multiple [place]: Functional Ident/Pics in Multiple [place]: Functional Follows 1-Step Commands: Functional Follows Complex Directions: Mild Follows General Conversations: Functional Language Eval: Verbal Language Completes Spontaneous Greeting: Functional Produces Auto, Serial Info: Functional Imitates Simple Words/Phrases: Functional Word Finding: Functional Requests Basic Needs: Functional States Basic Personal Info: Functional Expresses Complex Ideas: Mild Objective Cognitive Domain Attention: WNL Memory: Mild Problem Solving: Functional Executive Functions: WNL Visuospatial Skills: WNL Composite Severity Rating: Mild Clock Drawing Severity Rating: WNL Objective Formal/Standardized Tests [facility] Status ([facility]) Results 25/30, Mild Neurocognitive Disorder range of function Oral Motor/Speech Production Within Normal Limits Impression The patient is a pleasant 84 y/o female who was admitted to the ARU due to weakness. The patient has been hospitalized for the past 3 weeks due to pneumonia and has become very week. The patient was given the SLUMS at bedside with a score of 25/30 obtained. The patient's score is within the MNCD range of function. The patient qualifies for skilled ST which she will receive with focus on returning home safely. Speech Patient Assess Expression of Ideas/Wants: Exhibits (3) Understanding Verbal Content: Usually Understands (3) Brief Interview-Mental Status: Yes Repetition of Three Words: Three (3) Temporal Orientation: Year: Correct (3) Temporal Orientation: Month: Accurate within 5 days(2) Temporal Orientation: Day: Correct (1) Recall : Wear to say "Sock": Yes,after cueing (1) Recall : Color: No, could not recall (0) Recall : Bed: Yes,after cueing (1) Memory/Recall Ability: Current season, That he or she is in a hsp/hsp unit Speech Short Term Goals Short Term Goals Short Term Goals 1) Patient will complete memory tasks related to her daily needs at 90% with minimal cues. 2) Patient will complete safety awareness tasks related to her daily needs at 90% with minimal cues. 3) Patient will complete problem solving tasks related to her daily needs at 90% with minimal cues. Speech Process Controller Goals Process Controller Goals Patient will improve her cognitive-communication abilities in order to complete daily tasks with minimal assist. Speech-Plan Patient/Family Goals Patient/Family Goals: Patient plans on returning to her home where she lives with her . She has family nearby for assistance as needed. Treatment Plan Speech Therapy Treatment Plan: Continue Plan of Care Treatment Duration: Dec 29, 2019 Frequency: 4 times per week (Patient will receive skilled ST 4-5x per week) Estimated Hrs Per Day: .5 hour per day Rehab Potential: Fair Barriers to Learning: Patient's recent illnes, age Pt/Family Agrees to Plan: Yes Safety Risks/Education Teaching Recipient: Patient Teaching Methods: Discussion Response to Teaching: Verbalize Understanding Education Topics Provided: Safety within her room and communication of wants/needs Time Speech Therapy Time In: 09:30 Speech Therapy Time Out: 10:00 Total Billed Time: 30 Billed Treatment Time 1, MARIFER BURLESON [address] [address] Dec 20, 2019 10:30
--- NOTE | 2019-12-20 11:58 | Physical Therapy Daily Note ---
PT Daily Note-Current Subjective Pt. agrees to Rx, feels she has made great gains, did not use AD prior to this crisis Pain Location: No Pain Reported Mental Status Patient Orientation: Person, Place, Time, Situation Attachments: Other-See Comments (mask while out of room) Transfers SCALE: Activities may be completed with or without assistive devices. 1-Qeczikdweh-tqjgmwu completes the activity by him/herself with no assistance from a helper. 5-Set-up or Clean-up Assistance-helper sets up or cleans up; patient completes activity. [place] assists only prior to or following the activity. 4-Supervision or Touching Assistance-helper provides verbal cues and/or touching/steadying and/or contact guard assistance as patient completes activity. Assistance may be provided throughout the activity or intermittently. 3-Partial/Moderate Assistance-helper does LESS THAN HALF the effort. [place] lifts, holds or supports trunk or limbs, but provides less than half the effort. 2-Substantial/Maximal Assistance-helper does MORE THAN HALF the effort. [place] lifts or holds trunk or limbs and provides more than half the effort. 7-Zsodqhmar-ecqinr does ALL the effort. Patient does none of the effort to complete the activity. Or, the assistance of 2 or more helpers is required for the patient to complete the activity. If activity was not attempted, code reason: 7-Patient Refused. 9-Not Applicable-not attempted and the patient did not perform the activity before the current illness, exacerbation or injury. 10-Not Attempted due to Environmental Limitations-(lack of equipment, weather restraints, etc.). 88-Not Attempted due to Medical Conditions or Safety Concerns. Roll Left & Right (QC): 6 Sit to Lying (QC): 6 Lying to Sitting/Side of Bed(Q: 6 Sit to Stand (QC): 6 Chair/Vsz-yz-Bctjl Xfer(QC): 6 Toilet Transfer (QC): 6 Weight Bearing Full Weight Bearing Full Weight Bearing Gait Training Does the Patient Walk?: Yes Walk 10 feet (QC): 4 Walk 50 ft with 2 Turns(QC): 4 Walk 150 ft (QC): 4 Gait Persons Needed: 1 Gait Assistive Device: FWW trialed gait without AD in colon at [facility], [facility] no LOB Exercises Supine Ex: Bridging, Ankle pumps, Quad Set, Rolling, Glut sets, Heel Slides, Short Arc Quads, Scooting, Straight leg raise, Hip abd/add Supine Reps: 12 NuStep Minutes: 8 NuStep Workload: 4 Assessment Current Status: Good Progress pt. required CGA at end of Rx during gait as she c/o some "wooziness" pt. sat for rest and dizziness left PT Short Term Goals Short Term Goals Time Frame: Dec 26, 2019 Roll Left & Right: 6 Sit to lyin Lying to sitting on side of be: 6 Sit to stand: 6 Chair/ljs-iv-lqerw transfer: 6 Walk 10 feet: 6 Walk 50 feet with two turns: 6 1 step (curb): 6 Picking up objects: 4 PT Revenue Specialist Goals Alf Goals PT Revenue Specialist Goals Time Frame: Jan 09, 2020 Roll Left & Right (QC): 6 Sit to Lying (QC): 6 Lying-Sitting on Side/Bed(QC): 6 Sit to Stand (QC): 6 Chair/Luv-ah-Zxqgi Xfer(QC): 6 Toilet Transfer (QC): 6 Car Transfer (QC): 6 Does the Patient Walk: Yes Walk 10 feet (QC): 6 Walk 50ft with 2 Turns (QC): 6 Walk 150 ft (QC): 6 Walking 10ft on Uneven Surface: 6 1 Step (curb) (QC): 6 4 Steps (QC): 6 12 Steps (QC): 88 Picking up an Object (QC): 6 Does the Pt use WC or Scooter?: No Wheel 50 feet with 2 turns (QC: 9 Type: N/A Wheel 150 feet: 9 Type: N/A PT Plan Treatment/Plan Treatment Plan: Continue Plan of Care Treatment Plan: Bed Mobility, Education, Functional Activity Misael, Functional Strength, Group Therapy, Gait, Safety, Therapeutic Exercise, Transfers Treatment Duration: Jan 02, 2020 Frequency: At least 5 of 7 days/Wk (IRF) Estimated Hrs Per Day: 1.5 hours per day Patient and/or Family Agrees t: Yes Safety Risks/Education Patient Education: Gait Training, Transfer Techniques, Correct Positioning, Disease Process, Safety Issues Teaching Recipient: Patient Teaching Methods: Demonstration, Discussion Response to Teaching: Verbalize Understanding, Return Demonstration, Reinforcement Needed Time/GCodes Time In: 1100 Time Out: 1200 Total Billed Treatment Time: 60 Total Billed Treatment 1,EX30m,GT30m LESLY JONES METAL PICKLING EQUIPMENT OPERATOR Dec 20, 2019 11:58
--- NOTE | 2019-12-20 13:15 | Occupational Ther Daily Note ---
OT Current Status-Daily Note Subjective Pt seated in recliner, agreeable to OT tx, pt requests to go to bed post tx due to soreness in buttocks from sitting up. ADL-Treatment Therapy Code Descriptions/Definitions Functional [place] Measure: 0=Not Assessed/NA 4=Minimal Assistance 1=Total Assistance 5=Supervision or Setup 2=Maximal Assistance 6=Modified [place] 3=Moderate Assistance 7=Complete IndependenceSCALE: Activities may be completed with or without assistive devices. 7-Ngnjwpiuax-dzdndya completes the activity by him/herself with no assistance from a helper. 5-Set-up or Clean-up Assistance-helper sets up or cleans up; patient completes activity. [place] assists only prior to or following the activity. 4-Supervision or Touching Assistance-helper provides verbal cues and/or touching/steadying and/or contact guard assistance as patient completes acti vity. Assistance may be provided throughout the activity or intermittently. 3-Partial/Moderate Assistance-helper does LESS THAN HALF the effort. [place] lifts, holds or supports trunk or limbs, but provides less than half the effort. 2-Substantial/Maximal Assistance-helper does MORE THAN HALF the effort. [place] lifts or holds trunk or limbs and provides more than half the effort. 2-Epznjfbdg-xulpur does ALL the effort. Patient does none of the effort to complete the activity. Or, the assistance of 2 or more helpers is required for the patient to complete the activity. If activity was not attempted, code reason: 7-Patient Refused. 9-Not Applicable-not attempted and the patient did not perform the activity before the current illness, exacerbation or injury. 10-Not Attempted due to Environmental Limitations-(lack of equipment, weather restraints, etc.). 88-Not Attempted due to Medical Conditions or Safety Concerns. Other Treatment Pt seated in recliner, agreeable to OT tx. OT tx with focus on UE exercises to increase BUE strength and functional endurance. Pt completed x20 semiconductor packages sealer squeezes and tip to tip pinches BUEs with moderate resistance red semiconductor packages sealer sponge. Pt then completed x20 reps of the following BUE exercises using 1lb weight: wrist flexion, wrist extension, supination/pronation, elbow flexion/extension, and x10 reps BUE shoulder flexion. Pt took rest breaks as needed with tasks. Pt then used FWW to transfer from recliner to bed with SBA. Post OT tx, pt laying in bed, call light in reach and all needs met. Education OT Patient Education: Correct positioning, Energy conservation, Exercise program, Modified ADL techniques, Progress toward Goal/Update tx plan, Purpose of tx/functional activities, Safety issues Teaching Recipient: Patient Teaching Methods: Discussion Response to Teaching: Verbalize Understanding OT Surgery Aide Goals Surgery Aide Goals Time Frame: Jan 05, 2020 Eating (QC): 6 Oral Hygiene (QC): 6 Toileting Hygiene (QC): 6 Shower/Bathe Self (QC): 6 Upper Body Dressing (QC): 6 Lower Body Dressing (QC): 6 On/Off Footwear (QC): 6 Additional Goals: 1-Demonstrate ADL Tasks, 2-Verbalize Understanding, 3- ImproveStrength/Misael 1=Demonstrate adherence to instructed precautions during ADL tasks. 2=Patient will verbalize/demonstrate understanding of assistive devices/modifications for ADL. 3=Patient will improve strength/tolerance for activity to enable patient to perform ADL's. OT Education/Plan Problem List/Assessment Assessment: Decreased Activ Tolerance, Decreased UE Strength, Impaired I ADL's, Impaired Self-Care Skills Discharge Recommendations Plan/Recommendations: Continue POC Treatment Plan/Plan of Care Patient would benefit from OT for education, treatment and training to promote independence in ADL's, mobility, safety and/or upper extremity function for ADL's. Plan of Care: ADL Retraining, Functional Mobility, Group Exercise/Act as Ind, UE Funct Exercise/Act Treatment Duration: Jan 05, 2020 Frequency: At least 5 of 7 days/Wk (IRF) Estimated Hrs Per Day: 1.5 hours per day Rehab Potential: Fair Time/GCodes Start Time: 13:00 Stop Time: 13:15 Total Time Billed (hr/min): 15 Billed Treatment Time 1, EX SUSIE MCGOVERN OT Dec 20, 2019 13:15
[2019-12-20 13:28] VITALS: BP 99/50
--- NOTE | 2019-12-20 13:41 | NUR ---
RD ASSESSMENT PMHx: afib; hypercholesterolemia; dementia; TBI; hypothyroidism; PT INTERACTION: Pt was awake and pleasant during nutrition assessment. Note pt has dementia, per chart review. Pt states current appetite is good. Note avg PO intake 58% x1d, per chart review. Pt states following a regular diet at home, and has no issues with chewing/swallowing food. Pt states recent issues with constipation, and "my last BM was probably this morning." Note pt currently on bowel regimen of colace BID; senna BID; and miralax BID, per chart review. Pt states no recent wt changes. Note unable to determine recent wt hx, per chart review. ABNORMAL NUTRITION-RELATED LAB VALUES *Labs WNL at this time Est. kcal needs: 1400 kcal | 25 kcal/kg Est. Pro needs: 56 g Pro | 1.0 g Pro/kg PES STATEMENT: Inadequate oral intake (NI-2.1) related to constipation as evidenced by pt interview | avg PO intake 58% x1d INTERVENTION: Continue with current diet order of Regular diet. Add Ensure Enlive (vary) to meals TID, for increased kcal intake. Provides 350 kcal and 20 g Pro per serving. Encouraged pt to eat when able. Will continue to follow and reassess as pt needs, intake, and status change. Amelie Orr, MS RD LD
--- NOTE | 2019-12-20 14:17 | NUR ---
provided prayer and Communion. Pt was anointed on 12/03.
--- NOTE | 2019-12-20 14:40 | Physical Therapy Daily Note ---
PT Daily Note-Current Subjective Agreeable to Rx. Has 2 steps in to her home with one rail Pain Location: No Pain Reported Mental Status Patient Orientation: Normal For Age Attachments: Other-See Comments (mask while out of room) Transfers SCALE: Activities may be completed with or without assistive devices. 2-Potisuwvch-wqqzano completes the activity by him/herself with no assistance from a helper. 5-Set-up or Clean-up Assistance-helper sets up or cleans up; patient completes activity. [place] assists only prior to or following the activity. 4-Supervision or Touching Assistance-helper provides verbal cues and/or touching/steadying and/or contact guard assistance as patient completes activity. Assistance may be provided throughout the activity or intermittently. 3-Partial/Moderate Assistance-helper does LESS THAN HALF the effort. [place] lifts, holds or supports trunk or limbs, but provides less than half the effort. 2-Substantial/Maximal Assistance-helper does MORE THAN HALF the effort. [place] lifts or holds trunk or limbs and provides more than half the effort. 2-Ddjwzokcl-krdkub does ALL the effort. Patient does none of the effort to complete the activity. Or, the assistance of 2 or more helpers is required for the patient to complete the activity. If activity was not attempted, code reason: 7-Patient Refused. 9-Not Applicable-not attempted and the patient did not perform the activity before the current illness, exacerbation or injury. 10-Not Attempted due to Environmental Limitations-(lack of equipment, weather restraints, etc.). 88-Not Attempted due to Medical Conditions or Safety Concerns. in out bed and chair indep Weight Bearing Full Weight Bearing Full Weight Bearing Gait Training Gait Assistive Device: FWW 160ft x 2 SBA Stair Training Stair Training: Handrails/: 2 handrails #of Steps: 4 4 Steps (QC): 4 12 Steps (QC): 88 Stairs: Pattern: Reciprocal fatigued but followed sequence cues well etc Exercises Seated Therapy Exercises: Ankle pumps, Sit to stand, Long arc quads, Hip fl exion Seated Reps: 8 Assessment Current Status: Good Progress PT Short Term Goals Short Term Goals Time Frame: Dec 26, 2019 Roll Left & Right: 6 Sit to lyin Lying to sitting on side of be: 6 Sit to stand: 6 Chair/bit-fs-qiszh transfer: 6 Walk 10 feet: 6 Walk 50 feet with two turns: 6 1 step (curb): 6 Picking up objects: 4 PT Glue Size Machine Operator Goals [facility] Goals PT Glue Size Machine Operator Goals Time Frame: Jan 09, 2020 Roll Left & Right (QC): 6 Sit to Lying (QC): 6 Lying-Sitting on Side/Bed(QC): 6 Sit to Stand (QC): 6 Chair/Lak-vy-Zisal Xfer(QC): 6 Toilet Transfer (QC): 6 Car Transfer (QC): 6 Does the Patient Walk: Yes Walk 10 feet (QC): 6 Walk 50ft with 2 Turns (QC): 6 Walk 150 ft (QC): 6 Walking 10ft on Uneven Surface: 6 1 Step (curb) (QC): 6 4 Steps (QC): 6 12 Steps (QC): 88 Picking up an Object (QC): 6 Does the Pt use WC or Scooter?: No Wheel 50 feet with 2 turns (QC: 9 Type: N/A Wheel 150 feet: 9 Type: N/A PT Plan Treatment/Plan Treatment Plan: Continue Plan of Care Treatment Plan: Bed Mobility, Education, Functional Activity Misael, Functional Strength, Group Therapy, Gait, Safety, Therapeutic Exercise, Transfers Treatment Duration: Jan 02, 2020 Frequency: At least 5 of 7 days/Wk (IRF) Estimated Hrs Per Day: 1.5 hours per day Patient and/or Family Agrees t: Yes Safety Risks/Education Patient Education: Gait Training, Steps, Correct Positioning, Disease Process, Safety Issues Teaching Recipient: Patient Teaching Methods: Demonstration, Discussion Response to Teaching: Verbalize Understanding, Return Demonstration, Reinforcement Needed Time/GCodes Time In: 1415 Time Out: 1430 Total Billed Treatment Time: 15 Total Billed Treatment 1,LESLY VERNON TANK TRUCK MECHANIC Dec 20, 2019 14:40
[2019-12-20 17:19] VITALS: BP 120/64
[2019-12-20] MEDS: DONEPEZIL 10 MG (ARICEPT) TAB PO SCH (20:02)
[2019-12-20] MEDS: GABAPENTIN 100 MG (NEURONTIN) CAP PO SCH (20:02)
[2019-12-21] MEDS: LEVOTHYROXINE 50 MCG (LEVOTHROID) TAB PO SCH (05:41)
[2019-12-21 06:03] VITALS: BP 91/51
[2019-12-21] MEDS: SENNA W/DOCUSATE (SENOKOT S) TABLET PO SCH ×2 (09:07→21:00)
[2019-12-21] MEDS: DOCUSATE SODIUM 100 MG (COLACE) CAP PO SCH ×2 (09:07→21:00)
[2019-12-21] MEDS: APIXABAN 2.5 MG (ELIQUIS) TABLET PO SCH ×2 (09:07→20:54)
[2019-12-21] MEDS: polyethylene glycoL POWDER 17 GM (MIRALAX) PACK PO SCH ×2 (09:08→21:00)
--- NOTE | 2019-12-21 09:40 | Occupational Ther Daily Note ---
OT Current Status-Daily Note Subjective Pt seated in recliner, agreeable to OT tx, pt indicates she would like to wash up this morning, but declines taking a shower. ADL-Treatment Therapy Code Descriptions/Definitions Functional [place] Measure: 0=Not Assessed/NA 4=Minimal Assistance 1=Total Assistance 5=Supervision or Setup 2=Maximal Assistance 6=Modified [place] 3=Moderate Assistance 7=Complete IndependenceSCALE: Activities may be completed with or without assistive devices. 3-Ufurfnbxnj-htqjmwj completes the activity by him/herself with no assistance from a helper. 5-Set-up or Clean-up Assistance-helper sets up or cleans up; patient completes activity. [place] assists only prior to or following the activity. 4-Supervision or Touching Assistance-helper provides verbal cues and/or touching/steadying and/or contact guard assistance as patient completes activity. Assistance may be provided throughout the activity or intermittently. 3-Partial/Moderate Assistance-helper does LESS THAN HALF the effort. [place] lifts, holds or supports trunk or limbs, but provides less than half the effort. 2-Substantial/Maximal Assistance-helper does MORE THAN HALF the effort. [place] lifts or holds trunk or limbs and provides more than half the effort. 0-Qpqwuuqub-czkkvg does ALL the effort. Patient does none of the effort to complete the activity. Or, the assistance of 2 or more helpers is required for the patient to complete the activity. If activity was not attempted, code reason: 7-Patient Refused. 9-Not Applicable-not attempted and the patient did not perform the activity before the current illness, exacerbation or injury. 10-Not Attempted due to Environmental Limitations-(lack of equipment, weather restraints, etc.). 88-Not Attempted due to Medical Conditions or Safety Concerns. Eating (QC): 6 (Pt indicates no difficulty with eating breakfast, states she is able to cut all food and use utensils.) Oral Hygiene (QC): 4 (Supervision standing at sink) Bathing Location: L Arm, R Arm, L Upper Leg, R Upper Leg, L Lower Leg (including foot), R Lower Leg (including foot), Chest, Abdomen, Buttocks, Perineal Area Shower/Bathe Self (QC): 4 (Pt completed sponge bath seated at sink, pt able to was all parts with supervision during stand.) Upper Body Dressing (QC): 5 (set up, pt able to doff/don button up shirt) Lower Body Dressing (QC): 4 (pt able to doff/christiano briefs and pants with supervision in stand) On/Off Footwear: 6 (Pt able to don/doff gripper socks independently) Toileting Hygiene (QC): 4 (SBA due to pt quickly pulling pants down and sitting on toilet due to urgency, pt able to complete hygiene and clothing management) Toilet Transfer (QC): 4 (SBA onto toilet due to urgency, pt transferred off of toilet with supervision) Other Treatment Pt seated in recliner, used FWW to transfer from recliner into bathroom and onto toilet. Once pt reached bathroom door, she indicates she needs to toilet, rushing to the toilet and quickly managing her pants down, SBA due to urgency. Pt completed toileting, then used FWW to stand and go to sink, OT brought chair behind pt and pt sat down. Pt completed sponge bath and dressing seated in chair at sink, requiring min verbal cues for sequencing of sponge bath. Pt then stood at sink to brush her face with supervision in stand, and pt able to independent ly wash her face seated in chair. Pt took seated rest break, then used FWW to ambulate to therapy gym, SBA. Tx focused on increasing BUE strength and functional endurance as well as fine motor strength and coordination to increase independence with functional tasks. Pt first completed fine motor task of removing beads from moderate resistance red theraputty, pt able to find all emily ds without cues. Pt next completed functional task of placing/removing 1" pegs from foam pegboard with 1 lb wrist cuffs BUEs. Pt able to place/remove x100 pegs from pegboard, with instruction to alternate hands with each peg. Pt required moderate cues throughout task to follow instruction. Pt then took a rest break, and performed functional mobility back to her room using FWW, SBA. Pt requests to lay in bed, sitting EOB, then transferring supine with SBA. Post OT tx, pt laying in bed, call light in reach and all needs met. Education OT Patient Education: Correct positioning, Energy conservation, Exercise program, Modified ADL techniques, Progress toward Goal/Update tx plan, Purpose of tx/functional activities, Safety issues Teaching Recipient: Patient Teaching Methods: Discussion Response to Teaching: Verbalize Understanding OT Detention Goals Slip Maker Goals Time Frame: Jan 05, 2020 Eating (QC): 6 Oral Hygiene (QC): 6 Toileting Hygiene (QC): 6 Shower/Bathe Self (QC): 6 Upper Body Dressing (QC): 6 Lower Body Dressing (QC): 6 On/Off Footwear (QC): 6 Additional Goals: 1-Demonstrate ADL Tasks, 2-Verbalize Understanding, 3- ImproveStrength/Misael 1=Demonstrate adherence to instructed precautions during ADL tasks. 2=Patient will verbalize/demonstrate understanding of assistive devices/modifications for ADL. 3=Patient will improve strength/tolerance for activity to enable patient to perform ADL's. OT Education/Plan Problem List/Assessment Assessment: Decreased Activ Tolerance, Decreased UE Strength, Impaired Funct Balance, Impaired I ADL's, Impaired Self-Care Skills Discharge Recommendations Plan/Recommendations: Continue POC Treatment Plan/Plan of Care Patient would benefit from OT for education, treatment and training to promote independence in ADL's, mobility, safety and/or upper extremity function for ADL's. Plan of Care: ADL Retraining, Functional Mobility, Group Exercise/Act as Ind, UE Funct Exercise/Act Treatment Duration: Jan 05, 2020 Frequency: At least 5 of 7 days/Wk (IRF) Estimated Hrs Per Day: 1.5 hours per day Rehab Potential: Fair Time/GCodes Start Time: 08:00 Stop Time: 09:15 Total Time Billed (hr/min): 75 Billed Treatment Time 1, ADL 2 (30'), FA 3 (45') SUSIE MCGOVERN OT Dec 21, 2019 09:40
--- NOTE | 2019-12-21 10:49 | PM&R Progress Note ---
Subjective HPI/CC On Admission Date Seen by Provider: Dec 21, 2019 Time Seen by Provider: 11:00 Subjective/Events-last exam 12/21/19: Pt is doing pretty well UA will be obtained by in-and-out cath because of recurrent UTI in October and she does have incontinence so will evaluate that Daughter asked if she has had a recent chest X-ray but on clinical exam she is doing very well, no fever, labs remain normal and I told her that we will continue the treatment plan as is Oxygen was 91% after she got back from the bathroom BP remains a little bit low but that is chronic Bowels moved this morning Overall doing much better and feels like she is improving Review of Systems General: Fatigue, Malaise Neurological: Weakness Objective Exam Vital Signs Vital Signs Date Time Temp Pulse Resp B/P (MAP) Pulse Ox O2 Delivery O2 Flow Rate FiO2 12/21/19 18:09 Room Air 12/21/19 16:10 37.2 94 18 108/65 (79) 91 12/20/19 13:28 21 Capillary Refill : Less Than 3 Seconds General Appearance: No Apparent Distress, WD/WN, Chronically ill, Thin HEENT: PERRL/EOMI, Normal ENT Inspection, Pharynx Normal Neck: Full Range of Motion, Normal Inspection, Non Tender, Supple, Carotid Bruit Respiratory: Chest Non Tender, Lungs Clear, Normal Breath Sounds, No Accessory Muscle Use, No Respiratory Distress, Decreased Breath Sounds Cardiovascular: Regular Rate, Rhythm, No Edema, No Gallop, No JVD, No Murmur, Normal Peripheral Pulses Gastrointestinal: Normal Bowel Sounds, No Organomegaly, No Pulsatile Mass, Non Tender, Soft Back: Normal Inspection, No CVA Tenderness, No Vertebral Tenderness Extremity: Normal Capillary Refill, Normal Inspection, Normal Range of Motion, Non Tender, No Calf Tenderness, No Pedal Edema Neurologic/Psychiatric: Alert, Oriented x3, No Motor/Sensory Deficits, Normal Mood/Affect, 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 FIM Transfers Therapy Code Descriptions/Definitions Functional [place] Measure: 0=Not Assessed/NA 4=Minimal Assistance 1=Total Assistance 5=Supervision or Setup 2=Maximal Assistance 6=Modified [place] 3=Moderate Assistance 7=Complete IndependenceSCALE: Activities may be completed with or without assistive devices. 4-Gedwywswpw-enthhjm completes the activity by him/herself with no assistance from a helper. 5-Set-up or Clean-up Assistance-helper sets up or cleans up; patient completes activity. [place] assists only prior to or following the activity. 4-Supervision or Touching Assistance-helper provides verbal cues and/or touching/steadying and/or contact guard assistance as patient completes activity. Assistance may be provided throughout the activity or intermittently. 3-Partial/Moderate Assistance-helper does LESS THAN HALF the effort. [place] lifts, holds or supports trunk or limbs, but provides less than half the effort. 2-Substantial/Maximal Assistance-helper does MORE THAN HALF the effort. [place] lifts or holds trunk or limbs and provides more than half the effort. 0-Fnghuaarf-cxtkmn does ALL the effort. Patient does none of the effort to complete the activity. Or, the assistance of 2 or more helpers is required for the patient to complete the activity. If activity was not attempted, code reason: 7-Patient Refused. 9-Not Applicable-not attempted and the patient did not perform the activity before the current illness, exacerbation or injury. 10-Not Attempted due to Environmental Limitations-(lack of equipment, weather restraints, etc.). 88-Not Attempted due to Medical Conditions or Safety Concerns. Roll Left to Right (QC): 6 Sit to Lying (QC): 6 Sit to Stand (QC): 6 Chair/Dzf-eg-Ksgcc Xfer(QC): 6 Car Transfer (QC): 4 Gait Training Does the Patient Walk?: Yes Distance: 3' Walk 10 feet (QC): 4 Walk 50 ft with 2 Turns(QC): 4 Walk 150 ft (QC): 4 Walking 10ft/uneven surface-QC: 4 Gait Persons Needed: 1 Gait Assistive Device: FWW Wheelchair Training Does the Pt Use a Wheelchair?: No Wheel 50 ft with 2 turns (QC): 9 Wheel 150 ft (QC): 9 Stair Training Stair Training: Handrails/: 2 handrails #of Steps: 4 1 Step (curb) (QC): 4 4 Steps (QC): 4 12 Steps (QC): 88 Stairs: Pattern: Reciprocal Balance Picking up an Object (QC): 88 ADL-Treatment Eating (QC): 6 (Pt indicates no difficulty with eating breakfast, states she is able to cut all food and use utensils.) Oral Hygiene (QC): 4 (Supervision standing at sink) Bathing Location: L Arm, R Arm, L Upper Leg, R Upper Leg, L Lower Leg (including foot), R Lower Leg (including foot), Chest, Abdomen, Buttocks, Perineal Area Shower/Bathe Self (QC): 4 (Pt completed sponge bath seated at sink, pt able to was all parts with supervision during stand.) Upper Body Dressing (QC): 5 (set up, pt able to doff/don button up shirt) Lower Body Dressing (QC): 4 (pt able to doff/christiano briefs and pants with supervision in stand) On/Off Footwear (QC): 6 (Pt able to don/doff gripper socks independently) Toileting Hygiene (QC): 4 (SBA due to pt quickly pulling pants down and sitting on toilet due to urgency, pt able to complete hygiene and clothing management) Toilet Transfer (QC): 4 (SBA onto toilet due to urgency, pt transferred off of toilet with supervision) Assessment/Plan Assessment and Plan Assess & Plan/Chief Complaint Assessment: Myopathy COVID-19 AF Dementia Hypothyroidism Poor reserve Advanced age DNR Incontinence Plan: IRF protocol Current med-surg meds to continue Monitor BP 12/20/19: Monitor O2 Fall risk Eval memory again 12/21/19: UA Monitor incontinence IS use (1) Myopathy (2) COVID-19 Status: Acute (3) Debility Status: Acute (4) Dementia Status: Chronic (5) Atrial fibrillation Status: Chronic (6) Acute respiratory failure due to COVID-19 Status: Acute (7) Generalized weakness Status: Acute CONCEPCION PEARCE DO Dec 21, 2019 10:49
--- NOTE | 2019-12-21 10:54 | Speech Therapy Daily Note ---
Speech Daily Progress Note Subjective Date Seen by Provider: Dec 21, 2019 Time Seen by Provider: 00:30 Patient was resting in bed following her OT session. Patient states she didn't sleep last night. Objective Patient completed a series of questions related to her daily routine at home with 80% accuracy given minimal cuing. Assessment Assessment Current Status: Good Progress Treatment Plan Continue Plan of Care Speech Short Term Goals Short Term Goals Short Term Goals 1) Patient will complete memory tasks related to her daily needs at 90% with minimal cues. 2) Patient will complete safety awareness tasks related to her daily needs at 90% with minimal cues. 3) Patient will complete problem solving tasks related to her daily needs at 90% with minimal cues. Speech Agricultural Labor [employer] Manager Goals Penitentiary Goals Patient will improve her cognitive-communication abilities in order to complete daily tasks with minimal assist. Speech-Plan Patient/Family Goals Patient/Family Goals: Patient plans on returning to her home where she lives with her . Treatment Plan Speech Therapy Treatment Plan: Continue Plan of Care Treatment Duration: Dec 20, 2019 Frequency: 4 times per week (Patient will receive skilled ST 4-5x per week) Estimated Hrs Per Day: .5 hour per day Rehab Potential: Fair Barriers to Learning: Patient's recent serious illness, age Pt/Family Agrees to Plan: Yes Safety Risks/Education Teaching Recipient: Patient Teaching Methods: Demonstration, Discussion Response to Teaching: Verbalize Understanding, Return Demonstration Education Topics Provided: Continued communication of wants/needs Time Speech Therapy Time In: 09:30 Speech Therapy Time Out: 10:00 Total Billed Time: 30 Billed Treatment Time 1, KATYA Bell Dec 21, 2019 10:54
--- NOTE | 2019-12-21 10:58 | NUR ---
CM/SS ADMISSION Patient was admitted to ARU 12/19/19 from [facility] medical unit for Critical Illness Myopathy. As reported by her daughter Bushra, patient was exposed to Covid 10/14 and began with sick symptoms 10/27 including poor appetite, lingering UTI, weakness, but had 2 negative Covid screens in October. On 11/20, she began to have fever, chills, and cough and did have positive Covid screen 11/25 at [facility]. She admitted to [facility] 11/29-12/13 with Covid and pneumonia, discharged home with HHC and home O2. She returned same day for readmission with hypoxia. Other than Covid related symptoms, patient diagnoses include dementia, a-fib, new incontinence. Patient resides at home with her spouse, Robert Claros. They apparently are both very active for their age, driving, and independently handling all daily activities. Per patient, Robert has not been stricken with Covid. Patient plans to return home when able and is looking forward to that since she has been hospitalized essentially since 11/30/19. PCP: Dr. Toñito Naylor, DO [address] [place] [address] PH: [phone] FX: [phone] PHARMACY: [facility] INSURANCE: Medicare, [employer] supplement DME: Has FWW and shower chair, Rollator walker. Has home O2 from [facility] from 12/18 failed discharge to home, this remains at the house and may be returned to agency depending on patient's final O2 need at discharge from ARU. BARRIERS TO DISCHARGE: Age coupled with debility and deconditioning from illness since 10/15/19, Covid/pneumonia/hypoxia/UTI, and lengthy hospitalization potentially close to one month. Adequately insured for post hospital services. Patient has support from her spouse, and their local daughter and son. She is very motivated to get better and return home. CONTACTS: Patient and spouse have 5 children, 4 sons and 1 daughter. She has listed two children as contacts: Anibal Claros, Son [address] [place] [address] Bushra Hernandez, Daughter (Youngest child) [address] [place] Patient understands the purpose and process of the weekly Patient Care Conference.
--- NOTE | 2019-12-21 11:30 | NUR ---
CM/SS PATIENT CARE CONFERENCE Reviewed with patient, then discussed with daughter Bushra Hernandez. Both are in agreement to the target discharge of 12/27/19. Bushra is the primary contact and caregiver. HHC: Patient was set up with [facility] at discharge 12/13 but then she presented same day to ED and was readmitted. This agency will be updated when discharged from ARU. DME: New home O2 was coordinated through [facility] at discharge 12/13 with hospital readmission same day as earlier noted. Per Bushra, O2 DME remains at the home until discharge from ARU and home O2 is either continued or terminated. Continue intermittent reviews of patient progress as it pertains to discharge planning.
[2019-12-21] MEDS: RT-ALBUTEROL INHALER HFA (VENTOLIN HFA) 18 GM IH SCH ×2 (11:37→22:15)
--- NOTE | 2019-12-21 12:10 | NUR ---
STRAIGHT CATH DONE WITHOUT DIFFICULTY AND URINE SENT TO LAB.
--- NOTE | 2019-12-21 12:16 | Physical Therapy Daily Note ---
PT Daily Note-Current Subjective Pt sitting up in bed, on phone with family upon arrival. Pt agrees to PT. Pain Numeric Pain Scale: 3 Location: Right Location Body Site: Knee Pain Description: Ache Mental Status Patient Orientation: Person, Place, Situation Transfers SCALE: Activities may be completed with or without assistive devices. 7-Xtxhngilxu-hompbcc completes the activity by him/herself with no assistance from a helper. 5-Set-up or Clean-up Assistance-helper sets up or cleans up; patient completes activity. [place] assists only prior to or following the activity. 4-Supervision or Touching Assistance-helper provides verbal cues and/or touching/steadying and/or contact guard assistance as patient completes activity. Assistance may be provided throughout the activity or intermittently. 3-Partial/Moderate Assistance-helper does LESS THAN HALF the effort. [place] lifts, holds or supports trunk or limbs, but provides less than half the effort. 2-Substantial/Maximal Assistance-helper does MORE THAN HALF the effort. [place] lifts or holds trunk or limbs and provides more than half the effort. 8-Lyczwbito-ufimsv does ALL the effort. Patient does none of the effort to complete the activity. Or, the assistance of 2 or more helpers is required for the patient to complete the activity. If activity was not attempted, code reason: 7-Patient Refused. 9-Not Applicable-not attempted and the patient did not perform the activity before the current illness, exacerbation or injury. 10-Not Attempted due to Environmental Limitations-(lack of equipment, weather restraints, etc.). 88-Not Attempted due to Medical Conditions or Safety Concerns. Roll Left & Right (QC): 6 Sit to Lying (QC): 6 Lying to Sitting/Side of Bed(Q: 6 Sit to Stand (QC): 6 Weight Bearing Full Weight Bearing Full Weight Bearing Gait Training Does the Patient Walk?: Yes Distance: 150', 200' Walk 10 feet (QC): 5 Walk 50 ft with 2 Turns(QC): 5 Walk 150 ft (QC): 5 Gait Persons Needed: 1 Gait Assistive Device: FWW Exercises Standing: Hamstring curls, Heel/toe raises, 3 way Ex=Flex, Abd, Ext, Marching, Mini squats Standing Reps: 15 NuStep Minutes: 10 NuStep Workload: 4 Treatments TF to standing then amb. in hallway. Pt uses NuStep for 10m at 4 followed by RB then Standing Ex at //bars. Pt returns to room to use BR and rest at EOB. All needs met, call light in hand. Assessment Current Status: Good Progress Pt tamiko. tx well. PT Short Term Goals Short Term Goals Time Frame: Dec 26, 2019 Roll Left & Right: 6 Sit to lyin Lying to sitting on side of be: 6 Sit to stand: 6 Chair/bfj-ow-xqsqb transfer: 6 Walk 10 feet: 6 Walk 50 feet with two turns: 6 1 step (curb): 6 Picking up objects: 4 PT Alf Goals [employer] Goals PT Alf Goals Time Frame: Jan 09, 2020 Roll Left & Right (QC): 6 Sit to Lying (QC): 6 Lying-Sitting on Side/Bed(QC): 6 Sit to Stand (QC): 6 Chair/Jyn-rb-Tlpuy Xfer(QC): 6 Toilet Transfer (QC): 6 Car Transfer (QC): 6 Does the Patient Walk: Yes Walk 10 feet (QC): 6 Walk 50ft with 2 Turns (QC): 6 Walk 150 ft (QC): 6 Walking 10ft on Uneven Surface: 6 1 Step (curb) (QC): 6 4 Steps (QC): 6 12 Steps (QC): 88 Picking up an Object (QC): 6 Does the Pt use WC or Scooter?: No Wheel 50 feet with 2 turns (QC: 9 Type: N/A Wheel 150 feet: 9 Type: N/A PT Plan Problem List Problem List: Activity Tolerance Treatment/Plan Treatment Plan: Continue Plan of Care Treatment Plan: Bed Mobility, Education, Functional Activity Misael, Functional Strength, Group Therapy, Gait, Safety, Therapeutic Exercise, Transfers Treatment Duration: Jan 02, 2020 Frequency: At least 5 of 7 days/Wk (IRF) Estimated Hrs Per Day: 1.5 hours per day Patient and/or Family Agrees t: Yes Safety Risks/Education Patient Education: Correct Positioning, Safety Issues Teaching Recipient: Patient Teaching Methods: Discussion Response to Teaching: Verbalize Understanding Time/GCodes Time In: 1100 Time Out: 1200 Total Billed Treatment Time: 60 Total Billed Treatment 1, GT (15m), FA (15m) & EX x2 (30m) LENI FORTUNE ELECTRICAL SUPERINTENDENT Dec 21, 2019 12:16
[2019-12-21 12:20] LABS: BILIRUBIN,URINE NEGATIVE (NEGATIVE); CLARITY,URINE CLEAR; COLOR,URINE YELLOW; GLUCOSE, URINE (UA) NEGATIVE (NEGATIVE); KETONES,URINE NEGATIVE (NEGATIVE); LEUKOCYTE ESTERASE ,URINE NEGATIVE (NEGATIVE); NITRITE,URINE NEGATIVE (NEGATIVE); PROTEIN,URINE NEGATIVE (NEGATIVE)
[2019-12-21 12:26] LABS: BACTERIA,URINE NEGATIVE /HPF
[2019-12-21 12:27] LABS: YEAST,URINE MODERATE /HPF
--- NOTE | 2019-12-21 14:51 | Physical Therapy Daily Note ---
PT Daily Note-Current Subjective Pt laying Supine in bed upon arrival. Pt agrees to PT. Pain Location: No Pain Reported Mental Status Patient Orientation: Person, Place, Time, Eyes Open, Situation Transfers SCALE: Activities may be completed with or without assistive devices. 9-Xeptrsffmo-twqyhsr completes the activity by him/herself with no assistance from a helper. 5-Set-up or Clean-up Assistance-helper sets up or cleans up; patient completes activity. [place] assists only prior to or following the activity. 4-Supervision or Touching Assistance-helper provides verbal cues and/or touching/steadying and/or contact guard assistance as patient completes activity. Assistance may be provided throughout the activity or intermittently. 3-Partial/Moderate Assistance-helper does LESS THAN HALF the effort. [place] lifts, holds or supports trunk or limbs, but provides less than half the effort. 2-Substantial/Maximal Assistance-helper does MORE THAN HALF the effort. [place] lifts or holds trunk or limbs and provides more than half the effort. 5-Vxzjanaxo-oncvve does ALL the effort. Patient does none of the effort to complete the activity. Or, the assistance of 2 or more helpers is required for the patient to complete the activity. If activity was not attempted, code reason: 7-Patient Refused. 9-Not Applicable-not attempted and the patient did not perform the activity before the current illness, exacerbation or injury. 10-Not Attempted due to Environmental Limitations-(lack of equipment, weather restraints, etc.). 88-Not Attempted due to Medical Conditions or Safety Concerns. Sit to Stand (QC): 4 Weight Bearing Full Weight Bearing Full Weight Bearing Gait Training Does the Patient Walk?: Yes Distance: 250' Walk 10 feet (QC): 4 Walk 50 ft with 2 Turns(QC): 4 Walk 150 ft (QC): 4 Gait Persons Needed: 1 Gait Assistive Device: FWW Treatments TF to standing and amb. in hallway. Returns to room to rest in bed with all needs met, call light in hand. Assessment Current Status: Good Progress Pt reports fatigue by end of tx. PT Short Term Goals Short Term Goals Time Frame: Dec 26, 2019 Roll Left & Right: 6 Sit to lyin Lying to sitting on side of be: 6 Sit to stand: 6 Chair/myz-cl-aedvf transfer: 6 Walk 10 feet: 6 Walk 50 feet with two turns: 6 1 step (curb): 6 Picking up objects: 4 PT Poultry Veterinarian Goals Poultry Veterinarian Goals PT Fpc Goals Time Frame: Jan 09, 2020 Roll Left & Right (QC): 6 Sit to Lying (QC): 6 Lying-Sitting on Side/Bed(QC): 6 Sit to Stand (QC): 6 Chair/Puq-hw-Kjjqg Xfer(QC): 6 Toilet Transfer (QC): 6 Car Transfer (QC): 6 Does the Patient Walk: Yes Walk 10 feet (QC): 6 Walk 50ft with 2 Turns (QC): 6 Walk 150 ft (QC): 6 Walking 10ft on Uneven Surface: 6 1 Step (curb) (QC): 6 4 Steps (QC): 6 12 Steps (QC): 88 Picking up an Object (QC): 6 Does the Pt use WC or Scooter?: No Wheel 50 feet with 2 turns (QC: 9 Type: N/A Wheel 150 feet: 9 Type: N/A PT Plan Problem List Problem List: Activity Tolerance Treatment/Plan Treatment Plan: Continue Plan of Care Treatment Plan: Bed Mobility, Education, Functional Activity Misael, Functional Strength, Group Therapy, Gait, Safety, Therapeutic Exercise, Transfers Treatment Duration: Jan 02, 2020 Frequency: At least 5 of 7 days/Wk (IRF) Estimated Hrs Per Day: 1.5 hours per day Patient and/or Family Agrees t: Yes Safety Risks/Education Patient Education: Gait Training, Correct Positioning, Safety Issues Teaching Recipient: Patient Teaching Methods: Discussion Response to Teaching: Verbalize Understanding Time/GCodes Time In: 1350 Time Out: 1405 Total Billed Treatment Time: 15 Total Billed Treatment 1, GT (15m) LENI FORTUNE PTA Dec 21, 2019 14:51
[2019-12-21 16:10] VITALS: BP 108/65
[2019-12-21] MEDS: fluCOnazole (DIFLUCAN) 100 MG TAB PO SCH (18:19)
--- NOTE | 2019-12-21 18:22 | NUR ---
DR. PEARCE INFORMED OF MODERATE AMOUNT OF YEAST IN URINE. ORAL DIFLUCAN AND MICONAZOLE CREAM STARTED PER DR. PEARCE.
[2019-12-21] MEDS: GABAPENTIN 100 MG (NEURONTIN) CAP PO SCH (20:53)
[2019-12-21] MEDS: DONEPEZIL 10 MG (ARICEPT) TAB PO SCH (20:54)
[2019-12-21] MEDS: MICONAZOLE NITRATE 2% CRM 30 GM TP SCH (20:54)
[2019-12-22 06:15] VITALS: BP 123/57
[2019-12-22] MEDS: LEVOTHYROXINE 50 MCG (LEVOTHROID) TAB PO SCH (06:16)
[2019-12-22] MEDS: fluCOnazole (DIFLUCAN) 100 MG TAB PO SCH (07:54)
[2019-12-22] MEDS: DOCUSATE SODIUM 100 MG (COLACE) CAP PO SCH ×2 (07:54→20:09)
[2019-12-22] MEDS: SENNA W/DOCUSATE (SENOKOT S) TABLET PO SCH ×2 (07:54→20:09)
[2019-12-22] MEDS: APIXABAN 2.5 MG (ELIQUIS) TABLET PO SCH ×2 (07:54→20:09)
[2019-12-22] MEDS: MICONAZOLE NITRATE 2% CRM 30 GM TP SCH ×2 (07:55→20:11)
[2019-12-22] MEDS: polyethylene glycoL POWDER 17 GM (MIRALAX) PACK PO SCH ×2 (08:35→20:09)
--- NOTE | 2019-12-22 08:52 | Occupational Ther Daily Note ---
OT Current Status-Daily Note Subjective Pt indicates she is not in any pain, but her back bothers her the majority of the time. Pt agreeable to OT Tx. ADL-Treatment Therapy Code Descriptions/Definitions Functional [place] Measure: 0=Not Assessed/NA 4=Minimal Assistance 1=Total Assistance 5=Supervision or Setup 2=Maximal Assistance 6=Modified [place] 3=Moderate Assistance 7=Complete IndependenceSCALE: Activities may be completed with or without assistive devices. 7-Vtlxtamjsa-iiybwrt completes the activity by him/herself with no assistance from a helper. 5-Set-up or Clean-up Assistance-helper sets up or cleans up; patient completes activity. [place] assists only prior to or following the activity. 4-Supervision or Touching Assistance-helper provides verbal cues and/or touching/steadying and/or contact guard assistance as patient completes activity. Assistance may be provided throughout the activity or intermittently. 3-Partial/Moderate Assistance-helper does LESS THAN HALF the effort. [place] lifts, holds or supports trunk or limbs, but provides less than half the effort. 2-Substantial/Maximal Assistance-helper does MORE THAN HALF the effort. [place] lifts or holds trunk or limbs and provides more than half the effort. 9-Tazxhcovq-rkmcae does ALL the effort. Patient does none of the effort to complete the activity. Or, the assistance of 2 or more helpers is required for the patient to complete the activity. If activity was not attempted, code reason: 7-Patient Refused. 9-Not Applicable-not attempted and the patient did not perform the activity before the current illness, exacerbation or injury. 10-Not Attempted due to Environmental Limitations-(lack of equipment, weather restraints, etc.). 88-Not Attempted due to Medical Conditions or Safety Concerns. Oral Hygiene (QC): 6 (Pt completed oral care seated in chair at sink.) Shower/Bathe Self (QC): 5 (Set up, pt able to wash/dry all parts.) Upper Body Dressing (QC): 6 (Pt gathered clothes from closet, able to don/doff shirt independently.) Lower Body Dressing (QC): 4 (Pt able to don/doff pants/underwear with supervision during stand at FWW) On/Off Footwear: 6 (Pt independent donning/doffing gripper socks.) Other Treatment Pt seated in recliner, agreeable to OT Tx. Pt used FWW to ambulate around room and gather clothes, she then went into the restroom and sat on SC. Pt doffed clothes, completed showering, and donned clothes at SC, with supervision during stand for clothing mangement. Pt took rest breaks as needed. Pt used FWW to stand and go to sink, OT provided pt with chair and pt sat for a rest break. Pt completed oral care and hair brushing independently at sink. Pt used FWW to perform functional mobility to therapy gym, SBA. In order to increase BUE strength and functional endurance, pt completed x10 mins arm bike, min resistance with rest breaks as needed. In order to increase fine motor strength and coordination, pt completed graded clothespin task, placing and removing each clothespin x1set with R hand, and x1 set with L hand. Pt took rest breaks as needed with task. Pt used FWW, returning to her room with SBA, pt requests to lay in bed to rest before her next therapy session. Pt sits EOB with supervision, then transfers supine independently. Post OT tx, pt laying in bed, call light in reach and all needs met. Education OT Patient Education: Correct positioning, Energy conservation, Exercise program, Modified ADL techniques, Progress toward Goal/Update tx plan, Purpose of tx/functional activities Teaching Recipient: Patient Teaching Methods: Discussion Response to Teaching: Verbalize Understanding OT Assisted Goals Sql Consultant Goals Time Frame: Jan 05, 2020 Eating (QC): 6 Oral Hygiene (QC): 6 Toileting Hygiene (QC): 6 Shower/Bathe Self (QC): 6 Upper Body Dressing (QC): 6 Lower Body Dressing (QC): 6 On/Off Footwear (QC): 6 Additional Goals: 1-Demonstrate ADL Tasks, 2-Verbalize Understanding, 3- ImproveStrength/Misael 1=Demonstrate adherence to instructed precautions during ADL tasks. 2=Patient will verbalize/demonstrate understanding of assistive devices/modifications for ADL. 3=Patient will improve strength/tolerance for activity to enable patient to perform ADL's. OT Education/Plan Problem List/Assessment Assessment: Decreased Activ Tolerance, Decreased UE Strength, Impaired I ADL's Discharge Recommendations Plan/Recommendations: Continue POC Treatment Plan/Plan of Care Patient would benefit from OT for education, treatment and training to promote independence in ADL's, mobility, safety and/or upper extremity function for ADL's. Plan of Care: ADL Retraining, Functional Mobility, Group Exercise/Act as Ind, UE Funct Exercise/Act Treatment Duration: Jan 05, 2020 Frequency: At least 5 of 7 days/Wk (IRF) Estimated Hrs Per Day: 1.5 hours per day Rehab Potential: Fair Time/GCodes Start Time: 08:00 Stop Time: 09:15 Total Time Billed (hr/min): 75 Billed Treatment Time 1, ADL 3 (50), EX (10'), FA (15') SUSIE MCGOVERN OT Dec 22, 2019 08:52
--- NOTE | 2019-12-22 10:30 | Physical Therapy Daily Note ---
PT Daily Note-Current Subjective Pt presents up in bathroom with RN upon arrival, agreeable to therapy treatment at this time. Pt with no c/o pain Appearance Following session, pt up in chair with call light and tray, all needs met at this time Mental Status Patient Orientation: Person, Place, Situation Transfers SCALE: Activities may be completed with or without assistive devices. 5-Twdhahznbe-iddezgg completes the activity by him/herself with no assistance from a helper. 5-Set-up or Clean-up Assistance-helper sets up or cleans up; patient completes activity. [place] assists only prior to or following the activity. 4-Supervision or Touching Assistance-helper provides verbal cues and/or touching/steadying and/or contact guard assistance as patient completes activity. Assistance may be provided throughout the activity or intermittently. 3-Partial/Moderate Assistance-helper does LESS THAN HALF the effort. [place] lifts, holds or supports trunk or limbs, but provides less than half the effort. 2-Substantial/Maximal Assistance-helper does MORE THAN HALF the effort. [place] lifts or holds trunk or limbs and provides more than half the effort. 1-Mljjairwx-peplke does ALL the effort. Patient does none of the effort to complete the activity. Or, the assistance of 2 or more helpers is required for the patient to complete the activity. If activity was not attempted, code reason: 7-Patient Refused. 9-Not Applicable-not attempted and the patient did not perform the activity before the current illness, exacerbation or injury. 10-Not Attempted due to Environmental Limitations-(lack of equipment, weather restraints, etc.). 88-Not Attempted due to Medical Conditions or Safety Concerns. Sit to Stand (QC): 6 Weight Bearing Full Weight Bearing Full Weight Bearing Gait Training Distance: 20' Gait Assistive Device: FWW Exercises Seated Therapy Exercises: Ankle pumps, Sit to stand, Long arc quads, Hip flexion, Hip abd/add, Glut set Seated Reps: 20 Standing: Hip Abduction, Marching, Mini squats Standing Reps: 10 Treatments Pt up in bathroom with RN upon arrival, pt then washes hands and ambulates to chair. Pt then completed seated and standing exercises, with multiple seated rest breaks Assessment Current Status: Good Progress Pt continues to report fatigue with exercises, will continue to progress activity tolerance to ensure safety upon dc from hospital PT Short Term Goals Short Term Goals Time Frame: Dec 26, 2019 Roll Left & Right: 6 Sit to lyin Lying to sitting on side of be: 6 Sit to stand: 6 Chair/wfk-af-knpqp transfer: 6 Walk 10 feet: 6 Walk 50 feet with two turns: 6 1 step (curb): 6 Picking up objects: 4 PT Half-Way Goals Light Oil Operator Goals PT Light Oil Operator Goals Time Frame: Jan 09, 2020 Roll Left & Right (QC): 6 Sit to Lying (QC): 6 Lying-Sitting on Side/Bed(QC): 6 Sit to Stand (QC): 6 Chair/Tml-bm-Idqki Xfer(QC): 6 Toilet Transfer (QC): 6 Car Transfer (QC): 6 Does the Patient Walk: Yes Walk 10 feet (QC): 6 Walk 50ft with 2 Turns (QC): 6 Walk 150 ft (QC): 6 Walking 10ft on Uneven Surface: 6 1 Step (curb) (QC): 6 4 Steps (QC): 6 12 Steps (QC): 88 Picking up an Object (QC): 6 Does the Pt use WC or Scooter?: No Wheel 50 feet with 2 turns (QC: 9 Type: N/A Wheel 150 feet: 9 Type: N/A PT Plan Problem List Problem List: Activity Tolerance, Functional Strength, Safety, Balance, Gait, Transfer, Bed Mobility, ROM Treatment/Plan Treatment Plan: Continue Plan of Care Treatment Plan: Bed Mobility, Education, Functional Activity Misael, Functional Strength, Group Therapy, Gait, Safety, Therapeutic Exercise, Transfers Treatment Duration: Jan 02, 2020 Frequency: At least 5 of 7 days/Wk (IRF) Estimated Hrs Per Day: 1.5 hours per day Patient and/or Family Agrees t: Yes Time/GCodes Time In: 955 Time Out: 1025 Total Billed Treatment Time: 30 Total Billed Treatment 1 visit EX (30') FELIPA ALONZO PT Dec 22, 2019 10:30
--- NOTE | 2019-12-22 11:29 | NUR ---
provided prayer and Communion.
--- NOTE | 2019-12-22 11:35 | Speech Therapy Daily Note ---
Speech Daily Progress Note Subjective Date Seen by Provider: Dec 22, 2019 Time Seen by Provider: 00:30 Patient was resting in her bed following her PT session. Objective Patient completed a series of recall of words presented from 4-5 with 80% given min to mod verbal cues. Assessment Assessment Current Status: Good Progress Treatment Plan Continue Plan of Care Speech Short Term Goals Short Term Goals Short Term Goals 1) Patient will complete memory tasks related to her daily needs at 90% with minimal cues. 2) Patient will complete safety awareness tasks related to her daily needs at 90% with minimal cues. 3) Patient will complete problem solving tasks related to her daily needs at 90% with minimal cues. Speech Ems Coordinator Goals Ems Coordinator Goals Patient will improve her cognitive-communication abilities in order to complete daily tasks with minimal assist. Speech-Plan Patient/Family Goals Patient/Family Goals: Patient is scheduled to return to her home where she lives with her on 12/27/2019. Treatment Plan Speech Therapy Treatment Plan: Continue Plan of Care Treatment Duration: Dec 20, 2019 Frequency: 4 times per week (Patient will receive skilled ST 4-5x per week) Estimated Hrs Per Day: .5 hour per day Rehab Potential: Fair Barriers to Learning: Patient's recent serious illness, age Pt/Family Agrees to Plan: Yes Safety Risks/Education Teaching Recipient: Patient Teaching Methods: Demonstration, Discussion Response to Teaching: Verbalize Understanding, Return Demonstration Education Topics Provided: Safety within her room Time Speech Therapy Time In: 09:30 Speech Therapy Time Out: 10:00 Total Billed Time: 30 Billed Treatment Time 1[address]IFER [address] Dec 22, 2019 11:35
--- NOTE | 2019-12-22 11:58 | Physical Therapy Daily Note ---
PT Daily Note-Current Subjective Pt agrees to Rx, feels she has made good progress, just cant sleep at night ,"they tell me this is part of covid" Pain Location: No Pain Reported Mental Status Patient Orientation: Person, Place, Situation Transfers SCALE: Activities may be completed with or without assistive devices. 7-Sccsvbygun-cwhzrfi completes the activity by him/herself with no assistance from a helper. 5-Set-up or Clean-up Assistance-helper sets up or cleans up; patient completes activity. [place] assists only prior to or following the activity. 4-Supervision or Touching Assistance-helper provides verbal cues and/or touching/steadying and/or contact guard assistance as patient completes activity. Assistance may be provided throughout the activity or intermittently. 3-Partial/Moderate Assistance-helper does LESS THAN HALF the effort. [place] lifts, holds or supports trunk or limbs, but provides less than half the effort. 2-Substantial/Maximal Assistance-helper does MORE THAN HALF the effort. [place] lifts or holds trunk or limbs and provides more than half the effort. 6-Szftzswkt-clhikf does ALL the effort. Patient does none of the effort to complete the activity. Or, the assistance of 2 or more helpers is required for the patient to complete the activity. If activity was not attempted, code reason: 7-Patient Refused. 9-Not Applicable-not attempted and the patient did not perform the activity before the current illness, exacerbation or injury. 10-Not Attempted due to Environmental Limitations-(lack of equipment, weather restraints, etc.). 88-Not Attempted due to Medical Conditions or Safety Concerns. Roll Left & Right (QC): 6 Sit to Lying (QC): 6 Lying to Sitting/Side of Bed(Q: 6 Sit to Stand (QC): 6 Chair/Iqs-pk-Uuwix Xfer(QC): 6 Toilet Transfer (QC): 6 Weight Bearing Full Weight Bearing Full Weight Bearing Gait Training Does the Patient Walk?: Yes Walk 10 feet (QC): 4 Walk 50 ft with 2 Turns(QC): 4 Walk 150 ft (QC): 4 Gait Persons Needed: 1 Gait Assistive Device: FWW Stair Training Stair Training: Handrails/: 2 handrails #of Steps: 4 4 Steps (QC): 4 Stairs: Pattern: Reciprocal Exercises Supine Ex: Bridging, Ankle pumps, Quad Set, Rolling, Heel Slides, Short Arc Quads, Scooting, Straight leg raise, Hip abd/add Supine Reps: 15 NuStep Minutes: 10 NuStep Workload: 3 Assessment Current Status: Good Progress PT Short Term Goals Short Term Goals Time Frame: Dec 26, 2019 Roll Left & Right: 6 Sit to lyin Lying to sitting on side of be: 6 Sit to stand: 6 Chair/hfm-wc-tsqhx transfer: 6 Walk 10 feet: 6 Walk 50 feet with two turns: 6 1 step (curb): 6 Picking up objects: 4 PT Fpc Goals Fpc Goals PT Sports Commentator Goals Time Frame: Jan 09, 2020 Roll Left & Right (QC): 6 Sit to Lying (QC): 6 Lying-Sitting on Side/Bed(QC): 6 Sit to Stand (QC): 6 Chair/Gks-kk-Kpqcx Xfer(QC): 6 Toilet Transfer (QC): 6 Car Transfer (QC): 6 Does the Patient Walk: Yes Walk 10 feet (QC): 6 Walk 50ft with 2 Turns (QC): 6 Walk 150 ft (QC): 6 Walking 10ft on Uneven Surface: 6 1 Step (curb) (QC): 6 4 Steps (QC): 6 12 Steps (QC): 88 Picking up an Object (QC): 6 Does the Pt use WC or Scooter?: No Wheel 50 feet with 2 turns (QC: 9 Type: N/A Wheel 150 feet: 9 Type: N/A PT Plan Treatment/Plan Treatment Plan: Continue Plan of Care Treatment Plan: Bed Mobility, Education, Functional Activity Misael, Functional Strength, Group Therapy, Gait, Safety, Therapeutic Exercise, Transfers Treatment Duration: Jan 02, 2020 Frequency: At least 5 of 7 days/Wk (IRF) Estimated Hrs Per Day: 1.5 hours per day Patient and/or Family Agrees t: Yes Safety Risks/Education Patient Education: Gait Training, Transfer Techniques, Steps, Correct Positioning, Disease Process, Safety Issues Teaching Recipient: Patient Teaching Methods: Demonstration, Discussion Response to Teaching: Verbalize Understanding, Return Demonstration, Reinforcement Needed Time/GCodes Time In: 1100 Time Out: 1200 Total Billed Treatment Time: 60 Total Billed Treatment 1,GT15m,EX35m,FA10m LESLY JONES MACHINE MAINTENANCE TECHNICIAN Dec 22, 2019 11:58
--- NOTE | 2019-12-22 12:21 | PM&R Progress Note ---
Subjective HPI/CC On Admission Date Seen by Provider: Dec 22, 2019 Time Seen by Provider: 12:30 Subjective/Events-last exam 12/22/19: Much improve status Yeast in UA so treating that with Monistat cream and Diflucan CPAP from home is missing piece so she could not use it will reach out to family BM+ No pain 12/21/19: Pt is doing pretty well UA will be obtained by in-and-out cath because of recurrent UTI in October and she does have incontinence so will evaluate that Daughter asked if she has had a recent chest X-ray but on clinical exam she is doing very well, no fever, labs remain normal and I told her that we will continue the treatment plan as is Oxygen was 91% after she got back from the bathroom BP remains a little bit low but that is chronic Bowels moved this morning Overall doing much better and feels like she is improving Review of Systems Pulmonary: Dyspnea Objective Exam Vital Signs Vital Signs Date Time Temp Pulse Resp B/P (MAP) Pulse Ox O2 Delivery O2 Flow Rate FiO2 12/23/19 05:13 37.2 65 18 95/53 (67) 92 Room Air 12/20/19 13:28 21 Capillary Refill : Less Than 3 Seconds General Appearance: No Apparent Distress, WD/WN, Chronically ill, Thin HEENT: PERRL/EOMI, Normal ENT Inspection, Pharynx Normal Neck: Full Range of Motion, Normal Inspection, Non Tender, Supple, Carotid Bruit Respiratory: Chest Non Tender, Lungs Clear, Normal Breath Sounds, No Accessory Muscle Use, No Respiratory Distress, Decreased Breath Sounds Cardiovascular: Regular Rate, Rhythm, No Edema, No Gallop, No JVD, No Murmur, Normal Peripheral Pulses Gastrointestinal: Normal Bowel Sounds, No Organomegaly, No Pulsatile Mass, Non Tender, Soft Back: Normal Inspection, No CVA Tenderness, No Vertebral Tenderness Extremity: Normal Capillary Refill, Normal Inspection, Normal Range of Motion, Non Tender, No Calf Tenderness, No Pedal Edema Neurologic/Psychiatric: Alert, Oriented x3, No Motor/Sensory Deficits, Normal Mood/Affect, slicing machine operator II-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 FIM Transfers Therapy Code Descriptions/Definitions Functional [place] Measure: 0=Not Assessed/NA 4=Minimal Assistance 1=Total Assistance 5=Supervision or Setup 2=Maximal Assistance 6=Modified [place] 3=Moderate Assistance 7=Complete IndependenceSCALE: Activities may be completed with or without assistive devices. 0-Xmuhbiuowk-npafnjl completes the activity by him/herself with no assistance from a helper. 5-Set-up or Clean-up Assistance-helper sets up or cleans up; patient completes activity. [place] assists only prior to or following the activity. 4-Supervision or Touching Assistance-helper provides verbal cues and/or touching/steadying and/or contact guard assistance as patient completes acti vity. Assistance may be provided throughout the activity or intermittently. 3-Partial/Moderate Assistance-helper does LESS THAN HALF the effort. [place] lifts, holds or supports trunk or limbs, but provides less than half the effort. 2-Substantial/Maximal Assistance-helper does MORE THAN HALF the effort. [place] lifts or holds trunk or limbs and provides more than half the effort. 9-Ctkytjwcb-jxkhfq does ALL the effort. Patient does none of the effort to complete the activity. Or, the assistance of 2 or more helpers is required for the patient to complete the activity. If activity was not attempted, code reason: 7-Patient Refused. 9-Not Applicable-not attempted and the patient did not perform the activity before the current illness, exacerbation or injury. 10-Not Attempted due to Environmental Limitations-(lack of equipment, weather restraints, etc.). 88-Not Attempted due to Medical Conditions or Safety Concerns. Roll Left to Right (QC): 6 Sit to Lying (QC): 6 Sit to Stand (QC): 6 Chair/Bcr-oj-Rnlzg Xfer(QC): 6 Car Transfer (QC): 4 Gait Training Does the Patient Walk?: Yes Distance: 20' Walk 10 feet (QC): 4 Walk 50 ft with 2 Turns(QC): 4 Walk 150 ft (QC): 4 Walking 10ft/uneven surface-QC: 4 Gait Persons Needed: 1 Gait Assistive Device: FWW Wheelchair Training Does the Pt Use a Wheelchair?: No Wheel 50 ft with 2 turns (QC): 9 Wheel 150 ft (QC): 9 Stair Training Stair Training: Handrails/: 2 handrails #of Steps: 4 1 Step (curb) (QC): 4 4 Steps (QC): 4 12 Steps (QC): 88 Stairs: Pattern: Reciprocal Balance Picking up an Object (QC): 88 ADL-Treatment Eating (QC): 6 (Pt indicates no difficulty with eating breakfast, states she is able to cut all food and use utensils.) Oral Hygiene (QC): 6 (Pt completed oral care seated in chair at sink.) Bathing Location: L Arm, R Arm, L Upper Leg, R Upper Leg, L Lower Leg (including foot), R Lower Leg (including foot), Chest, Abdomen, Buttocks, Perineal Area Shower/Bathe Self (QC): 5 (Set up, pt able to wash/dry all parts.) Upper Body Dressing (QC): 6 (Pt gathered clothes from closet, able to don/doff shirt independently.) Lower Body Dressing (QC): 4 (Pt able to don/doff pants/underwear with supervision during stand at FWW) On/Off Footwear (QC): 6 (Pt independent donning/doffing gripper socks.) Toileting Hygiene (QC): 4 (SBA due to pt quickly pulling pants down and sitting on toilet due to urgency, pt able to complete hygiene and clothing management) Toilet Transfer (QC): 4 (SBA onto toilet due to urgency, pt transferred off of toilet with supervision) Assessment/Plan Assessment and Plan Assess & Plan/Chief Complaint Assessment: Myopathy COVID-19 AF Dementia Hypothyroidism Poor reserve Advanced age DNR Incontinence Plan: IRF protocol Current med-surg meds to continue Monitor BP 12/20/19: Monitor O2 Fall risk Eval memory again 12/21/19: UA Monitor incontinence IS use 12/22/19: Treat yeast in UA Monitor O2 (1) Myopathy (2) COVID-19 Status: Acute (3) Debility Status: Acute (4) Dementia Status: Chronic (5) Atrial fibrillation Status: Chronic (6) Acute respiratory failure due to COVID-19 Status: Acute (7) Generalized weakness Status: Acute CONCEPCION PEARCE DO Dec 22, 2019 12:21
[2019-12-22 18:22] VITALS: BP 104/53
[2019-12-22] MEDS: RT-ALBUTEROL INHALER HFA (VENTOLIN HFA) 18 GM IH SCH (19:07)
[2019-12-22] MEDS: DONEPEZIL 10 MG (ARICEPT) TAB PO SCH (20:09)
[2019-12-22] MEDS: GABAPENTIN 100 MG (NEURONTIN) CAP PO SCH (20:09)
[2019-12-23 05:13] VITALS: BP 95/53
[2019-12-23] MEDS: LEVOTHYROXINE 50 MCG (LEVOTHROID) TAB PO SCH (05:53)
[2019-12-23] MEDS: APIXABAN 2.5 MG (ELIQUIS) TABLET PO SCH ×2 (09:01→20:17)
[2019-12-23] MEDS: fluCOnazole (DIFLUCAN) 100 MG TAB PO SCH (09:01)
[2019-12-23] MEDS: MICONAZOLE NITRATE 2% CRM 30 GM TP SCH ×2 (09:01→20:19)
[2019-12-23] MEDS: polyethylene glycoL POWDER 17 GM (MIRALAX) PACK PO SCH ×2 (09:09→19:57)
[2019-12-23] MEDS: DOCUSATE SODIUM 100 MG (COLACE) CAP PO SCH ×3 (09:09→20:18)
[2019-12-23] MEDS: SENNA W/DOCUSATE (SENOKOT S) TABLET PO SCH ×2 (09:09→19:57)
--- NOTE | 2019-12-23 10:33 | Physical Therapy Daily Note ---
PT Daily Note-Current Subjective Pt sitting up in recliner upon arrival; agrees to PT tx. Pain Numeric Pain Scale: 0-No Pain Location: No Pain Reported Mental Status Patient Orientation: Person, Place, Time, Situation Transfers SCALE: Activities may be completed with or without assistive devices. 4-Wegvgksgrt-auzdbhk completes the activity by him/herself with no assistance from a helper. 5-Set-up or Clean-up Assistance-helper sets up or cleans up; patient completes activity. [place] assists only prior to or following the activity. 4-Supervision or Touching Assistance-helper provides verbal cues and/or touching/steadying and/or contact guard assistance as patient completes activity. Assistance may be provided throughout the activity or intermittently. 3-Partial/Moderate Assistance-helper does LESS THAN HALF the effort. [place] l ifts, holds or supports trunk or limbs, but provides less than half the effort. 2-Substantial/Maximal Assistance-helper does MORE THAN HALF the effort. [place] lifts or holds trunk or limbs and provides more than half the effort. 4-Iexhzoxwx-zfwxkb does ALL the effort. Patient does none of the effort to complete the activity. Or, the assistance of 2 or more helpers is required for t he patient to complete the activity. If activity was not attempted, code reason: 7-Patient Refused. 9-Not Applicable-not attempted and the patient did not perform the activity before the current illness, exacerbation or injury. 10-Not Attempted due to Environmental Limitations-(lack of equipment, weather restraints, etc.). 88-Not Attempted due to Medical Conditions or Safety Concerns. Sit to Stand (QC): 4 Weight Bearing Full Weight Bearing Full Weight Bearing Gait Training Does the Patient Walk?: Yes Distance: 150' Gait Persons Needed: 1 Gait Assistive Device: FWW Exercises Seated Therapy Exercises: Ankle pumps, Long arc quads, Hip flexion, Kicking activity, Hip abd/add Seated Reps: 15 Standing: Heel/toe raises, Marching Standing Reps: 15 Treatments Pt ambulates in room and throughout therapy unit w/ FWW at [facility]. Seated and standing ex completed in room. Pt in recliner w/ call light and bedside table w/in reach and all needs met at end of tx. Assessment Current Status: Fair Progress Pt fatigues easily during ambulation and standing ex. Pt requires rest breaks during standing ex. PT Short Term Goals Short Term Goals Time Frame: Dec 26, 2019 Roll Left & Right: 6 Sit to lyin Lying to sitting on side of be: 6 Sit to stand: 6 Chair/sye-ab-xgddx transfer: 6 Walk 10 feet: 6 Walk 50 feet with two turns: 6 1 step (curb): 6 Picking up objects: 4 PT Fruit Room Hand Goals Fruit Room Hand Goals PT Detention Goals Time Frame: Jan 09, 2020 Roll Left & Right (QC): 6 Sit to Lying (QC): 6 Lying-Sitting on Side/Bed(QC): 6 Sit to Stand (QC): 6 Chair/Uud-vt-Fauyq Xfer(QC): 6 Toilet Transfer (QC): 6 Car Transfer (QC): 6 Does the Patient Walk: Yes Walk 10 feet (QC): 6 Walk 50ft with 2 Turns (QC): 6 Walk 150 ft (QC): 6 Walking 10ft on Uneven Surface: 6 1 Step (curb) (QC): 6 4 Steps (QC): 6 12 Steps (QC): 88 Picking up an Object (QC): 6 Does the Pt use WC or Scooter?: No Wheel 50 feet with 2 turns (QC: 9 Type: N/A Wheel 150 feet: 9 Type: N/A PT Plan Problem List Problem List: Activity Tolerance, Functional Strength, Safety, Balance, Gait, Transfer Treatment/Plan Treatment Plan: Continue Plan of Care Treatment Plan: Bed Mobility, Education, Functional Activity Misael, Functional Strength, Group Therapy, Gait, Safety, Therapeutic Exercise, Transfers Treatment Duration: Jan 02, 2020 Frequency: At least 5 of 7 days/Wk (IRF) Estimated Hrs Per Day: 1.5 hours per day Patient and/or Family Agrees t: Yes Safety Risks/Education Patient Education: Gait Training, Safety Issues Teaching Recipient: Patient Teaching Methods: Discussion Response to Teaching: Verbalize Understanding Time/GCodes Time In: 0811 Time Out: 08 Total Billed Treatment Time: 23 Total Billed Treatment 1, EX x1 (15m), GT x1 (8m) JAMESON HUYNH TRIPLE VALVE MECHANIC Dec 23, 2019 10:33
--- NOTE | 2019-12-23 11:27 | PM&R Progress Note ---
Subjective HPI/CC On Admission Date Seen by Provider: Dec 23, 2019 Time Seen by Provider: 11:30 Subjective/Events-last exam 12/23/19: Monistat and Diflucan BM yesterday Improved overall 12/22/19: Much improve status Yeast in UA so treating that with Monistat cream and Diflucan CPAP from home is missing piece so she could not use it will reach out to family BM+ No pain 12/21/19: Pt is doing pretty well UA will be obtained by in-and-out cath because of recurrent UTI in October and she does have incontinence so will evaluate that Daughter asked if she has had a recent chest X-ray but on clinical exam she is doing very well, no fever, labs remain normal and I told her that we will continue the treatment plan as is Oxygen was 91% after she got back from the bathroom BP remains a little bit low but that is chronic Bowels moved this morning Overall doing much better and feels like she is improving Review of Systems General: Fatigue Pulmonary: Dyspnea Objective Exam Vital Signs Vital Signs Date Time Temp Pulse Resp B/P (MAP) Pulse Ox O2 Delivery O2 Flow Rate FiO2 12/24/19 05:11 36.8 57 16 113/57 (75) 98 Nasal Cannula 2.00 12/20/19 13:28 21 Capillary Refill : Less Than 3 Seconds General Appearance: No Apparent Distress, WD/WN, Chronically ill, Thin HEENT: PERRL/EOMI, Normal ENT Inspection, Pharynx Normal Neck: Full Range of Motion, Normal Inspection, Non Tender, Supple, Carotid Bruit Respiratory: Chest Non Tender, Lungs Clear, Normal Breath Sounds, No Accessory Muscle Use, No Respiratory Distress, Decreased Breath Sounds Cardiovascular: Regular Rate, Rhythm, No Edema, No Gallop, No JVD, No Murmur, Normal Peripheral Pulses Gastrointestinal: Normal Bowel Sounds, No Organomegaly, No Pulsatile Mass, Non Tender, Soft Back: Normal Inspection, No CVA Tenderness, No Vertebral Tenderness Extremity: Normal Capillary Refill, Normal Inspection, Normal Range of Motion, Non Tender, No Calf Tenderness, No Pedal Edema Neurologic/Psychiatric: Alert, Oriented x3, No Motor/Sensory Deficits, Normal Mood/Affect, cell phone 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 FIM Transfers Therapy Code Descriptions/Definitions Functional [place] Measure: 0=Not Assessed/NA 4=Minimal Assistance 1=Total Assistance 5=Supervision or Setup 2=Maximal Assistance 6=Modified [place] 3=Moderate Assistance 7=Complete IndependenceSCALE: Activities may be completed with or without assistive devices. 6-Axuyqcrilc-hfufunk completes the activity by him/herself with no assistance from a helper. 5-Set-up or Clean-up Assistance-helper sets up or cleans up; patient completes activity. [place] assists only prior to or following the activity. 4-Supervision or Touching Assistance-helper provides verbal cues and/or touching/steadying and/or contact guard assistance as patient completes activity. Assistance may be provided throughout the activity or intermittently. 3-Partial/Moderate Assistance-helper does LESS THAN HALF the effort. [place] lifts, holds or supports trunk or limbs, but provides less than half the effort. 2-Substantial/Maximal Assistance-helper does MORE THAN HALF the effort. [place] lifts or holds trunk or limbs and provides more than half the effort. 7-Nbxurxuiq-nghvfr does ALL the effort. Patient does none of the effort to complete the activity. Or, the assistance of 2 or more helpers is required for the patient to complete the activity. If activity was not attempted, code reason: 7-Patient Refused. 9-Not Applicable-not attempted and the patient did not perform the activity before the current illness, exacerbation or injury. 10-Not Attempted due to Environmental Limitations-(lack of equipment, weather restraints, etc.). 88-Not Attempted due to Medical Conditions or Safety Concerns. Roll Left to Right (QC): 6 Sit to Lying (QC): 6 Sit to Stand (QC): 4 Chair/Pbx-dw-Caqya Xfer(QC): 6 Car Transfer (QC): 4 Gait Training Does the Patient Walk?: Yes Distance: 150' Walk 10 feet (QC): 4 Walk 50 ft with 2 Turns(QC): 4 Walk 150 ft (QC): 4 Walking 10ft/uneven surface-QC: 4 Gait Persons Needed: 1 Gait Assistive Device: FWW Wheelchair Training Does the Pt Use a Wheelchair?: No Wheel 50 ft with 2 turns (QC): 9 Wheel 150 ft (QC): 9 Stair Training Stair Training: Handrails/: 2 handrails #of Steps: 4 1 Step (curb) (QC): 4 4 Steps (QC): 4 12 Steps (QC): 88 Stairs: Pattern: Reciprocal Balance Picking up an Object (QC): 88 ADL-Treatment Eating (QC): 6 (Pt indicates no difficulty with eating breakfast, states she is able to cut all food and use utensils.) Oral Hygiene (QC): 6 (Pt completed oral care seated in chair at sink.) Bathing Location: L Arm, R Arm, L Upper Leg, R Upper Leg, L Lower Leg (including foot), R Lower Leg (including foot), Chest, Abdomen, Buttocks, Perineal Area Shower/Bathe Self (QC): 5 (Set up, pt able to wash/dry all parts.) Upper Body Dressing (QC): 6 (Pt gathered clothes from closet, able to don/doff shirt independently.) Lower Body Dressing (QC): 4 (Pt able to don/doff pants/underwear with supervision during stand at FWW) On/Off Footwear (QC): 6 (Pt independent donning/doffing gripper socks.) Toileting Hygiene (QC): 4 (SBA due to pt quickly pulling pants down and sitting on toilet due to urgency, pt able to complete hygiene and clothing management) Toilet Transfer (QC): 4 (SBA onto toilet due to urgency, pt transferred off of toilet with supervision) Assessment/Plan Assessment and Plan Assess & Plan/Chief Complaint Assessment: Myopathy COVID-19 AF Dementia Hypothyroidism Poor reserve Advanced age DNR Incontinence Plan: IRF protocol Current med-surg meds to continue Monitor BP 12/20/19: Monitor O2 Fall risk Eval memory again 12/21/19: UA Monitor incontinence IS use 12/22/19: Treat yeast in UA Monitor O2 12/23/19: IRF protocol Improved (1) Myopathy (2) COVID-19 Status: Acute (3) Debility Status: Acute (4) Dementia Status: Chronic (5) Atrial fibrillation Status: Chronic (6) Acute respiratory failure due to COVID-19 Status: Acute (7) Generalized weakness Status: Acute CONCEPCION PEARCE DO Dec 23, 2019 11:27
[2019-12-23 17:01] VITALS: BP 109/61
[2019-12-23] MEDS: RT-ALBUTEROL INHALER HFA (VENTOLIN HFA) 18 GM IH SCH ×2 (17:24→23:14)
[2019-12-23] MEDS: GABAPENTIN 100 MG (NEURONTIN) CAP PO SCH (20:18)
[2019-12-23] MEDS: DONEPEZIL 10 MG (ARICEPT) TAB PO SCH (20:18)
--- NOTE | 2019-12-24 01:00 | NUR ---
Daylight savings time, clocks turned back 1 hour.
[2019-12-24 05:11] VITALS: BP 113/57
[2019-12-24] MEDS: LEVOTHYROXINE 50 MCG (LEVOTHROID) TAB PO SCH (05:55)
--- NOTE | 2019-12-24 06:02 | NUR ---
Pt up to bathroom with FWW. Pt c/o's of dizziness and did require min-mod assist for balance to and from bathroom. Pt back to bed with min assist for bed mobility. Cont to monitor.
[2019-12-24] MEDS: RT-ALBUTEROL INHALER HFA (VENTOLIN HFA) 18 GM IH SCH (07:25)
[2019-12-24] MEDS: APIXABAN 2.5 MG (ELIQUIS) TABLET PO SCH ×2 (08:50→20:31)
[2019-12-24] MEDS: fluCOnazole (DIFLUCAN) 100 MG TAB PO SCH (08:50)
[2019-12-24] MEDS: polyethylene glycoL POWDER 17 GM (MIRALAX) PACK PO SCH ×2 (08:51→20:31)
[2019-12-24] MEDS: DOCUSATE SODIUM 100 MG (COLACE) CAP PO SCH ×2 (08:51→20:31)
[2019-12-24] MEDS: SENNA W/DOCUSATE (SENOKOT S) TABLET PO SCH ×2 (08:51→20:31)
[2019-12-24 08:52] VITALS: BP 104/57
[2019-12-24] MEDS: MICONAZOLE NITRATE 2% CRM 30 GM TP SCH ×2 (08:52→20:32)
--- NOTE | 2019-12-24 12:20 | PM&R Progress Note ---
Subjective HPI/CC On Admission Date Seen by Provider: Dec 24, 2019 Time Seen by Provider: 10:30 Subjective/Events-last exam 12/24/19: Dizziness a bit today Increasing fluid intake No other new issues 12/23/19: Monistat and Diflucan BM yesterday Improved overall 12/22/19: Much improve status Yeast in UA so treating that with Monistat cream and Diflucan CPAP from home is missing piece so she could not use it will reach out to family BM+ No pain 12/21/19: Pt is doing pretty well UA will be obtained by in-and-out cath because of recurrent UTI in October and she does have incontinence so will evaluate that Daughter asked if she has had a recent chest X-ray but on clinical exam she is doing very well, no fever, labs remain normal and I told her that we will continue the treatment plan as is Oxygen was 91% after she got back from the bathroom BP remains a little bit low but that is chronic Bowels moved this morning Overall doing much better and feels like she is improving Review of Systems General: Fatigue, Malaise Pulmonary: Dyspnea Objective Exam Vital Signs Vital Signs Date Time Temp Pulse Resp B/P (MAP) Pulse Ox O2 Delivery O2 Flow Rate FiO2 12/24/19 17:39 36.5 62 16 117/56 (76) 93 Room Air 12/24/19 05:11 2.00 12/20/19 13:28 21 Capillary Refill : Less Than 3 Seconds General Appearance: No Apparent Distress, WD/WN, Chronically ill, Thin HEENT: PERRL/EOMI, Normal ENT Inspection, Pharynx Normal Neck: Full Range of Motion, Normal Inspection, Non Tender, Supple, Carotid B ruit Respiratory: Chest Non Tender, Lungs Clear, Normal Breath Sounds, No Accessory Muscle Use, No Respiratory Distress, Decreased Breath Sounds Cardiovascular: Regular Rate, Rhythm, No Edema, No Gallop, No JVD, No Murmur, Normal Peripheral Pulses Gastrointestinal: Normal Bowel Sounds, No Organomegaly, No Pulsatile Mass, Non Tender, Soft Back: Normal Inspection, No CVA Tenderness, No Vertebral Tenderness Extremity: Normal Capillary Refill, Normal Inspection, Normal Range of Motion, Non Tender, No Calf Tenderness, No Pedal Edema Neurologic/Psychiatric: Alert, Oriented x3, No Motor/Sensory Deficits, Normal Mood/Affect, beauty consultant II-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 FIM Transfers Therapy Code Descriptions/Definitions Functional [place] Measure: 0=Not Assessed/NA 4=Minimal Assistance 1=Total Assistance 5=Supervision or Setup 2=Maximal Assistance 6=Modified [place] 3=Moderate Assistance 7=Complete IndependenceSCALE: Activities may be completed with or without assistive devices. 0-Vewftvqhff-krutyvy completes the activity by him/herself with no assistance from a helper. 5-Set-up or Clean-up Assistance-helper sets up or cleans up; patient completes activity. [place] assists only prior to or following the activity. 4-Supervision or Touching Assistance-helper provides verbal cues and/or touching/steadying and/or contact guard assistance as patient completes activity. Assistance may be provided throughout the activity or intermittently. 3-Partial/Moderate Assistance-helper does LESS THAN HALF the effort. [place] lifts, holds or supports trunk or limbs, but provides less than half the effort. 2-Substantial/Maximal Assistance-helper does MORE THAN HALF the effort. [place] lifts or holds trunk or limbs and provides more than half the effort. 4-Xdkgjkbsw-okmexk does ALL the effort. Patient does none of the effort to complete the activity. Or, the assistance of 2 or more helpers is required for the patient to complete the activity. If activity was not attempted, code reason: 7-Patient Refused. 9-Not Applicable-not attempted and the patient did not perform the activity before the current illness, exacerbation or injury. 10-Not Attempted due to Environmental Limitations-(lack of equipment, weather restraints, etc.). 88-Not Attempted due to Medical Conditions or Safety Concerns. Roll Left to Right (QC): 6 Sit to Lying (QC): 6 Sit to Stand (QC): 4 Chair/Dvd-he-Wkedi Xfer(QC): 6 Car Transfer (QC): 4 Gait Training Does the Patient Walk?: Yes Distance: 150' Walk 10 feet (QC): 4 Walk 50 ft with 2 Turns(QC): 4 Walk 150 ft (QC): 4 Walking 10ft/uneven surface-QC: 4 Gait Persons Needed: 1 Gait Assistive Device: FWW Wheelchair Training Does the Pt Use a Wheelchair?: No Wheel 50 ft with 2 turns (QC): 9 Wheel 150 ft (QC): 9 Stair Training Stair Training: Handrails/: 2 handrails #of Steps: 4 1 Step (curb) (QC): 4 4 Steps (QC): 4 12 Steps (QC): 88 Stairs: Pattern: Reciprocal Balance Picking up an Object (QC): 88 ADL-Treatment Eating (QC): 6 (Pt indicates no difficulty with eating breakfast, states she is able to cut all food and use utensils.) Oral Hygiene (QC): 6 (Pt completed oral care seated in chair at sink.) Bathing Location: L Arm, R Arm, L Upper Leg, R Upper Leg, L Lower Leg (including foot), R Lower Leg (including foot), Chest, Abdomen, Buttocks, Perineal Area Shower/Bathe Self (QC): 5 (Set up, pt able to wash/dry all parts.) Upper Body Dressing (QC): 6 (Pt gathered clothes from closet, able to don/doff shirt independently.) Lower Body Dressing (QC): 4 (Pt able to don/doff pants/underwear with supervision during stand at FWW) On/Off Footwear (QC): 6 (Pt independent donning/doffing gripper socks.) Toileting Hygiene (QC): 4 (SBA due to pt quickly pulling pants down and sitting on toilet due to urgency, pt able to complete hygiene and clothing management) Toilet Transfer (QC): 4 (SBA onto toilet due to urgency, pt transferred off of toilet with supervision) Assessment/Plan Assessment and Plan Assess & Plan/Chief Complaint Assessment: Myopathy COVID-19 AF Dementia Hypothyroidism Poor reserve Advanced age DNR Incontinence Plan: IRF protocol Current med-surg meds to continue Monitor BP 12/20/19: Monitor O2 Fall risk Eval memory again 12/21/19: UA Monitor incontinence IS use 12/22/19: Treat yeast in UA Monitor O2 12/23/19: IRF protocol Improved 12/24/19: Monitor dizziness Labs in am (1) Myopathy (2) COVID-19 Status: Acute (3) Debility Status: Acute (4) Dementia Status: Chronic (5) Atrial fibrillation Status: Chronic (6) Acute respiratory failure due to COVID-19 Status: Acute (7) Generalized weakness Status: Acute CONCEPCION PEARCE DO Dec 24, 2019 12:20
[2019-12-24 17:39] VITALS: BP 117/56
[2019-12-24 20:28] VITALS: BP 117/56
[2019-12-24] MEDS: DONEPEZIL 10 MG (ARICEPT) TAB PO SCH (20:31)
[2019-12-24] MEDS: GABAPENTIN 100 MG (NEURONTIN) CAP PO SCH (20:31)
[2019-12-24] MEDS ORDERED: RT-ALBUTEROL INHALER HFA (VENTOLIN HFA) 18 GM IH PRN (20:45)
[2019-12-25] MEDS: LEVOTHYROXINE 50 MCG (LEVOTHROID) TAB PO SCH (05:34)
[2019-12-25 06:00] VITALS: BP 113/54
[2019-12-25 06:18] LABS: BASOPHILS % (AUTO) 0 % (0-10); EOSINOPHILS # (AUTO) 0.3 10^3/uL (0.0-0.3); EOSINOPHILS % (AUTO) 4 % (0-10); HEMATOCRIT 37 % (35-52); HEMOGLOBIN 11.6 g/dL (11.5-16.0); LYMPHOCYTES # (AUTO) 1.7 10^3/uL (1.0-4.0); LYMPHOCYTES % (AUTO) 29 % (12-44); MEAN CORPUSCULAR HEMOGLOBIN 29 pg (25-34); MEAN CORPUSCULAR HGB CONC 32 g/dL (32-36); MEAN CORPUSCULAR VOLUME 92 fL (80-99); MEAN PLATELET VOLUME 9.9 fL (9.0-12.2); MONOCYTES # (AUTO) 0.5 10^3/uL (0.0-1.0); MONOCYTES % (AUTO) 8 % (0-12); NEUTROPHILS # (AUTO) 3.4 10^3/uL (1.8-7.8); NEUTROPHILS % (AUTO) 57 % (42-75); PLATELET COUNT 220 10^3/uL (130-400); WHITE BLOOD COUNT 5.9 10^3/uL (4.3-11.0)
[2019-12-25 06:26] LABS: ALBUMIN 3.2 GM/DL (3.2-4.5); CHLORIDE 105 MMOL/L (98-107); POTASSIUM 4.2 MMOL/L (3.6-5.0); SODIUM 139 MMOL/L (135-145)
[2019-12-25 06:27] LABS: CALCIUM 9.2 MG/DL (8.5-10.1)
[2019-12-25 06:28] LABS: GLUCOSE 92 MG/DL (70-105); TOTAL PROTEIN 6.2 GM/DL (6.4-8.2)
[2019-12-25 06:29] LABS: CARBON DIOXIDE 25 MMOL/L (21-32)
[2019-12-25 06:30] LABS: BILIRUBIN,TOTAL 0.6 MG/DL (0.1-1.0)
[2019-12-25 06:32] LABS: ALKALINE PHOSPHATASE 68 U/L (40-136); CREATININE SERUM 0.67 MG/DL (0.60-1.30); GFR ESTIMATED > 60
[2019-12-25 06:33] LABS: BUN/CREATININE RATIO 10
[2019-12-25 06:35] LABS: ALANINE AMINOTRANSFERASE 17 U/L (0-55)
--- NOTE | 2019-12-25 08:30 | PM&R Progress Note ---
Subjective HPI/CC On Admission Date Seen by Provider: Dec 25, 2019 Time Seen by Provider: 10:00 Subjective/Events-last exam 12/25/19: Bowels moving pretty well Doing well overall No significant pain issues Discharging on Wednesday Still missing a piece on her CPAP machine so she only wears oxygen at night 12/24/19: Dizziness a bit today Increasing fluid intake No other new issues 12/23/19: Monistat and Diflucan BM yesterday Improved overall 12/22/19: Much improve status Yeast in UA so treating that with Monistat cream and Diflucan CPAP from home is missing piece so she could not use it will reach out to family BM+ No pain 12/21/19: Pt is doing pretty well UA will be obtained by in-and-out cath because of recurrent UTI in October and she does have incontinence so will evaluate that Daughter asked if she has had a recent chest X-ray but on clinical exam she is doing very well, no fever, labs remain normal and I told her that we will continue the treatment plan as is Oxygen was 91% after she got back from the bathroom BP remains a little bit low but that is chronic Bowels moved this morning Overall doing much better and feels like she is improving Review of Systems General: Fatigue, Malaise Neurological: Weakness Objective Exam Vital Signs Vital Signs Date Time Temp Pulse Resp B/P (MAP) Pulse Ox O2 Delivery O2 Flow Rate FiO2 12/25/19 18:17 36.5 89 18 98/64 (75) 93 Room Air 12/24/19 20:28 21 12/24/19 05:11 2.00 Capillary Refill : Less Than 3 Seconds General Appearance: No Apparent Distress, WD/WN, Chronically ill, Thin HEENT: PERRL/EOMI, Normal ENT Inspection, Pharynx Normal Neck: Full Range of Motion, Normal Inspection, Non Tender, Supple, Carotid Bruit Respiratory: Chest Non Tender, Lungs Clear, Normal Breath Sounds, No Accessory Muscle Use, No Respiratory Distress, Decreased Breath Sounds Cardiovascular: Regular Rate, Rhythm, No Edema, No Gallop, No JVD, No Murmur, Normal Peripheral Pulses Gastrointestinal: Normal Bowel Sounds, No Organomegaly, No Pulsatile Mass, Non Tender, Soft Back: Normal Inspection, No CVA Tenderness, No Vertebral Tenderness Extremity: Normal Capillary Refill, Normal Inspection, Normal Range of Motion, Non Tender, No Calf Tenderness, No Pedal Edema Neurologic/Psychiatric: Alert, Oriented x3, No Motor/Sensory Deficits, Normal Mood/Affect, cephalometric tracer II-XII Norm as Tested, Abnormal Gait, Disoriented, Motor Weakness (generalized weakness) Skin: Normal Color, Warm/Dry Lymphatic: No Adenopathy Results/Procedures Lab Laboratory Tests 12/25/19 05:37 Patient resulted labs reviewed. FIM Transfers Therapy Code Descriptions/Definitions Functional [place] Measure: 0=Not Assessed/NA 4=Minimal Assistance 1=Total Assistance 5=Supervision or Setup 2=Maximal Assistance 6=Modified [place] 3=Moderate Assistance 7=Complete IndependenceSCALE: Activities may be completed with or without assistive devices. 6-Yvuvkootwd-zxbqvfj completes the activity by him/herself with no assistance from a helper. 5-Set-up or Clean-up Assistance-helper sets up or cleans up; patient completes activity. [place] assists only prior to or following the activity. 4-Supervision or Touching Assistance-helper provides verbal cues and/or touching/steadying and/or contact guard assistance as patient completes activity. Assistance may be provided throughout the activity or intermittently. 3-Partial/Moderate Assistance-helper does LESS THAN HALF the effort. [place] lifts, holds or supports trunk or limbs, but provides less than half the effort. 2-Substantial/Maximal Assistance-helper does MORE THAN HALF the effort. [place] lifts or holds trunk or limbs and provides more than half the effort. 2-Daufoftuy-pnxnog does ALL the effort. Patient does none of the effort to complete the activity. Or, the assistance of 2 or more helpers is required for the patient to complete the activity. If activity was not attempted, code reason: 7-Patient Refused. 9-Not Applicable-not attempted and the patient did not perform the activity before the current illness, exacerbation or injury. 10-Not Attempted due to Environmental Limitations-(lack of equipment, weather restraints, etc.). 88-Not Attempted due to Medical Conditions or Safety Concerns. Roll Left to Right (QC): 6 Sit to Lying (QC): 6 Sit to Stand (QC): 4 Chair/Iba-vs-Pqajn Xfer(QC): 6 Car Transfer (QC): 4 Gait Training Does the Patient Walk?: Yes Distance: 150' Walk 10 feet (QC): 4 Walk 50 ft with 2 Turns(QC): 4 Walk 150 ft (QC): 4 Walking 10ft/uneven surface-QC: 4 Gait Persons Needed: 1 Gait Assistive Device: FWW Wheelchair Training Does the Pt Use a Wheelchair?: No Wheel 50 ft with 2 turns (QC): 9 Wheel 150 ft (QC): 9 Stair Training Stair Training: Handrails/: 2 handrails #of Steps: 4 1 Step (curb) (QC): 4 4 Steps (QC): 4 12 Steps (QC): 88 Stairs: Pattern: Reciprocal Balance Picking up an Object (QC): 88 ADL-Treatment Eating (QC): 6 (Pt indicates no difficulty with eating breakfast, states she is able to cut all food and use utensils.) Oral Hygiene (QC): 6 (Pt completed oral care seated in chair at sink.) Bathing Location: L Arm, R Arm, L Upper Leg, R Upper Leg, L Lower Leg (including foot), R Lower Leg (including foot), Chest, Abdomen, Buttocks, Perineal Area Shower/Bathe Self (QC): 5 (Set up, pt able to wash/dry all parts.) Upper Body Dressing (QC): 6 (Pt gathered clothes from closet, able to don/doff shirt independently.) Lower Body Dressing (QC): 4 (Pt able to don/doff pants/underwear with supervision during stand at W) On/Off Footwear (QC): 6 (Pt independent donning/doffing gripper socks.) Toileting Hygiene (QC): 4 (SBA due to pt quickly pulling pants down and sitting on toilet due to urgency, pt able to complete hygiene and clothing management) Toilet Transfer (QC): 4 (SBA onto toilet due to urgency, pt transferred off of toilet with supervision) Assessment/Plan Assessment and Plan Assess & Plan/Chief Complaint Assessment: Myopathy COVID-19 AF Dementia Hypothyroidism Poor reserve Advanced age DNR Incontinence Plan: IRF protocol Current med-surg meds to continue Monitor BP 12/20/19: Monitor O2 Fall risk Eval memory again 12/21/19: UA Monitor incontinence IS use 12/22/19: Treat yeast in UA Monitor O2 12/23/19: IRF protocol Improved 12/24/19: Monitor dizziness Labs in am 12/25/19: Monitor bowel function Doing well over all Lungs clear Does not need supplemental oxygen (1) Myopathy (2) COVID-19 Status: Acute (3) Debility Status: Acute (4) Dementia Status: Chronic (5) Atrial fibrillation Status: Chronic (6) Acute respiratory failure due to COVID-19 Status: Acute (7) Generalized weakness Status: Acute CONCEPCION PEARCE DO Dec 25, 2019 08:30
--- NOTE | 2019-12-25 08:41 | Occupational Ther Daily Note ---
OT Current Status-Daily Note Subjective Pt seated in recliner, stating her buttocks was tired from sitting in recliner since 6 AM. Pt agreeable to OT Tx. ADL-Treatment Therapy Code Descriptions/Definitions Functional [place] Measure: 0=Not Assessed/NA 4=Minimal Assistance 1=Total Assistance 5=Supervision or Setup 2=Maximal Assistance 6=Modified [place] 3=Moderate Assistance 7=Complete IndependenceSCALE: Activities may be completed with or without assistive devices. 8-Ykgnefnsfb-livbybc completes the activity by him/herself with no assistance from a helper. 5-Set-up or Clean-up Assistance-helper sets up or cleans up; patient completes activity. [place] assists only prior to or following the activity. 4-Supervision or Touching Assistance-helper provides verbal cues and/or touching/steadying and/or contact guard assistance as patient completes activity. Assistance may be provided throughout the activity or intermittently. 3-Partial/Moderate Assistance-helper does LESS THAN HALF the effort. [place] lifts, holds or supports trunk or limbs, but provides less than half the effort. 2-Substantial/Maximal Assistance-helper does MORE THAN HALF the effort. [place] lifts or holds trunk or limbs and provides more than half the effort. 2-Tqnosrvoq-ygqkqk does ALL the effort. Patient does none of the effort to complete the activity. Or, the assistance of 2 or more helpers is required for the patient to complete the activity. If activity was not attempted, code reason: 7-Patient Refused. 9-Not Applicable-not attempted and the patient did not perform the activity before the current illness, exacerbation or injury. 10-Not Attempted due to Environmental Limitations-(lack of equipment, weather restraints, etc.). 88-Not Attempted due to Medical Conditions or Safety Concerns. Eating (QC): 6 (Pt independent with breakfast, states no difficulty cutting food, opening containers and bringing food to mouth) Upper Body Dressing (QC): 6 (Pt gathered clothing items from closet, doffed hook puller shirt and donned bra/shirt independently.) Lower Body Dressing (QC): 6 (Pt gathered clothing items from closet, donned/doffed lower body clothes independently.) Toileting Hygiene (QC): 6 (Pt completed clothing management and hygiene independently.) Toilet Transfer (QC): 6 (Pt transferred on/off toilet independently using GBs and FWW) Other Treatment Pt seated in recliner, states she would like to change clothes. Pt used FWW to ambulate to her closet, gathered clothing items she would like to wear, then returned to recliner. Pt completed upper body dressing seated, when pt stood up, she indicated she would like to go into the restroom. Pt used FWW to transfer into restroom and onto toilet. Pt completed toileting and lower body dressing. Pt then gathered dirty clothes, and returned them to the closet using the FWW. Pt took a seated rest break, then used FWW to ambulate into therapy gym. In order to increase BUE strength and functional endurance, pt completed x10 mins on arm bike, min resistance, no rest breaks. In order to increase fine motor strength and coordination, pt completed fine motor task of removing beads from moderate resistance red theraputty. Pt used FWW to return to her room, transferring into bed. Post OT Tx, pt laying in bed, call light in reach and all needs met. Education OT Patient Education: Correct positioning, Energy conservation, Modified ADL techniques, Progress toward Goal/Update tx plan, Purpose of tx/functional activities Teaching Recipient: Patient Teaching Methods: Discussion Response to Teaching: Verbalize Understanding OT Correction Goals Soccer Coach Goals Time Frame: Jan 05, 2020 Eating (QC): 6 Oral Hygiene (QC): 6 Toileting Hygiene (QC): 6 Shower/Bathe Self (QC): 6 Upper Body Dressing (QC): 6 Lower Body Dressing (QC): 6 On/Off Footwear (QC): 6 Additional Goals: 1-Demonstrate ADL Tasks, 2-Verbalize Understanding, 3- ImproveStrength/Misael 1=Demonstrate adherence to instructed precautions during ADL tasks. 2=Patient will verbalize/demonstrate understanding of assistive devices/modifications for ADL. 3=Patient will improve strength/tolerance for activity to enable patient to perform ADL's. OT Education/Plan Problem List/Assessment Assessment: Decreased Activ Tolerance, Decreased UE Strength, Impaired I ADL's Discharge Recommendations Plan/Recommendations: Continue POC Treatment Plan/Plan of Care Patient would benefit from OT for education, treatment and training to promote independence in ADL's, mobility, safety and/or upper extremity function for ADL's. Plan of Care: ADL Retraining, Functional Mobility, Group Exercise/Act as Ind, UE Funct Exercise/Act Treatment Duration: Jan 05, 2020 Frequency: At least 5 of 7 days/Wk (IRF) Estimated Hrs Per Day: 1.5 hours per day Rehab Potential: Fair Time/GCodes Start Time: 08:00 Stop Time: 09:00 Total Time Billed (hr/min): 60 Billed Treatment Time 1, ADL 2 (30'), FA 2 (30') SUSIE MCGOVERN OT Dec 25, 2019 08:40
[2019-12-25] MEDS: APIXABAN 2.5 MG (ELIQUIS) TABLET PO SCH ×2 (09:46→20:53)
[2019-12-25] MEDS: SENNA W/DOCUSATE (SENOKOT S) TABLET PO SCH ×2 (09:46→20:58)
[2019-12-25] MEDS: DOCUSATE SODIUM 100 MG (COLACE) CAP PO SCH ×2 (09:46→20:52)
[2019-12-25] MEDS: MICONAZOLE NITRATE 2% CRM 30 GM TP SCH ×2 (09:48→20:57)
[2019-12-25] MEDS: polyethylene glycoL POWDER 17 GM (MIRALAX) PACK PO SCH ×2 (09:49→20:58)
--- NOTE | 2019-12-25 09:55 | Physical Therapy Daily Note ---
PT Daily Note-Current Subjective Pt. states she is feeling well. Anxious for Wed when she is set for DC Pain Location: No Pain Reported Mental Status Patient Orientation: Person, Place, Time, Situation Attachments: Other-See Comments (mask while out of room) Transfers SCALE: Activities may be completed with or without assistive devices. 8-Rrumdomshk-ippdxlf completes the activity by him/herself with no assistance from a helper. 5-Set-up or Clean-up Assistance-helper sets up or cleans up; patient completes activity. [place] assists only prior to or following the activity. 4-Supervision or Touching Assistance-helper provides verbal cues and/or touching/steadying and/or contact guard assistance as patient completes activity. Assistance may be provided throughout the activity or intermittently. 3-Partial/Moderate Assistance-helper does LESS THAN HALF the effort. [place] lifts, holds or supports trunk or limbs, but provides less than half the effort. 2-Substantial/Maximal Assistance-helper does MORE THAN HALF the effort. [place] lifts or holds trunk or limbs and provides more than half the effort. 3-Vbuygrsnt-zazrzr does ALL the effort. Patient does none of the effort to complete the activity. Or, the assistance of 2 or more helpers is required for the patient to complete the activity. If activity was not attempted, code reason: 7-Patient Refused. 9-Not Applicable-not attempted and the patient did not perform the activity before the current illness, exacerbation or injury. 10-Not Attempted due to Environmental Limitations-(lack of equipment, weather restraints, etc.). 88-Not Attempted due to Medical Conditions or Safety Concerns. Roll Left & Right (QC): 6 Sit to Lying (QC): 6 Lying to Sitting/Side of Bed(Q: 6 Sit to Stand (QC): 6 Chair/Zjk-zn-Foyvs Xfer(QC): 6 Weight Bearing Full Weight Bearing Full Weight Bearing Gait Training Does the Patient Walk?: Yes Walk 10 feet (QC): 6 Walk 50 ft with 2 Turns(QC): 6 Walk 150 ft (QC): 6 Gait Assistive Device: FWW pt. ready to trial cane or no AD, no LOB with FWW Exercises Standing: Hip Abduction, Hamstring curls, Heel/toe raises, Marching, Mini squats Standing Reps: 12 NuStep Minutes: 10 NuStep Workload: 4 Treatments leg presses on Nustep x15 Assessment Current Status: Good Progress PT Short Term Goals Short Term Goals Time Frame: Dec 26, 2019 Roll Left & Right: 6 Sit to lyin Lying to sitting on side of be: 6 Sit to stand: 6 Chair/kzs-uo-yfxlg transfer: 6 Walk 10 feet: 6 Walk 50 feet with two turns: 6 1 step (curb): 6 Picking up objects: 4 PT Jail Goals Jail Goals PT Electronics Design Engineer Goals Time Frame: Jan 09, 2020 Roll Left & Right (QC): 6 Sit to Lying (QC): 6 Lying-Sitting on Side/Bed(QC): 6 Sit to Stand (QC): 6 Chair/Qva-fb-Uhnky Xfer(QC): 6 Toilet Transfer (QC): 6 Car Transfer (QC): 6 Does the Patient Walk: Yes Walk 10 feet (QC): 6 Walk 50ft with 2 Turns (QC): 6 Walk 150 ft (QC): 6 Walking 10ft on Uneven Surface: 6 1 Step (curb) (QC): 6 4 Steps (QC): 6 12 Steps (QC): 88 Picking up an Object (QC): 6 Does the Pt use WC or Scooter?: No Wheel 50 feet with 2 turns (QC: 9 Type: N/A Wheel 150 feet: 9 Type: N/A PT Plan Treatment/Plan Treatment Plan: Continue Plan of Care Treatment Plan: Bed Mobility, Education, Functional Activity Misael, Functional Strength, Group Therapy, Gait, Safety, Therapeutic Exercise, Transfers Treatment Duration: Jan 02, 2020 Frequency: At least 5 of 7 days/Wk (IRF) Estimated Hrs Per Day: 1.5 hours per day Patient and/or Family Agrees t: Yes Safety Risks/Education Patient Education: Gait Training, Transfer Techniques, Correct Positioning, Disease Process, Safety Issues Teaching Recipient: Patient Teaching Methods: Demonstration, Discussion Response to Teaching: Verbalize Understanding, Return Demonstration, Reinforcement Needed Time/GCodes Time In: 900 Time Out: 1000 Total Billed Treatment Time: 60 Total Billed Treatment 1,FA15m,GT 15m,EX30m LESLY JONES MANUAL LATHE OPERATOR Dec 25, 2019 09:55
--- NOTE | 2019-12-25 10:50 | Speech Therapy Daily Note ---
Speech Daily Progress Note Subjective Date Seen by Provider: Dec 25, 2019 Time Seen by Provider: 00:30 Patient was resting in her bed following her PT session. The patient states she can't wait to be discharged on Wednesday. Objective Patient completed a series of "what's wrong with this scene?" related to safety at 90% with minimal cues. Assessment Assessment Current Status: Good Progress Treatment Plan Continue Plan of Care Speech Short Term Goals Short Term Goals Short Term Goals 1) Patient will complete memory tasks related to her daily needs at 90% with minimal cues. 2) Patient will complete safety awareness tasks related to her daily needs at 90% with minimal cues. 3) Patient will complete problem solving tasks related to her daily needs at 90% with minimal cues. Speech Mcc Goals Mcc Goals Patient will improve her cognitive-communication abilities in order to complete daily tasks with minimal assist. Speech-Plan Patient/Family Goals Patient/Family Goals: Patient is scheduled to discharge to her home on 12/27/2019. She will have family support for her daily needs. Treatment Plan Speech Therapy Treatment Plan: Continue Plan of Care Treatment Duration: Dec 20, 2019 Frequency: 4 times per week (Patient will receive skilled ST 4-5x per week) Estimated Hrs Per Day: .5 hour per day Rehab Potential: Fair Barriers to Learning: Patient's recent serious illness. Pt/Family Agrees to Plan: Yes Safety Risks/Education Teaching Recipient: Patient Teaching Methods: Demonstration, Discussion Response to Teaching: Verbalize Understanding, Return Demonstration Education Topics Provided: Continued safety within her room and upon her return home Time Speech Therapy Time In: 10:00 Speech Therapy Time Out: 10:30 Total Billed Time: 30 Billed Treatment Time 1, KATYA Bell Dec 25, 2019 10:50
--- NOTE | 2019-12-25 14:30 | Therapy Group Daily Note ---
Therapy Daily Group Note Patient Education Topic Home Safety Exercises LE Seated Exercise, UE Exercise Session Ratio (pt:therapist): 3:1 Goal of Session: Education on ARU Expectations, Home Safety Strategies, UE/LE Strengthing Goal Met for this Session: Yes Pt Benefit of Group: F/U Use of Strategies @Home, Increased Functional Safety, Socialization Other/Notes Pt. participated in group PT OT session. Pt. ambulated to and from session with assist and FWW. Pt. introduced herself and was very social, sharing her home safety tips and experiences . Pts. all participated in seated U&L extremity exercises, and were educated in Home safety techniques via Epuls[employer] Home safety tossed bag in basket in lieu of buzzer. Pt. returned to room with call corley at hand and needs met after session Start Time: 13:00 Stop Time: 14:10 Total Billed Treatment Time: 70 Total Billed Treatment 1,GRP LESLY JONES PALLET SORTER Dec 25, 2019 14:30
[2019-12-25 18:17] VITALS: BP 98/64
--- NOTE | 2019-12-25 19:06 | NUR ---
Bedside report received from LENI LOYD, assume care of pt
[2019-12-25] MEDS: DONEPEZIL 10 MG (ARICEPT) TAB PO SCH (20:52)
[2019-12-25] MEDS: GABAPENTIN 100 MG (NEURONTIN) CAP PO SCH (20:53)
--- NOTE | 2019-12-25 20:53 | NUR ---
pt stated had good BM today, refused miralax & senoskot, pt did own vaginal cream herself
[2019-12-26 05:54] VITALS: BP 100/59
[2019-12-26] MEDS: LEVOTHYROXINE 50 MCG (LEVOTHROID) TAB PO SCH (05:58)
--- NOTE | 2019-12-26 08:21 | Occupational Ther Daily Note ---
OT Current Status-Daily Note Subjective Pt states she feels ready to go home tomorrow. ADL-Treatment Therapy Code Descriptions/Definitions Functional [place] Measure: 0=Not Assessed/NA 4=Minimal Assistance 1=Total Assistance 5=Supervision or Setup 2=Maximal Assistance 6=Modified [place] 3=Moderate Assistance 7=Complete IndependenceSCALE: Activities may be completed with or without assistive devices. 8-Lnxceyzuxl-kluerlo completes the activity by him/herself with no assistance from a helper. 5-Set-up or Clean-up Assistance-helper sets up or cleans up; patient completes activity. [place] assists only prior to or following the activity. 4-Supervision or Touching Assistance-helper provides verbal cues and/or touching/steadying and/or contact guard assistance as patient completes activity. Assistance may be provided throughout the activity or intermittently. 3-Partial/Moderate Assistance-helper does LESS THAN HALF the effort. [place] lifts, holds or supports trunk or limbs, but provides less than half the effort. 2-Substantial/Maximal Assistance-helper does MORE THAN HALF the effort. [place] lifts or holds trunk or limbs and provides more than half the effort. 8-Zulintxnj-sjogoa does ALL the effort. Patient does none of the effort to complete the activity. Or, the assistance of 2 or more helpers is required for the patient to complete the activity. If activity was not attempted, code reason: 7-Patient Refused. 9-Not Applicable-not attempted and the patient did not perform the activity before the current illness, exacerbation or injury. 10-Not Attempted due to Environmental Limitations-(lack of equipment, weather restraints, etc.). 88-Not Attempted due to Medical Conditions or Safety Concerns. Eating (QC): 6 (Pt indicates no difficulties eating breakfast this AM) Oral Hygiene (QC): 6 (Pt completed oral care independently standing at sink with FWW) Shower/Bathe Self (QC): 5 (pt able to wash/dry all parts after set up) Upper Body Dressing (QC): 6 (Pt independent donning/doffing bra and kiln puller shirt, pt gathered clothes from closet) Lower Body Dressing (QC): 6 (Pt gathered clothes from closet, independent donning/doffing pants and underwear) On/Off Footwear: 6 (independent donning/doffing gripper socks) Toileting Hygiene (QC): 6 (pt able to complete hygiene and clothing management independently.) Toilet Transfer (QC): 6 (Pt independent transferring on/off toilet using GBs and FWW) Other Treatment [id number] OT tx: Pt seated in recliner, agreeable to OT Tx with focus on ADLS. Pt used FWW to perform functional mobility around her room to gather clothing items, pt then went into the bathroom transferring onto toilet. Pt completed toileting, then used FWW to transfer to AL. Pt doffed clothes, completed showering, then donned clothes. Pt used FWW to stand at sink to complete oral care, requiring a seated rest break afterwards. Pt used FWW to perform functional mobility to therapy gym. In order to increase BUE strength and functional endurance, pt completed x15 mins on arm bike, min resistance, with rest breaks as needed. [id number]: OT/PT cotreat due to skill of 2 clinicians required which a surgery tech could not perform in order to coordinate UE/LE movements, increase functional endurance and strength, increase standing tolerance, and increase dynamic standing balance. OT focused on UE placement, cues for sequencing and safety while PT focused on LE placement, overall gross movements, and standing balance. Pt stood at FWW, PT focusing on pt's dynamic standing balance as pt hit balloon back and forth with OT. Pt able to let go of walker with both hands for task, completing x2 trials of activity, ~4 mins each trial with seated rest break between. Pt indicates she felt like she lost her balance a couple of times, but no LOB noted from OT/PT. Post OT tx, pt seated in chair in therapy gym with PT, all needs met. Education OT Patient Education: Correct positioning, Energy conservation, Modified ADL techniques, Progress toward Goal/Update tx plan, Purpose of tx/functional activities, Rehab process, Safety issues, Transfer techniques Teaching Recipient: Patient Teaching Methods: Discussion Response to Teaching: Verbalize Understanding OT Senior Budget Analyst Goals Senior Budget Analyst Goals Time Frame: Jan 05, 2020 Eating (QC): 6 (met) Oral Hygiene (QC): 6 (met) Toileting Hygiene (QC): 6 (met) Shower/Bathe Self (QC): 6 (not met, set up) Upper Body Dressing (QC): 6 (met) Lower Body Dressing (QC): 6 (met) On/Off Footwear (QC): 6 (met) Additional Goals: 1-Demonstrate ADL Tasks, 2-Verbalize Understanding, 3-ImproveStrength/Misael 1=Demonstrate adherence to instructed precautions during ADL tasks. 2=Patient will verbalize/demonstrate understanding of assistive devices/modifications for ADL. 3=Patient will improve strength/tolerance for activity to enable patient to perform ADL's. OT Education/Plan Problem List/Assessment Assessment: Decreased Activ Tolerance, Decreased UE Strength, Impaired I ADL's Discharge Recommendations Plan/Recommendations: Continue POC Treatment Plan/Plan of Care Patient would benefit from OT for education, treatment and training to promote independence in ADL's, mobility, safety and/or upper extremity function for ADL's. Plan of Care: ADL Retraining, Functional Mobility, Group Exercise/Act as Ind, UE Funct Exercise/Act Treatment Duration: Jan 05, 2020 Frequency: At least 5 of 7 days/Wk (IRF) Estimated Hrs Per Day: 1.5 hours per day Rehab Potential: Fair Time/GCodes Start Time: 08:00 Stop Time: 09:15 Total Time Billed (hr/min): 75 Billed Treatment Time [id number] OT tx, [id number] OT/PT cotreat 1, ADL 3 (45'), EX (15'), FA (15') SUSIE MCGOVERN OT Dec 26, 2019 08:21
[2019-12-26] MEDS: DOCUSATE SODIUM 100 MG (COLACE) CAP PO SCH ×2 (08:38→20:20)
[2019-12-26] MEDS: polyethylene glycoL POWDER 17 GM (MIRALAX) PACK PO SCH ×2 (08:38→20:21)
[2019-12-26] MEDS: APIXABAN 2.5 MG (ELIQUIS) TABLET PO SCH ×2 (08:38→20:20)
[2019-12-26] MEDS: SENNA W/DOCUSATE (SENOKOT S) TABLET PO SCH ×2 (08:38→20:21)
[2019-12-26] MEDS: MICONAZOLE NITRATE 2% CRM 30 GM TP SCH ×2 (08:41→20:21)
--- NOTE | 2019-12-26 08:57 | PM&R Progress Note ---
Subjective HPI/CC On Admission Date Seen by Provider: Dec 26, 2019 Time Seen by Provider: 11:00 Subjective/Events-last exam 12/26/19: Flu vaccine is given Has an epidural pain injection scheduled for later this month DC is planned tomorrow Bowels are moving well No dizziness 12/25/19: Bowels moving pretty well Doing well overall No significant pain issues Discharging on Wednesday Still missing a piece on her CPAP machine so she only wears oxygen at night 12/24/19: Dizziness a bit today Increasing fluid intake No other new issues 12/23/19: Monistat and Diflucan BM yesterday Improved overall 12/22/19: Much improve status Yeast in UA so treating that with Monistat cream and Diflucan CPAP from home is missing piece so she could not use it will reach out to family BM+ No pain 12/21/19: Pt is doing pretty well UA will be obtained by in-and-out cath because of recurrent UTI in October and she does have incontinence so will evaluate that Daughter asked if she has had a recent chest X-ray but on clinical exam she is doing very well, no fever, labs remain normal and I told her that we will continue the treatment plan as is Oxygen was 91% after she got back from the bathroom BP remains a little bit low but that is chronic Bowels moved this morning Overall doing much better and feels like she is improving Review of Systems General: Fatigue Pulmonary: Dyspnea Objective Exam Vital Signs Vital Signs Date Time Temp Pulse Resp B/P (MAP) Pulse Ox O2 Delivery O2 Flow Rate FiO2 12/26/19 16:30 36.6 72 18 139/63 (88) 92 Room Air 12/26/19 05:54 2.00 12/24/19 20:28 21 Capillary Refill : Less Than 3 Seconds General Appearance: No Apparent Distress, WD/WN, Chronically ill, Thin HEENT: PERRL/EOMI, Normal ENT Inspection, Pharynx Normal Neck: Full Range of Motion, Normal Inspection, Non Tender, Supple, Carotid Bruit Respiratory: Chest Non Tender, Lungs Clear, Normal Breath Sounds, No Accessory Muscle Use, No Respiratory Distress, Decreased Breath Sounds Cardiovascular: Regular Rate, Rhythm, No Edema, No Gallop, No JVD, No Murmur, Normal Peripheral Pulses Gastrointestinal: Normal Bowel Sounds, No Organomegaly, No Pulsatile Mass, Non Tender, Soft Back: Normal Inspection, No CVA Tenderness, No Vertebral Tenderness Extremity: Normal Capillary Refill, Normal Inspection, Normal Range of Motion, Non Tender, No Calf Tenderness, No Pedal Edema Neurologic/Psychiatric: Alert, Oriented x3, No Motor/Sensory Deficits, Normal Mood/Affect, hop worker II-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 FIM Transfers Therapy Code Descriptions/Definitions Functional [place] Measure: 0=Not Assessed/NA 4=Minimal Assistance 1=Total Assistance 5=Supervision or Setup 2=Maximal Assistance 6=Modified [place] 3=Moderate Assistance 7=Complete IndependenceSCALE: Activities may be completed with or without assistive devices. 5-Pnxrzahsge-fyznntw completes the activity by him/herself with no assistance from a helper. 5-Set-up or Clean-up Assistance-helper sets up or cleans up; patient completes activity. [place] assists only prior to or following the activity. 4-Supervision or Touching Assistance-helper provides verbal cues and/or touching/steadying and/or contact guard assistance as patient completes activity. Assistance may be provided throughout the activity or intermittently. 3-Partial/Moderate Assistance-helper does LESS THAN HALF the effort. [place] lifts, holds or supports trunk or limbs, but provides less than half the effort. 2-Substantial/Maximal Assistance-helper does MORE THAN HALF the effort. [place] lifts or holds trunk or limbs and provides more than half the effort. 0-Njxrxdbue-yovhsy does ALL the effort. Patient does none of the effort to complete the activity. Or, the assistance of 2 or more helpers is required for the patient to complete the activity. If activity was not attempted, code reason: 7-Patient Refused. 9-Not Applicable-not attempted and the patient did not perform the activity bef ore the current illness, exacerbation or injury. 10-Not Attempted due to Environmental Limitations-(lack of equipment, weather r estraints, etc.). 88-Not Attempted due to Medical Conditions or Safety Concerns. Roll Left to Right (QC): 6 Sit to Lying (QC): 6 Sit to Stand (QC): 6 Chair/Fav-gl-Kxkyi Xfer(QC): 6 Car Transfer (QC): 4 Gait Training Does the Patient Walk?: Yes Distance: 150' Walk 10 feet (QC): 6 Walk 50 ft with 2 Turns(QC): 6 Walk 150 ft (QC): 6 Walking 10ft/uneven surface-QC: 4 Gait Persons Needed: 1 Gait Assistive Device: FWW Wheelchair Training Does the Pt Use a Wheelchair?: No Wheel 50 ft with 2 turns (QC): 9 Wheel 150 ft (QC): 9 Stair Training Stair Training: Handrails/: 2 handrails #of Steps: 4 1 Step (curb) (QC): 4 4 Steps (QC): 4 12 Steps (QC): 88 Stairs: Pattern: Reciprocal Balance Picking up an Object (QC): 88 ADL-Treatment Eating (QC): 6 (Pt indicates no difficulties eating breakfast this AM) Oral Hygiene (QC): 6 (Pt completed oral care independently standing at sink with FWW) Bathing Location: L Arm, R Arm, L Upper Leg, R Upper Leg, L Lower Leg (including foot), R Lower Leg (including foot), Chest, Abdomen, Buttocks, Pe rineal Area Shower/Bathe Self (QC): 5 (pt able to wash/dry all parts after set up) Upper Body Dressing (QC): 6 (Pt independent donning/doffing bra and mandrel puller shirt, pt gathered clothes from closet) Lower Body Dressing (QC): 6 (Pt gathered clothes from closet, independent donning/doffing pants and underwear) On/Off Footwear (QC): 6 (independent donning/doffing gripper socks) Toileting Hygiene (QC): 6 (pt able to complete hygiene and clothing management independently.) Toilet Transfer (QC): 6 (Pt independent transferring on/off toilet using GBs and FWW) Assessment/Plan Assessment and Plan Assess & Plan/Chief Complaint Assessment: Myopathy COVID-19 AF Dementia Hypothyroidism Poor reserve Advanced age DNR Incontinence Plan: IRF protocol Current med-surg meds to continue Monitor BP 12/20/19: Monitor O2 Fall risk Eval memory again 12/21/19: UA Monitor incontinence IS use 12/22/19: Treat yeast in UA Monitor O2 12/23/19: IRF protocol Improved 12/24/19: Monitor dizziness Labs in am 11/2/20: Monitor bowel function Doing well over all Lungs clear Does not need supplemental oxygen 12/26/19: DC tomorrow Home O2 study tonight (1) Myopathy (2) COVID-19 Status: Acute (3) Debility Status: Acute (4) Dementia Status: Chronic (5) Atrial fibrillation Status: Chronic (6) Acute respiratory failure due to COVID-19 Status: Acute (7) Generalized weakness Status: Acute CONCEPCION PEARCE DO Dec 26, 2019 08:57
--- NOTE | 2019-12-26 09:58 | Physical Therapy Daily Note ---
PT Daily Note-Current Subjective Pt sitting in Therapy Gym working with OT upon arrival. Pt agrees to short PT/OT co-treat to assess balance. Pain Location: No Pain Reported Mental Status Patient Orientation: Person, Place, Time, Situation Transfers SCALE: Activities may be completed with or without assistive devices. 4-Ihgdzxiywi-pvykltj completes the activity by him/herself with no assistance from a helper. 5-Set-up or Clean-up Assistance-helper sets up or cleans up; patient completes activity. [place] assists only prior to or following the activity. 4-Supervision or Touching Assistance-helper provides verbal cues and/or touching/steadying and/or contact guard assistance as patient completes activity. Assistance may be provided throughout the activity or intermittently. 3-Partial/Moderate Assistance-helper does LESS THAN HALF the effort. [place] lif ts, holds or supports trunk or limbs, but provides less than half the effort. 2-Substantial/Maximal Assistance-helper does MORE THAN HALF the effort. [place] lifts or holds trunk or limbs and provides more than half the effort. 9-Wjgxdpubb-gqclrj does ALL the effort. Patient does none of the effort to complete the activity. Or, the assistance of 2 or more helpers is required for the patient to complete the activity. If activity was not attempted, code reason: 7-Patient Refused. 9-Not Applicable-not attempted and the patient did not perform the activity before the current illness, exacerbation or injury. 10-Not Attempted due to Environmental Limitations-(lack of equipment, weather restraints, etc.). 88-Not Attempted due to Medical Conditions or Safety Concerns. Roll Left & Right (QC): 6 Sit to Lying (QC): 6 Lying to Sitting/Side of Bed(Q: 6 Sit to Stand (QC): 6 Chair/Uzl-zy-Onikx Xfer(QC): 6 Toilet Transfer (QC): 6 Car Transfer (QC): 6 Weight Bearing Full Weight Bearing Full Weight Bearing Gait Training Does the Patient Walk?: Yes Distance: 75', 200' Walk 10 feet (QC): 6 Walk 50 ft with 2 Turns(QC): 6 Walk 150 ft (QC): 6 Walking 10ft/uneven surface-QC: 6 Gait Persons Needed: 1 Gait Assistive Device: FWW Wheelchair Training Does the Pt Use a Wheelchair?: No Stair Training Stair Training: Handrails/: 2 handrails #of Steps: 8 1 Step (curb) (QC): 6 4 Steps (QC): 6 12 Steps (QC): 7 Stairs: Pattern: Reciprocal Balance Picking up an Object (QC): 6 Exercises Seated Therapy Exercises: Ankle pumps, Long arc quads, Hip flexion, Kicking activity, Hip abd/add Seated Reps: 15 Treatments [id number]: OT/PT cotreat due to skill of 2 clinicians required which a vocational rehabilitation counselor could not perform in order to coordinate UE/LE movements, increase functional endurance and strength, increase standing tolerance, and increase dynamic standing balance. OT focused on UE placement, cues for sequencing and safety while PT focused on LE placement, overall gross movements, and standing balance. Pt stood at FWW, PT focusing on pt's dynamic standing balance as pt hit balloon back and forth with OT. Pt able to let go of walker with both hands for task, completing x2 trials of activity, ~4 mins each trial with seated rest break between. Pt indicates she felt like she lost her balance a couple of times, but no LOB noted from OT/PT. Post OT tx, pt seated in chair in therapy gym with PT, all needs met. [id number]: Pt completes QC scoring items listed above before returning to room to use BR and rest in recliner. Pt has all needs met, call light in hand. Assessment Current Status: Excellent Progress Pt fatigues occasional needing RB but recovers quickly. PT Short Term Goals Short Term Goals Time Frame: Dec 26, 2019 Roll Left & Right: 6 Sit to lyin Lying to sitting on side of be: 6 Sit to stand: 6 Chair/nzk-gf-ncwiv transfer: 6 Walk 10 feet: 6 Walk 50 feet with two turns: 6 1 step (curb): 6 Picking up objects: 4 PT Fdc Goals Bean Dumper Goals PT Bean Dumper Goals Time Frame: Jan 09, 2020 Roll Left & Right (QC): 6 Sit to Lying (QC): 6 Lying-Sitting on Side/Bed(QC): 6 Sit to Stand (QC): 6 Chair/Qfp-bh-Nmswu Xfer(QC): 6 Toilet Transfer (QC): 6 Car Transfer (QC): 6 Does the Patient Walk: Yes Walk 10 feet (QC): 6 Walk 50ft with 2 Turns (QC): 6 Walk 150 ft (QC): 6 Walking 10ft on Uneven Surface: 6 1 Step (curb) (QC): 6 4 Steps (QC): 6 12 Steps (QC): 88 Picking up an Object (QC): 6 Does the Pt use WC or Scooter?: No Wheel 50 feet with 2 turns (QC: 9 Type: N/A Wheel 150 feet: 9 Type: N/A PT Plan Problem List Problem List: Activity Tolerance Treatment/Plan Treatment Plan: Continue Plan of Care Treatment Plan: Bed Mobility, Education, Functional Activity Misael, Functional Strength, Group Therapy, Gait, Safety, Therapeutic Exercise, Transfers Treatment Duration: Jan 02, 2020 Frequency: At least 5 of 7 days/Wk (IRF) Estimated Hrs Per Day: 1.5 hours per day Patient and/or Family Agrees t: Yes Safety Risks/Education Patient Education: Gait Training, Transfer Techniques, Steps, Correct Positioning, Safety Issues Teaching Recipient: Patient Teaching Methods: Discussion Response to Teaching: Verbalize Understanding Time/GCodes Time In: 900 Time Out: 1000 Total Billed Treatment Time: 60 Total Billed Treatment 1, GT (15m), FA x2 (30m) & EX (15m) LENI FORTUNE TACTICAL/MOBILE WATCH OFFICER Dec 26, 2019 09:58
--- NOTE | 2019-12-26 10:19 | Speech Therapy Daily Note ---
Speech Daily Progress Note Subjective Date Seen by Provider: Dec 26, 2019 Time Seen by Provider: 00:30 Patient was resting in her bed following her other therapies. Objective Patient completed a series of q/a related to her needs and safety within her home with 90% given minimal cuing. Assessment Assessment Current Status: Good Progress Treatment Plan Discontinue ST, Goals Met Speech Short Term Goals Short Term Goals Short Term Goals 1) Patient will complete memory tasks related to her daily needs at 90% with minimal cues. 2) Patient will complete safety awareness tasks related to her daily needs at 90% with minimal cues. 3) Patient will complete problem solving tasks related to her daily needs at 90% with minimal cues. Speech International Banker Goals Skilled Nursing Goals Patient will improve her cognitive-communication abilities in order to complete daily tasks with minimal assist. Speech-Plan Patient/Family Goals Patient/Family Goals: Patient is scheduled to return to her home tomorrow. Treatment Plan Speech Therapy Treatment Plan: Discontinue ST, Goals Met Treatment Duration: Dec 20, 2019 Frequency: 4 times per week (Patient will receive skilled ST 4-5x per week) Estimated Hrs Per Day: .5 hour per day Rehab Potential: Fair Barriers to Learning: Patient's mild cognitive deficits, age, recent illness Pt/Family Agrees to Plan: Yes Safety Risks/Education Teaching Recipient: Patient Teaching Methods: Demonstration, Discussion Response to Teaching: Verbalize Understanding, Return Demonstration Education Topics Provided: Continued safety upon her return home Time Speech Therapy Time In: 10:30 Speech Therapy Time Out: 11:00 Total Billed Time: 30 Billed Treatment Time 1, SLTS No QUALITY CODES: EXPRESSION OF IDEAS/WANTS: 4 UNDERSTANDING VERBAL CONTENT: 4 BRIEF INTERVIEW MENTAL STATUS: YES REPETITION OF 3 WORDS: 3 TEMPORAL ORIENTATION: YEAR: CORRECT, MONTH: CORRECT, DAY: CORRECT RECALL SOCK: YES, COLOR: YES WITH CUE, BED: YES WITH CUE MEMORY/RECALL ABILITY: SEASON, LOCATION OF ROOM, THAT SHE IS IN THE HOSPITAL KATYA NAIDU Dec 26, 2019 10:19
--- NOTE | 2019-12-26 10:54 | Diagnostic Imaging Report ---
EXAMINATION: PA and lateral chest at 10:15 AM. INDICATION: Respiratory distress. FINDINGS: There is a better inspiratory effort on this study than on the prior exam of 12/14/2019. Both lungs do seem better aerated although there are still some residual alveolar/interstitial infiltrates bilaterally. There is no sign of a pleural effusion. The mediastinum is not widened and the heart size is within normal limits. The osseous structures are intact. IMPRESSION: The appearance of the chest has improved since the prior exam as the lungs do seem better aerated; however, there are still residual areas of pneumonia/atelectasis bilaterally. A followup study would be recommended for continued evaluation. Dictated by: Dictated on workstation # [id number]
--- NOTE | 2019-12-26 14:07 | Physical Therapy Daily Note ---
PT Daily Note-Current Subjective Pt sitting in reclienr upon arrival. Pt agrees to PT but declines need for BR. Pain Location: No Pain Reported Mental Status Patient Orientation: Person, Place, Situation Transfers SCALE: Activities may be completed with or without assistive devices. 9-Mquimnytnx-pgxcjlp completes the activity by him/herself with no assistance from a helper. 5-Set-up or Clean-up Assistance-helper sets up or cleans up; patient completes activity. [place] assists only prior to or following the activity. 4-Supervision or Touching Assistance-helper provides verbal cues and/or touching/steadying and/or contact guard assistance as patient completes activity. Assistance may be provided throughout the activity or intermittently. 3-Partial/Moderate Assistance-helper does LESS THAN HALF the effort. [place] lifts, holds or supports trunk or limbs, but provides less than half the effort. 2-Substantial/Maximal Assistance-helper does MORE THAN HALF the effort. [place] lifts or holds trunk or limbs and provides more than half the effort. 7-Aayxwdryk-odxyjg does ALL the effort. Patient does none of the effort to complete the activity. Or, the assistance of 2 or more helpers is required for the patient to complete the activity. If activity was not attempted, code reason: 7-Patient Refused. 9-Not Applicable-not attempted and the patient did not perform the activity before the current illness, exacerbation or injury. 10-Not Attempted due to Environmental Limitations-(lack of equipment, weather restraints, etc.). 88-Not Attempted due to Medical Conditions or Safety Concerns. Weight Bearing Full Weight Bearing Full Weight Bearing Treatments PT reviews and asks pt for any questions for last of Therapy before DC tomorrow. Pt declines questions, stating feels comfortable with written HEP. Per , pt will have Nurse, PT & OT. Pt resting at end of tx with all needs met, call light next to pt. Assessment Current Status: Good Progress Pt is excited to DC tomorrow. PT Short Term Goals Short Term Goals Time Frame: Dec 26, 2019 Roll Left & Right: 6 Sit to lyin Lying to sitting on side of be: 6 Sit to stand: 6 Chair/wam-nh-dabjj transfer: 6 Walk 10 feet: 6 Walk 50 feet with two turns: 6 1 step (curb): 6 Picking up objects: 4 PT Director Business Travel Goals Director Business Travel Goals PT Director Business Travel Goals Time Frame: Jan 09, 2020 Roll Left & Right (QC): 6 Sit to Lying (QC): 6 Lying-Sitting on Side/Bed(QC): 6 Sit to Stand (QC): 6 Chair/Imy-xq-Xwbhb Xfer(QC): 6 Toilet Transfer (QC): 6 Car Transfer (QC): 6 Does the Patient Walk: Yes Walk 10 feet (QC): 6 Walk 50ft with 2 Turns (QC): 6 Walk 150 ft (QC): 6 Walking 10ft on Uneven Surface: 6 1 Step (curb) (QC): 6 4 Steps (QC): 6 12 Steps (QC): 88 Picking up an Object (QC): 6 Does the Pt use WC or Scooter?: No Wheel 50 feet with 2 turns (QC: 9 Type: N/A Wheel 150 feet: 9 Type: N/A PT Plan Problem List Problem List: Activity Tolerance Treatment/Plan Treatment Plan: Continue Plan of Care Treatment Plan: Bed Mobility, Education, Functional Activity Misael, Functional Strength, Group Therapy, Gait, Safety, Therapeutic Exercise, Transfers Treatment Duration: Jan 02, 2020 Frequency: At least 5 of 7 days/Wk (IRF) Estimated Hrs Per Day: 1.5 hours per day Patient and/or Family Agrees t: Yes Safety Risks/Education Patient Education: Safety Issues Teaching Recipient: Patient Teaching Methods: Discussion Response to Teaching: Verbalize Understanding Time/GCodes Time In: 1330 Time Out: 1345 Total Billed Treatment Time: 15 Total Billed Treatment 1, FA (15m) LENI FORTUNE CIAIO COUNTER MOLDER Dec 26, 2019 14:07
[2019-12-26 16:30] VITALS: BP 139/63
[2019-12-26] MEDS: DONEPEZIL 10 MG (ARICEPT) TAB PO SCH (20:20)
[2019-12-26] MEDS: GABAPENTIN 100 MG (NEURONTIN) CAP PO SCH (20:20)
[2019-12-27] MEDS ORDERED: APIX2.5T PO (05:31)
--- NOTE | 2019-12-27 05:33 | D/C HH Face to Face Order ---
D/C Face to Face Orders Reconcile Patient Problems Problems Reviewed?: Yes Instructions for [facility] Patient Instructions/FollowUp: PCP 1 week Physician to follow Patient: PCP Discharge Diet for Home: No Restrictions Patient Problems: COVID-19 PNA with hypoxia Goals for Patient: [place] Patient Data-Allergies,Ht & Wt Patient Allergies: Coded Allergies: No Known Drug Allergies (Unverified , 11/29/19) Home Health Need/Face to Face Date of Face to Face: Dec 27, 2019 Clinical Findings: Generalized weakness and fatigue, Shortness of breath I have seen Pt ptiz-od-zavk: Yes Discharged To: Home Diagnosis/Conditions: COVID-19 PNA with hypoxia Patient is Homebound due to: Muscle weakness, Shortness of breath/distress Homebound Status Due to the above stated illness, injury or surgical procedure (medical condition or diagnosis) and associated clinical findings, the patient is homebound because of his/her inability to leave home except with aid of a supportive device and/or person AND leaving the home requires a considerable and taxing effort or is medically contraindicated. Pt req the following assistanc: [facility] Nursing Orders Home Health Services Order: Nursing Services, Store Shopper-Evaluate & Treat, Physical Therapy-Evaluate & Treat Certify Stmt I certify that this patient is under my care and that I, a nurse practitioner or a physician; a cafeteria assistant working with me, had a face to face encounter that - meets the physician face to face encounter requirements with this patient as dated. CONCEPCION PEARCE DO Dec 27, 2019 05:33
[2019-12-27 05:35] VITALS: BP 106/56
[2019-12-27] MEDS: LEVOTHYROXINE 50 MCG (LEVOTHROID) TAB PO SCH (06:14)
[2019-12-27] MEDS: APIXABAN 2.5 MG (ELIQUIS) TABLET PO SCH (08:40)
[2019-12-27] MEDS: MICONAZOLE NITRATE 2% CRM 30 GM TP SCH (08:41)
--- NOTE | 2019-12-27 08:46 | PM&R Progress Note ---
Subjective HPI/CC On Admission Date Seen by Provider: Dec 27, 2019 Time Seen by Provider: 08:45 Subjective/Events-last exam 12/26/19: Flu vaccine is given Has an epidural pain injection scheduled for later this month DC is planned tomorrow Bowels are moving well No dizziness 12/25/19: Bowels moving pretty well Doing well overall No significant pain issues Discharging on Wednesday Still missing a piece on her CPAP machine so she only wears oxygen at night 12/24/19: Dizziness a bit today Increasing fluid intake No other new issues 12/23/19: Monistat and Diflucan BM yesterday Improved overall 12/22/19: Much improve status Yeast in UA so treating that with Monistat cream and Diflucan CPAP from home is missing piece so she could not use it will reach out to family BM+ No pain 12/21/19: Pt is doing pretty well UA will be obtained by in-and-out cath because of recurrent UTI in October and she does have incontinence so will evaluate that Daughter asked if she has had a recent chest X-ray but on clinical exam she is doing very well, no fever, labs remain normal and I told her that we will continue the treatment plan as is Oxygen was 91% after she got back from the bathroom BP remains a little bit low but that is chronic Bowels moved this morning Overall doing much better and feels like she is improving Objective Exam Vital Signs Vital Signs Date Time Temp Pulse Resp B/P (MAP) Pulse Ox O2 Delivery O2 Flow Rate FiO2 12/27/19 05:35 36.0 69 16 106/56 (73) 90 Room Air 12/26/19 05:54 2.00 12/24/19 20:28 21 Capillary Refill : Less Than 3 Seconds General Appearance: No Apparent Distress, WD/WN, Chronically ill, Thin HEENT: PERRL/EOMI, Normal ENT Inspection, Pharynx Normal Neck: Full Range of Motion, Normal Inspection, Non Tender, Supple, Carotid Bruit Respiratory: Chest Non Tender, Lungs Clear, Normal Breath Sounds, No Accessory Muscle Use, No Respiratory Distress, Decreased Breath Sounds Cardiovascular: Regular Rate, Rhythm, No Edema, No Gallop, No JVD, No Murmur, Normal Peripheral Pulses Gastrointestinal: Normal Bowel Sounds, No Organomegaly, No Pulsatile Mass, Non Tender, Soft Back: Normal Inspection, No CVA Tenderness, No Vertebral Tenderness Extremity: Normal Capillary Refill, Normal Inspection, Normal Range of Motion, Non Tender, No Calf Tenderness, No Pedal Edema Neurologic/Psychiatric: Alert, Oriented x3, No Motor/Sensory Deficits, Normal Mood/Affect, doughnut icer machine II-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 FIM Transfers Therapy Code Descriptions/Definitions Functional [place] Measure: 0=Not Assessed/NA 4=Minimal Assistance 1=Total Assistance 5=Supervision or Setup 2=Maximal Assistance 6=Modified [place] 3=Moderate Assistance 7=Complete IndependenceSCALE: Activities may be completed with or without assistive devices. 3-Hduxykhaok-sflgeer completes the activity by him/herself with no assistance f rom a helper. 5-Set-up or Clean-up Assistance-helper sets up or cleans up; patient completes activity. [place] assists only prior to or following the activity. 4-Supervision or Touching Assistance-helper provides verbal cues and/or touching/steadying and/or contact guard assistance as patient completes activity. Assistance may be provided throughout the activity or intermittently. 3-Partial/Moderate Assistance-helper does LESS THAN HALF the effort. [place] lifts, holds or supports trunk or limbs, but provides less than half the effort. 2-Substantial/Maximal Assistance-helper does MORE THAN HALF the effort. [place] lifts or holds trunk or limbs and provides more than half the effort. 4-Swzssfqtc-pbdpni does ALL the effort. Patient does none of the effort to complete the activity. Or, the assistance of 2 or more helpers is required for the patient to complete the activity. If activity was not attempted, code reason: 7-Patient Refused. 9-Not Applicable-not attempted and the patient did not perform the activity before the current illness, exacerbation or injury. 10-Not Attempted due to Environmental Limitations-(lack of equipment, weather restraints, etc.). 88-Not Attempted due to Medical Conditions or Safety Concerns. Roll Left to Right (QC): 6 Sit to Lying (QC): 6 Sit to Stand (QC): 6 Chair/Bgr-ld-Pwshz Xfer(QC): 6 Car Transfer (QC): 6 Gait Training Does the Patient Walk?: Yes Distance: 75', 200' Walk 10 feet (QC): 6 Walk 50 ft with 2 Turns(QC): 6 Walk 150 ft (QC): 6 Walking 10ft/uneven surface-QC: 6 Gait Persons Needed: 1 Gait Assistive Device: FWW Wheelchair Training Does the Pt Use a Wheelchair?: No Wheel 50 ft with 2 turns (QC): 9 Wheel 150 ft (QC): 9 Stair Training Stair Training: Handrails/: 2 handrails #of Steps: 8 1 Step (curb) (QC): 6 4 Steps (QC): 6 12 Steps (QC): 7 Stairs: Pattern: Reciprocal Balance Picking up an Object (QC): 6 ADL-Treatment Eating (QC): 6 (Pt indicates no difficulties eating breakfast this AM) Oral Hygiene (QC): 6 (Pt completed oral care independently standing at sink with FWW) Bathing Location: L Arm, R Arm, L Upper Leg, R Upper Leg, L Lower Leg (including foot), R Lower Leg (including foot), Chest, Abdomen, Buttocks, Perineal Area Shower/Bathe Self (QC): 5 (pt able to wash/dry all parts after set up) Upper Body Dressing (QC): 6 (Pt independent donning/doffing bra and toe puller shirt, pt gathered clothes from closet) Lower Body Dressing (QC): 6 (Pt gathered clothes from closet, independent donning/doffing pants and underwear) On/Off Footwear (QC): 6 (independent donning/doffing gripper socks) Toileting Hygiene (QC): 6 (pt able to complete hygiene and clothing management independently.) Toilet Transfer (QC): 6 (Pt independent transferring on/off toilet using GBs and FWW) Assessment/Plan Assessment and Plan Assess & Plan/Chief Complaint Assessment: Myopathy COVID-19 AF Dementia Hypothyroidism Poor reserve Advanced age DNR Incontinence Plan: IRF protocol Current med-surg meds to continue Monitor BP 12/20/19: Monitor O2 Fall risk Eval memory again 12/21/19: UA Monitor incontinence IS use 12/22/19: Treat yeast in UA Monitor O2 12/23/19: IRF protocol Improved 12/24/19: Monitor dizziness Labs in am 12/25/19: Monitor bowel function Doing well over all Lungs clear Does not need supplemental oxygen 12/26/19: DC tomorrow Home O2 study tonight (1) Myopathy (2) COVID-19 Status: Acute (3) Debility Status: Acute (4) Dementia Status: Chronic (5) Atrial fibrillation Status: Chronic (6) Acute respiratory failure due to COVID-19 Status: Acute (7) Generalized weakness Status: Acute CONCEPCION PEARCE DO Dec 27, 2019 08:46
--- NOTE | 2019-12-27 08:47 | Discharge Summary ---
Diagnosis/Chief Complaint Date of Admission Dec 19, 2019 at 10:40 Date of Discharge Discharge Date: Dec 27, 2019 Discharge Diagnosis Assessment: Myopathy COVID-19 AF Dementia Hypothyroidism Poor reserve Advanced age DNR Incontinence Plan: IRF protocol Current med-surg meds to continue Monitor BP 12/20/19: Monitor O2 Fall risk Eval memory again 12/21/19: UA Monitor incontinence IS use 12/22/19: Treat yeast in UA Monitor O2 12/23/19: IRF protocol Improved 12/24/19: Monitor dizziness Labs in am 12/25/19: Monitor bowel function Doing well over all Lungs clear Does not need supplemental oxygen 12/26/19: DC tomorrow Home O2 study tonight (1) Myopathy (2) COVID-19 Status: Acute (3) Debility Status: Acute (4) Dementia Status: Chronic (5) Atrial fibrillation Status: Chronic (6) Acute respiratory failure due to COVID-19 Status: Acute (7) Generalized weakness Status: Acute Discharge Summary Discharge Physical Examination Allergies: Coded Allergies: No Known Drug Allergies (Unverified , 11/29/19) Vitals & I&Os Vital Signs Date Time Temp Pulse Resp B/P (MAP) Pulse Ox O2 Delivery O2 Flow Rate FiO2 12/27/19 11:20 36.0 69 16 106/56 90 Room Air 2.00 12/24/19 20:28 21 General Appearance: Alert, Oriented X3, Cooperative Respiratory: Clear to Auscultation Cardiovascular: Regular Rate Neuro: Normal Gait, Normal Speech, Strength at 5/5 X4 Ext Psych/Mental Status: Mental Status NL Hospital Course Was the Problem List Reviewed?: Yes Hospital course: Pt had an uneventful hospital course for eight days after she was admitted due to complications from Covid and hypoxia failed discharge at home for two hours, overall she did very well, she did have a yeast vaginal infection with yeast on urine culture so that was treated. Overall she did very well and did not require oxygen during the day, she did need it to be maintained at night and will be monitored closely with a close follow-up. Labs (last 24 hrs) Laboratory Tests 12/21/19 12:14: Urine Color YELLOW, Urine Clarity CLEAR, Urine pH 6.0, Urine Specific Sabael >=1.030, Urine Protein NEGATIVE, Urine Glucose (UA) NEGATIVE, Urine Ketones NEGATIVE, Urine Nitrite NEGATIVE, Urine Bilirubin NEGATIVE, Urine Urobilinogen 1.0, Urine Leukocyte Esterase NEGATIVE, Urine RBC (Auto) NEGATIVE, Urine RBC NONE, Urine WBC NONE, Urine Squamous Epithelial Cells 2-5, Urine Crystals NONE, Urine Bacteria NEGATIVE, Urine Casts NONE, Urine Mucus NEGATIVE, Urine Yeast MODERATEH, Urine Culture Indicated NO 12/25/19 05:37: White Blood Count 5.9, Red Blood Count 4.00, Hemoglobin 11.6, Hematocrit 37, Mean Corpuscular Volume 92, Mean Corpuscular Hemoglobin 29, Mean Corpuscular Hemoglobin Concent 32, Red Cell Distribution Width 15.1H, Platelet Count 220, Mean Platelet Volume 9.9, Immature Granulocyte % (Auto) 1, Neutrophils (%) (Auto) 57, Lymphocytes (%) (Auto) 29, Monocytes (%) (Auto) 8, Eosinophils (%) (Auto) 4, Basophils (%) (Auto) 0, Neutrophils # (Auto) 3.4, Lymphocytes # (Auto) 1.7, Monocytes # (Auto) 0.5, Eosinophils # (Auto) 0.3, Basophils # (Auto) 0.0, Immature Granulocyte # (Auto) 0.0, Sodium Level 139, Potassium Level 4.2, Chloride Level 105, Carbon Dioxide Level 25, Anion Gap 9, Blood Urea Nitrogen 7, Creatinine 0.67, Estimat Glomerular Filtration Rate > 60, BUN/Creatinine Ratio 10, Glucose Level 92, Calcium Level 9.2, Corrected Calcium 9.8, Total Bilirubin 0.6, Aspartate Amino Transf (AST/SGOT) 15, Alanine Aminotransferase (ALT/SGPT) 17, Alkaline Phosphatase 68, Total Protein 6.2L, Albumin 3.2 Pending Labs Laboratory Tests 12/21/19 12:14: Urine Color YELLOW, Urine Clarity CLEAR, Urine pH 6.0, Urine Specific [place] >=1.030, Urine Protein NEGATIVE, Urine Glucose (UA) NEGATIVE, Urine Ketones NEGATIVE, Urine Nitrite NEGATIVE, Urine Bilirubin NEGATIVE, Urine Urobilinogen 1.0, Urine Leukocyte Esterase NEGATIVE, Urine RBC (Auto) NEGATIVE, Urine RBC NONE, Urine WBC NONE, Urine Squamous Epithelial Cells 2-5, Urine Crystals NONE, Urine Bacteria NEGATIVE, Urine Casts NONE, Urine Mucus NEGATIVE, Urine Yeast MODERATE, Urine Culture Indicated NO 12/25/19 05:37: White Blood Count 5.9, Red Blood Count 4.00, Hemoglobin 11.6, Hematocrit 37, Mean Corpuscular Volume 92, Mean Corpuscular Hemoglobin 29, Mean Corpuscular Hemoglobin Concent 32, Red Cell Distribution Width 15.1, Platelet Count 220, Mean Platelet Volume 9.9, Immature Granulocyte % (Auto) 1, Neutrophils (%) (Auto) 57, Lymphocytes (%) (Auto) 29, Monocytes (%) (Auto) 8, Eosinophils (%) (Auto) 4, Basophils (%) (Auto) 0, Neutrophils # (Auto) 3.4, Lymphocytes # (Auto) 1.7, Monocytes # (Auto) 0.5, Eosinophils # (Auto) 0.3, Basophils # (Auto) 0.0, Immature Granulocyte # (Auto) 0.0, Sodium Level 139, Potassium Level 4.2, Ch loride Level 105, Carbon Dioxide Level 25, Anion Gap 9, Blood Urea Nitrogen 7, Creatinine 0.67, Estimat Glomerular Filtration Rate > 60, BUN/Creatinine Ratio 10, Glucose Level 92, Calcium Level 9.2, Corrected Calcium 9.8, Total Bilirubin 0.6, Aspartate Amino Transf (AST/SGOT) 15, Alanine Aminotransferase (ALT/SGPT) 17, Alkaline Phosphatase 68, Total Protein 6.2, Albumin 3.2 Discharge Home Medications: Active Scripts Active Eliquis (Apixaban) 2.5 Mg Tablet 2.5 Mg PO BID Reported Tylenol (Acetaminophen) 325 Mg Capsule 650 Mg PO Q8H PRN Levothyroxine Sodium 50 Mcg Tablet 50 Mcg PO DAILY Gabapentin 100 Mg Capsule 200 Mg PO HS TAKES 2 (100MG) CAPS Donepezil HCl 10 Mg Tablet 10 Mg PO HS Instructions to patient/family Please see electronic discharge instructions given to patient. Diagnosis/Problems Diagnosis/Problems (1) Myopathy (2) COVID-19 Status: Acute (3) Debility Status: Acute (4) Dementia Status: Chronic (5) Atrial fibrillation Status: Chronic (6) Acute respiratory failure due to COVID-19 Status: Acute (7) Generalized weakness Status: Acute Clinical Quality Measures DVT/VTE Risk/Contraindication: Risk Factor Score Per Nursin RFS Level Per Nursing on Admit: 4+=Very High CONCEPCION PEARCE DO Dec 27, 2019 08:47
[2019-12-27] MEDS: DOCUSATE SODIUM 100 MG (COLACE) CAP PO SCH (09:37)
[2019-12-27] MEDS: SENNA W/DOCUSATE (SENOKOT S) TABLET PO SCH (09:38)
[2019-12-27] MEDS: polyethylene glycoL POWDER 17 GM (MIRALAX) PACK PO SCH (09:38)
[2019-12-27 11:20] VITALS: BP 106/56
--- NOTE | 2019-12-27 14:03 | Therapy Team Discharge Summary ---
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 Her PLOF was indep at home with her spouse and active. Upon admission to ARU, she was SBA with transfers, indep with bed mobiolity and CGA with gait and stairs. She presented with limited functional activity tolerance and impaired ability to walk long distances. Treatment has consisted of functional strength, balance and activity tolerance training. She is mod indep with all mobility at dischrge with a FWW and has met all goals set at evaluation. She is to discharge home with her spouse. Recommend follow up home PT . DC this date. Occupational Therapy Decreased Activ Tolerance, Decreased UE Strength, Impaired I ADL's PT Group Tester Goals Group Tester Goals PT Care Home Goals Time Frame: Jan 09, 2020 Roll Left to Right (QC): 6 Sit to Lying (QC): 6 Lying-Sitting on Side/Bed(QC): 6 Sit to Stand (QC): 6 Chair/Tig-hf-Wbtny Xfer(QC): 6 Car Transfer (QC): 6 Does the Patient Walk: Yes Walk 10 feet (QC): 6 Walk 10ft-Uneven Surface(QC): 6 Walk 50ft with 2 Turns (QC): 6 Walk 150 ft (QC): 6 Does the Pt use WC or Scooter?: No Wheel 50 feet with 2 turns (QC: 9 1 Step (curb) (QC): 6 4 Steps (QC): 6 12 Steps (QC): 88 Picking up an Object (QC): 6 all goals met OT Care Home Goals Care Home Goals Time Frame: Jan 05, 2020 Eating (QC): 6 (met) Oral Hygiene (QC): 6 (met) Shower/Bathe Self (QC): 6 (not met, set up) Upper Body Dressing (QC): 6 (met) Lower Body Dressing (QC): 6 (met) On/Off Footwear (QC): 6 (met) Toileting Hygiene (QC): 6 (met) Toilet/Commode Transfer (QC): 6 Additional Goals: 1-Demonstrate ADL Tasks, 2-Verbalize Understanding, 3- ImproveStrength/Misael 1=Demonstrate adherence to instructed precautions during ADL tasks. 2=Patient will verbalize/demonstrate understanding of assistive devices/modifications for ADL. 3=Patient will improve strength/tolerance for activity to enable patient to perform ADL's. Speech Care Home Goals Group Tester Goals Patient will improve her cognitive-communication abilities in order to complete daily tasks with minimal assist. RONIT SORENSEN PT Dec 27, 2019 14:03
--- NOTE | 2019-12-27 14:35 | Therapy Team Discharge Summary ---
Therapy Discharge Summary Discharge Recommendations Date of Discharge Therapy D/C Recommendations: Occupational Therapy Home Care, Physical Therapy Home Care Occupational Therapy Pt admitted to ARU with dx of critical illness myopathy post COVID-19. At PLOF, pt was independent with all ADLS and functional mobility, without AD/AE. Upon admission to ARU, pt was independent with feeding, required CGA with oral care, CGA showering, set up upper body dressing, CGA lower body dressing, supervision footwear, and CGA toileting. OT txs focus on increasing pt's safety and independence with functional mobility and ADLs, and increasing BUE strength and endurance. At discharge, pt was independent wtih all ADLS except set up assist with showering. Pt met all goals except showering goal. Pt discharged from [facility] on this date, d/c from OT at this time. Home health OT recommended. No Skilled OT Needs ID'd, Decreased Activ Tolerance, Decreased UE Strength, Impaired I ADL's PT Stonecutter Goals Stonecutter Goals PT Penitentiary Goals Time Frame: Jan 09, 2020 Roll Left to Right (QC): 6 Sit to Lying (QC): 6 Lying-Sitting on Side/Bed(QC): 6 Sit to Stand (QC): 6 Chair/Tid-wx-Umaog Xfer(QC): 6 Car Transfer (QC): 6 Does the Patient Walk: Yes Walk 10 feet (QC): 6 Walk 10ft-Uneven Surface(QC): 6 Walk 50ft with 2 Turns (QC): 6 Walk 150 ft (QC): 6 Does the Pt use WC or Scooter?: No Wheel 50 feet with 2 turns (QC: 9 1 Step (curb) (QC): 6 4 Steps (QC): 6 12 Steps (QC): 88 Picking up an Object (QC): 6 OT Stonecutter Goals Stonecutter Goals Time Frame: Jan 05, 2020 Eating (QC): 6 (met) Oral Hygiene (QC): 6 (met) Shower/Bathe Self (QC): 6 (not met, set up) Upper Body Dressing (QC): 6 (met) Lower Body Dressing (QC): 6 (met) On/Off Footwear (QC): 6 (met) Toileting Hygiene (QC): 6 (met) Toilet/Commode Transfer (QC): 6 Additional Goals: 1-Demonstrate ADL Tasks, 2-Verbalize Understanding, 3- ImproveStrength/Misael 1=Demonstrate adherence to instructed precautions during ADL tasks. 2=Patient will verbalize/demonstrate understanding of assistive devices/modifications for ADL. 3=Patient will improve strength/tolerance for activity to enable patient to perform ADL's. Speech Stonecutter Goals Stonecutter Goals Patient will improve her cognitive-communication abilities in order to complete daily tasks with minimal assist. SUSIE MCGOVERN OT Dec 27, 2019 14:35
--- NOTE | 2019-12-27 15:33 | NUR ---
CM/SS DISCHARGE Patient discharged home today as planned. HHC: Finalized with [facility] for RN PT OT. Agency is scheduled to visit patient tomorrow. DME: Updated established agency [facility] of patient's change in Rx for O2 from continuous to nocturnal. The original new O2 was through [place] agency; however, there is a [facility] that is closer to patient's residence in [place]. Inquired of Jenni/Britt about transferring account and she is going to request that. Updated daughter that this would likely occur and that they could then communicate with [place] [facility] about the reported letter patient received that she is eligible for a new CPAP. They are apparently renewable every 5 years, good timing because patient's machine is missing a part. Unit RN aware of all timelines this date for discharge and pharmacy picking tech.
== END 2019-12-27 11:25 | disposition home health service (06) | DRG 92 ==
PROVIDERS: ADMIT Internal Medicine; ATTEND Internal Medicine
DX: G72.81 Critical illness myopathy (principal); B37.49 Other urogenital candidiasis; I48.91 Unspecified atrial fibrillation; Z66 Do not resuscitate; F03.90 Unspecified dementia, unspecified severity, without behavioral disturbance, psychotic disturbance, mood disturbance, and anxiety; E03.9 Hypothyroidism, unspecified; E78.00 Pure hypercholesterolemia, unspecified; M19.90 Unspecified osteoarthritis, unspecified site; M54.9 Dorsalgia, unspecified; B37.3 Candidiasis of vulva and vagina; G89.29 Other chronic pain; N39.490 Overflow incontinence; N39.46 Mixed incontinence; R53.83 Other fatigue; Z87.820 Personal history of traumatic brain injury; Z87.891 Personal history of nicotine dependence; Z96.651 Presence of right artificial knee joint; Z87.442 Personal history of urinary calculi; B94.8 Sequelae of other specified infectious and parasitic diseases; Z23 Encounter for immunization
CPT/HCPCS: 36415; 71046; 80053; 81000; 85025; 90662; 94640; 94760

== ENCOUNTER 2020-12-13 14:21 | Inpatient (IN) | payer MEDICARE, OTHER ==
[~2020-12-13] VITALS: Ht 152.4 cm; Wt 65.0 kg
[~2020-12-13 14:21] MED LIST changes: -ACETAMINOPHEN 500 MG TAB (TYLENOL) PO PRN; -ALPRAZolam 0.25 MG (XANAX) TAB PO PRN; +APIX2.5T PO; -BISACODYL 10 MG SUPP (DULCOLAX) PR PRN; -CALCIUM CARBONATE 500 MG (TUMS) TAB.CHEW PO PRN; -DOCUSATE SODIUM 100 MG (COLACE) CAP PO PRN; -ENOXAPARIN 40 MG/0.4 ML (LOVENOX) SYR SC SCH; -FLEET ENEMA ADULT 1 EA BTL PR PRN; -LACTULOSE SYRUP 10GM/15ML (ENULOSE) 30ML UDC PO PRN; -LOPERAMIDE 2 MG (IMODIUM) TABLET PO PRN; -MELATONIN 3 MG TABLET PO PRN; -ONDANSETRON 4 MG (ZOFRAN) ORAL DISSOLVE TAB PO PRN; -diphenhydrAMINE 25 MG TAB (BENADRYL) PO PRN; -guaiFENesin/CODEINE (ROBITUSSIN AC) 10ML UDC PO PRN
[2020-12-13] MEDS ORDERED: NITROGLYCERIN 0.4 MG SL TABS BTL 25'S SL PRN (14:30)
[2020-12-13] MEDS ORDERED: morphine INJ 4 MG/ML 1 ML (VIAL/SYRINGE) IV PRN (14:30)
[2020-12-13] MEDS ORDERED: ONDANSETRON 4 MG/2 ML (SDV) Z0FRAN IVP PRN (14:30)
--- NOTE | 2020-12-13 16:42 | History & Physical-Hospitalist ---
History of Present Illness HPI/Chief Complaint Patient is an 85-year-old female known to me from prolonged admission due to COVID-19 last year who presented to outside ER due to chest pain. She was working with physical therapy and started to walk on the treadmill when she developed substernal chest pain. She states has been going on for months. She was seen by her primary care doctor and referred to cardiology who told her this was likely secondary to inflammation from Covid. This is continued to worsen over the past few months she can have chest pain with shortness of breath that radiates to her shoulder with exertion and with rest. Her symptoms resolved after getting off of the treadmill but she was sent to the ER for evaluation. High-sensitivity troponin was checked and was read as 79. At this time she denies specific chest pain but does complain of a generalized discomfort in her chest. Source: patient Date Seen 12/13/20 Time Seen by a Provider: 16:36 Attending Physician Iva oJy MD PCP No,Local Physician Referring Physician Date of Admission Dec 13, 2020 at 16:15 Home Medications & Allergies Home Medications Reviewed patient Home Medication Reconciliation performed by pharmacy medication reconciliations nuclear worker technician and/or nursing. Patients Allergies have been reviewed. Allergies Allergies Coded Allergies No Known Drug Allergies ([id number]/20) Past Fehbheq-Arlpwc-Ljboas Hx Patient Social History Employed/Student: retired Immunizations Up To Date Date of Pneumonia Vaccine: Dec 18, 2014 Seasonal Allergies Seasonal Allergies: No Current Status Primary Language: Citizen Of The [place] Past Medical History Surgeries: Joint Replacement, Neurological, Orthopedic Pneumonia Currently Using CPAP: No Currently Using BIPAP: No Atrial Fibrillation, High Cholesterol Dementia, Traumatic Brain Injury POSSUM TRAPPER History: Menopausal Kidney Stones Arthritis, Chronic Back Pain Hypothyroidsim Hearing Impairment: Hard of Hearing, Bilateral Hearing Aide Blood Disorders: No Family Medical History Reviewed Nursing Family Hx Colon cancer G8 BROTHER FH: breast cancer 19 MOTHER FH: liver disease 19 FATHER Myocardial infarction SON No Pertinent Family Hx SOCIAL HISTORY: -ETOH--NONE -DRUGS-NONE -QUIT SMOKING 1988 PAST SURGICAL HISTORY: -RIGHT INDEX FINGER TENDON REPAIR 1963--[facility] -LEFT RING FINGER TENDON REPAIR 1997--[facility] -LEFT BREAST BIOPSY-1994--BENIGN--[facility] -APPENDECTOMY--RUPTURED APPENDIX 2000--[facility] -BLADDER SUSPENSION-2003--DR. SMITH/[facility] -CRANIOTOMY 2011 DUE TO SKULL FRACTURE/INTRACRANIAL BLEED--JOHN GARCIA -RIGHT ROTATOR CUFF REPAIR--2016--[facility] [place] -RIGHT KNEE ARTHROSCOPIES -RIGHT KNEE REPLACEMENT -2018--DR. VELA/[place] [facility] [place] -LUMBAR EPIDURAL STEROID INJECTIONS Review of Systems Constitutional: No chills, No fever EENTM: no symptoms reported Respiratory: short of breath Cardiovascular: chest pain; No edema, No palpitations Gastrointestinal: No abdominal pain, No diarrhea, No nausea, No vomiting Genitourinary: no symptoms reported Musculoskeletal: no symptoms reported Skin: no symptoms reported Psychiatric/Neurological: No Symptoms Reported Physical Exam Physical Exam Vital Signs Vital Signs - First Documented 12/13/20 12/13/20 12/13/20 12/13/20 16:27 16:35 19:36 19:40 Temp 37.1 Pulse 76 Resp 24 B/P (MAP) 122/84 (97) Pulse Ox 100 O2 Delivery Room Air Capillary Refill : Height, Weight, BMI Height: '" Weight: lbs. oz. kg; 23.89 BMI Method: General Appearance: No Apparent Distress, Thin HEENT: PERRL/EOMI, Moist Mucous Membranes; No Scleral Icterus (L), No Scleral Icterus (R) Neck: Normal Inspection, Supple Respiratory: Lungs Clear, No Accessory Muscle Use, No Respiratory Distress Cardiovascular: Regular Rate, Rhythm, No JVD, No Murmur Gastrointestinal: Normal Bowel Sounds, Non Tender, Soft Extremity: No Calf Tenderness, No Pedal Edema Neurologic/Psychiatric: Alert, Oriented x3, Normal Mood/Affect Results Results/Procedures Labs Laboratory Tests 12/14/20 05:03 Patient resulted labs reviewed. Assessment/Plan Admission Diagnosis NSTEMI Admission Status: Inpatient Order (span 2 midnights) Reason for Inpatient Admission: see below Assessment and Plan NSTEMI a-fib HLD elevated troponin at OSH Repeat pending here and will trend Telemetry EKG ordered Cardiology consulted, discussed with Dr Rueda, appreciate assistance rate controlled, does not appear to be on any rate controlling medicines here Eliquis at home Hypothyroidism Continue home synthroid DVT ppx: already on eliquis Diagnosis/Problems Diagnosis/Problems (1) Hypothyroidism (2) NSTEMI (non-ST elevated myocardial infarction) Status: Acute (3) Atrial fibrillation Status: Chronic (4) Dementia Status: Chronic ESA,IVA M MD Dec 13, 2020 16:42
[2020-12-13] MEDS ORDERED: FLU QUAD HIGH DOSE 240 MCG/0.7 ML 2021-22 (FLUZONE) IM ONE (17:00)
--- NOTE | 2020-12-13 17:31 | Consultation-Cardiology ---
HPI-Cardiology Cardiology Consultation Date of Consultation 12/13/20 Date of Admission Time Seen by Provider: 17:25 Indication: Chest pain HPI 85-year-old lady with history of hypertension, paroxysmal atrial fibrillation, hyperlipidemia, started to have recurrent chest pain in July 2020. Patient has visited with multiple physician including her machinist set up Dr. Veliz, pulmonolo gist, community product specialist and her primary care physician, underwent panel of work-up and had multiple treatment trials including high-dose steroids, high- dose NSAID, Tylenol, PPI without full benefit. Has been having chest pain dull in nature occasionally sharp in the retrosternal a very not reproducible, the episode started today while receiving physical therapy with exertion, had mild elevation of troponin. Of note patient did not have any stress test or heart catheterization in the recent past Home Medications & Allergies Allergies: Coded Allergies: No Known Drug Allergies (Unverified , 11/29/19) Home Medication List Reviewed: Yes BRG-Qhxciw-Inwplb Hx Patient Social History Marital Status: Employed/Student: retired Type Used: Cigarettes Recent Hopitalizations: No Have you traveled recently?: No Alcohol Use?: No Immunizations Up To Date Date of Pneumonia Vaccine: Dec 18, 2014 Past Medical History Discussed below Family Medical History Significant Family History: No Pertinent Family Hx Family History: Colon cancer G8 BROTHER FH: breast cancer 19 MOTHER FH: liver disease 19 FATHER Myocardial infarction SON Review of Systems-General Review of Systems Constitutional: No chills, No fever; malaise, weakness EENTM: no symptoms reported Respiratory: see HPI, dyspnea on exertion, short of breath Cardiovascular: see HPI, chest pain; No edema, No Hx of Intervention, No palpitations, No syncope, No vascular heart diseas, No other Gastrointestinal: No abdominal pain, No diarrhea, No nausea, No vomiting Genitourinary: no symptoms reported Musculoskeletal: no symptoms reported Skin: no symptoms reported Psychiatric/Neurological: No Symptoms Reported Physical Exam Physical Exam Vital Signs Vital Signs - First Documented 12/13/20 16:27 Pulse 76 Capillary Refill : Height, Weight, BMI Height: '" Weight: lbs. oz. kg; 180.55 BMI Method: General Appearance: No Apparent Distress, WD/WN Eyes: Bilateral Eye Normal Inspection, Bilateral Eye PERRL, Bilateral Eye EOMI HEENT: PERRL/EOMI, TMs Normal, Normal ENT Inspection, Pharynx Normal, Moist Mucous Membranes Neck: Full Range of Motion, Normal Inspection, Non Tender, Supple, Carotid Bruit Respiratory: Chest Non Tender, Normal Breath Sounds, No Accessory Muscle Use, No Respiratory Distress Cardiovascular: Regular Rate, Rhythm, No Edema, No Gallop, No JVD, No Murmur, Normal Peripheral Pulses Gastrointestinal: Normal Bowel Sounds, No Organomegaly, No Pulsatile Mass, Non Tender, Soft Back: Normal Inspection, No CVA Tenderness, No Vertebral Tenderness Extremity: Normal Capillary Refill, Normal Inspection, Normal Range of Motion, Non Tender, No Calf Tenderness, No Pedal Edema Neurologic/Psychiatric: Alert, Oriented x3, No Motor/Sensory Deficits, Normal Mood/Affect Skin: Normal Color, Warm/Dry Lymphatic: No Adenopathy A/P-Cardiology Admission Diagnosis Non-ST elevation myocardial infarction Coronary artery disease Hypertension Paroxysmal atrial fibrillation Assessment/Plan Chest pain resembling angina, reportedly had mild elevation in troponin and the other institution, I will repeat troponin today and in a.m., discussed the need for cardiac catheterization, we will hold Eliquis and start IV fluid and planning for the procedure for tomorrow morning Hypertension, restart home medication monitor blood pressure History of paroxysmal atrial fibrillation, maintained on Eliquis, we will hold for now Hyperlipidemia, monitor lipids Debility, receiving physical therapy, was in rehab. Dementia. TIM KUHN MD Dec 13, 2020 17:30
[2020-12-13] MEDS ORDERED: CRAN200C PO (17:33)
[2020-12-13] MEDS ORDERED: MAGN400O7 PO (17:33)
[2020-12-13] MEDS ORDERED: LOVA20TA2 PO (17:33)
[2020-12-13] MEDS ORDERED: APIX5TAB PO (17:33)
[2020-12-13] MEDS ORDERED: MV-M1TAB20 PO (17:33)
[2020-12-13] MEDS ORDERED: DOCU-143 PO (17:33)
[2020-12-13] MEDS ORDERED: MAGN250T13 PO (17:33)
[2020-12-13] MEDS ORDERED: ASCO500C18 PO (17:33)
[2020-12-13] MEDS ORDERED: FEXO180T84 PO (17:33)
[2020-12-13] MEDS ORDERED: CALC600T91 PO (17:33)
[2020-12-13] MEDS ORDERED: ZINC50TA51 PO (17:33)
[2020-12-13] MEDS ORDERED: BIOT5TAB PO (17:33)
[2020-12-13] MEDS: NS IV 1000 ML 1,000 ML IV SCH (18:38)
[2020-12-13 19:36] VITALS: BP 122/84
[2020-12-13] MEDS: DONEPEZIL 10 MG (ARICEPT) TAB PO SCH (20:25)
[2020-12-13] MEDS ORDERED: APIXABAN 5 MG (ELIQUIS) TABLET PO SCH (21:00)
[2020-12-13 23:00] VITALS: BP 117/81
[2020-12-14 03:25] VITALS: BP 110/67
[2020-12-14 05:27] LABS: HEMATOCRIT 39 % (35-52); HEMOGLOBIN 12.5 g/dL (11.5-16.0); MEAN CORPUSCULAR HEMOGLOBIN 29 pg (25-34); MEAN CORPUSCULAR HGB CONC 32 g/dL (32-36); MEAN CORPUSCULAR VOLUME 90 fL (80-99); MEAN PLATELET VOLUME 10.7 fL (9.0-12.2); PLATELET COUNT 196 10^3/uL (130-400); WHITE BLOOD COUNT 7.5 10^3/uL (4.3-11.0)
[2020-12-14 05:36] LABS: POTASSIUM 4.1 MMOL/L (3.6-5.0)
[2020-12-14 05:37] LABS: CALCIUM 9.6 MG/DL (8.5-10.1)
[2020-12-14 05:42] LABS: CREATININE SERUM 0.69 MG/DL (0.60-1.30)
[2020-12-14] MEDS: NS IV 1000 ML 1,000 ML IV SCH ×2 (05:54→16:57)
[2020-12-14] MEDS: LEVOTHYROXINE 50 MCG (LEVOTHROID) TAB PO SCH (07:00)
[2020-12-14] MEDS: ASPIRIN E.C. 81 MG (ECOTRIN) TAB PO SCH (08:00)
[2020-12-14 08:03] VITALS: BP 131/79
[2020-12-14 08:22] VITALS: BP 131/79
--- NOTE | 2020-12-14 09:46 | Cardiology Progress Note ---
Subjective Date Seen by Provider: Dec 14, 2020 Time Seen by Provider: 09:45 Subjective/Events-last exam Patient was seen and evaluated, sitting comfortably in bed, no active chest pain. Planning for cardiac catheterization today Review of Systems General: No Chills, No Night Sweats, No Fatigue, No Malaise, No Appetite, No Other HEENT: No Head Aches, No Visual Changes, No Eye Pain, No Ear Pain, No Dysphasia, No Sinus Congestion, No Post Nasal Drip, No Sore Throat, No Other Pulmonary: No Dyspnea, No Cough, No Pleuritic Chest Pain, No Other Cardiovascular: No: Chest Pain, Palpitations, Orthopnea, Paroxysmal Noc. Dyspne a, Edema, Lt Headedness, Other Objective-Cardiology Exam Last Set of Vital Signs Vital Signs 12/14/20 08:22 Temp 36.8 Pulse 77 Resp 24 B/P (MAP) 131/79 (96) Pulse Ox 98 O2 Delivery Room Air I&O Intake and Output 12/14/20 00:00 Intake Total 120 ml Balance 120 ml Intake Oral 120 ml # Voids 2 Daily Weight Change No General: Alert, Oriented X3, Cooperative HEENT: Atraumatic, PERRLA Neck: Supple, No JVD, No Thyromegaly Lungs: Clear to Auscultation, Normal Air Movement Heart: Regular Rate, Normal S1, Normal S2, No Murmurs Abdomen: Normal Bowel Sounds, Soft, No Tenderness, No Hepatosplenomegaly, No Masses Extremities: No Clubbing, No Cyanosis, No Edema, Normal Pulses, No Tenderness/Swelling Skin: No Rashes, No Breakdown, No Significant Lesion Neuro: Normal Gait, Normal Speech, Strength at 5/5 X4 Ext, Normal Tone, Sensation Intact Psych/Mental Status: Mental Status NL, Mood NL Results Lab Laboratory Tests 12/14/20 05:03 A/P-Cardiology Admission Diagnosis Non-ST elevation myocardial infarction Coronary artery disease Hypertension Paroxysmal atrial fibrillation Assessment/Plan Chest pain, unstable angina, non-ST elevation myocardial infarction, has persistent elevation in troponin. Had a long discussion with the patient and her daughter yesterday, planning for cardiac catheterization and possible PTCA today. Hypertension, continue to monitor blood pressure History of paroxysmal atrial fibrillation, maintained on Eliquis, we will hold for now Hyperlipidemia, monitor lipids Debility, receiving physical therapy, was in rehab. Dementia. TIM KUHN MD Dec 14, 2020 09:46
--- NOTE | 2020-12-14 09:47 | Conscious Sedation/ASA ---
Conscious Sedation Pre-Proced Time 09:47 ASA Score 3 For ASA 3 and 4: Consider anesthesia and medical clearance. Also, for patients with a history of failed moderate sedation consider anesthesia. Airway Lungs Heart ASA score ASA 1: a normal healthy patient ASA 2: a patient with a mild systemic disease (mid diabetes, controlled hypertension, obesity x ASA 3: a patient with a severe systemic disease that limits activity (angina, COPD, prior Myocardial infarction) ASA 4: a patient with an incapacitating disease that is a constant threat to life (CHF, renal failure) ASA 5: a moribund patient not expected to survive 24 hrs. (ruptured aneurysm) ASA 6: a declared brain- patient whose organs are being harvested. For emergent operations, add the letter E after the classification Mallampati Classification Grade 3 Sedation Plan Analgesia, Amnesia, Plan communicated to team members, Discussed options with patient/fam, Discussed risks with patient/fam The patient is an appropriate candidate to undergo the planned procedure, sedation, and anesthesia. The patient immediately re-assessed prior to indication. TIM KUHN MD Dec 14, 2020 09:47
--- NOTE | 2020-12-14 09:56 | Progress Note - Hospitalist ---
Subjective HPI/CC On Admission Date Seen by Provider: Dec 14, 2020 Time Seen by Provider: 09:47 Patient is an 85-year-old female known to me from prolonged admission due to COVID-19 last year who presented to outside ER due to chest pain. She was working with physical therapy and started to walk on the treadmill when she developed substernal chest pain. She states has been going on for months. She was seen by her primary care doctor and referred to cardiology who told her this was likely secondary to inflammation from Covid. This is continued to worsen over the past few months she can have chest pain with shortness of breath that radiates to her shoulder with exertion and with rest. Her symptoms resolved after getting off of the treadmill but she was sent to the ER for evaluation. High-sensitivity troponin was checked and was read as 79. At this time she denies specific chest pain but does complain of a generalized discomfort in her chest. Subjective/Events-last exam Pt reports shivering today. No other complaints. Shivering just started and she feels very cold. RN to bedside to get vitals and temp 38. Objective Exam Vital Signs Vital Signs Date Time Temp Pulse Resp B/P (MAP) Pulse Ox O2 Delivery O2 Flow Rate FiO2 12/14/20 08:22 36.8 77 24 131/79 (96) 98 Room Air Capillary Refill : General Appearance: No Apparent Distress, Mild Distress (profuse shivering) Respiratory: Lungs Clear, No Respiratory Distress Cardiovascular: Regular Rate, Rhythm, No Murmur Gastrointestinal: Normal Bowel Sounds, Soft Neurologic/Psychiatric: Alert, Oriented x3 Results/Procedures Lab Laboratory Tests 12/14/20 05:03 Patient resulted labs reviewed. Assessment/Plan Assessment and Plan Assess & Plan/Chief Complaint NSTEMI a-fib HLD elevated troponin at OSH Repeat trending up Telemetry EKG ordered Cardiology consulted, discussed with Dr Rueda, appreciate assistance rate controlled, does not appear to be on any rate controlling medicines here Eliquis at home- continue after cath Plan was for cath today but now with fever will defer timing to Dr Rueda Fever new onset Will get UA blood cultures, COVID/flu swab, and CXR Hypothyroidism Continue home synthroid DVT ppx: already on eliquis Diagnosis/Problems Diagnosis/Problems (1) Hypothyroidism (2) NSTEMI (non-ST elevated myocardial infarction) Status: Acute (3) Atrial fibrillation Status: Chronic (4) Dementia Status: Chronic IVA SEE MD Dec 14, 2020 09:56
[2020-12-14] MEDS ORDERED: LIDOCAINE 1% INJ 20 ML 20 ML VIAL ONE (10:00)
[2020-12-14] MEDS ORDERED: HEParin (CATH LAB) 0 ML IV ONE (10:01)
[2020-12-14] MEDS ORDERED: NS IV 1000 ML 0 ML ONE (10:01)
[2020-12-14] MEDS ORDERED: NITRO DRIP 25000 MCG/D5W 0 ML IV ONE (10:05)
[2020-12-14] MEDS ORDERED: fentaNYL INJ 100 MCG/2 ML AMP ONE (10:05)
[2020-12-14] MEDS ORDERED: VERAPAMIL 5 MG/2 ML (CALAN) VIAL IV ONE (10:05)
[2020-12-14] MEDS ORDERED: MIDAZOLAM 5 MG/5 ML (VERSED) VIAL ONE (10:05)
[2020-12-14] MEDS ORDERED: HEParin 1000 UNIT/ML (10ML VIAL) FOR BOLUS ONE (10:05)
--- NOTE | 2020-12-14 10:39 | Diagnostic Imaging Report ---
EXAMINATION: Chest 1 view HISTORY: Fever COMPARISON: 12/14/2019 FINDINGS: Heart size and pulmonary vasculature are upper limits of normal. There are mild interstitial opacities seen throughout both lungs. No pleural effusion or pneumothorax. The osseous structures are intact. IMPRESSION: 1. Mild interstitial opacities seen throughout the lungs which can be seen with pulmonary edema or atypical infection in the appropriate clinical setting. Dictated by: Dictated on workstation # [id number]
[2020-12-14] MEDS ORDERED: ONDANSETRON 4 MG/2 ML (SDV) Z0FRAN IVP PRN (10:45)
[2020-12-14] MEDS ORDERED: ACETAMINOPHEN 325 MG TABLET ONE (10:50)
[2020-12-14] MEDS: ACETAMINOPHEN 325 MG TABLET PO PRN ×2 (10:57→23:56)
[2020-12-14 12:25] VITALS: BP 122/87
[2020-12-14 15:29] VITALS: BP 104/65
[2020-12-14 20:21] VITALS: BP 100/59
[2020-12-14] MEDS: DONEPEZIL 10 MG (ARICEPT) TAB PO SCH (20:23)
[2020-12-14 20:25] LABS: BILIRUBIN,URINE NEGATIVE (NEGATIVE); CLARITY,URINE SL CLOUDY; COLOR,URINE YELLOW; GLUCOSE, URINE (UA) NEGATIVE (NEGATIVE); KETONES,URINE 1+ (NEGATIVE); LEUKOCYTE ESTERASE ,URINE TRACE (NEGATIVE); NITRITE,URINE NEGATIVE (NEGATIVE); PH,URINE 5.5 (5-9); PROTEIN,URINE TRACE (NEGATIVE)
[2020-12-14 20:38] LABS: BACTERIA,URINE LARGE /HPF; RBC,URINE 0-2 /HPF
[2020-12-14 20:39] LABS: AMORPHOUS SEDIMENT,UR FEW AMOR URATES /LPF
[2020-12-15] VITALS (8 sets, daily range): BP systolic 94–148; BP diastolic 59–93
[2020-12-15] MEDS: NS IV 1000 ML 1,000 ML IV SCH ×3 (03:40→13:26)
[2020-12-15 05:17] LABS: HEMATOCRIT 36 % (35-52); HEMOGLOBIN 11.6 g/dL (11.5-16.0); MEAN CORPUSCULAR HEMOGLOBIN 29 pg (25-34); MEAN CORPUSCULAR HGB CONC 32 g/dL (32-36); MEAN CORPUSCULAR VOLUME 90 fL (80-99); MEAN PLATELET VOLUME 10.5 fL (9.0-12.2); PLATELET COUNT 171 10^3/uL (130-400); WHITE BLOOD COUNT 13.4 10^3/uL (4.3-11.0)
[2020-12-15 05:32] LABS: POTASSIUM 3.7 MMOL/L (3.6-5.0)
[2020-12-15 05:38] LABS: CREATININE SERUM 0.77 MG/DL (0.60-1.30)
[2020-12-15] MEDS: LEVOTHYROXINE 50 MCG (LEVOTHROID) TAB PO SCH (05:50)
[2020-12-15] MEDS: ACETAMINOPHEN 325 MG TABLET PO PRN ×3 (05:50→20:32)
--- NOTE | 2020-12-15 09:10 | Progress Note - Hospitalist ---
Subjective HPI/CC On Admission Date Seen by Provider: Dec 15, 2020 Time Seen by Provider: 09:08 Patient is an 85-year-old female known to me from prolonged admission due to COVID-19 last year who presented to outside ER due to chest pain. She was working with physical therapy and started to walk on the treadmill when she developed substernal chest pain. She states has been going on for months. She was seen by her primary care doctor and referred to cardiology who told her this was likely secondary to inflammation from Covid. This is continued to worsen over the past few months she can have chest pain with shortness of breath that radiates to her shoulder with exertion and with rest. Her symptoms resolved after getting off of the treadmill but she was sent to the ER for evaluation. High-sensitivity troponin was checked and was read as 79. At this time she denies specific chest pain but does complain of a generalized discomfort in her chest. Subjective/Events-last exam Pt reports doing better today. NO complaints. Eating breakfast. Discusssed urine and blood culture results as likely cause for rigors and fevers. Only one other fever overnight. Focused Exam Lactate Level 12/14/20 10:13: Lactic Acid Level 1.78 Objective Exam Vital Signs Vital Signs Date Time Temp Pulse Resp B/P (MAP) Pulse Ox O2 Delivery O2 Flow Rate FiO2 12/15/20 08:02 36.8 72 26 97/60 (72) 96 Room Air Capillary Refill : General Appearance: No Apparent Distress, WD/WN Respiratory: Lungs Clear, No Respiratory Distress Cardiovascular: Regular Rate, Rhythm, No Murmur Neurologic/Psychiatric: Alert, Oriented x3 Results/Procedures Lab Laboratory Tests 12/15/20 05:02 Patient resulted labs reviewed. Assessment/Plan Assessment and Plan Assess & Plan/Chief Complaint NSTEMI a-fib HLD elevated troponin at OSH Repeat trended up Telemetry Cardiology consulted, discussed with Dr Rueda, appreciate assistance rate controlled, does not appear to be on any rate controlling medicines here Cath cancelled yesterday due to fever and rigors UTI with bacteremia- not sepsis e coli in urine and blood cultures x2 Continue Rocephin Await sensitivities Hypothyroidism Continue home synthroid DVT ppx: already on eliquis Diagnosis/Problems Diagnosis/Problems (1) Hypothyroidism (2) NSTEMI (non-ST elevated myocardial infarction) Status: Acute (3) Atrial fibrillation Status: Chronic (4) Dementia Status: Chronic IVA SEE MD Dec 15, 2020 09:10
[2020-12-15] MEDS: ASPIRIN E.C. 81 MG (ECOTRIN) TAB PO SCH (09:25)
[2020-12-15] MEDS: cefTRIAXone 1,000 MG in WATER (STERILE) FOR INJECTION 10 ML IV SCH (09:25)
--- NOTE | 2020-12-15 11:40 | Cardiology Progress Note ---
Subjective Date Seen by Provider: Dec 15, 2020 Time Seen by Provider: 11:39 Subjective/Events-last exam Patient was seen at bedside, laying down comfortably, feeling better today, no fever was reported today, no nausea or vomiting Review of Systems General: No Chills, No Night Sweats, No Fatigue, No Malaise, No Appetite, No Other HEENT: No Head Aches, No Visual Changes, No Eye Pain, No Ear Pain, No Dysphasia, No Sinus Congestion, No Post Nasal Drip, No Sore Throat, No Other Pulmonary: No Dyspnea, No Cough, No Pleuritic Chest Pain, No Other Cardiovascular: No: Chest Pain, Palpitations, Orthopnea, Paroxysmal Noc. Dyspn ea, Edema, Lt Headedness, Other Focused Exam Lactate Level 12/14/20 10:13: Lactic Acid Level 1.78 Objective-Cardiology Exam Last Set of Vital Signs Vital Signs 12/15/20 08:02 Temp 36.8 Pulse 72 Resp 26 B/P (MAP) 97/60 (72) Pulse Ox 96 O2 Delivery Room Air I&O Intake and Output 12/15/20 00:00 Intake Total 2170 ml Output Total 650 ml Balance 1520 ml Intake Oral 170 ml IV Total 2000 ml Output Urine Total 650 ml # Voids 7 # Bowel Movements 1 General: Alert, Oriented X3, Cooperative HEENT: Atraumatic, PERRLA Neck: Supple, No JVD, No Thyromegaly Lungs: Clear to Auscultation, Normal Air Movement Heart: Regular Rate, Normal S1, Normal S2, No Murmurs Abdomen: Normal Bowel Sounds, Soft, No Tenderness, No Hepatosplenomegaly, No Masses Extremities: No Clubbing, No Cyanosis, No Edema, Normal Pulses, No Tenderness/Swelling Skin: No Rashes, No Breakdown, No Significant Lesion Neuro: Normal Gait, Normal Speech, Strength at 5/5 X4 Ext, Normal Tone, Sensation Intact Psych/Mental Status: Mental Status NL, Mood NL Results Lab Laboratory Tests 12/15/20 05:02 A/P-Cardiology Admission Diagnosis Non-ST elevation myocardial infarction Coronary artery disease Hypertension Paroxysmal atrial fibrillation Assessment/Plan Chest pain, unstable angina, non-ST elevation myocardial infarction, has persi stent elevation in troponin. Had a long discussion with the patient and her daughter yesterday, planning for cardiac catheterization and possible PTCA in the morning, the procedure was postponed due to sepsis Fever, nausea and vomiting, urosepsis, blood culture grew E. coli, started on Rocephin and followed and managed by primary care physician Hypertension, continue to monitor blood pressure History of paroxysmal atrial fibrillation, maintained on Eliquis, we will hold for now Hyperlipidemia, monitor lipids Debility, receiving physical therapy, was in rehab. Dementia. TIM KUHN MD Dec 15, 2020 11:40
[2020-12-15] MEDS: DONEPEZIL 10 MG (ARICEPT) TAB PO SCH (20:28)
[2020-12-15] MEDS: TROLAMINE (ASPERCREME) 10% CR 90 GM TUBE TOP SCH (20:28)
[2020-12-16] MEDS: NS IV 1000 ML 1,000 ML IV SCH (00:14)
[2020-12-16 00:19] VITALS: BP 121/79
[2020-12-16 02:50] VITALS: BP 141/98
[2020-12-16] MEDS: ACETAMINOPHEN 325 MG TABLET PO PRN (02:54)
[2020-12-16] MEDS: LEVOTHYROXINE 50 MCG (LEVOTHROID) TAB PO SCH (02:57)
[2020-12-16 03:00] VITALS: BP 149/98
[2020-12-16 07:02] LABS: INR 1.1 (0.8-1.4); PROTHROMBIN TIME PATIENT 14.4 SEC (12.2-14.7)
[2020-12-16 07:04] LABS: POTASSIUM 3.6 MMOL/L (3.6-5.0)
[2020-12-16 07:05] LABS: CALCIUM 8.7 MG/DL (8.5-10.1)
[2020-12-16 07:09] LABS: CREATININE SERUM 0.64 MG/DL (0.60-1.30)
[2020-12-16 07:45] VITALS: BP 115/82
[2020-12-16 07:46] LABS: HEMATOCRIT 34 % (35-52); HEMOGLOBIN 10.8 g/dL (11.5-16.0); MEAN CORPUSCULAR HEMOGLOBIN 29 pg (25-34); MEAN CORPUSCULAR HGB CONC 32 g/dL (32-36); MEAN CORPUSCULAR VOLUME 91 fL (80-99); MEAN PLATELET VOLUME 11.4 fL (9.0-12.2); PLATELET COUNT 151 10^3/uL (130-400)
[2020-12-16 07:58] VITALS: BP 132/91
[2020-12-16] MEDS ORDERED: LIDOCAINE 4% (SALONPAS) PATCH ONE (08:30)
[2020-12-16] MEDS: cefTRIAXone 1,000 MG in WATER (STERILE) FOR INJECTION 10 ML IV SCH (08:37)
[2020-12-16] MEDS: ASPIRIN E.C. 81 MG (ECOTRIN) TAB PO SCH (08:38)
[2020-12-16] MEDS ORDERED: LIDOCAINE 1% INJ 20 ML 20 ML VIAL ONE (08:56)
[2020-12-16] MEDS ORDERED: HEParin (CATH LAB) 2,000 ML IV ONE (08:56)
[2020-12-16] MEDS ORDERED: MIDAZOLAM 5 MG/5 ML (VERSED) VIAL ONE (09:00)
[2020-12-16] MEDS ORDERED: HEParin 1000 UNIT/ML (10ML VIAL) FOR BOLUS ONE (09:00)
[2020-12-16] MEDS ORDERED: LIDOCAINE 4% (SALONPAS) PATCH TOP SCH (09:00)
[2020-12-16] MEDS ORDERED: VERAPAMIL 5 MG/2 ML (CALAN) VIAL IV ONE (09:00)
[2020-12-16] MEDS ORDERED: NITRO DRIP 25000 MCG/D5W 0 ML IV ONE (09:00)
[2020-12-16] MEDS ORDERED: fentaNYL INJ 100 MCG/2 ML AMP ONE (09:00)
[2020-12-16] MEDS ORDERED: NS IV 1000 ML 1,000 ML ONE (09:25)
--- NOTE | 2020-12-16 09:55 | Conscious Sedation/ASA ---
Conscious Sedation Pre-Proced Time 09:00 ASA Score 3 For ASA 3 and 4: Consider anesthesia and medical clearance. Also, for patients with a history of failed moderate sedation consider anesthesia. Airway Lungs Heart ASA score ASA 1: a normal healthy patient ASA 2: a patient with a mild systemic disease (mid diabetes, controlled hypertension, obesity x ASA 3: a patient with a severe systemic disease that limits activity (angina, COPD, prior Myocardial infarction) ASA 4: a patient with an incapacitating disease that is a constant threat to life (CHF, renal failure) ASA 5: a moribund patient not expected to survive 24 hrs. (ruptured aneurysm) ASA 6: a declared brain- patient whose organs are being harvested. For emergent operations, add the letter E after the classification Mallampati Classification Grade 3 Sedation Plan Analgesia, Amnesia, Plan communicated to team members, Discussed options with patient/fam, Discussed risks with patient/fam The patient is an appropriate candidate to undergo the planned procedure, sedation, and anesthesia. The patient immediately re-assessed prior to indication. TIM KUHN MD Dec 16, 2020 09:55
[2020-12-16] MEDS ORDERED: PATIENT MAY USE OWN MEDS, ALL PO SCH (10:00)
[2020-12-16] MEDS ORDERED: NS IV 1000 ML 1,000 ML IV SCH (10:00)
--- NOTE | 2020-12-16 10:03 | Cardiac Cath Report ---
Cardiac Cath Report Physician (s)/Lead Care Manager (s) Physician ITM KUHN MD Pre-Procedure Diagnosis Pre-Procedure Diagnosis: Non-ST elevation myocardial infarction Post-Procedure Note Procedure Start Date: Dec 16, 2020 Name of Procedure: Left heart catheterization Findings/Procedure Note PROCEDURE NOTE: 85-year-old lady with coronary artery disease, admitted with unstable angina, non-ST elevation myocardial infarction, scheduled for cardiac catheterization possible PTCA. After explaining the procedure to the patient, all pros and cons were explained, all questions were answered. The patient signed the consent and then she was placed on the cardiac catheterization laboratory. Groin was prepped SL fashion local anesthesia was used. Sheath placed in the right femoral artery. Kael right and left catheter were used to access the coronary system. Pigtail was used to access the left ventricular cavity. Left ventriculogram was not done, pressure was measured At the end of the procedure the sheath was removed. Closure device was deployed FINDINGS: Hemodynamics LV 101/17, end-diastolic pressure of 17 Aorta 104/61 mean of 78 ANATOMY: Left Main is free of obstructive disease Left Anterior Descending is heavily calcified artery proximally, 50 to 60% stenosis was noted at the mid LAD Left Circumflex is heavily calcified artery with severe stenosis at the ostium/subtotal occlusion, calcified artery at the midportion Right Coronary Artery is moderate in size, with 50 to 60% stenosis at the midportion LV Gram was not done, pressure was measured CONCLUSION: 1. Heavily calcified coronary system with subtotal occlusion at the ostium of the circumflex artery, borderline lesions in the mid LAD and right coronary artery 2. Mildly elevated left ventricular end-diastolic pressure DISCUSSION AND RECOMMENDATION: Patient will be referred to a tertiary care center for possible high risk intervention Anesthesia Type: Conscious Sedation Estimated blood loss (mL): 20 ml Contrast Amount: 41 ml Total Radiation Dose: 482 mGy Post-Procedure Diagnosis Post-operative diagnosis: Non-ST elevation myocardial infarction Atrial fibrillation Hypertension Hyperlipidemia TIM KUHN MD Dec 16, 2020 10:03
--- NOTE | 2020-12-16 10:08 | Cardiology Progress Note ---
Subjective Date Seen by Provider: Dec 16, 2020 Time Seen by Provider: 10:03 Subjective/Events-last exam Patient was seen at bedside, had some chest pain this morning. No further nausea or vomiting. Review of Systems General: No Chills, No Night Sweats, No Fatigue, No Malaise, No Appetite, No Other HEENT: No Head Aches, No Visual Changes, No Eye Pain, No Ear Pain, No Dysphasia, No Sinus Congestion, No Post Nasal Drip, No Sore Throat, No Other Pulmonary: No Dyspnea, No Cough, No Pleuritic Chest Pain, No Other Cardiovascular: Chest Pain; No: Palpitations, Orthopnea, Paroxysmal Noc. Dyspnea, Edema, Lt Headedness, Other Focused Exam Lactate Level 12/14/20 10:13: Lactic Acid Level 1.78 Objective-Cardiology Exam Last Set of Vital Signs Vital Signs 12/16/20 12/16/20 12/16/20 07:45 07:58 09:41 Temp 36.6 Pulse 72 Resp 16 B/P (MAP) 132/91 (105) Pulse Ox 92 O2 Delivery Room Air I&O Intake and Output 12/16/20 00:00 Intake Total 1700 ml Output Total 650 ml Balance 1050 ml Intake Oral 700 ml IV Total 1000 ml Output Urine Total 650 ml # Voids 6 # Bowel Movements 3 General: Alert, Oriented X3, Cooperative HEENT: Atraumatic, PERRLA Neck: Supple, No JVD, No Thyromegaly Lungs: Clear to Auscultation, Normal Air Movement Heart: Regular Rate, Normal S1, Normal S2, Other (Systolic murmur at the left sternal border) Abdomen: Normal Bowel Sounds, Soft, No Tenderness, No Hepatosplenomegaly, No Masses Extremities: No Clubbing, No Cyanosis, No Edema, Normal Pulses, No Tenderness/Swelling Skin: No Rashes, No Breakdown, No Significant Lesion Neuro: Normal Gait, Normal Speech, Strength at 5/5 X4 Ext, Normal Tone, Sensat ion Intact Psych/Mental Status: Mental Status NL, Mood NL Results Lab Laboratory Tests 12/16/20 06:06 A/P-Cardiology Admission Diagnosis Non-ST elevation myocardial infarction Coronary artery disease Hypertension Paroxysmal atrial fibrillation Assessment/Plan Chest pain, unstable angina, non-ST elevation myocardial infarction, has persistent elevation in troponin. Cardiac catheterization was done today on December 16, 2020 showing severe ostial circumflex artery, heavily calcified, borderline lesion in the mid right coronary artery and LAD. Patient will require high risk intervention to the circumflex artery and possibly the right coronary artery. Possible FFR to the LAD. I discussed with her the management plan recommended transfer to tertiary care center. Patient will be transferred to [facility]. Urinary tract infection, E. coli, started on Rocephin. Better at this time. Hypertension, continue to monitor blood pressure History of paroxysmal atrial fibrillation, maintained on Eliquis, we will hold for now Hyperlipidemia, monitor lipids Debility, receiving physical therapy, was in rehab. Dementia. Patient will be transferred to [facility] for high risk intervention, I discussed the management plan with TIM Grimes MD Dec 16, 2020 10:08
[2020-12-16] MEDS ORDERED: NFBIOT1000 PO (13:27)
[2020-12-16] MEDS ORDERED: CHOL500050 PO (13:27)
[2020-12-16] MEDS ORDERED: [UNRECOGNIZED DRUG - OTHER] PO (13:27)
[2020-12-16] MEDS ORDERED: ZINC50TA58 PO (13:31)
[2020-12-16] MEDS ORDERED: ACET325C7 PO (13:31)
[2020-12-16 16:00] VITALS: BP 154/90
[2020-12-16] MEDS: TROLAMINE (ASPERCREME) 10% CR 90 GM TUBE TOP SCH (17:36)
--- NOTE | 2020-12-16 19:39 | Discharge Summary ---
Discharge Summary Hospital Course Problems/Dx: (1) NSTEMI (non-ST elevated myocardial infarction) Status: Acute (2) Atrial fibrillation Status: Chronic (3) Dementia Status: Chronic (4) Hypothyroidism Hospital Course Date of Admission: Dec 13, 2020 at 16:15 Admission Diagnosis : NSTEMI Family Physician/Provider: SupriyaLocal Physician Date of Discharge: 12/16/20 Discharge Diagnosis: Multivessel CAD Hospital Course: Britt Claros is an 85 year old female who was admitted with NSTEMI. Cardiology was consulted and assisted with her care. She underwent a left heart catheterization which revealed multiple signficant blockages of her coronary arteries. She was transferred to [place] for high risk intervention of her multivessel coronary artery disease. Labs and Pending Lab Test: Laboratory Tests 12/16/20 06:00: Prothrombin Time 14.4, INR Comment 1.1, Activated Partial Thromboplast Time 41H 12/16/20 06:06: White Blood Count 11.0, Red Blood Count 3.77L, Hemoglobin 10.8L, Hematocrit 34L, Mean Corpuscular Volume 91, Mean Corpuscular Hemoglobin 29, Mean Corpuscular Hemoglobin Concent 32, Red Cell Distribution Width 15.8H, Platelet Count 151, Mean Platelet Volume 11.4, Sodium Level 136, Potassium Level 3.6, Chloride Level 110H, Carbon Dioxide Level 18L, Anion Gap 8, Blood Urea Nitrogen 8, Creatinine 0.64, Estimat Glomerular Filtration Rate 88, BUN/Creatinine Ratio 13, Glucose Level 117H, Calcium Level 8.7 Microbiology 12/14/20 Urine Culture - Preliminary, Resulted Escherichia coli 12/14/20 Blood Culture - Preliminary, Resulted Escherichia coli Home Meds Active Reported Tylenol (Acetaminophen) 325 Mg Capsule 325-650 Mg PO Q8H PRN Zinc 50 Mg Tablet 50 Mg PO HS [Herbal Laxactive] 1 Ea PO HS Vitamin D3 (Cholecalciferol (Vitamin D3)) 125 Mcg Capsule 125 Mcg PO DAILY Biotin 1,000 Mcg Tablet 1,000 Mcg PO HS Magnesium (Magnesium Oxide) 250 Mg Tablet 250 Mg PO HS Vitamin C (Ascorbic Acid) 500 Mg Capsule.er 500 Mg PO DAILY Cranberry (Cranberry Extract) 200 Mg Capsule 200 Mg PO DAILY Colace (Docusate Sodium) 100 Mg Capsule 250 Mg PO HS Eliquis (Apixaban) 5 Mg Tablet 5 Mg PO Q12H Fely Allergy (Fexofenadine HCl) 180 Mg Tablet 180 Mg PO DAILY Calcium (Calcium Carbonate) 600 Mg Tablet 600 Mg PO DAILY Lovastatin 20 Mg Tablet 20 Mg PO HS Levothyroxine Sodium 50 Mcg Tablet 50 Mcg PO DAILY Gabapentin 100 Mg Capsule 200 Mg PO HS TAKES 2 (100MG) CAPS Donepezil HCl 10 Mg Tablet 10 Mg PO HS Assessment/Pt Instructions Transferred to [place] for high risk intervention Discharge Planning: <30 minutes discharge planning Discharge Instructions Discharge Diet: Low Sodium Diet Activity as Tolerated: Yes Consultations Cardiology Discharge Physical Examination Vital Signs Vital Signs Date Time Temp Pulse Resp B/P (MAP) Pulse Ox O2 Delivery O2 Flow Rate FiO2 12/16/20 16:00 36.5 83 18 154/90 (111) 91 Room Air Allergies: Coded Allergies: No Known Drug Allergies (Unverified , 11/29/19) Discharge Summary Date of Admission Dec 13, 2020 at 16:15 Date of Discharge Discharge Date: Dec 16, 2020 Discharge Time: 19:36 Admission Diagnosis NSTEMI Consults/Procedures Consulations Cardiology Procedures Left heart catheterization Discharge Diagnosis (1) NSTEMI (non-ST elevated myocardial infarction) Status: Acute (2) Atrial fibrillation Status: Chronic (3) Dementia Status: Chronic (4) Hypothyroidism ALBERTO ALDANA MD Dec 16, 2020 19:39
[2020-12-16] MEDS ORDERED: LIDOCAINE PATCH REMOVAL TP SCH (21:00)
== END 2020-12-16 19:10 | disposition short-term general hospital (02) | DRG 281 ==
LOC: CSD 16:15
PROVIDERS: ADMIT Family Medicine; ATTEND Internal Medicine
PROC: 4A023N7 Measurement of Cardiac Sampling and Pressure, Left Heart, Percutaneous Approach (ICD-10-PCS; principal; 2020-12-16)
PROC: B2111ZZ Fluoroscopy of Multiple Coronary Arteries using Low Osmolar Contrast (ICD-10-PCS; 2020-12-16)
DX: I21.4 Non-ST elevation (NSTEMI) myocardial infarction (principal); I48.20 Chronic atrial fibrillation, unspecified; N39.0 Urinary tract infection, site not specified; Z86.16 Personal history of COVID-19; E78.00 Pure hypercholesterolemia, unspecified; F03.90 Unspecified dementia, unspecified severity, without behavioral disturbance, psychotic disturbance, mood disturbance, and anxiety; Z87.820 Personal history of traumatic brain injury; M19.90 Unspecified osteoarthritis, unspecified site; G89.29 Other chronic pain; Z20.822 Contact with and (suspected) exposure to COVID-19; M54.9 Dorsalgia, unspecified; E03.9 Hypothyroidism, unspecified; Z96.651 Presence of right artificial knee joint; R50.9 Fever, unspecified; I25.110 Atherosclerotic heart disease of native coronary artery with unstable angina pectoris; I48.0 Paroxysmal atrial fibrillation; R53.81 Other malaise
CPT/HCPCS: 36415; 71045; 80048; 80061; 81000; 82947; 83605; 84145; 84484; 85027; 85610; 85730; 87040; 87077; 87088; 87186; 87636; 93005; 93306; 93458